=== PATIENT | male | born 1960 | race Caucasian/White ===

== ENCOUNTER 2021-03-05 18:47 | Outpatient (REF) | payer BC, SELFPAY ==
--- NOTE | 2021-03-05 | DI.RAD_ITS ---
Exam(s) XR LUMBAR SPINE COMPLETE EXAM: XR LUMBAR SPINE COMPLETE CLINICAL HISTORY: Low Back Pain. TECHNIQUE: 2D digital imaging was performed. COMPARISON: No exams were available for comparison FINDINGS: BONES: No fracture or destructive lesion. Vertebral bodies are unremarkable. Small endplate osteophyt es. Facet degenerative changes greatest at L4-5 and L5-S1. No spondylolysis. DISKS: Intervertebral disc spaces are maintained. ALIGNMENT: Lumbar spinal alignment is within normal limits. SOFT TISSUE: Normal. IMPRESSION: Degenerative changes greatest of the L4-5 and L5-S1 facet joints. DATA REPOSITORY: RADIATION DOSE DELIVERED:
--- NOTE | 2021-03-05 19:28 | DI.VRAD_ITS ---
PROCEDURE INFORMATION: Exam: XR Lumbosacral Spine Exam date and time: 03/05/2021 6:56 PM Age: 60 years old Clinical indication: Patient HX: Low back pain x6 weeks no recent injury TECHNIQUE: Imaging protocol: XR of the lumbosacral spine. Views: 4 or 5 views. COMPARISON: No relevant prior studies available. FINDINGS: Bones/joints: Five lumbar type vertebral bodies. Pedicles and spinous processes appear intact on the frontal image. Vertebral body heights and disc spaces are maintained. Mild endplate degenerative spurring T11-12, L2-L3, and L3-L4. Oblique views demonstrate intact posterior elements and mild multilevel lower lumbar facet arthropathy. Soft tissues: Unremarkable. Intraperitoneal space: Prior cholecystectomy. IMPRESSION: 1. Mild multilevel lower lumbar facet arthropathy. 2. Minimal multilevel endplate degenerative spurring. 3. No vertebral fracture or significant disc space narrowing. Dictated and Authenticated by: Dago Germain MD. Ordering:JASEN Pandey MD
== END 2021-03-05 18:48 | disposition home or self-care (01) ==
LOC: LBN 18:47
PROVIDERS: PCP Physician Assistant Medical; Visit Provider Physician Assistant Medical
DX: M54.5 Low back pain (principal); M47.817 Spondylosis without myelopathy or radiculopathy, lumbosacral region
CPT/HCPCS: 72110

== ENCOUNTER 2022-07-25 17:40 | Observation (INO) | payer BC, SELFPAY ==
[2022-07-25] VITALS (28 sets, daily range): BP systolic 110–133; BP diastolic 67–84; PULSE 67–105; RESP 12–23; TEMP 36.7–37.2; O2SAT 88–98
--- OUTSIDE RECORDS SUMMARY | 2022-07-25 17:55 | XMS_ITS | Encounter Summary ---
:1960 Author Organization [facility] Address [address] [place] [id number] Care Team Providers Name Role Phone Unknown, Provider Primary Care Provider Encounter Details Date Type Department Care Team Description 11/16/2019 Lab Requisition [facility] Unknown, Provider, Pathology & Laboratory [facility] [address] [facility] [place], [place] [address] [phone] Social History Tobacco Use Types Packs/Day Years Used Date Smoking Tobacco: Never Assessed Sex Assigned at Date Recorded Not on file documented as of this encounter Plan of Treatment Not on filedocumented as of this encounter Procedures Procedure Name Priority Date/Time Associated Diagnosis Comme nts FECAL BACTERIAL Routine 11/16/2019 11:04 Results for this PATHOGENS BY PCR EST procedure a re in the results section. documented in this encounter Results FECAL BACTERIAL PATHOGENS BY PCR (11/16/2019 11:04 EST) [facility] Method Time Signature Salmonella PCR Negative Negative 11/17/2019 [facility] 10:45 [facility] Shigella/Enteroin Negative Negative 11/17/2019 [facility] vasive E. coli 10:45 [facility] HN LAB Negative Negative 11/17/2019 [facility] CAMPYLOBACTER PCR 10:45 [facility] Shiga Toxin PCR Negative Negative 11/17/2019 [facility] 10:45 [facility] Specimen Anatomical Collection Method Collection Time Receive d Time (Source) Location / / Volume Laterality Feces SPECIMEN FROM 11/16/2019 11:04 11/16/2019 [facility] / Unknown EST 21:38 EST Provider Unknown MICROBIOLOGY - GENERAL ORDER DURAN Performing Organization Address City/State/ZIP Code Phon e Number [facility] [address] [place] [phone] SERVICES documented in this encounter Visit Diagnoses Not on filedocumented in this encounter Care Teams Insurance Premium Auditor Relationship Specialty Start Date End Date Unknown, Provider, PCP - General 08/12/17 documented as of this encounter
--- OUTSIDE RECORDS SUMMARY | 2022-07-25 17:55 | XMS_ITS | Continuity of Care Document ---
:1960 Author Organization [facility] Address [address] [place] [address] Care Team Providers Name Role Phone Juice Jensen Primary Care Physician Encounter NCTY_IN Date(s): 07/25/22 - 07/25/22 [facility] [address] [place] [address] Encounter Diagnosis Nausea, vomiting and diarrhea (Discharge Diagnosis) - 07/25/22 Diarrhea, unspecified (Discharge Diagnosis) - 07/25/22 Discharge Disposition: Home or Self Care Attending Physician: Jaspreet Bass MD Admitting Physician: Jaspreet Bass MD Allergies, Adverse Reactions, Alerts Substance Reaction Severity Status metoprolol1 Unknown Active morphine2 Unknown Active [id number] allergic, has had since with no reaction Assessment and Plan Future Appointments Functional Status 07/25/22 Family Member Travel History No recent travel Recent Travel History No recent travel Other exposure to Infectious Disease None Immunizations Given and Recorded Vaccine Date Status Refusal Reason influenza virus vaccine, live 07/20/21 Recorded influenza virus vaccine, live 06/04/20 Recorded influenza virus vaccine, live 06/12/19 Recorded influenza virus vaccine, live 07/06/18 Recorded SARS-CoV-2 (COVID-19) mRNA-1273 vaccine 07/13/21 Recorded SARS-CoV-2 (COVID-19) mRNA-1273 vaccine 12/01/20 Recorded SARS-CoV-2 (COVID-19) mRNA-1273 vaccine 11/03/20 Recorded zoster vaccine, inactivated 01/20/21 Recorded tetanus/diphth/pertuss (Tdap) adult/adol 01/20/21 Recorde d pneumococcal 13-valent conjugate vaccine 12/8/17 Recorde d influenza virus vaccine, inactivated 08/17/17 Recorded Medications !-Bentyl 20 mg oral tablet 20 mg = 1 tab, Oral, QID, PRN pain, # 15 tab, 0 Refill(s), Pharmacy: [facility] #[id number], 176, cm, 07/25/22 1:55:00 EST, Height/Length Dosing, 92, kg, 07/25/22 1:55:00 EST, Weight Dosing Start Date: 07/25/22 Stop Date: 08/01/22 Status: Ordered!-Zofran ODT 4 mg oral tablet, disintegrating 4 mg = 1 tab, Oral, every 6 hr, PRN as needed for nausea/vomiting, # 8 tab, 0 Refill(s), Pharmacy: [facility] #[id number], 175, cm, 07/24/22 9:28:00 EST, Height/Length Dosing, 85, kg, 07/24/22 9:28:00 EST, Weight Dosing Start Date: 07/24/22 Status: OrderedamLODIPine 5 mg oral tablet 1 tab, Oral, Daily, 0 Refill(s) Start Date: 01/29/22 Status: Orderedaspirin 81 mg oral delayed release tablet 1 tab, Oral, every morning, 0 Refill(s) Start Date: 01/29/22 Status: Orderedatorvastatin 80 mg oral tablet See Instructions, TAKE 1 TABLET DAILY, # 90 tab, 3 Refill(s), Pharmacy: [facility] Start Date: 02/03/22 Status: Orderedbenztropine 1 mg oral tablet 1 tab, Oral, every night at bedtime, 0 Refill(s) Start Date: 01/29/22 Status: Orderedbisacodyl 5 mg oral delayed release tablet 1 tab, Oral, Daily, PRN other (see comment), Take as needed, 0 Refill(s) Start Date: 01/29/22 Status: OrderedClaritin 10 mg oral tablet 1 tab, Oral, Daily, PRN other (see comment), Take as needed, 0 Refill(s) Start Date: 01/29/22 Status: Ordereddicyclomine 20 mg oral tablet 20 mg = 1 tab, Oral, QID, # 20 tab, 0 Refill(s), Pharmacy: [facility] #[id number], 175, cm, 04/26/22 20:47:00 EDT, Height/Length Dosing, 104.33, kg, 04/26/22 20:47:00 EDT, Weight Dosing Start Date: 04/26/22 Stop Date: 05/01/22 Status: Ordereddonepezil 10 mg oral tablet 1 tab, Oral, every night at bedtime, Take for 90 days, 0 Refill(s) Start Date: 01/29/22 Status: Orderedfurosemide 20 mg oral tablet 1 tab, Oral, Daily, PRN other (see comment), Take as needed, 0 Refill(s) Start Date: 01/29/22 Status: Orderedgabapentin 300 mg oral capsule 600 mg = 2 cap, Oral, TID, # 180 cap, 1 Refill(s), Pharmacy: [facility] Start Date: 01/29/22 Status: Orderedisosorbide mononitrate 60 mg oral tablet, extended release 60 mg = 1 tab, Oral, Daily, # 90 tab, 3 Refill(s), Pharmacy: [facility], 175, cm, 04/26/22 20:47:00 EDT, Height/Length Dosing, 104.33, kg, 04/26/22 20:47:00 EDT, Weight Dosing Start Date: 05/20/22 Status: Orderedloperamide 2 mg oral capsule 2 mg = 1 cap, Oral, every 4 hr, PRN as needed for loose stool, # 10 cap, 0 Refill(s), Pharmacy: [facility] #[id number], 175, cm, 07/24/22 9:28:00 EST, Height/Length Dosing, 85, kg, 07/24/22 9:28:00 EST, Weight Dosing Start Date: 07/24/22 Status: Orderedlosartan 50 mg oral tablet 50 mg = 1 tab, Oral, Daily, # 90 tab, 0 Refill(s), Pharmacy: [facility] Start Date: 01/29/22 Status: OrderedMisc Prescription 2 tab, Oral, Daily, PRN other (see comment), Magnesium 250 mg tablet; Take as needed, 0 Refill(s) Start Date: 01/29/22 Status: Orderedmultivitamin adult, oral tablet 1 tab, Oral, Daily, Multivitamin 50 Plus Tablet, 0 Refill(s) Start Date: 01/29/22 Status: Orderednitroglycerin 0.4 mg sublingual tablet 1 tab, Oral, As Directed, PRN other (see comment), Take sublingually as needed for 8 days, 0 Refill(s) Start Date: 01/29/22 Status: OrderedOLANZapine 2.5 mg oral tablet 1 tab, Oral, Daily, 0 Refill(s) Start Date: 01/29/22 Status: Orderedpantoprazole 40 mg oral delayed release tablet 1 tab, Oral, Daily, 0 Refill(s) Start Date: 01/29/22 Status: Orderedsertraline 50 mg oral tablet 1 tab, Oral, every morning, 0 Refill(s) Start Date: 01/29/22 Status: Orderedtamsulosin 0.4 mg oral capsule 1 cap, Oral, Daily, # 90 cap, 3 Refill(s), Pharmacy: [facility] Start Date: 03/31/22 Status: Ordered Problem List Condition Confirmation Course Effective Dates Status Health I nformant Status Atherosclerosis of Confirmed Active coronary artery without angina pectoris Chronic kidney Confirmed Active disease stage 3 Depressive disorder Confirmed Active Dyspnea Confirmed Active History of myocardial Confirmed Active infarction History of psychotic Confirmed Active disorder Hypertensive disorder Confirmed Active Insomnia Confirmed Active Procedures Procedure Date Related Diagnosis Body Site Status Colonoscopy1 02/09/21 Completed Cataract surgery2 08/11/20 Completed Egd / Endoscopy3 11/14/19 Completed EEG Awake and Drowsy 10/02/17 Complet ed Spectrophotometry 09/20/17 Completed History of hernia repair 09/11/99 Com pleted Repair of left tendon 09/11/97 Comple clive Procedure on shoulder4 09/11/94 Compl eted Cholecystectomy 09/11/82 Completed 1sm polyps x5, moderate diverticulosis.2Pt reported [id number] rotator cuff Results Laboratory List Name Date Urinalysis Microscopic 07/25/22 Urinalysis with Microscopic 07/25/22 SARS-CoV-2 (COVID-19)/Flu/RSV ([facility]) (COVID-19/Fl u/RSV ([facility])) 07/25/22 CBC w/ Diff 07/25/22 Comprehensive Metabolic Panel (CMP) 07/25/22 Lactic Acid 07/25/22 Procalcitonin 07/25/22 .Manual Differential (NCTY) 07/25/22 Most recent to oldest [Reference Range]: 1 WBC [5.0-10.0 x10^3/mcL] 12.6 x10^3/mcL *HI* (07/25/22 2:17 AM) RBC [4.6-6.0 x10^6/mcL] 5.3 x10^6/mcL (07/25/22 2:17 AM) Segs Man [40-75 %] 78 % *HI* (07/25/22:17 AM) Lymph Man [20-50 %] 15 % *LOW* (07/25/22 2:17 AM) Keith Man 5 % *NA* (07/25/22:17 AM) Eos Man 0 % *NA* (07/25/22: AM) BUN [7-18 mg/dL] 18 mg/dL (07/25/22 2:17 AM) UA Color Yellow (07/25/22 5:39 AM) UA WBC [0-3] 0-3 (07/25/22 5:39 AM) Glucose Level [74-106 mg/dL] 185 mg/dL *HI* (07/25/22:17 AM) Lymph, Atyp Man 1 % *NA* (07/25/22: AM) Potassium Level [3.5-5.1 mmol/L] 3.8 mmol/L (07/25/22:17 AM) MCV [80.0-96.0] 97.3 *HI* (07/25/22 2:17 AM) UA Urobilinogen Normal (07/25/22 5:39 AM) RBC Morph Normal (07/25/22:17 AM) UA Hyal Cast Rare /HPF (07/25/22 5:39 AM) UA Bili [Negative] Negative (07/25/22 5:39 AM) UA Ketones Negative (07/25/22 5:39 AM) AST [15-37 unit/L] 18 unit/L (07/25/22 2:17 AM) ALT [16-63 unit/L] 36 unit/L (07/25/22 2:17 AM) MCHC [31.0-35.0 g/dL] 35.0 g/dL (07/25/22 2:17 AM) Sodium Level [136-145 mmol/L] 138 mmol/L (07/25/22:17 AM) UA RBC [0-2] 0-2 (07/25/22 5:39 AM) UA Leuk Est Negative (07/25/22:39 AM) UA Nitrite Negative (07/25/22:39 AM) UA Glucose [Negative] Negative (07/25/22:39 AM) Hct [41.0-51.0 %] 51.2 % *HI* (07/25/22 AM) UA Bacteria None Seen /HPF (07/25/22:39 AM) Calcium Level [8.5-10.1 mg/dL] 8.7 mg/dL (07/25/22: AM) Albumin Level [3.4-5.0 g/dL] 4.3 g/dL (07/25/22: AM) Protein Total [6.4-8.2 g/dL] 6.9 g/dL (07/25/22: AM) UA Protein Negative (07/25/22:39 AM) MCH [26.0-32.0 pg] 34.0 pg *HI* (07/25/22: AM) Bilirubin Total [0.2-1.0 mg/dL] 0.8 mg/dL (07/25/22 AM) Hgb [14.0-18.0 g/dL] 17.9 g/dL (07/25/22: AM) Alk Phos [46-146 unit/L] 90 unit/L (07/25/22: AM) UA Blood Negative (07/25/22:39 AM) UA Mucous Few /HPF *ABN* (07/25/22:39 AM) Band Man [0-5 %] 1 % (07/25/22: AM) UA Spec Grav >=1.030 *NA* (07/25/22:39 AM) Platelets [130-450 x10^3/mcL] 250 x10^3/mcL (07/25/22:17 AM) CO2 [21-32 mmol/L] 26 mmol/L (07/25/22: AM) Lactic Acid Lvl [0.7-2.1 mmol/L] 1.8 mmol/L (07/25/22 2:17 AM) UA Squam Epithelial [None Seen] Rare (07/25/22 5:39 AM) UA pH 5.5 *NA* (07/25/22 5:39 AM) eGFR Non-AA [>=60] 48 *LOW* (07/25/22 2:17 AM) eGFR AA [>=60] 48 *LOW* (07/25/22 2:17 AM) UA Appear Clear (07/25/22 5:39 AM) Chloride Level [98-107 mmol/L] 103 mmol/L (07/25/22 2:17 AM) Procalcitonin [0.00-0.50 ng/mL] <0.15 ng/mL (07/25/22 2:17 AM) RDW-CV [11.5-17.0 %] 12.3 % (07/25/22 2:17 AM) UA Culture Ind?. Not Applicable (07/25/22 5:39 AM) Abs Neut Man 10.0 x10^3/mcL *NA* (07/25/22 2:17 AM) Creatinine Level [0.70-1.30 mg/dL] 1.59 mg/dL *HI* (07/25/22 2:17 AM) Employed in healthcare? No *NA* (07/25/22 2:22 AM) Symptomatic as defined by CDC? No *NA* (07/25/22 2:22 AM) Hospitalized due to COVID-19? No *NA* (07/25/22 2:22 AM) In ICU? No *NA* (07/25/22 2:22 AM) Group care resident? No *NA* (07/25/22 2:22 AM) status? Not *NA* (07/25/22 2:22 AM) SARS-CoV-2(Covid19)PCR([facility] COVFLURSV) [Negative] Ne gative (07/25/22 2:22 AM) Flu A ([facility] COVFLURSV) [Negative] Negative (07/25/22 2:22 AM) RSV ([facility] COVFLURSV) [Negative] Negative (07/25/22 2:22 AM) Flu B ([facility] COVFLURSV) [Negative] Negative (07/25/22 2:22 AM) Baso Man [0-1 %] 0 % (07/25/22 2:17 AM) Vital Signs Most recent to oldest 1 2 3 [Reference Range]: Temperature Temporal Artery 36.1 Deg C [36-38 Deg C] (07/25/22 1:44 AM) Peripheral Pulse Rate 98 bpm 89 bpm 87 bpm [60-100 bpm] (07/25/22 6:45 AM) (07/25/22 4:41 AM) (07/25/22 1:44 AM) Respiratory Rate [12-24 18 br/min 18 br/min 20 br/mi n br/min] (07/25/22 6:45 AM) (07/25/22 4:41 AM) (07/25/22 1:44 AM) Blood Pressure [90-140/60-90 132/92 mmHg 130/84 mmHg 124 /77 mmHg mmHg] (07/25/22 6:45 AM) (07/25/22 4:41 AM) (07/25/22 1:44 AM) Weight 92.00 kg (07/25/22 1:44 AM) Weight Dosing 92.00 kg (07/25/22 1:55 AM) Height 176.000 cm (07/25/22 1:44 AM) Height/Length Dosing 176.000 cm (07/25/22 1:55 AM) Body Mass Index 30.000 kg/m2 (07/25/22 1:44 AM) Social History Social History Type Response Tobacco chews Tobacco Use:.1 Sex Male 1pt chews Physician Emergency department Note Jaspreet Bass MD: PERFORM Event Display: ED Note Physician Authored Date: [id number] ADAM PALACIOS JR :1960 Age:62 years Sex:Male Visit Date:07/25/2022 Primary Care Physician: Juice Jensen DO Basic Information Time Seen: Jaspreet Bass MD / 07/25/2022 01:58 Chief Complaint Patient states seen here yesterday for N/V/D and abdominal pain. ??States he feels even worse now. ??Continues to have v/d with severe diffuse abdominal pain. History Of Present Illness: HPI 62-year-old male with history of CKD 3, depressive disorder, NM, psychotic disorder, HTN, and insomnia presents for repeat evaluation of nausea, vomiting, and diarrhea now of approximately 36 hours duration, patient is concerned that his symptoms have not resolved (was seen in the ED yesterday and prescribed Zofran and loperamide).?? * Character: non-bloody, no mucus, no pus. * Frequency: emesis??4x??today, stooling 8x??today. * Duration: 36 hours * Denies: recent antibiotics, fresh or salt water exposure, recent hospitalization, travel, drinking untreated water, history of c. difficile. * Fever/chills/rigors: denies. * HIV or immunocompromise: denies. * Cough: denies. ?? M/S/F/SocHx notable for: cholecystectomy; remainder reviewed with patient and in chart.? ROS: Negative constitutional, eye, cardiovascular, pulmonary, GI, , MSK, skin, neurologic, psychiatric, endocrine unless noted in the HPI. ?? Exam HR 87, BP 124/77, RR 20, T 36.1?C, SaO2??94% on room air. Gen:??Pleasant, non-toxic appearing, resting comfortably. HEENT: NC, AT, PEERL, EOMI, neck supple with full range of movement. Resp: Clear to auscultation bilaterally, normal work of breathing, no accessory muscle usage. Card: Regular rate and rhythm with no murmurs, rubs, or gallops, extremities warm and well perfused.?? GI: Non-tender to palpation throughout all quadrants, non-distended, no rebound or guarding. : No suprapubic tenderness to palpation.?? MSK: No visible deformities, strength and tone without visually appreciable deficit. Skin: Normal color with no visible lesions. Neuro: alert and oriented?3, no facial asymmetry, vision and hearing WNL. Psych: Mood and affect appropriate. ?? Labs WBC 12.6, Hb 5.3, sodium one 38, potassium 3.8, glucose 185, creatinine??1.59, AST 18, ALT 36, ALP 90, total bilirubin 0.8, lactic acid 1.8, Procalcitonin <0.15. Negative influenza A, influenza B, RSV, COVID-19. UA - negative nitrate, negative leukocyte esterase, 0-3 WBCs, no bacteria. ?? Imaging CT Abd/Pelvis: 1. No findings for acute appendicitis.?? 2. Perinephric stranding of fat which could have several possible?? etiologies including scarring, third spacing of fluid, inflammatory?? process or infection.?? 3. Small pericardial effusion.?? 4. Fatty infiltration of the pancreas.?? 5. Hiatal hernia. ?? MDM Previous chart, nursing note, and vitals reviewed.?? A:??62-year-old male with history of CKD 3, depressive disorder, NM, psychotic disorder, HTN, and insomnia presents for repeat evaluation of nausea, vomiting, and diarrhea now of approximately 36 hours duration, patient is concerned that his symptoms have not resolved (was seen in the ED yesterday and prescribed Zofran and loperamide). ?? DDx: viral (enteritis, gastroenteritis 2/2 norovirus, influenza, COVID-19, NOS), bacterial gastroenteritis, food poisoning, C. Difficile, dehydration, electrolyte abnormalities, septicemia/bacteremia,DKA, acute appendicitis, inflammatory (Crohn???s vs ulcerative colitis). ?? Evaluation:??given the overall appearance, suspect a viral gastroenteritis. Mild leukocytosis noted, normal lactic acid, normal procalcitonin, and mild elevation the patient???s creatinine consistent with mild dehydration. Patient given Zofran and one liter NS, continue to endorse abdominal discomfort and was unwilling to meaningfully attempt PO intake. 12.5 mg diphenhydramine, 2 mg haloperidol, [id number] ML NS ordered, patient had significant improvement symptoms and was able to take PO. As the patient is on his 2nd??presentation further care and was unable to take PO after the initial interventions, imaging was obtained, this was notable for features consistent with perinephric inflammation, however the patient???s urinalysis is without any features of infection. Doubt developing lobar nephroniaas the patient has no known recent urinary tract infections or other predisposing factors. Patient appears to be physiologically tolerating his symptoms well. Patient prescribed Bentyl and instructed to stay well hydrated. Patient to continue his current Zofran and loperamide. Influenza, RSV, COVID-19swab negative. No features suggestive of sepsis on today???s evaluation. Above evaluation without evidence over the remainder of the differential. ?? Impression: nausea, vomiting, diarrhea. Physical Exam Vitals & Measurements T:??36.1?C ??(Temporal Artery)?? HR:??89??(Peripheral)?? RR:??18?? BP:??130/84?? SpO2:??96%?? HT:??176.000??cm?? WT:??92.00??kg?? BMI:??30.000?? Pain Score:??10?? O2 Therapy:??Room air?? Procedure No Qualifying Data Assessment/Plan Ordered: Communication Order, 07/25/22 2:16:00 EST, Pls po challenge after IV fluids. Thanks! Medication Reconciliation Unchanged amLODIPine (amLODIPine 5 mg oral tablet)1 tab Oral (given by mouth) every day. ?? aspirin (aspirin 81 mg oral delayed release tablet)1 tab Oral (given by mouth) every morning. ?? atorvastatin (atorvastatin 80 mg oral tablet)TAKE 1 TABLET DAILY. Refills: 3. ?? benztropine (benztropine 1 mg oral tablet)1 tab Oral (given by mouth) every night at bedtime. ?? bisacodyl (bisacodyl 5 mg oral delayed release tablet)1 tab Oral (given by mouth) every day as needed other (see comment). Take as needed. ?? dicyclomine (dicyclomine 20 mg oral tablet)1 tab Oral (given by mouth) 4 times a day for 5 Days. Refills: 0. ?? donepezil (donepezil 10 mg oral tablet)1 tab Oral (given by mouth) every night at bedtime. Take for 90 days. ?? furosemide (furosemide 20 mg oral tablet)1 tab Oral (given by mouth) every day as needed other (see comment). Take as needed. ?? gabapentin (gabapentin 300 mg oral capsule)2 Capsules Oral (given by mouth) 3 times a day. Refills: 1. ?? isosorbide mononitrate (isosorbide mononitrate 60 mg oral tablet, extended release)1 tab Oral (givenby mouth) every day. Refills: 3. ?? loperamide (loperamide 2 mg oral capsule)1 Capsules Oral (given by mouth) every 4 hours as needed asneeded for loose stool. Refills: 0. ?? loratadine (Claritin 10 mg oral tablet)1 tab Oral (given by mouth) every day as needed other (see comment). Take as needed. ?? losartan (losartan 50 mg oral tablet)1 tab Oral (given by mouth) every day. Refills: 0. ?? multivitamin (multivitamin adult, oral tablet)1 tab Oral (given by mouth) every day. Multivitamin 50Plus Tablet. ?? nitroglycerin (nitroglycerin 0.4 mg sublingual tablet)1 tab Oral (given by mouth) As Directed as needed other (see comment). Take sublingually as needed for 8 days. ?? OLANZapine (OLANZapine 2.5 mg oral tablet)1 tab Oral (given by mouth) every day. ?? ondansetron (!-Zofran ODT 4 mg oral tablet, disintegrating)1 tab Oral (given by mouth) every 6 hoursas needed as needed for nausea/vomiting. Refills: 0. ?? Other [place] [place]2 tab Oral (given by mouth) every day as needed other (see comment). Magnesium 250 mg tablet; Take as needed. ?? pantoprazole (pantoprazole 40 mg oral delayed release tablet)1 tab Oral (given by mouth) every day. ?? sertraline (sertraline 50 mg oral tablet)1 tab Oral (given by mouth) every morning. ?? tamsulosin (tamsulosin 0.4 mg oral capsule)1 Capsules Oral (given by mouth) every day. Refills: 3. Problem List/Past Medical History Ongoing Atherosclerosis of coronary artery without angina pectoris Chronic kidney disease stage 3 Depressive disorder Dyspnea History of myocardial infarction History of psychotic disorder Hypertensive disorder Insomnia Historical Constipation Musculoskeletal symptom Pain of left hip joint Procedure/Surgical History ???Colonoscopy (02/10/2021)???Cataract surgery (08/12/2020)???Egd / Endoscopy (11/15/2019)???EEG Awake and Drowsy (10/03/2017)???Spectrophotometry (09/21/2017)???History of hernia repair (09/12/1999)???Repair of left tendon (09/12/1997)???Procedure on shoulder (09/12/1994)???Cholecystectomy (09/12/1982) Medication Administration Given !-Haldol, 2 mg, Slow IV Push diphenhydrAMINE, 12.5 mg, IV Push NS bolus, 1000 mL, IV Piggyback NS bolus, 500 mL, IV Piggyback Zofran, 4 mg, IV Push Allergies metoprolol morphine Social History Electronic Cigarette/Vaping Electronic Cigarette Use: Never. Tobacco chews Tobacco Use:.- Comments: pt chews Family History Chronic obstructive lung disease: Mother. Emphysema: Mother. Hypertensive disorder: Mother. Prostate cancer: Father. Lab Results CBC and Differential?? LATEST RESULTS?? HISTORICAL RESULTS?? WBC?? 07/25/22 02:17?? 12.6 ??High?? 07/24/22?? 10.2 ??High?? RBC?? 07/25/22 02:17?? 5.3?? 07/24/22?? 5.2?? Hgb?? 07/25/22 02:17?? 17.9?? 07/24/22?? 17.7?? Hct?? 07/25/22 02:17?? 51.2 ??High?? 07/24/22?? 49.7?? MCV?? 07/25/22 02:17?? 97.3 ??High?? 07/24/22?? 95.2?? MCH?? 07/25/22 02:17?? 34.0 ??High?? 07/24/22?? 33.9 ??High?? MCHC?? 07/25/22 02:17?? 35.0?? 07/24/22?? 35.6 ??High?? RDW-CV?? 07/25/22 02:17?? 12.3?? 07/24/22?? 12.1?? Platelets?? 07/25/22 02:17?? 250?? 07/24/22?? 254?? Segs Man?? 07/25/22 02:17?? 78 ??High?? 07/24/22?? 81 ??High?? Lymph Man?? 07/25/22 02:17?? 15 ??Low?? 07/24/22?? 14 ??Low?? Keith Man?? 07/25/22 02:17?? 5?? 07/24/22?? 3?? Eos Man?? 07/25/22 02:17?? 0?? 07/24/22?? 2?? Baso Man?? 07/25/22 02:17?? 0?? 07/24/22?? 0?? Band Man?? 07/25/22 02:17?? 1?? 07/24/22?? 0?? Lymph, Atyp Man?? 07/25/22 02:17?? 1? Abs Neut Man?? 07/25/22 02:17?? 10.0?? 04/26/22?? 12.6?? RBC Morph?? 07/25/22 02:17?? Normal?? 07/24/22?? Normal? Routine Chemistry?? LATEST RESULTS?? HISTORICAL RESULTS?? Sodium Level?? 07/25/22 02:17?? 138?? 07/24/22?? 141?? Potassium Level?? 07/25/22 02:17?? 3.8?? 07/24/22?? 3.4 ??Low?? Chloride Level?? 07/25/22 02:17?? 103?? 07/24/22?? 103?? CO2?? 07/25/22 02:17?? 26?? 07/24/22?? 29?? Alk Phos?? 07/25/22 02:17?? 90?? 07/24/22?? 94?? AST?? 07/25/22 02:17?? 18?? 07/24/22?? 17?? ALT?? 07/25/22 02:17?? 36?? 07/24/22?? 41?? BUN?? 07/25/22 02:17?? 18?? 07/24/22?? 15?? Glucose Level?? 07/25/22 02:17?? 185 ??High?? 07/24/22?? 111 ??High?? Creatinine Level?? 07/25/22 02:17?? 1.59 ??High?? 07/24/22?? 1.36 ??High?? eGFR AA?? 07/25/22 02:17?? 48 ??Low?? 07/24/22?? 58 ??Low?? eGFR Non-AA?? 07/25/22 02:17?? 48 ??Low?? 07/24/22?? 58 ??Low?? Calcium Level?? 07/25/22 02:17?? 8.7?? 07/24/22?? 9.2?? Protein Total?? 07/25/22 02:17?? 6.9?? 07/24/22?? 7.9?? Albumin Level?? 07/25/22 02:17?? 4.3?? 07/24/22?? 4.6?? Bilirubin Total?? 07/25/22 02:17?? 0.8?? 07/24/22?? 0.7?? Lactic Acid Lvl?? 07/25/22 02:17?? 1.8?? 07/24/22?? 1.6? Endocrinology?? LATEST RESULTS?? Procalcitonin?? 07/25/22 02:17?? <0.15? UA Macroscopic?? LATEST RESULTS?? HISTORICAL RESULTS?? UA Color?? 07/25/22 05:39?? Yellow?? 04/26/22?? Yellow?? UA Appear?? 07/25/22 05:39?? Clear?? 04/26/22?? Clear?? UA Glucose?? 07/25/22 05:39?? Negative?? 04/26/22?? Negative?? UA Bili?? 07/25/22 05:39?? Negative?? 04/26/22?? Negative?? UA Ketones?? 07/25/22 05:39?? Negative?? 04/26/22?? Negative?? UA Spec Grav?? 07/25/22 05:39?? >=1.030?? 04/26/22?? 1.015?? UA Blood?? 07/25/22 05:39?? Negative?? 04/26/22?? Negative?? UA pH?? 07/25/22 05:39?? 5.5?? 04/26/22?? 5.5?? UA Protein?? 07/25/22 05:39?? Negative?? 04/26/22?? Negative?? UA Urobilinogen?? 07/25/22 05:39?? Normal?? 04/26/22?? Normal?? UA Nitrite?? 07/25/22 05:39?? Negative?? 04/26/22?? Negative?? UA Leuk Est?? 07/25/22 05:39?? Negative?? 04/26/22?? Negative?? UA Culture Ind?.?? 07/25/22 05:39?? Not Applicable? UA Microscopic?? LATEST RESULTS?? UA WBC?? 07/25/22 05:39?? 0-3?? UA RBC?? 07/25/22 05:39?? 0-2?? UA Squam Epithelial?? 07/25/22 05:39?? Rare?? UA Mucous?? 07/25/22 05:39?? Few Abnormal?? UA Bacteria?? 07/25/22 05:39?? None Seen?? UA Hyal Cast?? 07/25/22 05:39?? Rare? Infectious Disease?? LATEST RESULTS?? Employed in healthcare??? 07/25/22 02:22?? No?? Symptomatic as defined by CDC??? 07/25/22 02:22?? No?? Hospitalized due to COVID-19??? 07/25/22 02:22?? No?? In ICU??? 07/25/22 02:22?? No?? Group care resident??? 07/25/22 02:22?? No?? status??? 07/25/22 02:22?? Not ?? SARS-CoV-2(Covid19)PCR([facility] COVFLURSV)?? 07/25/22 02:22?? Negative?? Flu A ([facility] COVFLURSV)?? 07/25/22 02:22?? Negative?? Flu B ([facility] COVFLURSV)?? 07/25/22 02:22?? Negative?? RSV ([facility] COVFLURSV)?? 07/25/22 02:22?? Negative? Electronically Signed on 07/25/22 06:21 AM Jaspreet Bass MD Emergency department Discharge instructions Jaspreet Bass MD: PERFORM Event Display: ED Discharge Information Authored Date: [id number] ADAM PALACIOS JR :1960 Age:62 years Sex:Male Visit Date:07/25/2022 Primary Care Physician: Juice Jensen DO Discharge Instructions We would like to thank you for allowing us to assist you with your healthcare needs. The following includes patient education materials and information regarding your injury/illness. ?? [facility] seen at[facility] for evaluation for evaluation of nausea, vomitingand??diarrhea.??Please read and follow all of the instructions below. ?? Please follow up with your primary care physician??as needed. When calling for follow-up care, please make the office aware that this follow-up is from your recent emergency room visit.? Your care today was limited to identifying and treating emergent medical problems only. Many people have subtle differences in their test results that require follow up with their outpatient physician(s) to correctly determine if this represents a normal variation or concerning abnormality with respect to your specific health.??The care given to you today was limited to identifying and treating emergent medical problems - you need to request a copy of all of your medical records from today's visit and follow up with your outpatient physician(s) to review both today's visit and your overall health. If you have any new symptoms or if you are at all concerned about your health please return immediately to the emergency department. ?? Prescriptions: If you are uninsured or have financial difficulties with filling your prescription(s), you may consider using a free pharmacy discount service such as [employer] ([employer]) or [employer] ([employer]). These services allow you to search for a medication on your phone (or computer) and obtain a coupon that usually has a significant discount from the list mcfadden at a pharmacy. Your physician does not have a financial relationship with either of these services. You may also wish to speak with your physician to determine if lower cost prescriptions are possible. ?? Dicyclomine (Brand Name: Bentyl) This medication is used to reduce abdominal cramping due to diarrhea or irritable bowel disease. This medication works by slowing the natural movements of the gut and by relaxing the muscles in the stomach and intestines. Dicyclomine belongs to a class of drugs known as anticholinergics/antispasmodics. This medication must not be used in children younger than 6 months old because of the risk of serious side effects. ?Take 20 mg every 6 hours as needed for treatment of abdominal cramps. ?Dicyclomine treats only the symptoms, not the cause of diarrhea (e.g. infection) or irritable bowel disease. ?Stop taking this medication and seek immediate medical attention if any of these unlikely but serious side effects occur: severe constipation/nausea/vomiting, stomach/abdominal pain, uncomfortable fullness of the stomach/abdomen, bloody diarrhea or if you are otherwise concerned about your health. ?Please read all of the instructions and warnings below as well as on the package insert.? Dicyclomine - How To Use: ?Take this medication by mouth, usually 4 times a day (before meals and at bedtime) or as directed by your doctor. To reduce your risk of side effects, your doctor may direct you to start this medication at a low dose and gradually increase your dose. Follow your doctor's instructions carefully. ?If you are using the liquid form of this medication, carefully measure the dose using a special measuring device/spoon. Do not use a household spoon because you may not get the correct dose. Mix the dose of liquid with an equal amount of water before taking it. ?Antacids lower the absorption of dicyclomine. Do not take this medication at the same time as antacids. If you are taking an antacid, take it after meals and take dicyclomine before meals. ?The dosage is based on your age, medical condition, and response to treatment. ?Do not increase your dose or take this drug more often without your doctor's approval. Your condition will not improve any faster and the risk of serious side effects may increase. ?If this medication has been used regularly for a long time or in high doses, withdrawal symptoms (such as dizziness, sweating, vomiting) may rarely occur if you suddenly stop using this medication. To prevent withdrawal reactions, your doctor may reduce your dose gradually. Consult your doctor or pharmacist for more details, and report any withdrawal reactions right away. ?Along with its benefits, this medication may rarely cause abnormal drug- seeking behavior (addiction). Take this medication exactly as prescribed to lessen the risk of addiction. ?Tell your doctor if your condition persists or worsens. ?? Dicyclomine - Side Effects: ?Dizziness, drowsiness, lightheadedness, weakness, blurred vision, dry eyes, dry mouth, nausea,constipation, and abdominal bloating may occur. If any of these effects persist or worsen, tell yourdoctor or pharmacist promptly. ?To relieve dry mouth, suck (sugarless) hard candy or ice chips, chew (sugarless) gum, drink water, or use a saliva substitute. To relieve dry eyes, consult your pharmacist for artificial tears orother eye lubricants. ?To prevent constipation, eat a diet adequate in fiber, drink plenty of water, and exercise. Consult your pharmacist for help in selecting a laxative (such as a stimulant type with stool softener). ?Remember that your doctor has prescribed this medication because he or she has judged that thebenefit to you is greater than the risk of side effects. Many people using this medication do not have serious side effects. ?Tell your doctor right away if any of these unlikely but serious side effects occur: decreasedsweating, dry/hot/flushed skin, fast/irregular heartbeat, loss of coordination, slurred speech, mental/mood changes (such as confusion, hallucinations, agitation, nervousness, unusual excitement), diffi culty urinating, decreased sexual ability. ?Get medical help right away if you have any very serious side effects, including: eye pain/swelling/redness, vision changes (such as seeing rainbows around lights at night). ?A very serious allergic reaction to this drug is rare. However, seek immediate medical attention if you notice any symptoms of a serious allergic reaction, including: rash, itching/swelling (especially of the face/tongue/throat), severe dizziness, trouble breathing. ?This is not a complete list of possible side effects. If you notice other effects not listed above, contact your doctor or pharmacist. ?? Dicyclomine - Precautions: ?Before taking dicyclomine, tell your doctor or pharmacist if you are allergic to it; or if youhave any other allergies. This product may contain inactive ingredients, which can cause allergic reactions or other problems. Talk to your pharmacist for more details. ?Before using this medication, tell your doctor or pharmacist your medical history, especially of: personal or family history of glaucoma (angle-closure type), enlarged prostate, problems with urination due to a blocked urinary tract, other stomach/intestinal problems (such as slow gut, blockage,ulcerative colitis, infection, little/no stomach acid, ileostomy/colostomy patients with diarrhea), overactive thyroid, heart problems (such as coronary artery disease, angina, congestive heart failure, fast/irregular heartbeat, heart problems due to severe bleeding), high blood pressure, heartburn problems (such as acid reflux, hiatal hernia, esophagus problems), certain nervous system problem (autonomic neuropathy), myasthenia gravis, liver problems, kidney problems. ?This drug may make you dizzy or drowsy or cause blurred vision. Do not drive, use machinery, or do any activity that requires alertness or clear vision until you are sure you can perform such activities safely. Limit alcoholic beverages. ?This medication may make you sweat less, making you more likely to get heat stroke. Avoid doing things that may cause you to overheat, such as hard work or exercise in hot weather, or using hot tubs. When the weather is hot, drink a lot of fluids and dress lightly. If you overheat, quickly look for a place to cool down and rest. Get medical help right away if you have a fever that does not go away, mental/mood changes, headache, or dizziness. ?Older adults may be more sensitive to the side effects of this drug, especially drowsiness, confusion, unusual excitement, constipation, fast heartbeat, and urination problems. Drowsiness and confusion can increase the risk of falling. ?During , this medication should be used only when clearly needed. Discuss the risks and benefits with your doctor. ?This medication passes into breast milk and may have undesirable effects on a nursing . The printed circuit board assembly repairer recommends that you do not breast-feed while using this drug. Consult your doctor for more details. ?? Dicyclomine - Drug Interactions: ?Drug interactions may change how your medications work or increase your risk for serious side effects. This document does not contain all possible drug interactions. Keep a list of all the products you use (including prescription/nonprescription drugs and herbal products) and share it with your d octor and pharmacist. Do not start, stop, or change the dosage of any medicines without your doctor's approval. ?Some products that may interact with this drug include: potassium tablets/capsules, drugs thatare affected by slowed gut movement (such as pramlintide). ?Dicyclomine may affect the absorption of other products such as levodopa, certain azole anti-fungal drugs (ketoconazole, itraconazole), slowly-dissolving forms of digoxin, among others. If you are taking either ketoconazole or itraconazole, take it at least 2 hours before dicyclomine. ?Many other drugs that also cause dry mouth and constipation may interact with anticholinergics/antispasmodics such as dicyclomine. Tell your doctor or pharmacist about all the products you take, including: amantadine, other anticholinergic drugs (such as atropine, glycopyrrolate, scopolamine), other antispasmodic drugs (such as clidinium, propantheline), belladonna alkaloids, certain drugs usedto treat Parkinson's disease (such as benztropine, trihexyphenidyl), certain drugs used to treat irregular heart rhythms (such as disopyramide, quinidine), MAO inhibitors (isocarboxazid, linezolid, methylene blue, moclobemide, phenelzine, procarbazine, rasagiline, selegiline, tranylcypromine), phenothiazines (such as chlorpromazine), tricyclic antidepressants (such as amitriptyline).?Tell your doctor or pharmacist if you are taking other products that cause drowsiness including alcohol, antihistamines (such as cetirizine, diphenhydramine), drugs for sleep or anxiety (such as alprazolam, diazepam, zolpidem), muscle relaxants, and narcotic pain relievers (such as codeine).?Check the labels on all your medicines (such as allergy or [id number] products, diet aids)because they may contain ingredients that cause drowsiness or a fast heartbeat. Ask your pharmacist about using those products safely.?This medication may interfere with certain laboratory tests (including gastric secretion tests), possibly causing false test results. Make sure laboratory personnel and all your doctors know you use this drug. ? Diagnosis from Today's Visit Nausea, vomiting and diarrhea Diarrhea, unspecified Discharge Vitals Temperature??(Temporal Artery) 97.0 ??F (36.1 ??C) Heart Rate??(Peripheral) 89 Respiratory Rate?? 18 Blood Pressure?? 130/84?? Height?? 69.29 in (176.000 cm) Weight?? 202.86 lb (92.00 kg) BMI?? 30.000 Allergies metoprolol morphine What to Do Next Upcoming Scheduled Appointments January. 2022 3:20 PM EDT ?? You were treated today on an emergency basis; it may be mcclain to contact your primary care provider to notify them of your visit today. You may have been referred to your regular doctor or a specialist,please follow up as instructed. If your condition worsens or you can't get in to see the doctor, contact the Emergency Department. Medications What How Much When Why Instructions Next Dose Changed dicyclomine (!-Bentyl 20 mg oral tablet) 1 tab Oral (given by mouth) 4 times a day as needed for pain Nausea, vomiting and diarrhea Duration: 7 Days Pickup at [facility] Changed dicyclomine (dicyclomine 20 mg oral tablet) 1 tab Oral (given by mouth) 4 times a day Abdominal pain Duration: 5 Days Unchanged amLODIPine (amLODIPine 5 mg oral tablet) 1 tab Oral (given by mouth) Every day Unchanged aspirin (aspirin 81 mg oral delayed release tablet) 1 tab Oral (given by mouth) Every morning Unchanged atorvastatin (atorvastatin 80 mg oral tablet) See instructions TAKE 1 TABLET DAILY ?? Unchanged benztropine (benztropine 1 mg oral tablet) 1 tab Oral (given by mouth) Every night at bedtime Unchanged bisacodyl (bisacodyl 5 mg oral delayed release tablet) 1 tab Oral (given by mouth) Every day as needed for other (see comment) Take as needed ?? Unchanged donepezil (donepezil 10 mg oral tablet) 1 tab Oral (given by mouth) Every night at bedtime Take for 90 days ?? Unchanged furosemide (furosemide 20 mg oral tablet) 1 tab Oral (given by mouth) Every day as needed for other (see comment) Take as needed ?? Unchanged gabapentin (gabapentin 300 mg oral capsule) 2 Capsules Oral (given by mouth) 3 times a day Back pain Unchanged isosorbide mononitrate (isosorbide mononitrate 60 mg oral tablet, extended release) 1 tab Oral (given by mouth) Every day Atherosclerosis of coronary artery without angina pectoris Unchanged loperamide (loperamide 2 mg oral capsule) 1 Capsules Oral (given by mouth) Every 4 hours as needed for as needed for loose stool Gastroenteritis Hypokalemia Unchanged loratadine (Claritin 10 mg oral tablet) 1 tab Oral (given by mouth) Every day as needed for other (see comment) Take as needed ?? Unchanged losartan (losartan 50 mg oral tablet) 1 tab Oral (given by mouth) Every day Hypertensive disorder Unchanged multivitamin (multivitamin adult, oral tablet) 1 tab Oral (given by mouth) Every day Multivitamin 50 Plus Tablet ?? Unchanged nitroglycerin (nitroglycerin 0.4 mg sublingual tablet) 1 tab Oral (given by mouth) As Directed as needed for other (see comment) Take sublingually as needed for 8 days ?? Unchanged OLANZapine (OLANZapine 2.5 mg oral tablet) 1 tab Oral (given by mouth) Every day Unchanged ondansetron (!-Zofran ODT 4 mg oral tablet, disintegrating) 1 tab Oral (given by mouth) Every 6 hours as needed for as needed for nausea/vomiting Gastroenteritis Hypokalemia Unchanged Other Prescription (Misc Prescription) 2 tab Oral (given by mouth) Every day as needed for other (see comment) Magnesium 250 mg tablet; Take as needed ?? Unchanged pantoprazole (pantoprazole 40 mg oral delayed release tablet) 1 tab Oral (given by mouth) Every day Unchanged sertraline (sertraline 50 mg oral tablet) 1 tab Oral (given by mouth) Every morning Unchanged tamsulosin (tamsulosin 0.4 mg oral capsule) 1 Capsules Oral (given by mouth) Every day Pharmacy Information [facility]: [address], [place] [id number] [phone] Tests Performed Medications and Immunizations Administered Given !-Haldol, 2 mg, Slow IV Push diphenhydrAMINE, 12.5 mg, IV Push NS bolus, 1000 mL, IV Piggyback NS bolus, 500 mL, IV Piggyback Zofran, 4 mg, IV Push Lab Test Name Test Result Date/Time WBC 12.6 x10^3/mcL 07/25/2022 02:17 EST RBC 5.3 x10^6/mcL 07/25/2022 02:17 EST Hgb 17.9 g/dL 07/25/2022 02:17 EST Hct 51.2 % 07/25/2022 02:17 EST MCV 97.3 07/25/2022 02:17 EST MCH 34.0 pg 07/25/2022 02:17 EST MCHC 35.0 g/dL 07/25/2022 02:17 EST RDW-CV 12.3 % 07/25/2022 02:17 EST Platelets 250 x10^3/mcL 07/25/2022 02:17 EST Segs Man 78 % 07/25/2022 02:17 EST Lymph Man 15 % 07/25/2022 02:17 EST Keith Man 5 % 07/25/2022 02:17 EST Eos Man 0 % 07/25/2022 02:17 EST Baso Man 0 % 07/25/2022 02:17 EST Band Man 1 % 07/25/2022 02:17 EST Lymph, Atyp Man 1 % 07/25/2022 02:17 EST Abs Neut Man 10.0 x10^3/mcL 07/25/2022 02:17 EST RBC Morph Normal 07/25/2022 02:17 EST Sodium Level 138 mmol/L 07/25/2022 02:17 EST Potassium Level 3.8 mmol/L 07/25/2022 02:17 EST Chloride Level 103 mmol/L 07/25/2022 02:17 EST CO2 26 mmol/L 07/25/2022 02:17 EST Alk Phos 90 unit/L 07/25/2022 02:17 EST AST 18 unit/L 07/25/2022 02:17 EST ALT 36 unit/L 07/25/2022 02:17 EST BUN 18 mg/dL 07/25/2022 02:17 EST Glucose Level 185 mg/dL 07/25/2022 02:17 EST Creatinine Level 1.59 mg/dL 07/25/2022 02:17 EST eGFR AA 48 07/25/2022 02:17 EST eGFR Non-AA 48 07/25/2022 02:17 EST Calcium Level 8.7 mg/dL 07/25/2022 02:17 EST Protein Total 6.9 g/dL 07/25/2022 02:17 EST Albumin Level 4.3 g/dL 07/25/2022 02:17 EST Bilirubin Total 0.8 mg/dL 07/25/2022 02:17 EST Lactic Acid Lvl 1.8 mmol/L 07/25/2022 02:17 EST Procalcitonin <0.15 ng/mL 07/25/2022 02:17 EST UA Color YELLOW. 07/25/2022 05:39 EST UA Appear CLEAR. 07/25/2022 05:39 EST UA Glucose NEGATIVE 07/25/2022 05:39 EST UA Bili NEGATIVE 07/25/2022 05:39 EST UA Ketones NEGATIVE 07/25/2022 05:39 EST UA Spec Grav >=1.030 07/25/2022 05:39 EST UA Blood NEGATIVE 07/25/2022 05:39 EST UA pH 5.5 07/25/2022 05:39 EST UA Protein NEGATIVE 07/25/2022 05:39 EST UA Urobilinogen 0.2 Uro 07/25/2022 05:39 EST UA Nitrite NEGATIVE 07/25/2022 05:39 EST UA Leuk Est NEGATIVE 07/25/2022 05:39 EST UA Culture Ind?. Not Applicable 07/25/2022 05:39 EST UA WBC 0-3 07/25/2022 05:39 EST UA RBC 0-2 07/25/2022 05:39 EST UA Squam Epithelial Rare 07/25/2022 05:39 EST UA Mucous Few 07/25/2022 05:39 EST UA Bacteria None Seen 07/25/2022 05:39 EST UA Hyal Cast Rare 07/25/2022 05:39 EST Employed in healthcare? No 07/25/2022 02:22 EST Symptomatic as defined by CDC? No 07/25/2022 02:22 EST Hospitalized due to COVID-19? No 07/25/2022 02:22 EST In ICU? No 07/25/2022 02:22 EST Group care resident? No 07/25/2022 02:22 EST status? Not 07/25/2022 02:22 EST SARS-CoV-2(Covid19)PCR(GXpert COVFLURSV) NEGATIVE 07/25/2022 02:22 EST Flu A (GXpert COVFLURSV) NEGATIVE 07/25/2022 02:22 EST Flu B (GXpert COVFLURSV) Neg-GeneXPert 07/25/2022 02:22 EST RSV (GXpert COVFLURSV) Neg-GeneXPert 07/25/2022 02:22 EST Patient/Wood Machinist Signature Patient Name:ADAM PALACIOS JR I have received this information and my questions have been answered. Patient/Wood Machinist Name: Patient/Wood Machinist Signature: Relationship to Patient: Witness Name/Signature: Date: Electronically Signed on: 07/25/2022 06:22 ESTSigned by:CLIFF Patient Care team information Care Team PersonnelName: Juice Jensen DO Position: Physician Member Role: Primary Care Physician Address: Address: [address] [address]- [place] Name: Jaspreet Bass MD Position: Physician Member Role: Attending Physician Name: Susanna Beauchamp Position: Nurse Member Role: ED Nurse Care Team Related PersonsName: CALLUM PALACIOS Address: Home [address] [place] [id number]
--- OUTSIDE RECORDS SUMMARY | 2022-07-25 17:55 | XMS_ITS | Encounter Summary ---
:1960 Author Organization [facility] Address [address] [place] [address] Care Team Providers Name Role Phone Unknown, Provider Primary Care Provider Reason for Visit Reason Comments Other Encounter Details Date Type Department Care Team Description 12/29/2020 Refill [facility] [place] Menendez MD Other [facility] [address] [facility] [address] [facility] [address] [place] [address] [place] [address] (Wo rk) Social History Tobacco Use Types Packs/Day Years Used Date Smoking Tobacco: Never Assessed Sex Assigned at Date Recorded Not on file documented as of this encounter Ordered Prescriptions Prescription Sig Dispensed Refills Start Date End Date donepeziL (ARICEPT) 10 mg TAKE 1 TABLET AT 90 Tab 1 12/1107/03/2021 tablet BEDTIME documented in this encounter Miscellaneous Notes Telephone Encounter - Kimberly Alexis RN - 12/29/2020 1006 EDT Request: donepezil 10 mg qhs Last OV: 08/13/2021 Next OV: needs scheduling Ref Date: 08/13 same Action: Escript as tabbed Please schedule patient for MOCA f/u when next available. You may need to schedule with Riana. documented in this encounter Plan of Treatment Not on filedocumented as of this encounter Visit Diagnoses Not on filedocumented in this encounter Discontinued Medications Medication Sig Discontinue Reason Start Date End Date donepezil (ARICEPT) 10 TAKE 1 TABLET AT 06/18/2020 0 12/29/2020 mg tablet BEDTIME documented as of this encounter Care Teams Industrial Millwright Relationship Specialty Start Date End Date Unknown, Provider, PCP - General 08/12/17 documented as of this encounter
--- OUTSIDE RECORDS SUMMARY | 2022-07-25 17:55 | XMS_ITS | Encounter Summary ---
:1960 Author Organization [facility] Address [address] [place] [address] Care Team Providers Name Role Phone Unknown, Provider Primary Care Provider Reason for Visit Reason Comments Other Encounter Details Date Type Department Care Team Description 06/18/2020 Refill [facility] France Menendez MD Other [facility] Clinic [address] [facility] [address] [facility] [address] [place] [address] [place] [address] (Wo rk) Social History Tobacco Use Types Packs/Day Years Used Date Smoking Tobacco: Never Assessed Sex Assigned at Date Recorded Not on file documented as of this encounter Ordered Prescriptions Prescription Sig Dispensed Refills Start Date End Date donepezil (ARICEPT) 10 mg TAKE 1 TABLET AT 90 Tab 1 03/202012/29/2020 tablet BEDTIME documented in this encounter Miscellaneous Notes Telephone Encounter - Radha Goodwin - 07/01/2020 0912 EDT lmom for pt to call back to set up apt Telephone Encounter - Kimberly Alexis RN - 06/18/2020 0827 EDT Request: donezepil 10 mg qhs Last OV: 03/06/2020 Next OV: needs scheduling - canceled d/t covid and Dr. Menendez's medical leave Reference Date: 03/25/2020 Action: escript as tabbed Please schedule pt for f/u with Dr. Menendez when next available. documented in this encounter Plan of Treatment Not on filedocumented as of this encounter Visit Diagnoses Not on filedocumented in this encounter Discontinued Medications Medication Sig Discontinue Reason Start Date End Date donepeziL (ARICEPT) 10 mg Take 1 Tab by mouth 03/25/20 20 06/18/2020 tablet at bedtime. documented as of this encounter Historical Medications This list may reflect changes made after this encounter. Medication Sig Dispensed Refills Start Date End Date zaleplon (SONATA) 5 mg 0 06/18/2020 capsule sertraline (ZOLOFT) 50 mg Take 50 mg by mouth 0 0 03/13/2020 tablet daily. OLANZapine (ZYPREXA) 5 mg 1 tab(s) orally once 0 tablet a day at hs OLANZapine (ZYPREXA) 2.5 mg Take 2.5 mg by mouth 0 06/18/2020 tablet at bedtime. Carisoprodol 250 mg tablet 1 tab(s) orally 4 0 times a day pantoprazole (PROTONIX) 40 Take 40 mg by mouth 0 05/26/2020 mg tablet daily before breakfast. loperamide (IMODIUM) 2 mg 1 cap(s) orally 0 capsule every 4 hours,PRN losartan (COZAAR) 100 mg 0 05/05/2020 tablet atorvastatin (LIPITOR) 80 Take 80 mg by mouth 0 0 05/08/2020 mg tablet daily. isosorbide mononitrate Take 60 mg by mouth 0 04/13 (IMDUR) 60 mg CR tablet daily. amLODIPine (NORVASC) 5 mg Take 5 mg by mouth 0 tablet daily. clopidogreL (PLAVIX) 75 mg 1 tab(s) orally once 0 tablet a day benztropine (COGENTIN) 0.5 TAKE 1 TABLET BY 0 10/2019 mg tablet MOUTH EVERY NIGHT benztropine (COGENTIN) 1 mg Take 1 mg by mouth 0 06/18/2020 tablet at bedtime. acetaminophen (TYLENOL) 325 2 tab(s) orally 0 mg tablet every 6 hours,PRN added in this encounter Care Teams Music Therapist Relationship Specialty Start Date End Date Unknown, Provider, PCP - General 08/12/17 documented as of this encounter
--- OUTSIDE RECORDS SUMMARY | 2022-07-25 17:55 | XMS_ITS | Encounter Summary ---
:1960 Author Organization [facility] Address [address] [place] [address] Care Team Providers Name Role Phone Unknown, Provider Primary Care Provider Reason for Visit Reason Onset Date Comments Medications Refill 09/23/2021 Encounter Details Date Type Department Care Team Description 09/23/2021 Refill [facility] [place] Menendez MD Medications Refill [facility] [address] [place] [address] [place] [address] (Wo rk) Social History Tobacco Use Types Packs/Day Years Used Date Smoking Tobacco: Never Assessed Sex Assigned at Date Recorded Not on file documented as of this encounter Ordered Prescriptions Prescription Sig Dispensed Refills Start Date End Date donepezil (ARICEPT) 10 mg Take 1 Tablet by 30 Tablet 3 09/1210/16/2021 tablet mouth daily. documented in this encounter Miscellaneous Notes Addendum Note - Kimberly Skinner RN - 09/29/2021 1130 EST Addended by: KIMBERLY SKINNER on: 09/29/2021 11:30 Modules accepted: Orders Telephone Encounter - Kimberly Skinner RN - 09/29/2021 1122 EST Escript for Arricept 10 mg daily. Left message for them to call and make an appointment for f/u - MOC[facility] [address] Menendez. Telephone Encounter - Kimberly Skinner RN - 09/24/2021 1531 EST Riana referred back to your last televist in 08/2020. Your note references his need to come in in Spring 2020 when the covid was over - this did not happen. Riana was under the impression that at some point you were going to stop the Arricept. They have 14 days left and will need to reorder next week if he is to continue. How would you like to proceed? Telephone Encounter - Kimberly Skinner RN - 09/24/2021 0941 EST Left message for Riana to retrun my call. Telephone Encounter - Jayde Senior MA - 09/23/2021 1441 EST Refill Aricept. Would like to talk with RN before getting a refill [facility] order pharmacy. documented in this encounter Plan of Treatment Not on filedocumented as of this encounter Visit Diagnoses Not on filedocumented in this encounter Discontinued Medications Medication Sig Discontinue Reason Start Date End Date donepezil (ARICEPT) 10 TAKE 1 TABLET AT 07/03/2021 0 09/29/2021 mg tablet BEDTIME donepeziL (ARICEPT) 10 Take 1 Tab by mouth 03/25/2020 04/01/2020 mg tablet daily for 7 days. documented as of this encounter Care Teams Geologist Relationship Specialty Start Date End Date Unknown, Provider, PCP - General 08/12/17 documented as of this encounter
--- OUTSIDE RECORDS SUMMARY | 2022-07-25 17:55 | XMS_ITS | Encounter Summary ---
:1960 Author Organization [facility] Address [address] [place] [address] Care Team Providers Name Role Phone Unknown, Provider Primary Care Provider Reason for Visit Reason Onset Date Comments Medications Refill 10/16/2021 Encounter Details Date Type Department Care Team Description 10/16/2021 Telephone [facility] - Barb Menendez MD Medications Refill [facility] [address] [facility] [address] [facility] [address] [place] [address] [place] [address] (Wo rk) Social History Tobacco Use Types Packs/Day Years Used Date Smoking Tobacco: Never Assessed Sex Assigned at Date Recorded Not on file documented as of this encounter Ordered Prescriptions Prescription Sig Dispensed Refills Start Date End Date donepezil (ARICEPT) 10 mg Take 1 Tablet by 30 Tablet 1 12/202111/09/2021 tablet mouth daily. documented in this encounter Miscellaneous Notes Telephone Encounter - Kimberly Alexis RN - 10/16/2021 1430 EST Riana stated that pharmacy never received the script sent in in September for donepezil. They need themedication right away so they would like a 30 day script sent into their local pharmacy - [facility] in [place]. Escript as tabbed. Telephone Encounter - Angélica Mauricio - 10/16/2021 1400 EST Riana left message that Meliton needs refill. She did not say what kind. documented in this encounter Plan of Treatment Not on filedocumented as of this encounter Visit Diagnoses Not on filedocumented in this encounter Discontinued Medications Medication Sig Discontinue Reason Start Date End Date donepezil (ARICEPT) 10 Take 1 Tablet by 09/29/2021 0 10/16/2021 mg tablet mouth daily. documented as of this encounter Care Teams Customer Support Consultant Relationship Specialty Start Date End Date Unknown, Provider, PCP - General 08/12/17 documented as of this encounter
--- OUTSIDE RECORDS SUMMARY | 2022-07-25 17:55 | XMS_ITS | Encounter Summary ---
:1960 Author Organization [facility] Address [address] [place] [address] Care Team Providers Name Role Phone Unknown, Provider Primary Care Provider Encounter Details Date Type Department Care Team Description 02/10/2021 Lab Requisition [place] Brittney Garcia for other Pathology & MD Lina general examination Laboratory Medicine [address] [place] [address] [address] [place] [address] [place], [place] [id number] Social History Tobacco Use Types Packs/Day Years Used Date Smoking Tobacco: Never Assessed Sex Assigned at Date Recorded Not on file documented as of this encounter Plan of Treatment Not on filedocumented as of this encounter Procedures Procedure Name Priority Date/Time Associated Diagnosis Comme nts SURGICAL PATHOLOGY Today 02/10/2021 11:15 Resul ts for this EDT procedure are i n the results section. documented in this encounter Results SURGICAL PATHOLOGY (02/10/2021 11:15 EDT) Component Value Ref Test Analysis Performed At [facility] Range Method Time Signature Final A. COLON, TRANSVERSE, POLYP, BIOPSY: 12/2020 [facility] MED[facility] Diagnosis - Fragments of tubular adenoma(s). 12:14 EDT CENTER LABORATORY B. COLON, SIGMOID, POLYP, BIOPSY: SERVICES - Tubular adenoma. Attestation By the signature 02/13/2021 [facility] MEDICA L Electronically below, the 12:14 EDT CENTER signed by attending LABORATORY Araceli Fernández physician APURVA Crawford MD on certifies that 021 at 1214 they have 1) personally conducted a gross and/or microscopic examination of the described specimen(s), and/or personally interpreted the results of laboratory testing of the described specimen(s), and 2) personally rendered or confirmed the above diagnosis. Clinical Screening; colon 02/13/2021 [facility] MEDICAL History polyps, 12:14 EDT CENTER diverticulosis LABORATORY SERVICES Gross A. 02/13/2021 [facility] MEDICAL Description Received in formalin lino d with proper patient identification (initials B, R) and transverse colon polyp are seven pale-lanier focally brown speckled tissues (0.7 x 0.3 x 0.2 cm to 0.3 x 0.2 x 0.1 cm). Entirely submitted in A1-A2. 12:14 T CENTER LABORATORY B. SERVICES Received in formalin lino d with proper patient identification (initials B, R) and sigmoid colon polyp are two pale lanier focally brown speckled tissues (0.3 x 0.3 x 0.2 cm and 0.2 x 0.2 x 0.1 cm). Entirely submitted in B1. Vinicius Meier 02/11/2021 8:41 Performing Lab [facility] 02/13/2021 [facility] MEDIC AL LAB 12:14 T CENTER LABORATORY SERVICES Scanned Images 02/13/2021 [facility] MEDICAL 12:14 [facility] LABORATORY SERVICES Specimen Anatomical Collection Method Collection Time Receive d Time (Source) Location / / Volume Laterality Tissue (Colon, 02/10/2021 11:15 1 8:14 Polyp) EDT EDT Tissue specimen 02/10/2021 11:15 02/12/20 21 8:14 (specimen) EDT EDT (Colon, Polyp) Brittney Garcia MD PATHOLOGY ORDERABLES Performing Organization Address City/State/ZIP Code Phon e Number [facility] [address] [place] [address] SERVICES documented in this encounter Visit Diagnoses Diagnosis Encounter for other general examination documented in this encounter Care Teams Vacuum Technician Relationship Specialty Start Date End Date Unknown, Provider, PCP - General 08/12/17 documented as of this encounter
--- OUTSIDE RECORDS SUMMARY | 2022-07-25 17:55 | XMS_ITS | Continuity of Care Document ---
:1960 Author Organization [facility] Address [address] [place] [address] Care Team Providers Name Role Phone Juice Jensen Primary Care Physician Encounter NCTY_SD Date(s): 07/24/22 - 07/24/22 [facility] [address] [place] [address] Encounter Diagnosis Gastroenteritis (Discharge Diagnosis) - 07/24/22 Hypokalemia (Discharge Diagnosis) - 07/24/22 Discharge Disposition: Home or Self Care Attending Physician: Saba Brian MD Admitting Physician: Saba Brian MD Allergies, Adverse Reactions, Alerts Substance Reaction Severity Status metoprolol1 Unknown Active morphine2 Unknown Active [id number] allergic, has had since with no reaction Assessment and Plan Future Appointments Functional Status 07/24/22 Family Member Travel History No recent travel [...] pain, # 15 tab, 0 Refill(s), Pharmacy: [facility], 176, cm, 07/25/22 1:55:00 EST, Height/Length Dosing, 92, kg, 07/25/22 1:55:00 EST, Weight Dosing Start Date: 07/25/22 Stop Date: 08/01/22 Status: Ordered!-Zofran ODT 4 mg oral tablet, disintegrating 4 mg = 1 tab, Oral, every 6 hr, PRN as needed for nausea/vomiting, # 8 tab, 0 Refill(s), Pharmacy: [facility], 175, cm, 07/24/22 9:28:00 EST, Height/Length [...] DAILY, # 90 tab, 3 Refill(s), Pharmacy: [facility] Start Date: 02/03/22 [...] QID, # 20 tab, 0 Refill(s), Pharmacy: [facility], 175, cm, 04/26/22 20:47:00 EDT, Height/Length [...] TID, # 180 cap, 1 Refill(s), Pharmacy: [facility] Start Date: 01/29/22 Status: Orderedisosorbide mononitrate 60 mg oral tablet, extended release 60 mg = 1 tab, Oral, Daily, # 90 tab, 3 Refill(s), Pharmacy: [facility], 175, cm, 04/26/22 20:47:00 EDT, Height/Length Dosing, 104.33, kg, 04/26/22 20:47:00 EDT, Weight Dosing Start Date: 05/20/22 Status: Orderedloperamide 2 mg oral capsule 2 mg = 1 cap, Oral, every 4 hr, PRN as needed for loose stool, # 10 cap, 0 Refill(s), Pharmacy: [facility], 175, cm, 07/24/22 9:28:00 EST, Height/Length Dosing, 85, kg, 07/24/22 9:28:00 EST, Weight Dosing Start Date: 07/24/22 Status: Orderedlosartan 50 mg oral tablet 50 mg = 1 tab, Oral, Daily, # 90 tab, 0 Refill(s), Pharmacy: [facility] Start Date: 01/29/22 Status: OrderedMisc Prescription [...] Daily, # 90 cap, 3 Refill(s), Pharmacy: [facility] Start Date: 03/31/22 Status: Ordered Problem [...] Completed 1sm polyps x5, moderate diverticulosis.2Pt reported [id number] rotator cuff Results Laboratory List Name Date CBC w/ Diff 07/24/22 Comprehensive Metabolic Panel (CMP) 07/24/22 Lactic Acid 07/24/22 .Manual Differential (NCTY) 07/24/22 Most recent to oldest [Reference Range]: 1 WBC [5.0-10.0 x10^3/mcL] 10.2 x10^3/mcL *HI* (07/24/22 9:38 AM) RBC [4.6-6.0 x10^6/mcL] 5.2 x10^6/mcL (07/24/22 9:38 AM) Segs Man [40-75 %] 81 % *HI* (07/24/22 9:38 AM) Lymph Man [20-50 %] 14 % *LOW* (07/24/22 9:38 AM) [place] Man 3 % *NA* (07/24/22 9:38 AM) Eos Man 2 % *NA* (07/24/22 9:38 AM) BUN [7-18 mg/dL] 15 mg/dL (07/24/22 9:38 AM) Glucose Level [74-106 mg/dL] 111 mg/dL *HI* (07/24/22 9:38 AM) Potassium Level [3.5-5.1 mmol/L] 3.4 mmol/L *LOW* (07/24/22 9:38 AM) MCV [80.0-96.0] 95.2 (07/24/22 9:38 AM) RBC Morph Normal (07/24/22:38 AM) AST [15-37 unit/L] 17 unit/L (07/24/22 9:38 AM) ALT [16-63 unit/L] 41 unit/L (07/24/22 9:38 AM) MCHC [31.0-35.0 g/dL] 35.6 g/dL *HI* (07/24/22 9:38 AM) Sodium Level [136-145 mmol/L] 141 mmol/L (07/24/22 9:38 AM) Hct [41.0-51.0 %] 49.7 % (07/24/22:38 AM) Calcium Level [8.5-10.1 mg/dL] 9.2 mg/dL (07/24/22 9:38 AM) Albumin Level [3.4-5.0 g/dL] 4.6 g/dL (07/24/22 9:38 AM) Protein Total [6.4-8.2 g/dL] 7.9 g/dL (07/24/22 9:38 AM) MCH [26.0-32.0 pg] 33.9 pg *HI* (07/24/22 9:38 AM) Bilirubin Total [0.2-1.0 mg/dL] 0.7 mg/dL (07/24/22 9:38 AM) Hgb [14.0-18.0 g/dL] 17.7 g/dL (07/24/22 9:38 AM) Alk Phos [46-146 unit/L] 94 unit/L (07/24/22 9:38 AM) Band Man [0-5 %] 0 % (07/24/22 9:38 AM) Platelets [130-450 x10^3/mcL] 254 x10^3/mcL (07/24/22 9:38 AM) CO2 [21-32 mmol/L] 29 mmol/L (07/24/22 9:38 AM) Lactic Acid Lvl [0.7-2.1 mmol/L] 1.6 mmol/L (07/24/22 9:38 AM) eGFR Non-AA [>=60] 58 *LOW* (07/24/22 9:38 AM) eGFR AA [>=60] 58 *LOW* (07/24/22:38 AM) Chloride Level [98-107 mmol/L] 103 mmol/L (07/24/22 9:38 AM) RDW-CV [11.5-17.0 %] 12.1 % (07/24/22 9:38 AM) Creatinine Level [0.70-1.30 mg/dL] 1.36 mg/dL *HI* (07/24/22 9:38 AM) Baso Man [0-1 %] 0 % (07/24/22 9:38 AM) Vital Signs Most recent to oldest [Reference Range]: 1 Temperature Temporal Artery [36-38 Deg C] 35.9 Deg C *LOW* (07/24/22 9:15 AM) Peripheral Pulse Rate [60-100 bpm] 70 bpm (07/24/22 9:15 AM) Respiratory Rate [12-24 br/min] 14 br/min (07/24/22 9:15 AM) Blood Pressure [90-140/60-90 mmHg] 141/90 mmHg *HI* (07/24/22 9:15 AM) Weight Dosing 85.00 kg (07/24/22 9:28 AM) Weight Estimated 85.00 kg (07/24/22 9:15 AM) Height/Length Dosing 175.000 cm (07/24/22 9:28 AM) Height/Length Estimated 175.000 cm (07/24/22 9:15 AM) Social History Social History Type Response Tobacco chews Tobacco Use:.1 Sex [facility] Discharge Instructions Patient Habvonila86/12/2022 09:54:08Food PoisoningFood Poisoning Food poisoning is an illness that is caused by eating or drinking contaminated foods or drinks. In most cases, food poisoning is mild and lasts 1???2 days. However, some cases can be serious, especially for people who have weak body defense systems (immune systems), older people, children and infants,and women. What are the causes? This condition is caused by contaminated food. Foods can become contaminated with viruses, bacteria,parasites, or mold due to: ??? Poor personal hygiene, such as poor hand-washing practices. ??? Storing food improperly, such as not refrigerating raw meat. ??? Using unclean surfaces for preparing, serving, and storing food. ??? Cooking or eating with unclean utensils. If contaminated food is eaten, viruses, bacteria, or parasites can harm the intestine. This often causes severe diarrhea. The most common causes of food poisoning include: ??? Viruses, such as: ??? Norovirus. ??? Rotavirus. ??? Bacteria, such as: ??? Salmonella. ??? Listeria. ??? E. coli (Escherichia coli). ??? Parasites, such as: ??? Giardia. ??? Toxoplasma gondii. What are the signs or symptoms? Symptoms may take several hours to appear after you consume contaminated food or drink. Symptoms include: ??? Nausea. ??? Vomiting. ??? Cramping. ??? Diarrhea. ??? Fever and chills. ??? Muscle aches. ??? Dehydration. Dehydration can cause you to be tired and thirsty, have a dry mouth, and urinate less frequently. How is this diagnosed? Your health care provider can diagnose food poisoning with your medical history and a physical exam.This will include asking you what you have recently eaten. You may also have tests, including: ??? Blood tests. ??? Stool tests. How is this treated? Treatment focuses on relieving your symptoms and making sure that you are hydrated. You may also be given medicines. In severe cases, hospitalization may be required and you may need to receive fluids through an IV. Follow these instructions at home: Eating and drinking ??? Drink enough fluids to keep your urine pale yellow. You may need to drink small amounts of clearliquids frequently. ??? Avoid milk, caffeine, and alcohol. ??? Ask your health care provider for specific rehydration instructions. ??? Eat small, frequent meals rather than large meals. Medicines ??? Take ykmz-nzr-xsjeapk and prescription medicines only as told by your health care provider. Ask your health care provider if you should continue to take any of your regular prescribed and rnjh-fgy-cqliyes medicines. ??? If you were prescribed an antibiotic medicine, take it as told by your health care provider. Do not stop taking the antibiotic even if you start to feel better. General instructions ??? Wash your hands thoroughly before you prepare food and after you go to the bathroom (use the toilet). Make sure that the people who live with you also wash their hands often. ??? Rest at home until you feel better. ??? Clean surfaces that you touch with a product that contains chlorine bleach. ??? Keep all follow-up visits as told by your health care provider. This is important. How is this prevented? Wash your hands, food preparation surfaces, and utensils thoroughly before and after you handle raw foods. ??? Use separate food preparation surfaces and storage spaces for raw meat and for fruits and vegetables. ??? Keep refrigerated foods colder than 40??F (5??C). ??? Serve hot foods immediately or keep them heated above 140??F (60??C). ??? Store dry foods in cool, dry spaces away from excess heat or moisture. Throw out any foods that do not smell right or are in cans that are bulging. ??? Follow approved praveen procedures. ??? Heat canned foods thoroughly before you taste them. ??? Drink bottled or sterile water when you travel. Get help right away if: ??? You have difficulty breathing, swallowing, talking, or moving. ??? You develop blurred vision. ??? You cannot eat or drink without vomiting. ??? You faint. ??? Your eyes turn yellow. ??? Your vomiting or diarrhea is persistent. ??? Abdominal pain develops, increases, or localizes in one small area. ??? You have a fever. ??? You have blood or mucus in your stools, or your stools look dark black and tarry. ??? You have signs of dehydration, such as: ??? Dark urine, very little urine, or no urine. ??? Cracked lips. ??? Not making tears while crying. ??? Dry mouth. ??? Sunken eyes. ??? Sleepiness. ??? Weakness. ??? Dizziness. These symptoms may represent a serious problem that is an emergency. Do not wait to see if the symptoms will go away. Get medical help right away. Call your local emergency services (911 in the [place] Do not drive yourself to the hospital. Summary ??? Food poisoning is an illness that is caused by eating or drinking contaminated foods or drinks. ??? Symptoms may include nausea, vomiting, diarrhea, muscle aches, cramping, fever, chills, and dehydration. ??? In most cases, food poisoning is mild and lasts 1???2 days. ??? In severe cases, hospitalization may be required. This information is not intended to replace advice given to you by your health care provider. Make sure you discuss any questions you have with your health care provider. Document Revised: 06/13/2019 Document Reviewed: 06/13/2019 [employer] Patient Education ?? 2021 [employer]. Follow Up Care07/24/2022 09:15:23With:Follow up with primary care provider Address: [facility] Saba Brian MD: PERFORM Event Display: ED Note Physician Authored Date: [id number] ADAM PALACIOS JR :1960 Age:62 years Sex:Male Visit Date:07/24/2022 Primary Care Physician: Juice Jensen DO Basic Information Time Seen: Saba Brian MD / 07/24/2022 09:22 Chief Complaint vomiting and diarrhea since 3 yesterday, I think I have food poisoning History Of Present Illness: 62-year-old male??with history of CKD stage III, depression,??CAD,??history of UT, history of psychotic disorder, hypertension, insomnia, who presents to the emergency department complaining of??nausea, vomiting??and diarrhea??which started around 4 PM yesterday after eating at [employer].?? The patient reports about 6 episodes of vomiting and 12 episodes of watery diarrhea, nonbloody. ??No fevers or chills. ??Associated with lower abdominal cramping.?? The patient's is accompanying him and also had some milder symptoms??after eating??in the restaurant.?? No recent antibiotics, no recent travel. Review of Systems: In addition to the ROS embedded in the HPI, the patient has no Const: fever, chills,?? CV: chest pain or palpitations Pulm: shortness of breath GI: As above Physical Exam Vitals & Measurements T:??35.9?C ??(Temporal Artery)?? HR:??70??(Peripheral)?? RR:??14?? BP:??141/90?? SpO2:??96%?? HT:??175.000??cm?? WT:??85.00??kg??(Estimated)?? Pain Score:??10?? General: A&Ox3, Calm, no apparent distress, well developed, pleasant and cooperative ?? HEENT: Head ATNC. Eyes: TOVA. Extraocular Mobility: intact and symmetrical. Conjunctiva: non-injected, anicteric, no discharge. Oral Cavity: moist. Neck: no masses, no crepitus. Lymph Nodes: no cervical lymphadenopathy? Respiratory: resp effort - no dyspnea, speaking in full sentences. CTA bilaterally, no wheezing, caroline/crackles? CV: RRR, normal S1, normal S2, no murmurs, rubs or gallops ?? Abdomen : soft, non-tender, non-distended, no rebound or guarding, no hepatosplenomegaly ?? Extremities: no le swelling, warm and well-perfused, no cyanosis, capillary refill <2 seconds? Skin: no rash, no lesions, no bruising? Neuro: normal tone, normal strength in all 4 extremities, sensation intact?? Medical Decision Makin-year-old male??with history of CKD stage III, depression,??CAD,??history of UT, history of psychotic disorder, hypertension, insomnia, who presents to the emergency department complaining of??nausea, vomiting??and diarrhea??which started around 4 PM yesterday after eating at [employer].?? The patient is well nontoxic-appearing with reassuring vital signs. ??His abdominal exam is benign.?Concern for food poisoning.?? The patient does not appear to be overtly dehydrated at this time. Plan to check labs and treat symptomatically. Procedure No Qualifying Data Assessment/Plan 1.??Gastroenteritis??K52.9 Labs reassuring except for hypoK, which was repleted po once pt demonstrated tolerating po. Pt d/cedhome with Zofran ODT and Loperamide po.?? Discharge instructions and return precautions discussed, all questions answered. Ordered: loperamide 2 mg oral capsule, 2 mg = 1 cap, Oral, every 4 hr, PRN as needed for loose stool, # 10 cap, 0 Refill(s), Pharmacy: [facility], 175, cm, 07/24/22 9:28:00 EST, Height/Length Dosing,85, kg, 07/24/22 9:28:00 EST, Weight Dosing !-Zofran ODT 4 mg oral tablet, disintegrating, 4 mg = 1 tab, Oral, every 6 hr, PRN as needed for nausea/vomiting, # 8 tab, 0 Refill(s), Pharmacy: [facility], 175, cm, 07/24/22 9:28:00 EST, Height/Length Dosing, 85, kg, 07/24/22 9:28:00 EST, Weight Dosing Discharge Patient, 07/24/22 11:48:00 EST, Constant Indicator ?? 2.??Hypokalemia??E87.6 repleated po Ordered: loperamide 2 mg oral capsule, 2 mg = 1 cap, Oral, every 4 hr, PRN as needed for loose stool, # 10 cap, 0 Refill(s), Pharmacy: [facility], 175, cm, 07/24/22 9:28:00 EST, Height/Length Dosing,85, kg, 07/24/22 9:28:00 EST, Weight Dosing !-Zofran ODT 4 mg oral tablet, disintegrating, 4 mg = 1 tab, Oral, every 6 hr, PRN as needed for nausea/vomiting, # 8 tab, 0 Refill(s), Pharmacy: [facility], 175, cm, 07/24/22 9:28:00 EST, Height/Length Dosing, 85, kg, 07/24/22 9:28:00 EST, Weight Dosing Discharge Patient, 07/24/22 11:48:00 EST, Constant Indicator ?? Orders: Zofran, 4 mg = 2 mL, IV Push, Soln, every 6 hr, PRN nausea/vomiting, First Dose: 07/24/22 9:36:00 EST, STAT Patient Education Food Poisoning Follow Up With When Contact Information Follow up with primary care provider Within 2 to 4 days Additional Instructions: Medication Reconciliation New Prescription loperamide (loperamide 2 mg oral capsule)1 Capsules Oral (given by mouth) every 4 hours as needed as needed for loose stool. Refills: 0. ?? ondansetron (!-Zofran ODT 4 mg oral tablet, disintegrating)1 tab Oral (given by mouth) every 6 hoursas needed as needed for nausea/vomiting. Refills: 0. ?? Unchanged amLODIPine (amLODIPine 5 mg oral tablet)1 [...] (givenby mouth) every day. Refills: 3. ?? loratadine (Claritin 10 mg oral tablet)1 [...] Oral (given by mouth) every day. ?? Other Prescription ([facility] Prescription)2 tab Oral (given by mouth) every [...] on shoulder (09/12/1994)???Cholecystectomy (09/12/1982) Medication Administration Given 0.9% NaCl bolus, 500 mL, IV Bolus loperamide, 4 mg, Oral. For: Gastroenteritis,??Hypokalemia potassium chloride, 40 mEq, Oral. For: Gastroenteritis,??Hypokalemia Zofran, 4 mg, IV Push Allergies metoprolol morphine Social History Electronic Cigarette/Vaping Electronic Cigarette Use: Never. Tobacco chews Tobacco Use:.- Comments: pt chews Family History Chronic obstructive lung disease: Mother. Emphysema: Mother. Hypertensive disorder: Mother. Prostate cancer: Father. Lab Results CBC and Differential?? LATEST RESULTS?? HISTORICAL RESULTS?? WBC?? 07/24/22 09:38?? 10.2 ??High?? 04/30/22?? 8.2?? RBC?? 07/24/22 09:38?? 5.2?? 04/30/22?? 4.7?? Hgb?? 07/24/22 09:38?? 17.7?? 04/30/22?? 15.8?? Hct?? 07/24/22 09:38?? 49.7?? 04/30/22?? 43.7?? MCV?? 07/24/22 09:38?? 95.2?? 04/30/22?? 93.8?? MCH?? 07/24/22 09:38?? 33.9 ??High?? 04/30/22?? 33.9 ??High?? MCHC?? 07/24/22 09:38?? 35.6 ??High?? 04/30/22?? 36.2 ??High?? RDW-CV?? 07/24/22 09:38?? 12.1?? 04/30/22?? 12.2?? Platelets?? 07/24/22 09:38?? 254?? 04/30/22?? 279?? Segs Man?? 07/24/22 09:38?? 81 ??High?? 04/26/22?? 79 ??High?? Lymph Man?? 07/24/22 09:38?? 14 ??Low?? 04/26/22?? 17 ??Low?? [place] Man?? 07/24/22 09:38?? 3?? 04/26/22?? 4?? Eos Man?? 07/24/22 09:38?? 2?? 04/26/22?? 0?? Baso Man?? 07/24/22 09:38?? 0?? 04/26/22?? 0?? Band Man?? 07/24/22 09:38?? 0?? 04/26/22?? 0?? RBC Morph?? 07/24/22 09:38?? Normal?? 04/26/22?? Normal? Routine Chemistry?? LATEST RESULTS?? HISTORICAL RESULTS?? Sodium Level?? 07/24/22 09:38?? 141?? 04/26/22?? 137?? Potassium Level?? 07/24/22 09:38?? 3.4 ??Low?? 04/26/22?? 3.7?? Chloride Level?? 07/24/22 09:38?? 103?? 04/26/22?? 101?? CO2?? 07/24/22 09:38?? 29?? 04/26/22?? 26?? Alk Phos?? 07/24/22 09:38?? 94?? 04/26/22?? 96?? AST?? 07/24/22 09:38?? 17?? 04/26/22?? 32?? ALT?? 07/24/22 09:38?? 41?? 04/26/22?? 61 ??High?? BUN?? 07/24/22 09:38?? 15?? 04/26/22?? 14?? Glucose Level?? 07/24/22 09:38?? 111 ??High?? 04/26/22?? 141 ??High?? Creatinine Level?? 07/24/22 09:38?? 1.36 ??High?? 04/26/22?? 1.66 ??High?? eGFR AA?? 07/24/22 09:38?? 58 ??Low?? 04/26/22?? 46 ??Low?? eGFR Non-AA?? 07/24/22 09:38?? 58 ??Low?? 04/26/22?? 46 ??Low?? Calcium Level?? 07/24/22 09:38?? 9.2?? 04/26/22?? 8.9?? Protein Total?? 07/24/22 09:38?? 7.9?? 04/26/22?? 7.1?? Albumin Level?? 07/24/22 09:38?? 4.6?? 04/26/22?? 4.3?? Bilirubin Total?? 07/24/22 09:38?? 0.7?? 04/26/22?? 0.6?? Lactic Acid Lvl?? 07/24/22 09:38?? 1.6? Electronically Signed on 07/24/22 12:25 PM Saba Brian MD Emergency department Discharge instructions Saba Brian MD: PERFORM Event Display: ED Discharge Information Authored Date: [id number] ADAM PALACIOS JR :1960 Age:62 years Sex:Male Visit Date:07/24/2022 Primary Care Physician: Juice Jensen DO Discharge Instructions We would like to thank you for allowing us to assist you with your healthcare needs. The following includes patient education materials and information regarding your injury/illness. Diagnosis from Today's Visit Gastroenteritis Hypokalemia Discharge Vitals Temperature??(Temporal Artery) 96.6 ??F (35.9 ??C) Heart Rate??(Peripheral) 70 Respiratory Rate?? 14 Blood Pressure?? 141/90?? Height?? 68.90 in (175.000 cm) Weight??(Estimated) 187.42 lb (85.00 kg) Allergies metoprolol morphine What to Do Next Instructions from Your Care Team Please continue loperamide??for loose stools every 4 hours as needed. ??Also take Zofran disintegrating tablets for??nausea or vomiting every 4-6 hours.?? Eat and drink small amounts of food and fluids every 2-3 hours. ??Prefer??bland foods such as??crackers, rice,??toast with jelly.?? Follow-up withyour primary care provider for reevaluation in a few days if symptoms do not improve. ??Return to the emergency department if you develop worsening symptoms, inability to eat or drink, blood in her stools or for any other concern. You Need to Schedule the Following Appointments Follow Up with??Follow up with primary care provider When:??Within 2 to 4 days Upcoming Scheduled Appointments January. 2022 3:20 PM [...] How Much When Why Instructions Next Dose New loperamide (loperamide 2 mg oral capsule) 1 Capsules Oral (given by mouth) Every 4 hours as needed for as needed for loose stool Gastroenteritis Hypokalemia Pickup at [facility] New ondansetron (!-Zofran ODT 4 mg oral tablet, disintegrating) 1 tab Oral (given by mouth) Every 6 hours as needed for as needed for nausea/vomiting Gastroenteritis Hypokalemia Pickup at [facility] Unchanged amLODIPine (amLODIPine 5 mg oral tablet) [...] (see comment) Take as needed ?? Unchanged dicyclomine (dicyclomine 20 mg oral tablet) 1 tab Oral (given by mouth) 4 times a day Abdominal pain Duration: 5 Days Unchanged donepezil (donepezil 10 mg oral tablet) [...] of coronary artery without angina pectoris Unchanged loratadine (Claritin 10 mg oral tablet) [...] Oral (given by mouth) Every day Unchanged Other Prescription ([facility] Prescription) 2 tab Oral (given by mouth) [...] (given by mouth) Every day Pharmacy Information [facility]: [address], [place] [id number] [phone] Education Materials Food Poisoning Food poisoning is an illness that is caused by eating or drinking contaminated foods or drinks. In most cases, food poisoning is mild and lasts 1???2 days. However, some cases can be serious, especially for people who have weak body defense systems (immune systems), older people, children and infants, and women. What are the causes? This condition is caused by contaminated food. Foods can become contaminated with viruses, bacteria, parasites, or mold due to: ? Poor personal hygiene, such as poor hand-washing practices. ? Storing food improperly, such as not refrigerating raw meat. ? Using unclean surfaces for preparing, serving, and storing food. ? Cooking or eating with unclean utensils. If contaminated food is eaten, viruses, bacteria, or parasites can harm the intestine. This often causes severe diarrhea. The most common causes of food poisoning include: ? Viruses, such as: ? Norovirus. ? Rotavirus. ? Bacteria, such as: ? Salmonella. ? Listeria. ? E. coli (Escherichia coli). ? Parasites, such as: ? Giardia. ? Toxoplasma gondii. What are the signs or symptoms? Symptoms may take several hours to appear after you consume contaminated food or drink. Symptoms include: ? Nausea. ? Vomiting. ? Cramping. ? Diarrhea. ? Fever and chills. ? Muscle aches. ? Dehydration. Dehydration can cause you to be tired and thirsty, have a dry mouth, and urinate less frequently. How is this diagnosed? Your health care provider can diagnose food poisoning with your medical history and a physical exam. This will include asking you what you have recently eaten. You may also have tests, including: ? Blood tests. ? Stool tests. How is this treated? Treatment focuses on relieving your symptoms and making sure that you are hydrated. You may also begiven medicines. In severe cases, hospitalization may be required and you may need to receive fluidsthrough an IV. Follow these instructions at home: Eating and drinking ? Drink enough fluids to keep your urine pale yellow. You may need to drink small amounts of clear liquids frequently. ? Avoid milk, caffeine, and alcohol. ? Ask your health care provider for specific rehydration instructions. ? Eat small, frequent meals rather than large meals. Medicines ? Take szyq-igj-xnvrjqm and prescription medicines only as told by your health care provider. Ask yourhealth care provider if you should continue to take any of your regular prescribed and cqbx-ipv-slxjoos medicines. ? If you were prescribed an antibiotic medicine, take it as told by your health care provider. Do not stop taking the antibiotic even if you start to feel better. General instructions ? Wash your hands thoroughly before you prepare food and after you go to the bathroom (use the toilet). Make sure that the people who live with you also wash their hands often. ? Rest at home until you feel better. ? Clean surfaces that you touch with a product that contains chlorine bleach. ? Keep all follow-up visits as told by your health care provider. This is important. How is this prevented? Wash your hands, food preparation surfaces, and utensils thoroughly before and after you handle raw foods. ? Use separate food preparation surfaces and storage spaces for raw meat and for fruits and vegetables. ? Keep refrigerated foods colder than 40??F (5??C). ? Serve hot foods immediately or keep them heated above 140??F (60??C). ? Store dry foods in cool, dry spaces away from excess heat or moisture. Throw out any foods that do not smell right or are in cans that are bulging. ? Follow approved praveen procedures. ? Heat canned foods thoroughly before you taste them. ? Drink bottled or sterile water when you travel. Get help right away if: ? You have difficulty breathing, swallowing, talking, or moving. ? You develop blurred vision. ? You cannot eat or drink without vomiting. ? You faint. ? Your eyes turn yellow. ? Your vomiting or diarrhea is persistent. ? Abdominal pain develops, increases, or localizes in one small area. ? You have a fever. ? You have blood or mucus in your stools, or your stools look dark black and tarry. ? You have signs of dehydration, such as: ? Dark urine, very little urine, or no urine. ? Cracked lips. ? Not making tears while crying. ? Dry mouth. ? Sunken eyes. ? Sleepiness. ? Weakness. ? Dizziness. These symptoms may represent a serious problem that is an emergency. Do not wait to see if the symptoms will go away. Get medical help right away. Call your local emergency services (911 in the [place]Do not drive yourself to the hospital. Summary ? Food poisoning is an illness that is caused by eating or drinking contaminated foods or drinks. ? Symptoms may include nausea, vomiting, diarrhea, muscle aches, cramping, fever, chills, and dehydration. ? In most cases, food poisoning is mild and lasts 1???2 days. ? In severe cases, hospitalization may be required. This information is not intended to replace advice given to you by your health care provider. Make sure you discuss any questions you have with your health care provider. Document Revised: 06/13/2019 Document Reviewed: 06/13/2019 [employer] Patient Education ?? 2021 [employer] Tests Performed Medications and Immunizations Administered Given 0.9% NaCl bolus, 500 mL, IV Bolus Zofran, 4 mg, IV Push Lab Test Name Test Result Date/Time WBC 10.2 x10^3/mcL 07/24/2022 09:38 EST RBC 5.2 x10^6/mcL 07/24/2022 09:38 EST Hgb 17.7 g/dL 07/24/2022 09:38 EST Hct 49.7 % 07/24/2022 09:38 EST MCV 95.2 07/24/2022 09:38 EST MCH 33.9 pg 07/24/2022 09:38 EST MCHC 35.6 g/dL 07/24/2022 09:38 EST RDW-CV 12.1 % 07/24/2022 09:38 EST Platelets 254 x10^3/mcL 07/24/2022 09:38 EST Segs Man 81 % 07/24/2022 09:38 EST Lymph Man 14 % 07/24/2022 09:38 EST [place] Man 3 % 07/24/2022 09:38 EST Eos Man 2 % 07/24/2022 09:38 EST Baso Man 0 % 07/24/2022 09:38 EST Band Man 0 % 07/24/2022 09:38 EST RBC Morph Normal 07/24/2022 09:38 EST Sodium Level 141 mmol/L 07/24/2022 09:38 EST Potassium Level 3.4 mmol/L 07/24/2022 09:38 EST Chloride Level 103 mmol/L 07/24/2022 09:38 EST CO2 29 mmol/L 07/24/2022 09:38 EST Alk Phos 94 unit/L 07/24/2022 09:38 EST AST 17 unit/L 07/24/2022 09:38 EST ALT 41 unit/L 07/24/2022 09:38 EST BUN 15 mg/dL 07/24/2022 09:38 EST Glucose Level 111 mg/dL 07/24/2022 09:38 EST Creatinine Level 1.36 mg/dL 07/24/2022 09:38 EST eGFR AA 58 07/24/2022 09:38 EST eGFR Non-AA 58 07/24/2022 09:38 EST Calcium Level 9.2 mg/dL 07/24/2022 09:38 EST Protein Total 7.9 g/dL 07/24/2022 09:38 EST Albumin Level 4.6 g/dL 07/24/2022 09:38 EST Bilirubin Total 0.7 mg/dL 07/24/2022 09:38 EST Lactic Acid Lvl 1.6 mmol/L 07/24/2022 09:38 EST Patient/Recruiter Specialist Signature Patient Name:ADAM PALACIOS JR I have received this information and my questions have been answered. Patient/Recruiter Specialist Name: Patient/Recruiter Specialist Signature: Relationship to Patient: Witness Name/Signature: Date: Electronically Signed on: 07/24/2022 11:47 ESTSigned by:DALI Patient Care team information Care Team PersonnelName: Juice Jensen DO Position: Physician Member Role: Primary Care Physician Address: Address: [facility] [address] Name: Saba Brian MD Position: Physician Member Role: ED Physician Address: Address: [address] Name: Tia Busch Position: Nurse Member Role: ED Nurse Care Team Related PersonsName: CALLUM PALACIOS Address: Home [address] [place] [address] [place]
--- OUTSIDE RECORDS SUMMARY | 2022-07-25 17:55 | XMS_ITS | Encounter Summary ---
:1960 Author Organization [facility] Address [address] [place] [address] Care Team Providers Name Role Phone Unknown, Provider Primary Care Provider Encounter Details Date Type Department Care Team Description 03/03/[address] [facility] - [place] Menendez, Only [facility] [address] [place] [address] [address] [place] [address] Social History Tobacco Use Types Packs/Day Years Used Date Smoking Tobacco: Never Assessed Sex Assigned at Date Recorded Not on file documented as of this encounter Plan of Treatment Not on filedocumented as of this encounter Procedures Procedure Name Priority Date/Time Associated Diagnosis Comme nts MR HEAD W WO 03/03/2018 12:04 Results for this CONTRAST EDT procedure are i n the results section. documented in this encounter Results MR HEAD W WO CONTRAST (03/03/2018 12:04 EDT) Anatomical Region Laterality Modality Head Magnetic Resonance Specimen (Source) Anatomical Collection Method Collection Time Re ceived Time Location / / Volume Laterality 03/03/2018 12:04 EDT Narrative 03/03/2018 12:04 EDT ? EXAM: MAGNETIC RESONANCE IMAGING/BRAIN W/ EX. D/ (1319) ? CLINICAL INFORMATION: ? R90.89 ABNORMAL BRAIN MRI ? SUBTLE LEFT MESIAL TEMPORAL T2 AB NORMALITY ON ? 2017 MRI ? INDICATION: R90.89 ABNORMAL BRAIN MRI, SUBTLE LEFT MESIAL TEMPORAL T2 ? ABNORMALITY ON, 2017 MRI. ? COMPARISON: MRI BRAIN - 8. ? TECHNIQUE: Multiplanar, multisequ ence MRI scan of the brain was ? performed. Precontrast and postco ntrast enhanced scans were obtained. ? FINDINGS: ? Diffusion-weighted imaging: Unrem arkable. No acute stroke. ? Gradient echo imaging: Unremarkab le. No intracranial hemorrhage. ? Sulci and basilar cisterns: Unrem arkable sulci. Patent basilar ? cisterns. Mild/moderate global br ain atrophy is present. ? Ventricles: Normal. No ventriculo megaly. ? Cerebral hemispheres: The numerou s subcortical and periventricular ? focal T2 FLAIR signal hyperintens ities are unchanged. These findings ? are nonspecific but typically see n with small vessel disease/chronic ? white matter ischemic changes of aging. The faint increased T2 FLAIR ? signal changes within the left me sial temporal lobe are unchanged and ? appear symmetric to the right. Th e size and configuration of both ? temporal lobes is unchanged. No a bnormal enhancement of either mesial ? temporal lobe is identified. No a bnormal enhancement is identified ? elsewhere within the cerebral hem ispheres. ? Cerebellum: Unremarkable. No mass or signal abnormality. No abnormal ? enhancement. ? Brainstem: Normal. No mass or sig nal abnormality. No abnormal ? enhancement. ? Optic chiasm, pituitary fossa and craniocervical junction: ? Unremarkable. ? Vessels: Normal signal flow voids within the internal carotid and ? basilar arteries. ? Orbits and retro-orbital fat: Unr emarkable. ? Paranasal sinuses and mastoids: M ild mucosal thickening of the ? frontal, maxillary and ethmoid si nuses. Bilateral mastoid effusions, ? right greater than left. ? IMPRESSION: ? 1. No acute intracranial abnormal ity. ? PAGE 1 ? Leah d Report ? (CONTINUED) ? 2. Mild/moderate global cerebral atrophy, unchanged. ? 3. Numerous nonspecific focal T2 FLAIR signal hyperintensities within ? the white matter tracts of both c erebral hemispheres. These findings ? are nonspecific but typically see n with small vessel disease/chronic ? white matter ischemic changes of aging. ? 4. Unchanged subtle increased T2 FLAIR signal within both mesial ? temporal lobes. This signal is si milar to that of the signal within ? the remainder of the cerebral cor kenji and is likely normal and of no ? clinical significance. Consider a dditional follow-up MRI in 6-12 ? months as clinically indicated. ? REPORT SIGNED IN OTHER VENDOR SYSTEM 03/03/2018 ?Reported B y: Juice Novak MD ? CC: ? Transcribed Date/Time: 03/03/2018 (1204) ? Economic Adviser: ? Printed Date/Time: 03/02/2019 (13 38) ? PAGE 2 ? Leah d Report ? Procedure Note Juice Novak MD - 10/08/2019Format ting of this note might be different from the original. EXAM: MAGNETIC RESONANCE IMAGING/BRAIN W/ EX. D/ (1319) CLINICAL INFORMATION: R90.89 ABNORMAL BRAIN MRI SUBTLE LEFT MESIAL TEMPORAL T2 ABNORMAL ITY ON 2017 MRI INDICATION: R90.89 ABNORMAL BRAIN MRI, SUBTLE LEFT MESIAL TEMPORAL T2 ABNORMALITY ON, 2017 MRI. COMPARISON: MRI BRAIN - 10/07/2017. TECHNIQUE: Multiplanar, multisequence M RI scan of the brain was performed. Precontrast and postcontrast enhanced scans were obtained. FINDINGS: Diffusion-weighted imaging: Unremarkabl e. No acute stroke. Gradient echo imaging: Unremarkable. No intracranial hemorrhage. Sulci and basilar cisterns: Unremarkabl e sulci. Patent basilar cisterns. Mild/moderate global brain at rophy is present. Ventricles: Normal. No ventriculomegaly . Cerebral hemispheres: The numerous subc ortical and periventricular focal T2 FLAIR signal hyperintensities are unchanged. These findings are nonspecific but typically seen with small vessel disease/chronic white matter ischemic changes of aging. The faint increased T2 FLAIR signal changes within the left mesial t emporal lobe are unchanged and appear symmetric to the right. The size and configuration of both temporal lobes is unchanged. No abnorma l enhancement of either mesial temporal lobe is identified. No abnorma l enhancement is identified elsewhere within the cerebral hemispher es. Cerebellum: Unremarkable. No mass or si gnal abnormality. No abnormal enhancement. Brainstem: Normal. No mass or signal ab normality. No abnormal enhancement. Optic chiasm, pituitary fossa and crani ocervical junction: Unremarkable. Vessels: Normal signal flow voids withi n the internal carotid and basilar arteries. Orbits and retro-orbital fat: Unremarka ble. Paranasal sinuses and mastoids: Mild mu cosal thickening of the frontal, maxillary and ethmoid sinuses. Bilateral mastoid effusions, right greater than left. IMPRESSION: 1. No acute intracranial abnormality. PAGE 1 Signed Report (CONTINUED) 2. Mild/moderate global cerebral atroph y, unchanged. 3. Numerous nonspecific focal T2 FLAIR signal hyperintensities within the white matter tracts of both cerebra l hemispheres. These findings are nonspecific but typically seen with small vessel disease/chronic white matter ischemic changes of aging. 4. Unchanged subtle increased T2 FLAIR signal within both mesial temporal lobes. This signal is similar to that of the signal within the remainder of the cerebral cortex an d is likely normal and of no clinical significance. Consider additio nal follow-up MRI in 6-12 months as clinically indicated. REPORT SIGNED IN OTHER VENDOR SYSTEM 03/03/2018 Reported By: Juice Novak MD CC: Transcribed Date/Time: 03/03/2018 (5025 ) Economic Adviser: Printed Date/Time: 03/02/2019 (2457) PAGE 2 Signed Report France Menendez MD IMG MRI ORDERABLES documented in this encounter Visit Diagnoses Not on filedocumented in this encounter Care Teams [place] Relationship Specialty Start Date End Date Unknown, Provider, PCP - General 08/12/17 documented as of this encounter
--- OUTSIDE RECORDS SUMMARY | 2022-07-25 17:55 | XMS_ITS | Clinical Summary ---
:1960 Author Organization [facility] Address [address] [place] [address] Care Team Providers Name Role Phone Unknown, Provider Primary Care Provider Allergies Active Allergy Reactions Severity Noted Date Comments Lisinopril 03/21/2018 cough Metoprolol 12/02/2021 Medications Medication Sig Dispensed Refills Start Date End Date Status acetaminophen 2 tab(s) orally 0 Active (TYLENOL) 325 mg every 6 hours,PRN tablet benztropine (COGENTIN) Take 1 mg by mouth 0 06/18/20 20 Active 1 mg tablet at bedtime. benztropine (COGENTIN) TAKE 1 TABLET BY 0 03/13/2020 Active 0.5 mg tablet MOUTH EVERY NIGHT clopidogreL (PLAVIX) 1 tab(s) orally 0 Active 75 mg tablet once a day amLODIPine (NORVASC) 5 Take 5 mg by mouth 0 05/02/20 20 Active mg tablet daily. isosorbide mononitrate Take 60 mg by 0 05/08/2020 Active (IMDUR) 60 mg CR mouth daily. tablet atorvastatin (LIPITOR) Take 80 mg by 0 05/08/2020 Active 80 mg tablet mouth daily. losartan (COZAAR) 100 0 05/05/2020 Active mg tablet loperamide (IMODIUM) 2 1 cap(s) orally 0 Active mg capsule every 4 hours,PRN pantoprazole Take 40 mg by 0 05/26/2020 Ac tive (PROTONIX) 40 mg mouth daily before tablet breakfast. Carisoprodol 250 mg 1 tab(s) orally 4 0 Active tablet times a day OLANZapine (ZYPREXA) Take 2.5 mg by 0 06/18/2020 Active 2.5 mg tablet mouth at bedtime. OLANZapine (ZYPREXA) 5 1 tab(s) orally 0 Active mg tablet once a day at hs sertraline (ZOLOFT) 50 Take 50 mg by 0 03/13/2020 Active mg tablet mouth daily. zaleplon (SONATA) 5 mg 0 06/18/2020 Active capsule prednisoLONE (PRED INSTILL 1 DROP IN 0 08/01/2020 Active FORTE) 1 % ophthalmic THE OPERATIVE EYE suspension 4 TIMES A DAY START AFTER SURGERY ketOROLAC (ACULAR) 0.5 INSTILL ONE DROP 0 08/01/2020 Active % ophthalmic solution INTO THE OPERATIVE EYE 4 TIMES A DAY (START ONE DAY BEFORE SURGERY) gabapentin (NEURONTIN) Take 300 mg by 0 06/18/2020 Active 300 mg capsule mouth. 1 tab in AM, 2 tabs in PM gatifloxacin (ZYMAXID) INSTILL ONE DROP 0 08/01/2020 Active 0.5 % ophthalmic INTO THE OPERATIVE solution EYE 4 TIMES A DAY (START ONE DAY PRIOR TO SURGERY) donepezil (ARICEPT) 10 Take 1 Tablet by 30 Tablet 0 11/13/2021 Active mg tablet mouth at bedtime for 30 days. ketoconazole (NIZORAL) APPLY TO BOTH FEET 0 10/20/19 22 Active 2 % cream EVERY DAY FOR 4 WEEKS, THEN EVERY OTHER DAY TAMSulosin (FLOMAX) Take 0.4 mg by 0 Active 0.4 mg capsule mouth daily. aspirin 81 mg capsule Take 81 mg by 0 Active mouth daily. Multivitamins with Take 1 Tablet by 0 Active Minerals tablet tablet mouth daily. donepezil (ARICEPT) 10 Take 1 Tablet by 90 Tablet 3 12/02/2021 Active mg tablet mouth daily. Social History Tobacco Use Types Packs/Day Years Used Date Smoking Tobacco: Never Smokeless Tobacco: Current Chew Comments: Using chew since about 1999 Sex Assigned at Date Recorded Not on file Obstetrics History Last Filed Vital Signs Vital Sign Reading Time Taken Comments Blood Pressure 110/80 12/02/2021 0807 EDT Pulse 76 12/02/2021 0807 EDT Temperature - - Respiratory Rate - - Oxygen Saturation - - Inhaled Oxygen Concentration - - Weight - - Height - - Body Mass Index - - Plan of Treatment Health Maintenance Due Date Last Done Comments COVID-19 Vaccine (#1) 1960 Hepatitis C Screen Completed 01/21/2021, 08/19/2017 Insurance Payer Benefit Plan / Subscriber ID Effective Dates Phone Addre ss Type Group EMPIRE EMPIRE [employer]BS [id number] 2021-Present [address] [place] [address] [address] [place] [address] Deondre Raymond Personal/Family Self 1960 [address] [place] [address] Deondre Raymond Personal/Family Self 1960 [address] [place] [address] Deondre Raymond Personal/Family Self 1960 [address] [place] [address] Deondre Raymond Personal/Family Self 1960 [address]) [place] [address] Deondre Raymond Personal/Family Self 1960 [address]) [place] [address] Deondre Raymond Personal/Family Self 1960 [address] [place] [address] Deondre Raymond Personal/Family Self 1960 [address]) [place] [address] Care Teams Utility Worker [place] Relationship Specialty Start Date End Date Unknown, Provider, PCP - General 08/12/17
--- OUTSIDE RECORDS SUMMARY | 2022-07-25 17:55 | XMS_ITS | Encounter Summary ---
:1960 Author Organization [facility] Address [address] [place] [address] Care Team Providers Name Role Phone Unknown, Provider Primary Care Provider Reason for Visit Reason Onset Date Comments Medications Refill 12/02/2021 Encounter Details Date Type Department Care Team Description 12/02/2021 Telephone [facility] [place]ly Alexis RN Medications Refill [facility] [address] [place], [place] [address] Social History Tobacco Use Types Packs/Day Years Used Date Smoking Tobacco: Never Smokeless Tobacco: Current Chew Comments: Using chew since about 1999 Sex Assigned at Date Recorded Not on file documented as of this encounter Functional Status Functional Status Response Date of Assessment Because of a physical, mental, or emotional condition, No 12/02/2021 does this person have difficulty doing errands alone such as visiting a doctor's office or shopping? Cognitive Status Response Date of Assessment Because of a physical, mental, or emotional condition, No 12/02/2021 does this person have serious difficulty concentrating, remembering, or making decisions? documented as of this encounter Ordered Prescriptions Prescription Sig Dispensed Refills Start Date End Date donepezil (ARICEPT) 10 mg Take 1 Tablet by 90 Tablet 3 11/11 tablet mouth daily. documented in this encounter Miscellaneous Notes Telephone Encounter - Kimberly Alexis RN - 12/02/[address] out of appointment, asked for donepezil be sane to [facility] for a refill. I had mistakenly sent it to the local pharmacy again. Script to local canceled and new script sent to [facility]. documented in this encounter Plan of Treatment Not on filedocumented as of this encounter Visit Diagnoses Not on filedocumented in this encounter Discontinued Medications Medication Sig Discontinue Reason Start Date End Date donepezil (ARICEPT) 10 Take 1 Tablet by Error 12/14/2021 0 12/02/2021 mg tablet mouth at bedtime. documented as of this encounter Care Teams Business Analytics Intern Relationship Specialty Start Date End Date Unknown, Provider, PCP - General 08/12/17 documented as of this encounter
--- OUTSIDE RECORDS SUMMARY | 2022-07-25 17:55 | XMS_ITS | Encounter Summary ---
:1960 Author Organization [facility] Address [address] [place] [address] Care Team Providers Name Role Phone Unknown, Provider Primary Care Provider Reason for Visit Reason Comments Follow-up Encounter Details Date Type Department Care Team Description 12/02/2021 Office Visit [facility] - [place] Menendez Hi story of psychosis (Primary Dx); [facility] Neurology Clini c MCI (mild cognitive impairment) [address] [place] [address] [facility] [address] [place] [address] Social History Tobacco Use Types Packs/Day Years Used Date Smoking Tobacco: Never Smokeless Tobacco: Current Chew Comments: Using chew since about 1999 Sex Assigned at Date Recorded Not on file documented as of this encounter Last Filed Vital Signs Vital Sign Reading Time Taken Comments Blood Pressure 110/80 12/02/2021 0807 EDT Pulse 76 12/02/2021 0807 EDT Temperature - - Respiratory Rate - - Oxygen Saturation - - Inhaled Oxygen Concentration - - Weight - - Height - - Body Mass Index - - documented in this encounter Functional Status Functional Status Response [...] making decisions? 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 and (September 2017) ?? (January 2018) ?? (December 2018) Recent history: Meliton remains on low-dose olanzapine (2.5 mg hs) followed by Ms. Olivia Wise, psychiatric N.P. He has no further delusions, auditory or visual hallucinations but he has elected to remain on low-dose olanzapine. Both Meliton and Riana say that is memory is fine, although he did become confused and unsteady when his losartan dose was too high and BP too low. He manages his own medications, drives, shares cooking and shopping with Riana, takes care of the cat, mows the lawn. His general health has been good with the exception of some flank pain. He appears to be exercising minimally. Hehas been vaccinated against Covid and has been infection-free. Present medications include donepezil 10 mg/day; benztropine 1.5 mg hs; Zyprexa 2.5 mg hs; gabapentin 300 mg hs (back pain) Pertinent ROS included in HPI Pertinent labs and neuroimaging: MRI brain with/without contrast February 2018: Mild/moderate global atrophy. Numerous nonspecific focal T2 FLAIR signal hyperintensities within the white matter tracts of both cerebral hemispheres consistent with small vessel disease. Unchanged subtle increased T2 FLAIR signal within both mesial temporallobes. This signal is similar to that of the signal within the remainder of the cerebral cortex and is likely normal and of no clinical significance. Examination: BP 110/80 (BP Cuff Sizes: Adult, large) Pulse 76 Pleasant; obese. Mild psychomotor slowing which seems to be at baseline. Poor historian HEENT: no carotid bruits Brief neurological exam: Normal facial expression and speech. No pronator drift. Subtle LUE posturaland action tremor. No rest tremor. Normal finger tapping bilaterally. Tone normal all limbs. Normal gait Assessment and Plan: Encounter Diagnoses Name Primary? History of psychosis Yes ??? MCI (mild cognitive impairment) Comment: S/P de roddy psychosis in 2018. It remains unclear whether the mild cognitive changes, whichhave been repeatedly documented on prior MoCA texting. Are related to the psychiatric condition or whether the psychosis and cognitive changes are part of a dementing process. For technical reasons (computer failure) I was unable to repeat office MoCA today. We will follow-upin 1 year for MoCA. He will continue on donepezil 10 mg/day. Cc: Ms. Olivia Wise NP I spent a total of 30 minutes on the date of this encounter meeting with the patient and reviewing documentation/coordinating care as described in the above note. No procedures were performed at the time of the visit. documented in this encounter Plan of Treatment Not on filedocumented as of this encounter Visit Diagnoses Diagnosis History of psychosis - Primary Personal history of other mental disorde r MCI (mild cognitive impairment) Mild cognitive impairment, so stated documented in this encounter Historical Medications This list may reflect changes made after this encounter. Medication Sig Dispensed Refills Start Date End Date Multivitamins with Minerals Take 1 Tablet by 0 tablet tablet mouth daily. aspirin 81 mg capsule Take 81 mg by mouth 0 daily. TAMSulosin (FLOMAX) 0.4 mg Take 0.4 mg by mouth 0 capsule daily. ketoconazole (NIZORAL) 2 % APPLY TO BOTH FEET 0 0 10/20/2021 cream EVERY DAY FOR 4 WEEKS, THEN EVERY OTHER DAY added in this encounter Care Teams Middle School Coach Relationship Specialty Start Date End Date Unknown, Provider, PCP - General 08/12/17 documented as of this encounter
--- OUTSIDE RECORDS SUMMARY | 2022-07-25 17:55 | XMS_ITS | Encounter Summary ---
:1960 Author Organization [facility] Address [address] [place] [address] Care Team Providers Name Role Phone Unknown, Provider Primary Care Provider Encounter Details Date Type Department Care Team Description 11/15/2019 Lab Requisition [facility] Brittney Garcia for other Pathology & MD Lina general examination Laboratory Medicine [address] [place] [address] [address] [place] [address] [place], [place] [id number] Social History Tobacco Use Types Packs/Day Years Used Date Smoking Tobacco: Never Assessed Sex Assigned at Date Recorded Not on file documented as of this encounter Plan of Treatment Not on filedocumented as of this encounter Procedures Procedure Name Priority Date/Time Associated Diagnosis Comme nts SURGICAL PATHOLOGY Today 11/15/2019 14:22 Resul ts for this EST procedure are i n the results section. documented in this encounter Results SURGICAL PATHOLOGY (11/15/2019 14:22 EST) Component Value Ref Test Analysis Performed At [facility] Range Method Time Signature Final A. STOMACH, BIOPSY: 11/19/2019 [facility] MEDIC AL Electronically Diagnosis - Gastric fundic mucosa with no significant diagnostic abnormality. 11:29 EDT CENTER signed by [place] - Negative for Helicobacter pylori microorganisms on H&E s tained sections. LABORATORY Christie Gamboa MD SERVICES on 0 at 1129 Clinical Preoperative DX: Upper GI bleed 11/19/19 20 [facility] MEDICAL History Postoperative DX: Gastritis 11:29 EDT CE NTER LABORATORY SERVICES Attestation By the signature 11/19/2019 [facility] MEDICA L Electronically below, the 11:29 EDT CENTER signed by Abu attending LABORATORY Iliana Gamboa MD physician SERVICES on 0 at certifies that 1129 they have 1) personally conducted a gross and/or microscopic examination of the described specimen(s), and/or personally interpreted the results of laboratory testing of the described specimen(s), and 2) personally rendered or confirmed the above diagnosis. Gross A. Received in formalin labe lled with proper patient identification (initials B, R) and gastric mucosal biopsies are 3 lanier-brown tissues (0.2 x 0.2 x 0.1 cm to 0.3 x 0.2 x 0.1 cm). Submitted in toto in A1. 11/19/2019 [facility] MEDICAL Description 11:29 [facility] Kaci Denchel 11/16/2019 7:40 LABORATORY SERVICES Scanned Images 11/19/2019 [facility] MEDICAL 11:29 [facility] LABORATORY SERVICES Specimen Anatomical Collection Method Collection Time Receive d Time (Source) Location / / Volume Laterality Tissue ENTIRE STOMACH / 11/15/2019 14:22 020 Unknown EST 23:03 EST Brittney Garcia MD PATHOLOGY ORDERABLES Performing Organization Address City/State/ZIP Code Phon e Number [facility]ORY [address] [place] [address] SERVICES documented in this encounter Visit Diagnoses Diagnosis Encounter for other general examination documented in this encounter Care Teams Pillowcase Cutter Relationship Specialty Start Date End Date Unknown, Provider, PCP - General 08/12/17 documented as of this encounter
--- OUTSIDE RECORDS SUMMARY | 2022-07-25 17:55 | XMS_ITS | Encounter Summary ---
:1960 Author Organization [facility] Address [address] [place] [address] Care Team Providers Name Role Phone Unknown, Provider Primary Care Provider Reason for Visit Reason Comments Telemedicine Video Visit Encounter Details Date Type Department Care Team Description 08/13/2020 Telemedicine [facility] - France Menendez [facility] I (mild cognitive impairment) (Primary Dx); [facility] History of psychosis [address] [place] [address] [address] [place] [address] Social History Tobacco Use Types Packs/Day Years Used Date Smoking Tobacco: Never Assessed Sex Assigned at Date Recorded Not on file documented as of this encounter Progress Notes France Menendez MD - 08/13/2020 1430 EST [facility] Televideo visit Platform: Zoom Verbal consent: The concept of ???Telemedicine?? has been described to the patient. Patient has been informed of the anticipated benefits and possible risks. Patient understands the information provided regarding telemedicine, has had the opportunity to ask questions about this information, and all questions have been answered to patient???s satisfaction. Patient consents for the use of telemedicinein his/her medical care and authorizes the transmission of any relevant medical information to providers and their staff involved in patient???s medical or mental health care. 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 Former MoCA scores: ?? and )September 2017) ?? 18/30 (January 2018) ?? (December 2018) Recent history: He continues follow-[facility] with Ms. Olivia Wise NP. He has a simple daily routine; says he is a TV hog. Doing a little exercise. His Riana continues to work at a local shelter. There has been no recurrence of psychosis since 2018, and his site planner hs reduced his Zyprexa (below). He and his share finances, shopping, cooking, and looking after their cat. He drives without incident. Riana has no concerns about his memory. Cataract surgery is planned later this month. Present medications: donepezil 10 mg/day; benztropine 1 mg hs; Zyprexa 2.5 mg hs; gabapentin 300 mg hs (back pain);amlodipine 5 mg; ASA qd; atorvastatin 80 mg/day; isosorbide ER 60 mg; losartan 100 mg;MVI ; Protonix 40 mg/day; Zoloft 50 mg/day; zaleplon 5 mg hs Benztropine was prescribed by Ms. Sabina Wise for oral tardive dyskinesia which has resolved. Pertinent ROS included in HPI Pertinent labs [...] likely normal and of no clinical significance. Data reviewed: Problem list, medications, allergies, family and social history, notes from last encounter, [facility], pertinent labs and neuroimaging Examination: There were no vitals taken for this visit. Pertinent exam findings: He appeared obese. Mild psychomotor slowing which may be cultural. Terse historian. His , also present, did not raise any concerns Encounter Diagnoses Name Primary? MCI (mild cognitive impairment) Yes ??? History of psychosis Comment: S/P de roddy psychosis in 2018 and mild cognitive changes which appear to be stable; atrophyand microvascular disease on MRI Plan: I advised Ray that I would like to see him again to repeat office MoCA. If stable, we will endregularly neurological follow-up. Given [place] [facility] and the Covid pandemic, our next office visit is not likely to take place before spring 2020, which will provide a 2-year interval for comparison with prior MoCA testing in December 2018. Patient initiated phone contact with the office: No. Comment: Scheduled telemed visit Established patient? Y E/M provided within previous 7 days for same medical assessment: N Anticipate E/M service within 24 h or next available urgent appointment: N Time: 14:30 to 14: 50 (20 minutes) Cc: Geovanny Wise NP documented in this encounter Plan of Treatment Not on filedocumented as of this encounter Visit Diagnoses Diagnosis MCI (mild cognitive impairment) - Primar y Mild cognitive impairment, so stated History of psychosis Personal history of other mental disorde r documented in this encounter Historical Medications This list may reflect changes made after this encounter. Medication Sig Dispensed Refills Start Date End Date gatifloxacin (ZYMAXID) INSTILL ONE DROP INTO 0 0.5 % ophthalmic solution [facility] 4 TIMES A DAY (START ONE DAY PRIOR TO SURGERY) gabapentin (NEURONTIN) Take 300 mg by mouth. 0 300 mg capsule 1 tab in AM, 2 tabs in PM ketOROLAC (ACULAR) 0.5 % INSTILL ONE DROP INTO 0 08/01/2020 ophthalmic solution [facility] 4 TIMES A DAY (START ONE DAY BEFORE SURGERY) prednisoLONE (PRED FORTE) INSTILL 1 DROP IN THE 0 08/01/2020 1 % ophthalmic suspension [facility] 4 TIMES A DAY START AFTER SURGERY added in this encounter Care Teams Vessel Ordinary Seaman Relationship Specialty Start Date End Date Unknown, Provider, PCP - General 08/12/17 documented as of this encounter
--- OUTSIDE RECORDS SUMMARY | 2022-07-25 17:55 | XMS_ITS | Encounter Summary ---
:1960 Author Organization [facility] Address [address] [place] [address] Care Team Providers Name Role Phone Unknown, Provider Primary Care Provider Reason for Visit Reason Onset Date Comments Other 03/25/2020 Encounter Details Date Type Department Care Team Description 03/25/2020 Telephone [facility] - [facility] France Menendez MD Other Neurology Clinic [address] [facility] [address] [facility] [address] [place] [address] [place] [address] (Wo rk) Social History Tobacco Use Types Packs/Day Years Used Date Smoking Tobacco: Never Assessed Sex Assigned at Date Recorded Not on file documented as of this encounter Miscellaneous Notes Telephone Encounter - Izabela Turpin - 03/25/2020 1534 EDT PT called said you called, she is returning your call documented in this encounter Plan of Treatment Not on filedocumented as of this encounter Visit Diagnoses Not on filedocumented in this encounter Care Teams Library Clerk Relationship Specialty Start Date End Date Unknown, Provider, PCP - General 08/12/17 documented as of this encounter
--- OUTSIDE RECORDS SUMMARY | 2022-07-25 17:55 | XMS_ITS | Encounter Summary ---
:1960 Author Organization [facility] Address [address] [place] [address] Care Team Providers Name Role Phone Unknown, Provider Primary Care Provider Reason for Visit Reason Comments Other Encounter Details Date Type Department Care Team Description 07/03/2021 Refill [facility] [place] Menendez MD Other Neurology Clinic [address] [facility] 130 [facility] [address] [place] [address] [place] [address] (Wo rk) Social History Tobacco Use Types Packs/Day Years Used Date Smoking Tobacco: Never Assessed Sex Assigned at Date Recorded Not on file documented as of this encounter Ordered Prescriptions Prescription Sig Dispensed Refills Start Date End Date donepezil (ARICEPT) 10 mg TAKE 1 TABLET AT 90 Tablet 0 06/1309/29/2021 tablet BEDTIME documented in this encounter Miscellaneous Notes Telephone Encounter - Kimberly Alexis RN - 07/03/2021 1414 EDT Request: donepezil 10 mg qhs Last OV: 08/13/2020 Next OV: 08/2021 Ref Date: 08/13/2020 same Action: Escript as tabbed Please schedule patient for MOCA f/u in 08/2021 (60 min). You may need to schedule with Riana. documented in this encounter Plan of Treatment Not on filedocumented as of this encounter Visit Diagnoses Not on filedocumented in this encounter Discontinued Medications Medication Sig Discontinue Reason Start Date End Date donepeziL (ARICEPT) 10 TAKE 1 TABLET AT 12/29/2020 1 mg tablet BEDTIME documented as of this encounter Care Teams Photographer Motion Picture Relationship Specialty Start Date End Date Unknown, Provider, PCP - General 08/12/17 documented as of this encounter
--- OUTSIDE RECORDS SUMMARY | 2022-07-25 17:55 | XMS_ITS | Encounter Summary ---
:1960 Author Organization [facility] Address [address] [place] [address] Care Team Providers Name Role Phone Unknown, Provider Primary Care Provider Reason for Visit Reason Onset Date Comments Follow-up 08/08/2020 Encounter Details Date Type Department Care Team Description 08/08/2020 Telephone [facility] - [facility] France Menendez MD Follow-up Neurology Clinic 130 [facility] 130 [facility] [address] [place] [address] [place] [phone] (Wo rk) Social History Tobacco Use Types Packs/Day Years Used Date Smoking Tobacco: Never Assessed Sex Assigned at Date Recorded Not on file documented as of this encounter Miscellaneous Notes Telephone Encounter - Do Villafana - 08/08/2020 1506 EST Opened in error documented in this encounter Plan of Treatment Not on filedocumented as of this encounter Visit Diagnoses Not on filedocumented in this encounter Care Teams Metaphysicist Relationship Specialty Start Date End Date Unknown, Provider, PCP - General 08/12/17 documented as of this encounter
--- OUTSIDE RECORDS SUMMARY | 2022-07-25 17:55 | XMS_ITS | Encounter Summary ---
:1960 Author Organization [facility] Address [address] [place] [address] Care Team Providers Name Role Phone Unknown, Provider Primary Care Provider Reason for Visit Reason Onset Date Comments Other Medications Refill 03/25/2020 Encounter Details Date Type Department Care Team Description 03/25/2020 Telephone [facility] - France Menendez, Ot her; Medications [facility] Refill [address] [place] [address] [address] [place] [address] (Wo rk) Social History Tobacco Use Types Packs/Day Years Used Date Smoking Tobacco: Never Assessed Sex Assigned at Date Recorded Not on file documented as of this encounter Ordered Prescriptions Prescription Sig Dispensed Refills Start Date End Date donepeziL (ARICEPT) 10 mg Take 1 Tab by mouth 7 Tab 0 0 03/25/2020 04/01/2020 tablet daily for 7 days. donepeziL (ARICEPT) 10 mg Take 1 Tab by mouth 90 Tab 0 0 03/25/2020 06/18/2020 tablet at bedtime. donepeziL (ARICEPT) 10 mg TAKE 1 TABLET AT 90 Tab 0 03/1203/25/2020 tablet BEDTIME documented in this encounter Miscellaneous Notes Addendum Note - Kimberly Skinner RN - 03/25/2020 1113 EDT Addended by: KIMBERLY SKINNER on: 03/25/2020 11:13 Modules accepted: Orders Telephone Encounter - Kimberly Skinner RN - 03/25/2020 1106 EDT Sending script for 7 pills to [facility] in [place] to get patient through the weekend. Telephone Encounter - Izabela Turpin - 03/25/2020 1030 EDT Pt will be out needs small amount sent to pharmacy [facility] in [place] Telephone Encounter - Izabela Turpin - 03/25/2020 0937 EDT Unable to reach patient letter mailed Telephone Encounter - Kimberly Skinner RN - 03/25/2020 0857 EDT Request: donepezil 10 mg qhs Last OV: 03/06/2019 Next OV: cx covid Reference: 03/06/2019 same Action: Escript as tabbed Please schedule patient for f/u with Dr. Meenndez, dementia, in the near future. documented in this encounter Plan of Treatment Not on filedocumented as of this encounter Visit Diagnoses Not on filedocumented in this encounter Discontinued Medications Medication Sig Discontinue Reason Start Date End Date donepeziL (ARICEPT) 10 TAKE 1 TABLET AT Reorder 03/25/2020 0 03/25/2020 mg tablet BEDTIME documented as of this encounter Care Teams Tea Plantation Worker Relationship Specialty Start Date End Date Unknown, Provider, PCP - General 08/12/17 documented as of this encounter
--- OUTSIDE RECORDS SUMMARY | 2022-07-25 17:55 | XMS_ITS | Encounter Summary ---
:1960 Author Organization [facility] Address [address] [place] [address] Care Team Providers Name Role Phone Unknown, Provider Primary Care Provider Reason for Visit Reason Onset Date Comments Medications Refill 11/13/2021 Encounter Details Date Type Department Care Team Description 11/13/2021 Telephone [facility] - Barb Menendez MD Medications Refill [facility] [address] [place] [address] [place] [phone] (Wo rk) Social History Tobacco Use Types Packs/Day Years Used Date Smoking Tobacco: Never Assessed Sex Assigned at Date Recorded Not on file documented as of this encounter Ordered Prescriptions Prescription Sig Dispensed Refills Start Date End Date donepezil (ARICEPT) 10 mg Take 1 Tablet by 30 Tablet 0 /0 12/2021 tablet mouth at bedtime for 30 days. donepezil (ARICEPT) 10 mg Take 1 Tablet by 30 Tablet 5 /0 12/202112/02/2021 tablet mouth at bedtime. documented in this encounter Miscellaneous Notes Telephone Encounter - Kimberly Alexis RN - 11/13/2021 2843 EST [employer] Fill [phone](member services) Spoke with Riana. This is their new mail order company. I mistakenly sent the script to what was in their profile, [facility]. Sending 30 day script to local pharmacy and will send refill to new mail order for continuing refills. Telephone Encounter - Angélica Mauricio - 11/13/2021 1344 EST Riana craig said they never received refill from [facility]. [facility] is out of meds. [facility] documented in this encounter Plan of Treatment Not on filedocumented as of this encounter Visit Diagnoses Not on filedocumented in this encounter Discontinued Medications Medication Sig Discontinue Reason Start Date End Date donepezil (ARICEPT) 10 Take 1 Tablet by Error 11/09/2021 0 11/13/2021 mg tablet mouth daily. documented as of this encounter Care Teams Poultry Breeder Relationship Specialty Start Date End Date Unknown, Provider, PCP - General 08/12/17 documented as of this encounter
--- OUTSIDE RECORDS SUMMARY | 2022-07-25 17:56 | XMS_ITS | Encounter Summary ---
:1960 Author Organization [facility] Address [address] [place] [address] Care Team Providers Name Role Phone Unknown, Provider Primary Care Provider Encounter Details Date Type Department Care Team Description 08/19/[address] [facility] - Ken Randolph MD Only [facility] Lab - [place] [address] [place] [address] [phone] Social History Tobacco Use Types Packs/Day Years Used Date Smoking Tobacco: Never Assessed Sex Assigned at Date Recorded Not on file documented as of this encounter Plan of Treatment Not on filedocumented as of this encounter Procedures Procedure Name Priority Date/Time Associated Diagnosis Comme nts VIT D, 25-HYDROXY - Routine 08/19/2017 16:45 Resu lts for this [facility] EST procedure are i n the results section. HIV 1/2 AB, P24 AG Routine 08/19/2017 16:45 Resul ts for this - [facility] EST procedure are i n the results section. RAPID PLASMA REAGIN Routine 08/19/2017 16:45 Resu lts for this (RPR) WITH REFLEX, EST procedure are in S the results section. HEPATITIS C AB W Routine 08/19/2017 16:45 Results for this REFLEX TO HCV RNA EST procedure are in BY PCR the results section. HEPATITIS B SURFACE Routine 08/19/2017 16:45 Resu lts for this ANTIBODY EST procedure are i n the results section. FOLATE Routine 08/19/2017 16:45 Results for this EST procedure are i n the results section. VITAMIN B12 Routine 08/19/2017 16:45 Results for this EST procedure are i n the results section. documented in this encounter Results HEPATITIS C AB W REFLEX TO HCV RNA BY PCR (08/19/2017 16:45 EST) athologist Signature HEPATITIS C AB Negative 08/19/2017 [facility] W/REFLEX - 18:53 [facility] Comment: Expected Values: Negative. Specimen Anatomical Collection Method Collection Time Receive d Time (Source) Location / / Volume Laterality 08/19/2017 16:45 08/19/2017 EST 16:55 EST Narrative [facility] - 017 18:53 EST Does PT Have a Latex Allergy? NO Ken Randolph MD CHEMISTRY & BLOOD GAS ORDERA BLES Performing Organization Address City/[facility]/ZIP Code Phon e Number [facility] [address] LAB HEPATITIS B SURFACE ANTIBODY (08/19/2017 16:45 EST) athologist [facility] Hep B Surface 0 08/19/2017 ROE Ab, Qualitative 18:53 [facility] Comment: ?Interpretative G uidelines < 5.00 mIU/mL = ?Negative Clinical Interpretation of Immune Statu s: Patient is considered to be not immune to infectio n with HBV. Specimen Anatomical Collection Method Collection Time Receive d Time (Source) Location / / Volume Laterality 08/19/2017 16:45 08/19/2017 EST 16:55 EST Narrative [facility] - 017 18:53 EST Does PT Have a Latex Allergy? NO Ken Randolph MD CHEMISTRY & BLOOD GAS ORDERA BLES Performing Organization Address City/State/ZIP Code Phon e Number [facility] [address] LAB (ABNORMAL) VIT D, 25-HYDROXY - [facility] (08/19/2017 16:45 EST) athologist [facility] VIT D, 25 23.1 (L) 30 - 100 08/19/2017 ROE HYDROXY - [facility] ng/ml 17:33 [facility] LAB Comment: ? 25-Hydroxy D Total (D2+D3) ?Expected Values Deficient: ?<20 ng/ml Insufficient: ? 20- <30 ng/ ml Sufficient: ? 30-100 ng/ ml Potential intoxication: >100 ng/ml Specimen Anatomical Collection Method Collection Time Receive d Time (Source) Location / / Volume Laterality 08/19/2017 16:45 08/19/2017 EST 17:05 EST Narrative [facility] - 017 21:04 EST AOT: 08/19/17 1705: VITAMIN D LEVEL AOT: 08/22/17 1914: B12/FOL Ken Randolph MD CHEMISTRY & BLOOD GAS ORDERA BLES Performing Organization Address City/[facility]/ZIP Code Phon e Number [facility] [address] [place] [address] LAB FOLATE (08/19/2017 16:45 EST) P athologist Signature FOLIC ACID - 8.15 2.76- 08/22/2017 [facility] CV >20.0 21:04 EST [facility]mL [facility] LAB Specimen Anatomical Collection Method Collection Time Receive d Time (Source) Location / / Volume Laterality 08/19/2017 16:45 08/19/2017 EST 17:05 EST Narrative [facility] - 017 21:04 EST AOT: 08/19/17 1705: VITAMIN D LEVEL AOT: 08/22/17 1914: B12/FOL Ken Randolph MD CHEMISTRY & BLOOD GAS ORDERA BLES Performing Organization Address City/State/ZIP Code Phon e Number [facility] [address] [place] [address] LAB VITAMIN B12 (08/19/2017 16:45 EST) P athologist Signature VITAMIN B12 - 440 239 - 931 08/22/2017 [facility]TRAL CV pg/mL 21:04 [facility] LAB Specimen Anatomical Collection Method Collection Time Receive d Time (Source) Location / / Volume Laterality 08/19/2017 16:45 08/19/2017 EST 17:05 EST Narrative [facility] - 017 21:04 EST AOT: 08/19/17 1705: VITAMIN D LEVEL AOT: 08/22/17 1914: B12/FOL Ken Randolph MD CHEMISTRY & BLOOD GAS ORDERA BLES Performing Organization Address City/[facility]/ZIP Code Phon e Number [facility] [address] LAB HIV 1/2 AB, P24 AG - CV (08/19/2017 16:45 EST) P athologist Signature HIV 1/2 AB, Negative NEGAT 08/20/2017 ROE P24 AG - [facility] 14:36 EST [facility] Comment: ?? Fourth generation assay performed on e [employer]. If acute HIV-1 infection is suspected i n a high risk patient, submit plasma specim en for HIV-1 RNA quantification test. ?? Test Performed by: [facility] [id number] Eyewear Consultant: Ken Patrick MD , Ph D Specimen Anatomical Collection Method Collection Time Receive d Time (Source) Location / / Volume Laterality 08/19/2017 16:45 08/19/2017 EST 16:56 EST Narrative [facility] - 017 14:36 EST Does PT Have a Latex Allergy? NO Ken Randolph MD CHEMISTRY & BLOOD GAS ORDERA BLEMilagros Performing Organization Address City/[facility]/ZIP Code Phon e Number [facility] [address] LAB RAPID PLASMA REAGIN (RPR) WITH REFLEX, S (08/19/2017 16:45 EST) Patholo gist Method Time Signature APID PLASMA Nonreactive NEG 08/25/2017 ROE REAGIN - [facility] 8:59 EST [facility] Specimen Anatomical Collection Method Collection Time Receive d Time (Source) Location / / Volume Laterality 08/19/2017 16:45 08/19/2017 EST 16:54 EST Narrative [facility] - 017 8:59 EST Does PT Have a Latex Allergy? NO Ken Randolph MD IMMUNOLOGY AND SEROLOGY MIKAEL CEE Performing Organization Address City/[facility]/ZIP Code Phon e Number [facility] [address] [facility] [place] [id number] [place] [address] LAB documented in this encounter Visit Diagnoses Not on filedocumented in this encounter Care Teams Mender Hand Relationship Specialty Start Date End Date Unknown, Provider, PCP - General 08/12/17 documented as of this encounter
--- OUTSIDE RECORDS SUMMARY | 2022-07-25 17:56 | XMS_ITS | Encounter Summary ---
:1960 Author Organization [facility] Address [address] [place] [address] Care Team Providers Name Role Phone Unknown, Provider Primary Care Provider Encounter Details Date Type Department Care Team Description 09/20/2017 Historical Results Only [facility] - Irineo Simon, [facility] Lab - Main [facility] MD [address] [place] [address] Street [phone] [place] [phone] Social History Tobacco Use Types Packs/Day Years Used Date Smoking Tobacco: Never Assessed Sex Assigned at Date Recorded Not on file documented as of this encounter Plan of Treatment Not on filedocumented as of this encounter Procedures Procedure Name Priority Date/Time Associated Comments Diagnosis TROPONIN I Routine 09/20/2017 20:45 Results for this EST procedure are i n the results section. TROPONIN I Routine 09/20/2017 16:20 Results for this EST procedure are i n the results section. XR CHEST 2 VIEWS 09/20/2017 14:10 Results for this EST procedure are i n the results section. XR CHEST 2 VIEWS 09/20/2017 13:19 Results for this EST procedure are i n the results section. COMPLETE BLOOD COUNT Routine 09/20/2017 13:00 Res ults for this WITH DIFFERENTIAL EST procedure are in (AUTO) the results section. TROPONIN I Routine 09/20/2017 13:00 Results for this EST procedure are i n the results section. MAGNESIUM Routine 09/20/2017 13:00 Results for this EST procedure are i n the results section. COMPREHENSIVE Routine 09/20/2017 13:00 Results fo r this METABOLIC PANEL (CMP) EST proced ure are in the results section. TEST CANCELLED - [facility] Routine 09/20/2017 12:25 Re sults for this EST procedure are i n the results section. documented in this encounter Results TROPONIN I (09/20/2017 20:45 EST) athologist Signature Troponin I <0.012 0.000 - 09/20/2017 [facility] (ng/mL) 0.034 21:30 EST [facility] ng/mL CENTER LAB Comment: Interpretation comments: ??Cutoff for a positive troponin result is set at the 99th percentile of the upper reference limit. ??Elevated troponin must always be inte rpreted in the context of the clinical presentation. ?Serial troponin testing 3-6 hr from b aseline is favored over relying on a single troponin level. Specimen Anatomical Collection Method Collection Time Receive d Time (Source) Location / / Volume Laterality 09/20/2017 20:45 09/20/2017 EST 21:03 EST Manoj Hope MD CHEMISTRY & BLOOD GAS ORD ERABLES Performing Organization Address City/[facility] Code Phon e Number [facility] [address] [place] [address] LAB TROPONIN I (09/20/2017 16:20 EST) athologist Signature Troponin I <0.012 0.000 - 09/20/2017 [facility] (ng/mL) 0.034 16:55 EST [facility] ng/mL CENTER LAB Comment: Interpretation comments: ??Cutoff for a positive troponin result is set at the 99th percentile of the upper reference limit. ??Elevated troponin must always be inte rpreted in the context of the clinical presentation. ?Serial troponin testing 3-6 hr from b aseline is favored over relying on a single troponin level. Specimen Anatomical Collection Method Collection Time Receive d Time (Source) Location / / Volume Laterality 09/20/2017 16:20 09/20/2017 EST 16:[address] [facility] - 018 16:55 EST Does PT Have a Latex Allergy? NO Time to be drawn: 1615 Yefri Peter MD CHEMISTRY & BLOOD GAS ORDERA BLES Performing Organization Address City/[facility] Phon e Number [facility] [address] LAB XR CHEST 2 VIEWS (09/20/2017 14:10 EST) Anatomical Region Laterality Modality Other Specimen (Source) Anatomical Collection Method Collection Time Re ceived Time Location / / Volume Laterality 09/20/2017 14:10 EST Narrative 09/20/2017 14:13 EST ? EXAM: RADIOLOGY/CHEST (PA ?? LAT) ?EX. D/ (1357) ? CLINICAL INFORMATION: ? CP ? CHEST (PA ?? LAT) ? Signs and Symptoms/Comments: ??Ch est pain ? Comparisons: None ? FINDINGS: ? PA and lateral views of the chest were performed. Multiple leads ? project over the chest. Mild patc hy lingular opacity has a somewhat ? linear morphology, favoring atele ctasis or scarring the lungs are ? otherwise unremarkable. No pneumo thorax or pleural effusion is ? present. The cardiomediastinal si lhouette and pulmonary vascularity ? are normal. Multilevel thoracic d egenerative changes are present. ? IMPRESSION: ? Mild patchy lingular opacity. Mor phology favor scarring or ? atelectasis, although please angel elate for signs of infection. ? REPORT SIGNED IN OTHER VENDOR SYSTEM 09/20/2017 ?Reported B y: Antonio Beck MD ? CC: ? Transcribed Date/Time: 09/20/2017 (1413) ? Single Resource Boss: ? Printed Date/Time: 02/28/2019 (12 48) ? PAGE 1 ? Leah d Report ? Procedure Note Antonio Beck MD - 10/08/2019Format ting of this note might be different from the original. EXAM: RADIOLOGY/CHEST (PA LAT) EX. D/ (5657) CLINICAL INFORMATION: CP CHEST (PA LAT) Signs and Symptoms/Comments: Chest pain Comparisons: None FINDINGS: PA and lateral views of the chest were performed. Multiple leads project over the chest. Mild patchy kemar gular opacity has a somewhat linear morphology, favoring atelectasis or scarring the lungs are otherwise unremarkable. No pneumothorax or pleural effusion is present. The cardiomediastinal silhouet te and pulmonary vascularity are normal. Multilevel thoracic degener ative changes are present. IMPRESSION: Mild patchy lingular opacity. Morpholog y favor scarring or atelectasis, although please correlate for signs of infection. REPORT SIGNED IN OTHER VENDOR SYSTEM 09/20/2017 Reported By: Antonio Beck MD CC: Transcribed Date/Time: 09/20/2017 (1413 ) Single Resource Boss: LAClemencia Printed Date/Time: 02/28/2019 (4626) PAGE 1 Signed Report Tanika Randolph MD IMG DIAGNOSTIC IMAGING ORDER [facility]UR[facility] XR CHEST 2 VIEWS (09/20/2017 13:19 EST) Anatomical Region Laterality Modality Other Specimen (Source) Anatomical Collection Method Collection Time Re ceived Time Location / / Volume Laterality 09/20/2017 13:19 EST Narrative 09/20/2017 14:10 EST ? EXAM: RADIOLOGY/CHEST (PA ?? LAT) ?EX. D/ (7687) ? CLINICAL INFORMATION: ? CP ? CHEST (PA ?? LAT) ? Signs and Symptoms/Comments: ??Ch est pain ? Comparisons: None ? FINDINGS: ? PA and lateral views of the chest were performed. Multiple leads ? project over the chest. Mild patc hy lingular opacity has a somewhat ? linear morphology, favoring atele ctasis or scarring the lungs are ? otherwise unremarkable. No pneumo thorax or pleural effusion is ? present. The cardiomediastinal si lhouette and pulmonary vascularity ? are normal. Multilevel thoracic d egenerative changes are present. ? IMPRESSION: ? Mild patchy lingular opacity. Mor phology favor scarring or ? atelectasis, although please angel elate for signs of infection. ? REPORT SIGNED IN OTHER VENDOR SYSTEM 09/20/2017 ?Reported B y: Antonio Beck MD ? CC: ? Transcribed Date/Time: 09/20/2017 (1413) ? Single Resource Boss: ? Printed Date/Time: 02/28/2019 (12 48) ? PAGE 1 ? Leah d Report ? Procedure Note Antonio Beck MD - 10/08/2019Format ting of this note might be different from the original. EXAM: RADIOLOGY/CHEST (PA LAT) EX. D/ (1357) CLINICAL INFORMATION: CP CHEST (PA LAT) Signs and Symptoms/Comments: Chest pain Comparisons: None FINDINGS: PA and lateral views of the chest were performed. Multiple leads project over the chest. Mild patchy kemar gular opacity has a somewhat linear morphology, favoring atelectasis or scarring the lungs are otherwise unremarkable. No pneumothorax or pleural effusion is present. The cardiomediastinal silhouet te and pulmonary vascularity are normal. Multilevel thoracic degener ative changes are present. IMPRESSION: Mild patchy lingular opacity. Morpholog y favor scarring or atelectasis, although please correlate for signs of infection. REPORT SIGNED IN OTHER VENDOR SYSTEM 09/20/2017 Reported By: Antonio Beck MD CC: Transcribed Date/Time: 09/20/2017 (8921 ) Single Resource Boss: Printed Date/Time: 02/28/2019 (3231) PAGE 1 Signed Report Tanika Randolph MD IMG DIAGNOSTIC IMAGING ORDER [facility] TROPONIN I (09/20/2017 13:00 EST) athologist Signature Troponin I <0.012 0.000 - 09/20/2017 [facility] (ng/mL) 0.034 13:53 EST [facility] ng/mL CENTER LAB Comment: Interpretation comments: ??Cutoff for a positive troponin result is set at the 99th percentile of the upper reference limit. ??Elevated troponin must always be inte rpreted in the context of the clinical presentation. ?Serial troponin testing 3-6 hr from b aseline is favored over relying on a single troponin level. Specimen Anatomical Collection Method Collection Time Receive d Time (Source) Location / / Volume Laterality 09/20/2017 13:00 09/20/2017 EST 13:[address] [facility] - 018 13:53 EST Does PT Have a Latex Allergy? NO Tanika Randolph MD CHEMISTRY & BLOOD GAS ORDERA BLES Performing Organization Address City/[facility]/ZIP Code Phon e Number [facility] [address] LAB MAGNESIUM (09/20/2017 13:00 EST) athologist Signature Magnesium 2.10 1.7 - 2.8 09/20/2017 [facility] mg/dL 13:43 EST [facility] LAB Specimen Anatomical Collection Method Collection Time Receive d Time (Source) Location / / Volume Laterality 09/20/2017 13:00 09/20/2017 EST 13:[address] [facility] - 018 13:43 EST Does PT Have a Latex Allergy? NO Tanika Randolph MD CHEMISTRY & BLOOD GAS ORDERA BLES Performing Organization Address City/State/ZIP Code Phon e Number [facility] [address] [place] [address] [facility] (ABNORMAL) COMPREHENSIVE METABOLIC PANEL (CMP) (09/20/2017 13:00 EST) P athologist Signature Albumin % 4.5 3.4 - 4.9 09/20/2017 [facility] g/dL 13:43 [facility] ALKALINE 68 38 - 126 09/20/2017 [facility] PHOSPHATASE - U/L 13:43 [facility] LAB BILIRUBIN TOTAL 0.3 0.2 - 1.3 09/20/2017 [facility] mg/dL 13:43 [facility] BUN - [facility] 14 10 - 26 09/20/2017 [facility] mg/dL 13:43 [facility] CALCIUM - [facility] 9.8 8.5 - 10.5 09/20/2017 [facility] mg/dL 13:43 [facility] Chloride 102 96 - 110 09/20/2017 [facility] mmol/L 13:43 [facility] CO2 Total 26 21 - 32 09/20/2017 [facility] mEq/L 13:43 [facility] CREATININE 1.14 0.66 - 09/20/2017 [facility] 1.25 mg/dL 13:43 [facility] eGFR >60 09/20/2017 [facility] 13:43 [facility] Comment: Chronic renal impairment is defined as G FR <60 Multiply result by 1.210 for Il[place] r[place] patients. Anion Gap 17 0 - 18 09/20/2017 13:43 [facility] GLUCOSE - [facility] 108 (H) 70 - 100 mg/dL 09/20/2017 13:[address] [facility] Potassium 4.6 3.5 - 5.0 09/20/2017 13:43 [facility] mEq/L [facility] Sodium 145 136 - 145 09/20/2017 13:43 [facility] mEq/L [facility] TOTAL PROTEIN - [facility] 7.1 6.2 - 8.2 09/20/2017 13:43 ES T [facility] gm/dL [facility] SGOT/AST - [facility] 26 17 - 59 U/L 09/20/2017 13:43 EST C [facility] SGPT/ALT - [facility] 58 21 - 72 U/L 09/20/2017 13:43 EST [facility] LAB Specimen Anatomical Collection Method Collection Time Receive d Time (Source) Location / / Volume Laterality 09/20/2017 13:00 09/20/2017 EST 13:[address] [facility] - 018 13:43 EST Does PT Have a Latex Allergy? NO Tanika Randolph MD CHEMISTRY & BLOOD GAS ORDERA BLES Performing Organization Address City/State/ZIP Code Phon e Number [facility] [address] LAB COMPLETE BLOOD COUNT WITH DIFFERENTIAL (AUTO) (09/20/2017 13:00 EST) P athologist Signature ABSOLUTE 5.26 1.7 - 7.0 09/20/2017 [facility] NEUTROPHIL COUN 10e3/ul 13:30 [facility] BASO # - [facility] 0.06 0.0 - 0.3 09/20/2017 [facility] 10e3/uL 13:30 [facility] BASO % - [facility] 1 0 - 2 % 09/20/2017 [facility] 13:30 [facility] EOS # - [facility] 0.30 0.05 - 0.5 09/20/2017 [facility] 10e3/uL 13:30 [facility] EOS % - [facility] 4 0 - 5 % 09/20/2017 [facility] 13:30 [facility] GRAN % - [facility] 63 40 - 80 % 09/20/2017 [facility] 13:30 [facility] HEMATOCRIT - 43.1 36.0 - 09/20/2017 [facility] 52.0 % 13:30 [facility] HEMOGLOBIN - 15.2 13.7 - 09/20/2017 [facility] 17.5 g/dl 13:30 [facility] IG# - [facility] 0.02 0 - 0.07 09/20/2017 [facility] 10e3/uL 13:30 [facility] IG% - [facility] 0.2 0 - 0.9 % 09/20/2017 [facility] 13:30 [facility] LYMPH # - [facility] 2.25 0.9 - 2.9 09/20/2017 [facility] 10e3/uL 13:30 [facility] LYMPH% - [facility] 27 20 - 40 % 09/20/2017 [facility] 13:30 [facility] MEAN CORPUSCULAR 33.8 26 - 34 pg 09/20/2017 [facility] HGB - [facility] 13:30 [facility] MEAN CORPUSCULAR 35.3 31 - 36 09/20/2017 [facility] HGB CONC - [facility] g/dL 13:30 [facility] MEAN CELL VOLUME 95.8 77 - 100 09/20/2017 [facility] - [facility] fl 13:30 [facility] MONO # - [facility] 0.44 0.3 - 0.9 09/20/2017 [facility] 10e3/uL 13:30 [facility] MONO% - [facility] 5 0 - 12 % 09/20/2017 [facility] 13:30 [facility] PLATELET COUNT 248 150 - 400 09/20/2017 [facility] 10e3/ul 13:30 [facility] RED BLOOD COUNT 4.50 4.3 - 5.7 09/20/2017 [facility] - CV 10e6/ul 13:30 [facility] RED CELL DISTRI 12.4 11.8 - 09/20/2017 [facility] WIDTH - [facility] 15.6 % 13:30 [facility] WHITE BLOOD 8.3 3.5 - 10.5 09/20/2017 [facility] COUNT - CV 10e3/ul 13:30 [facility] Specimen Anatomical Collection Method Collection Time Receive d Time (Source) Location / / Volume Laterality 09/20/2017 13:00 09/20/2017 EST 13:[address] [facility] - 018 13:30 EST Does PT Have a Latex Allergy? NO Tanika Randolph MD HEMATOLOGY & PF4 ORDERABLES Performing Organization Address City/State/ZIP Code Phon e Number [facility] 130 [place], [place] [id number] [place] [address] LAB TEST CANCELLED - [facility] (09/20/2017 12:25 EST) P athologist Signature TEST CANCELLED SEE NOTE 09/20/2017 [facility] 13:04 [facility] Comment: The following test(s) have been cancelle d: TEST: ??TROPONIN REASON FOR CANCELLATION: ??SAMPLE VERITO QNS OFFICE/MD NOTIFIED ??TANIKA @ [facility] Specimen Anatomical Collection Method Collection Time Receive d Time (Source) Location / / Volume Laterality 09/20/2017 12:25 09/20/2017 EST 12:59 EST Irineo Simon MD CHEMISTRY & BLOOD GAS ORDERA BLES Performing Organization Address City/State/ZIP Code Phon e Number [facility] [address] [place], [place] [id number] [place] [address] LAB documented in this encounter Visit Diagnoses Not on filedocumented in this encounter Care Teams Java Security Engineer Relationship Specialty Start Date End Date Unknown, Provider, PCP - General 08/12/17 documented as of this encounter
--- OUTSIDE RECORDS SUMMARY | 2022-07-25 17:56 | XMS_ITS | Encounter Summary ---
:[address] [facility] Address [address] [place] [address] Care Team Providers Name Role Phone Unknown, Provider Primary Care Provider Encounter Details Date Type Department Care Team Description 09/21/2017 Historical Results [facility] - Lorene Hope Cas ey Only [facility] Lab - [place] us Mi MD [address] [place] [address] [place], [place] [phone] Social History Tobacco Use Types Packs/Day Years Used Date Smoking Tobacco: Never Assessed Sex Assigned at Date Recorded Not on file documented as of this encounter Plan of Treatment Not on filedocumented as of this encounter Procedures Procedure Name Priority Date/Time Associated Comments Diagnosis NM CARD SPECT NUCLEAR 09/21/2017 10:24 Re sults for this STRESS EST procedure are i n the results section. HISTORICAL STRESS 09/21/2017 10:00 Result s for this TEST EST procedure are i n the results section. COMPLETE BLOOD COUNT Routine 09/21/2017 6:30 Resu lts for this WITH DIFFERENTIAL EST procedure are in (AUTO) the results section. TROPONIN I Routine 09/21/2017 6:30 Results for this EST procedure are i n the results section. MAGNESIUM Routine 09/21/2017 6:30 Results for this EST procedure are i n the results section. LIPID PROFILE Routine 09/21/2017 6:30 Results for this (INCLUDES EST procedure are i n CHOLESTEROL, the results TRIGLYCERIDES, HDL, section. LDL) BASIC METABOLIC PANEL Routine 09/21/2017 6:30 Res ults for this (BMP) EST procedure are i n the results section. NM CARD SPECT NUCLEAR 09/21/2017 Result s for this STRESS procedure are i n the results section. documented in this encounter Results NM CARD SPECT NUCLEAR STRESS (09/21/2017 10:24 EST) Anatomical Region Laterality Modality Chest Nuclear Stress Specimen (Source) Anatomical Collection Method Collection Time Re ceived Time Location / / Volume Laterality 09/21/2017 10:24 EST Narrative 09/23/2017 15:02 EST ? EXAM: NUCLEAR MEDICINE/NUCLEAR STRESS MICHELLE EX. D/ (1024) ? CLINICAL INFORMATION: ? chest pain ? *[facility]* ? *[facility]* ? [address] ? [place] [address] ? Myocardial Perfusion Imaging - SP ECT ? Regadenoson ? Date of study: ??09/21/2017 ? *PATIENT PRESENTATION* ? Height: ? 175.3cm (69in ) ? Blood Pressure: ? Weight: ? 100kg (220lb) ? BSA: ?2.24m S 2 ? Ordering physician: Carroll Jolly ? Impressions: ?? Normal study afte r pharmacologic stress. ? Summary: ? 1. Myocardial perfusion imaging: No myocardial perfusion defects ?noted. ? 2. The calculated left ventricula r ejection fraction after stress: ?62%. LV global systolic func tion is normal. No left ventricular ?regional motion abnormality. ? Indication: ?? CHEST PAIN. ? History: ??ADMITTED TO [address] [place] [address] SUDDEN ONSET OF NONEXERTIONAL LEFT ? SIDED CHEST PAIN THAT RADIATED DO WN HIS LEFT ARM AND UP HIS NECK. SOME ? SOB, DIAPHORESIS, NAUSEA AND LIGH THEADEDNESS WITH CHEST PAIN. SYMPTOMS ? RELIEVED WITH NITRO X 3. TROP'S N EGATIVE X 3, ECG WITH NO ACUTE ? CHANGES. ? PRESENTLY HAS 4/10 CHEST PAIN. ? 06/2017- STEMI- CABG RECOMMENDED, PCI TO LAD DONE. ? Risk factors: Family history of c oronary artery disease. Hypertension. ? Dyslipidemia. ? Cholesterol: 116mg/dl. ? HDL: 25mg/dl. ? LDL: 21mg/dl. ? Triglycerides: 350mg/dl. ? MEDS: ATORVASTATIN 80 MG, PLAVIX 75 MG, LOSARTAN 25 MG, ? METOPROLOL 75 MG, RANITIDINE, SER TRALINE, OLANZAPINE, NITRO. ? Imaging Technique: ? Protocol: ??Regadenoson. ? Acquisition: ?? Gated SPECT; 1 da y - rest/stress. ?The patient was ? PAGE 1 ? Leah d Report ? (CONTINUED) ? imaged in the supine position. At tenuation correction used. ? Isotope administration: ? - Rest. Tc[99m]-sestamibi. Inject ion to stress time: 00:45. ? - Stress. Tc[99m]-sestamibi. 1-2 min before end of exercise ? Baseline ECG: ??NSR- 61 BPM. ? Q'S V1,V2 ? Stress protocol: ? +--------+--+ +-------- + ? !Stage ?? !HR!BP (mmHg) ??!Commen ts ? ! ? +--------+--+ +-------- + ? !Baseline!61!133/77 (96)!-------- ! ? +--------+--+ +-------- + ? !1 min ?? !86! !Inject Regadenoson.! ? +--------+--+ +-------- + ? !2 min ?? !80!128/66 (87)!------- ! ? +--------+--+ +-------- + ? !3 min ?? !81! !------- ! ? +--------+--+ +-------- + ? !4 min ?? !68!128/ (87)!------- ! ? +--------+--+ +-------- + ? !5 min ?? !70! !------- ! ? +--------+--+ +-------- + ? !6 min ?? !78!130/68 (89)!------- ! ? +--------+--+ +-------- + ? !7 min ?? !67! !------- ! ? +--------+--+ +-------- + ? * ? Stress results: ??The rate-pressu re product for the peak heart rate and ? blood pressure was 06533tm Hg/min . ? Stress ECG: ? RESTING LEXISCAN STUDY ? NO ECTOPY ? 4/10 CHEST PAIN PRIOR TO LEXISCAN ? 6/10 CHEST PAIN AFTER LEXISCAN ? NO ISCHEMIC ECG CHANGES. ? Myocardial perfusion: ?? Imaging information: gated. Left ventricular ? size is normal. No myocardial per fusion defects noted. ? Ventricular Function (Wall Motion ): ?? The calculated left ventricular ? ejection fraction after stress: 6 2%. LV global systolic function is ? normal. ?? No left ventricular re gional motion abnormality. ? Study data: ??Remington Arias MD supervised and was readily available ? during the procedure. This study was interpreted by [facility]. ? Study status: ??Routine. ? Consent: ??The risks, benefits, a nd alternatives to ? the procedure were explained to t he patient and informed consent was ? obtained. ??Procedure: ??Initial setup. A baseline ECG was recorded. ? Surface ECG leads and manual cuff blood pressure measurements were ? PAGE 2 ? Leah d Report ? (CONTINUED) ? monitored. Heart sounds: Normal. Lung sounds: Normal. ??Regadenoson ? stress test. Stress testing was p erformed, with regadenoson by ? intravenous bolus, for a total do se of 0.4mgover 10.00sec, followed by ? a 5ml saline flush. The infusion was terminated due to per protocol. ? Study completion: ??All catheters inserted during the procedure were ? removed. The patient tolerated th e procedure well and was discharged ? from the lab. ? Discharge: ??The patient left the laboratory in stable condition. ? Birthdate: ??Patient birthdate: [birth year] . ? Sex: Gender: male. ? Study date: ??Study date: 018. ? Study time: 10:00 AM. ? Signature Documentation: ? - The imaging portion of this jose alfredo dy was interpreted by Nuclear ? Crop And Soil Technician Remington Arias MD. ? - The Stress ECG portion of this study was interpreted by Remington ? MD Hugo. ? Electronically signed by ? Remington Arias ? 09/21/2017 11:47 ?Reported B y: Remington Arias MD ? CC: ? Transcribed Date/Time: 09/23/2017 (1502) ? Banquet Prep Cook: WALLY ? Printed Date/Time: 02/28/2019 (12 48) ? PAGE 3 ? Leah d Report ? Procedure Note Remington Arias MD - 10/08/2019Forma tting of this note might be different from the original. EXAM: NUCLEAR MEDICINE/NUCLEAR STRESS T ES EX. D/ (1024) CLINICAL INFORMATION: chest pain *[facility]* *[facility]* [address] [place] [address] Myocardial Perfusion Imaging - SPECT Regadenoson Date of study: 09/21/2017 *PATIENT PRESENTATION* Height: 175.3cm (69in) Blood Pressure: Weight: 100kg (220lb) BSA: 2.24m S 2 Ordering physician: Manoj Jolly Impressions: Normal study after pharmac ologic stress. Summary: 1. Myocardial perfusion imaging: No sandra cardial perfusion defects noted. 2. The calculated left ventricular ejec tion fraction after stress: 62%. LV global systolic function is nor mal. No left ventricular regional motion abnormality. Indication: CHEST PAIN. History: ADMITTED TO [address] [place] [address] WITH SUDDE N ONSET OF NONEXERTIONAL LEFT SIDED CHEST PAIN THAT RADIATED DOWN HIS LEFT ARM AND UP HIS NECK. SOME SOB, DIAPHORESIS, NAUSEA AND LIGHTHEADE DNESS WITH CHEST PAIN. SYMPTOMS RELIEVED WITH NITRO X 3. TROP'S NEGATIV E X 3, ECG WITH NO ACUTE CHANGES. PRESENTLY HAS 4/10 CHEST PAIN. 06/2017- STEMI- CABG RECOMMENDED, PCI T O LAD DONE. Risk factors: Family history of coronar y artery disease. Hypertension. Dyslipidemia. Cholesterol: 116mg/dl. HDL: 25mg/dl. LDL: 21mg/dl. Triglycerides: 350mg/dl. MEDS: ATORVASTATIN 80 MG, PLAVIX 75 MG, LOSARTAN 25 MG, METOPROLOL 75 MG, RANITIDINE, SERTRALIN E, OLANZAPINE, NITRO. Imaging Technique: Protocol: Regadenoson. Acquisition: Gated SPECT; 1 day - rest/ stress. The patient was PAGE 1 Signed Report (CONTINUED) imaged in the supine position. Attenuat ion correction used. Isotope administration: - Rest. Tc[99m]-sestamibi. Injection to stress time: 00:45. - Stress. Tc[99m]-sestamibi. 1-2 min be fore end of exercise Baseline ECG: NSR- 61 BPM. Q'S V1,V2 Stress protocol: +--------+--+ + -----+ !Stage !HR!BP (mmHg) !Comments ! +--------+--+ + -----+ !Baseline!61!133/77 (96)! -----! +--------+--+ + -----+ !1 min !86! !Inject Regadenos on.! +--------+--+ + -----+ !2 min !80!128/66 (87)! ---! +--------+--+ + -----+ !3 min !81! ! ---! +--------+--+ + -----+ !4 min !68!128/67 (87)! ---! +--------+--+ + -----+ !5 min !70! ! ---! +--------+--+ + -----+ !6 min !78!130/68 (89)! ---! +--------+--+ + -----+ !7 min !67! ! ---! +--------+--+ + -----+ * Stress results: The rate-pressure produ ct for the peak heart rate and blood pressure was 12696js Hg/min. Stress ECG: RESTING LEXISCAN STUDY NO ECTOPY 4/10 CHEST PAIN PRIOR TO LEXISCAN 6/10 CHEST PAIN AFTER LEXISCAN NO ISCHEMIC ECG CHANGES. Myocardial perfusion: Imaging informati on: gated. Left ventricular size is normal. No myocardial perfusion defects noted. Ventricular Function (Wall Motion): The calculated left ventricular ejection fraction after stress: 62%. LV global systolic function is normal. No left ventricular regional mo tion abnormality. Study data: Remington Arias MD supervi sed and was readily available during the procedure. This study was in terpreted by The [facility]. Study status: Routine. Consent: The risks, benefits, and alter natives to the procedure were explained to the pat ient and informed consent was obtained. Procedure: Initial setup. A b aseline ECG was recorded. Surface ECG leads and manual cuff blood pressure measurements were PAGE 2 Signed Report (CONTINUED) monitored. Heart sounds: Normal. Lung s ounds: Normal. Regadenoson stress test. Stress testing was perform ed, with regadenoson by intravenous bolus, for a total dose of 0.4mgover 10.00sec, followed by a 5ml saline flush. The infusion was te rminated due to per protocol. Study completion: All catheters inserte d during the procedure were removed. The patient tolerated the proc edure well and was discharged from the lab. Discharge: The patient left the laborat ory in stable condition. Birthdate: Patient birthdate: [birth year]. Sex: Gender: male. Study date: Study date: 09/21/2017. Study time: 10:00 AM. Signature Documentation: - The imaging portion of this study was interpreted by Nuclear Crop And Soil Technician Remington Airas MD. - The Stress ECG portion of this study was interpreted by Remington Arias MD. Electronically signed by Remington Arias 09/21/2017 11:47 Reported By: Remington Arias MD CC: Transcribed Date/Time: 09/23/2017 (1507 ) Banquet Prep Cook: WALLY Printed Date/Time: 02/28/2019 (4862) PAGE 3 Signed Report Manoj Hope MD CARDIAC NM ORDERABLES HISTORICAL STRESS TEST (09/21/2017 10:00 EST) Anatomical Region Laterality Modality Nuclear Stress Specimen (Source) Anatomical Collection Method Collection Time Re ceived Time Location / / Volume Laterality 09/21/2017 10:00 EST Narrative 09/21/2017 10:00 EST ? [facility] ?[facility] ?[address] [address] ? [id number] ?C A R D I A C ?S T R E S S ?T E S T ?R E P O R T NAME: DEONDRE PALACIOS ? : 56 TELEPHONE: [phone] ? MR#: [id number] ? *[facility]* *[facility]* [address] [place] [address] Myocardial Perfusion Imaging - SPECT [facility] Date of study: ??09/21/2017 *PATIENT PRESENTATION* Height: ? 175.3cm (69in) Blood Pressure: Weight: ? 100kg (220lb) BSA: ?2.24m S 2 Ordering physician: Manoj Jolly Impressions: ?? Normal study after pharm acologic stress. Summary: 1. Myocardial perfusion imaging: No myoc ardial perfusion defects noted. 2. The calculated left ventricular eject ion fraction after stress: 62%. ?? LV global systolic function is laura l. No left ventricular regional ?? motion abnormality. Indication: ?? CHEST PAIN. History: ??ADMITTED TO [address] [place] [address] WITH SUDD EN ONSET OF NONEXERTIONAL LEFT SIDED CHEST PAIN THAT RADIATED DOWN HIS LEFT ARM AND UP HIS NECK. SOME SOB, DIAPHORESIS, NAUSEA AND LIGHTHEADED NESS WITH CHEST PAIN. SYMPTOMS RELIEVED WITH NITRO X 3. TROP'S NEGATIVE X 3, ECG WITH NO ACUTE CHANGES. PRESENTLY HAS 4/10 CHEST PAIN. 06/2017- STEMI- CABG RECOMMENDED, PCI TO LAD DONE. ??Risk factors: Family history of coronary artery diseas e. Hypertension. Dyslipidemia. Cholesterol: 116mg/dl. HDL: 25mg/dl. LDL : 21mg/dl. Triglycerides: 350mg/dl. MEDS: ATORVASTATIN 80 MG, PLAV IX 75 MG, LOSARTAN 25 MG, METOPROLOL 75 MG, RANITIDINE, SERTRALINE , OLANZAPINE, NITRO. Imaging Technique: Protocol: ??Regadenoson. Acquisition: ?? Gated SPECT; 1 day - res t/stress. ?The patient was imaged in the supine position. Attenuati on correction used. Isotope administration: ? [facility] ?[facility] ?[facility] [address] [place], [place] [address] ? [id number] ?C A R D I A C ?S T R E S S ?T E S T ?R E P O R T NAME: DEONDRE PALACIOS ? : 56 TELEPHONE: [phone] ? MR#: [id number] ? - Rest. Tc[99m]-sestamibi. Injection to stress time: 00:45. - Stress. Tc[99m]-sestamibi. 1-2 min bef ore end of exercise Baseline ECG: ??NSR- 61 BPM. Q'S V1,V2 Stress protocol: +--------+--+ + ----+ !Stage ?? !HR!BP (mmHg) ??!Comments ? ! +--------+--+ + ----+ !Baseline!61!133/77 (96)! ----! +--------+--+ + ----+ !1 min ?? !86! !Inject Regaden oson.! +--------+--+ + ----+ !2 min ?? !80!128/66 (87)! -----! +--------+--+ + ----+ !3 min ?? !81! ! -----! +--------+--+ + ----+ !4 min ?? !68!128/67 (87)! -----! +--------+--+ + ----+ !5 min ?? !70! ! -----! +--------+--+ + ----+ !6 min ?? !78!130/68 (89)! -----! +--------+--+ + ----+ !7 min ?? !67! ! -----! +--------+--+ + ----+ * Stress results: ??The rate-pressure prod uct for the peak heart rate and blood pressure was 59903sd Hg/min. Stress ECG: RESTING LEXISCAN STUDY NO ECTOPY 4/10 CHEST PAIN PRIOR TO LEXISCAN 6/10 CHEST PAIN AFTER LEXISCAN NO ISCHEMIC ECG CHANGES. Myocardial perfusion: ?? Imaging informa tion: gated. Left ventricular size is normal. No myocardial perfusion defects noted. Ventricular Function (Wall Motion): ?? T he calculated left ventricular ejection fraction after stress: 62%. LV global systolic function is normal. ?? No left ventricular regional motion abnormality. Study data: ??Remington Arias MD superv ised and was readily available during the procedure. This study was int erpreted by [facility] [place] [facility]. ??Study status: ??Routine. ??Consent: ??The risk s, benefits, and alternatives to the procedure were explained to the michael ent and informed consent was obtained. ??Procedure: ??Initial setup. A baseline ECG was recorded. ? [facility] ?[facility] ?[address] [place], [place] [address] ? [id number] ?C A R D I A C ?S T R E S S ?T E S T ?R E P O R T NAME: DEONDRE PALACIOS ? : 56 TELEPHONE: [phone] ? MR#: [id number] ? Surface ECG leads and manual cuff blood pressure measurements were monitored. Heart sounds: Normal. Lung so unds: Normal. ??Regadenoson stress test. Stress testing was performe d, with regadenoson by intravenous bolus, for a total dose of 0 .4mgover 10.00sec, followed by a 5ml saline flush. The infusion was termi nated due to per protocol. Study completion: ??All catheters insert ed during the procedure were removed. The patient tolerated the proce dure well and was discharged from the lab. ??Discharge: ??The patient left the laboratory in stable condition. ? Birthdate: ??Patient bi rthdate: 1960. ??Sex: ??Gender: male. ??Study date: ??Study date: 2017. Study time: 10:00 AM. Signature Documentation: - The imaging portion of this study was interpreted by Nuclear ??Crop And Soil Technician Remington Arias MD. - The Stress ECG portion of this study w as interpreted by Remington ??MD Hugo. Electronically signed by Remington Arias 09/21/2017 11:47 Procedure Note Remington Arias MD - 11/13/2019Forma tting of this note might be different from the original. [facility] [address], [place] [address] [id number] C A R D I A C S T R E S S T E S T R E P O R T NAME: DEONDRE PALACIOS : 56 TELEPHONE: [phone] MR#: [id number] [facility]#: [id number] *[facility]* *[facility]* [address] [place] [address] Myocardial Perfusion Imaging - SPECT Regadenoson Date of study: 09/21/2017 *PATIENT PRESENTATION* Height: 175.3cm (69in) Blood Pressure: Weight: 100kg (220lb) BSA: 2.24m S 2 Ordering physician: Manoj Jolly Impressions: Normal study after pharmaco logic stress. Summary: 1. Myocardial perfusion imaging: No myoc ardial perfusion defects noted. 2. The calculated left ventricular eject ion fraction after stress: 62%. LV global systolic function is normal. No left ventricular regional motion abnormality. Indication: CHEST PAIN. History: ADMITTED TO [address] [place] [address] WITH SUDDEN ONSET OF NONEXERTIONAL LEFT SIDED CHEST PAIN THAT RADIATED DOWN HIS LEFT ARM AND UP HIS NECK. SOME SOB, DIAPHORESIS, NAUSEA AND LIGHTHEADED NESS WITH CHEST PAIN. SYMPTOMS RELIEVED WITH NITRO X 3. TROP'S NEGATIVE X 3, ECG WITH NO ACUTE CHANGES. PRESENTLY HAS 4/10 CHEST PAIN. 06/2017- STEMI- CABG RECOMMENDED, PCI TO LAD DONE. Risk factors: Family history of coronary artery diseas e. Hypertension. Dyslipidemia. Cholesterol: 116mg/dl. HDL: 25mg/dl. LDL : 21mg/dl. Triglycerides: 350mg/dl. MEDS: ATORVASTATIN 80 MG, PLAV IX 75 MG, LOSARTAN 25 MG, METOPROLOL 75 MG, RANITIDINE, SERTRALINE , OLANZAPINE, NITRO. Imaging Technique: Protocol: Regadenoson. Acquisition: Gated SPECT; 1 day - rest/s tress. The patient was imaged in the supine position. Attenuati on correction used. Isotope administration: [facility] [address] [place] [id number] C A R D I A C S T R E S S T E S T R E P O R T NAME: DEONDRE PALACIOS : 56 TELEPHONE: [phone] MR#: [id number] [facility] T#: [id number] - Rest. Tc[99m]-sestamibi. Injection to stress time: 00:45. - Stress. Tc[99m]-sestamibi. 1-2 min bef ore end of exercise Baseline ECG: NSR- 61 BPM. Q'S V1,V2 Stress protocol: +--------+--+ + ----+ !Stage !HR!BP (mmHg) !Comments ! +--------+--+ + ----+ !Baseline!61!133/77 (96)! ----! +--------+--+ + ----+ !1 min !86! !Inject Lesli rivas! +--------+--+ + ----+ !2 min !80!128/66 (87)! --! +--------+--+ + ----+ !3 min !81! ! --! +--------+--+ + ----+ !4 min !68!128/67 (87)! --! +--------+--+ + ----+ !5 min !70! ! --! +--------+--+ + ----+ !6 min !78!130/68 (89)! --! +--------+--+ + ----+ !7 min !67! ! --! +--------+--+ + ----+ * Stress results: The rate-pressure produc t for the peak heart rate and blood pressure was 53398bh Hg/min. Stress ECG: RESTING LEXISCAN STUDY NO ECTOPY 4/10 CHEST PAIN PRIOR TO LEXISCAN 6/10 CHEST PAIN AFTER LEXISCAN NO ISCHEMIC ECG CHANGES. Myocardial perfusion: Imaging informatio n: gated. Left ventricular size is normal. No myocardial perfusion defects noted. Ventricular Function (Wall Motion): The calculated left ventricular ejection fraction after stress: 62%. LV global systolic function is normal. No left ventricular regional mot ion abnormality. Study data: Remington Arias MD supervis ed and was readily available during the procedure. This study was int erpreted by [facility] [place] [facility]. Study status: Routine. Consent: The risks, shelley efits, and alternatives to the procedure were explained to the michael ent and informed consent was obtained. Procedure: Initial setup. A ba heatherine ECG was recorded. [facility] [address] [place], [place] [address] [id number] C A R D I A C S T R E S S T E S T R E P O R T NAME: DEONDRE PALACIOS : 56 TELEPHONE: [phone] MR#: [id number] [facility] T#: [id number] Surface ECG leads and manual cuff blood pressure measurements were monitored. Heart sounds: Normal. Lung so unds: Normal. Regadenoson stress test. Stress testing was performe d, with regadenoson by intravenous bolus, for a total dose of 0 .4mgover 10.00sec, followed by a 5ml saline flush. The infusion was termi nated due to per protocol. Study completion: All catheters inserted during the procedure were removed. The patient tolerated the proce dure well and was discharged from the lab. Discharge: The patient lef t the laboratory in stable condition. Birthdate: Patient birthdate: 1960. Sex: Gender: male. Study date: Study date: 09/21/2017 . Study time: 10:00 AM. Signature Documentation: - The imaging portion of this study was interpreted by Nuclear Crop And Soil Technician Remington Arias MD. - The Stress ECG portion of this study w as interpreted by Remington Arias MD. Electronically signed by Remington Arias 09/21/2017 11:47 Provider Unknown CARDIAC NM ORDERABLES MAGNESIUM (09/21/2017 6:30 EST) athologist Signature Magnesium 1.90 1.7 - 2.8 09/21/2017 [facility] mg/dL 7:25 [facility] Specimen Anatomical Collection Method Collection Time Receive d Time (Source) Location / / Volume Laterality 09/21/2017 6:30 09/21/2017 6 :53 EST EST Manoj Hope MD CHEMISTRY & BLOOD GAS ORD ERABLES Performing Organization Address City/State/ZIP Code Phon e Number [facility] [address] LAB (ABNORMAL) LIPID PROFILE (INCLUDES CHOLESTEROL, TRIGLYCERIDES, HDL, LDL) (09/21/2017 6:30 EST) athologist Signature Triglyceride 350 <150 mg/dL 09/21/2017 [place] 7:25 [facility] Comment: Adult: Normal: ?<150 mg/dl ? Borderline High: 150-199 mg/dl ? High: ?200-499 mg/dl ? Very High: >wv=195 Cholesterol 116 <200 mg/dL 09/21/2017 7:25 [facility] Comment: Acceptable: ??<200 Borderline: ??200-239 High: ?> or = 240 Chol/HDL Ratio 4.6 0 - 5.0 09/21/2017 7:25 EST [facility] Comment: DESIRABLE RATIO IS LESS THAN 4.1 PATIENTS ARE CONSIDERED AT RISK: WOMEN RATIO >5 MEN RATIO >6 FASTING? - [facility] Unknown 09/21/2017 7:55 EST [facility] HDL 25 (L) 40 - 60 mg/dL 09/21/2017 7:25 EST [facility] Comment: ?? Reference Range Low: ? < 40 ??mg/dL Normal: ??40-60 mg/dL High: ?>= 60 mg/dL LDL CHOLESTEROL - [facility] 21 (L) 60 - 100 mg/dL 8 7:25 [facility] Non HDL Cholesterol 91 mg/dl 09/21/2017 7:25 EST [facility] Comment: Desirable: ?Less than 130 Borderline High: ??130-159 High: ? 160-189 Very High: ?Greater than or eq ual to 190 Specimen Anatomical Collection Method Collection Time Receive d Time (Source) Location / / Volume Laterality 09/21/2017 6:30 09/21/2017 6 :53 EST EST Manoj Hope MD CHEMISTRY & BLOOD GAS ORD ERABLES Performing Organization Address City/State/ZIP Code Phon e Number [facility] [address] LAB (ABNORMAL) BASIC METABOLIC PANEL (BMP) (09/21/2017 6:30 EST) P athologist Signature BUN - [facility] 16 10 - 26 09/21/2017 [facility] mg/dL 7:25 [facility] CALCIUM - [facility] 9.0 8.5 - 10.5 09/21/2017 [facility] mg/dL 7:25 [facility] Chloride 103 96 - 110 09/21/2017 [facility] mmol/L 7:25 [facility] CO2 Total 25 21 - 32 09/21/2017 [facility] mEq/L 7:25 [facility] CREATININE 1.12 0.66 - 09/21/2017 [facility] 1.25 mg/dL 7:25 [facility] eGFR >60 09/21/2017 [facility] 7:25 [facility] Comment: Chronic renal impairment is defined as G FR <60 Multiply result by 1.210 for [place] r[place] patients. Anion Gap 16 0 - 18 09/21/2017 7:[address] [facility] GLUCOSE - [facility] 103 (H) 70 - 100 mg/dL 09/21/2017 7:25 [facility] Potassium 4.2 3.5 - 5.0 mEq/L 09/21/2017 7:25 EST [facility] Sodium 144 136 - 145 mEq/L 09/21/2017 7:25 EST [facility] Specimen Anatomical Collection Method Collection Time Receive d Time (Source) Location / / Volume Laterality 09/21/2017 6:30 09/21/2017 6 :53 EST EST Manoj Hope MD CHEMISTRY & BLOOD GAS ORD ERABLES Performing Organization Address City/State/ZIP Code Phon e Number [facility] [address] LAB TROPONIN I (09/21/2017 6:30 EST) P athologist Signature Troponin I <0.012 0.000 - 09/21/2017 ANTELOPE (ng/mL) 0.034 7:56 [facility] ng/mL CENTER LAB Comment: Interpretation comments: ??Cutoff [...] Time (Source) Location / / Volume Laterality 09/21/2017 6:30 09/21/2017 6 :53 EST EST Adolfo Dunn MD CHEMISTRY & BLOOD GAS ORDER DURAN Performing Organization Address City/[facility]/ZIP Code Phon e Number [facility] [address] LAB (ABNORMAL) COMPLETE BLOOD COUNT WITH DIFFERENTIAL (AUTO) (09/21/2017 6:30 EST) Patholo gist Method Time Signature ABSOLUTE 5.59 1.7 - 7.0 09/21/2017 [facility] NEUTROPHIL COUN 10e3/ul 7:10 [facility] LAB BASO # - [facility] 0.03 0.0 - 0.3 09/21/2017 [facility] 10e3/uL 7:10 [facility] BASO % - [facility] 0 0 - 2 % 09/21/2017 [facility] 7:10 [facility] EOS # - [facility] 0.29 0.05 - 0.5 09/21/2017 [facility] 10e3/uL 7:10 [facility] EOS % - [facility] 4 0 - 5 % 09/21/2017 [facility] 7:10 [facility] GRAN % - [facility] 68 40 - 80 % 09/21/2017 [facility] 7:10 [facility] HEMATOCRIT - 39.8 36.0 - 09/21/2017 [facility] 52.0 % 7:10 [facility] HEMOGLOBIN - 13.5 (L) 13.7 - 09/21/2017 [facility] 17.5 g/dl 7:10 [facility] IG# - [facility] 0.02 0 - 0.07 09/21/2017 [facility] 10e3/uL 7:10 [facility] IG% - [facility] 0.2 0 - 0.9 % 09/21/2017 [facility] 7:10 [facility] LYMPH # - [facility] 1.72 0.9 - 2.9 09/21/2017 [facility] 10e3/uL 7:10 [facility] LYMPH% - [facility] 21 20 - 40 % 09/21/2017 [facility] 7:10 [facility] MEAN CORPUSCULAR 32.6 26 - 34 pg 09/21/2017 [facility] HGB - [facility] 7:10 [facility] MEAN CORPUSCULAR 33.9 31 - 36 09/21/2017 [facility] HGB CONC - [facility] g/dL 7:10 [facility] MEAN CELL VOLUME 96.1 77 - 100 09/21/2017 [facility] - [facility] fl 7:10 [facility] MONO # - [facility] 0.61 0.3 - 0.9 09/21/2017 [facility] 10e3/uL 7:10 [facility] MONO% - [facility] 7 0 - 12 % 09/21/2017 [facility] 7:10 [facility] PLATELET COUNT 197 150 - 400 09/21/2017 [facility] 10e3/ul 7:10 [facility] RED BLOOD COUNT 4.14 (L) 4.3 - 5.7 09/21/2017 [facility] - [facility] 10e6/ul 7:10 [facility] RED CELL DISTRI 12.4 11.8 - 09/21/2017 [facility] WIDTH - [facility] 15.6 % 7:10 [facility] WHITE BLOOD 8.3 3.5 - 10.5 09/21/2017 [facility] COUNT - [facility] 10e3/ul 7:10 [facility] Specimen Anatomical Collection Method Collection Time Receive d Time (Source) Location / / Volume Laterality 09/21/2017 6:30 09/21/2017 6 :53 EST EST Manoj Hope MD HEMATOLOGY & PF4 ORDERABL ES Performing Organization Address City/State/ZIP Code Phon e Number [facility] [address] [place], [place] [id number] [place] [address] LAB NM CARD SPECT NUCLEAR STRESS (09/21/2017) Anatomical Region Laterality Modality Chest Nuclear Stress Specimen (Source) Anatomical Location Collection Method / Collectio n Time Received Time / Laterality Volume 09/21/2017 Narrative 09/21/2017 10:24 EST ? EXAM: NUCLEAR MEDICINE/NUCLEAR STRESS MICHELLE EX. D/ (1024) ? CLINICAL INFORMATION: ? chest pain ? *[facility]* ? *[facility]* ? [address] ? [place] [address] ? Myocardial Perfusion Imaging - SP ECT ? Regadenoson ? Date of study: ??09/21/2017 ? *PATIENT PRESENTATION* ? Height: ? 175.3cm (69in ) ? Blood Pressure: ? Weight: ? 100kg (220lb) ? BSA: ?2.24m S 2 ? Ordering physician: Carroll Jolly ? Impressions: ?? Normal study afte r pharmacologic stress. ? Summary: ? 1. Myocardial perfusion imaging: No myocardial perfusion defects ?noted. ? 2. The calculated left ventricula r ejection fraction after stress: ?62%. LV global systolic func tion is normal. No left ventricular ?regional motion abnormality. ? Indication: ?? CHEST PAIN. ? History: ??ADMITTED TO [address] [place] [address] SUDDEN ONSET OF NONEXERTIONAL LEFT ? SIDED CHEST PAIN THAT RADIATED DO WN HIS LEFT ARM AND UP HIS NECK. SOME ? SOB, DIAPHORESIS, NAUSEA AND LIGH THEADEDNESS WITH CHEST PAIN. SYMPTOMS ? RELIEVED WITH NITRO X 3. TROP'S N EGATIVE X 3, ECG WITH NO ACUTE ? CHANGES. ? PRESENTLY HAS 4/10 CHEST PAIN. ? 06/2017- STEMI- CABG RECOMMENDED, PCI TO LAD DONE. ? Risk factors: Family history of c oronary artery disease. Hypertension. ? Dyslipidemia. ? Cholesterol: 116mg/dl. ? HDL: 25mg/dl. ? LDL: 21mg/dl. ? Triglycerides: 350mg/dl. ? MEDS: ATORVASTATIN 80 MG, PLAVIX 75 MG, LOSARTAN 25 MG, ? METOPROLOL 75 MG, RANITIDINE, SER TRALINE, OLANZAPINE, NITRO. ? Imaging Technique: ? Protocol: ??Regadenoson. ? Acquisition: ?? Gated SPECT; 1 da y - rest/stress. ?The patient was ? PAGE 1 ? Leah d Report ? (CONTINUED) ? imaged in the supine position. At tenuation correction used. ? Isotope administration: ? - Rest. Tc[99m]-sestamibi. Inject ion to stress time: 00:45. ? - Stress. Tc[99m]-sestamibi. 1-2 min before end of exercise ? Baseline ECG: ??NSR- 61 BPM. ? Q'S V1,V2 ? Stress protocol: ? +--------+--+ +-------- + ? !Stage ?? !HR!BP (mmHg) ??!Commen ts ? ! ? +--------+--+ +-------- + ? !Baseline!61!133/77 (96)!-------- ! ? +--------+--+ +-------- + ? !1 min ?? !86! !Inject Regadenoson.! ? +--------+--+ +-------- + ? !2 min ?? !80!128/ ()!------- ! ? +--------+--+ +-------- + ? !3 min ?? !81! !------- ! ? +--------+--+ +-------- + ? !4 min ?? !68!128/ ()!------- ! ? +--------+--+ +-------- + ? !5 min ?? !70! !------- ! ? +--------+--+ +-------- + ? !6 min ?? !78!130/68 (89)!------- ! ? +--------+--+ +-------- + ? !7 min ?? !67! !------- ! ? +--------+--+ +-------- + ? * ? Stress results: ??The rate-pressu re product for the peak heart rate and ? blood pressure was 70399uc Hg/min . ? Stress ECG: ? RESTING LEXISCAN STUDY ? NO ECTOPY ? 4/10 CHEST PAIN PRIOR TO LEXISCAN ? 6/10 CHEST PAIN AFTER LEXISCAN ? NO ISCHEMIC ECG CHANGES. ? Myocardial perfusion: ?? Imaging information: gated. Left ventricular ? size is normal. No myocardial per fusion defects noted. ? Ventricular Function (Wall Motion ): ?? The calculated left ventricular ? ejection fraction after stress: 6 2%. LV global systolic function is ? normal. ?? No left ventricular re gional motion abnormality. ? Study data: ??Remington Arias MD supervised and was readily available ? during the procedure. This study was interpreted by [facility]. ? Study status: ??Routine. ? Consent: ??The risks, benefits, a nd alternatives to ? the procedure were explained to chris green patient and informed consent was ? obtained. ??Procedure: ??Initial setup. A baseline ECG was recorded. ? Surface ECG leads and manual cuff blood pressure measurements were ? PAGE 2 ? Leah d Report ? (CONTINUED) ? monitored. Heart sounds: Normal. Lung sounds: Normal. ??Regadenoson ? stress test. Stress testing was p erformed, with regadenoson by ? intravenous bolus, for a total do se of 0.4mgover 10.00sec, followed by ? a 5ml saline flush. The infusion was terminated due to per protocol. ? Study completion: ??All catheters inserted during the procedure were ? removed. The patient tolerated th e procedure well and was discharged ? from the lab. ? Discharge: ??The patient left the laboratory in stable condition. ? Birthdate: ??Patient birthdate: [birth year] . ? Sex: Gender: male. ? Study date: ??Study date: 018. ? Study time: 10:00 AM. ? Signature Documentation: ? - The imaging portion of this jose alfredo dy was interpreted by Nuclear ? Crop And Soil Technician Remington Arias MD. ? - The Stress ECG portion of this study was interpreted by Remington ? MD Hugo. ? Electronically signed by ? Remington Arias ? 09/21/2017 11:47 ?Reported B y: Remington Arias MD ? CC: ? Transcribed Date/Time: 09/23/2017 (1502) ? Banquet Prep Cook: WALLY ? Printed Date/Time: 02/28/2019 (12 48) ? PAGE 3 ? Leah d Report ? Procedure Note Remington Arias MD - 10/08/2019Forma tting of this note might be different from the original. EXAM: NUCLEAR MEDICINE/NUCLEAR STRESS T ES EX. D/ (1024) CLINICAL INFORMATION: chest pain *[facility]* *[facility]* [address] [place] [address] Myocardial Perfusion Imaging - SPECT Regadenoson Date of study: 09/21/2017 *PATIENT PRESENTATION* Height: 175.3cm (69in) Blood Pressure: Weight: 100kg (220lb) BSA: 2.24m S 2 Ordering physician: Manoj Jolly Impressions: Normal study after pharmac ologic stress. Summary: 1. Myocardial perfusion imaging: No sandra cardial perfusion defects noted. 2. The calculated left ventricular ejec tion fraction after stress: 62%. LV global systolic function is nor mal. No left ventricular regional motion abnormality. Indication: CHEST PAIN. History: ADMITTED TO [address] [place] [address] WITH SUDDE N ONSET OF NONEXERTIONAL LEFT SIDED CHEST PAIN THAT RADIATED DOWN HIS LEFT ARM AND UP HIS NECK. SOME SOB, DIAPHORESIS, NAUSEA AND LIGHTHEADE DNESS WITH CHEST PAIN. SYMPTOMS RELIEVED WITH NITRO X 3. TROP'S NEGATIV E X 3, ECG WITH NO ACUTE CHANGES. PRESENTLY HAS 4/10 CHEST PAIN. 06/2017- STEMI- CABG RECOMMENDED, PCI T O LAD DONE. Risk factors: Family history of coronar y artery disease. Hypertension. Dyslipidemia. Cholesterol: 116mg/dl. HDL: 25mg/dl. LDL: 21mg/dl. Triglycerides: 350mg/dl. MEDS: ATORVASTATIN 80 MG, PLAVIX 75 MG, LOSARTAN 25 MG, METOPROLOL 75 MG, RANITIDINE, SERTRALIN E, OLANZAPINE, NITRO. Imaging Technique: Protocol: Regadenoson. Acquisition: Gated SPECT; 1 day - rest/ stress. The patient was PAGE 1 Signed Report (CONTINUED) imaged in the supine position. Attenuat ion correction used. Isotope administration: - Rest. Tc[99m]-sestamibi. Injection to stress time: 00:45. - Stress. Tc[99m]-sestamibi. 1-2 min be fore end of exercise Baseline ECG: NSR- 61 BPM. Q'S V1,V2 Stress protocol: +--------+--+ + -----+ !Stage !HR!BP (mmHg) !Comments ! +--------+--+ + -----+ !Baseline!61!133/77 (96)! -----! +--------+--+ + -----+ !1 min !86! !Inject Regadenos on.! +--------+--+ + -----+ !2 min !80!128/66 (87)! ---! +--------+--+ + -----+ !3 min !81! ! ---! +--------+--+ + -----+ !4 min !68!128/67 (87)! ---! +--------+--+ + -----+ !5 min !70! ! ---! +--------+--+ + -----+ !6 min !78!130/68 (89)! ---! +--------+--+ + -----+ !7 min !67! ! ---! +--------+--+ + -----+ * Stress results: The rate-pressure produ ct for the peak heart rate and blood pressure was 57913gv Hg/min. Stress ECG: RESTING LEXISCAN STUDY NO ECTOPY 4/10 CHEST PAIN PRIOR TO LEXISCAN 6/10 CHEST PAIN AFTER LEXISCAN NO ISCHEMIC ECG CHANGES. Myocardial perfusion: Imaging informati on: gated. Left ventricular size is normal. No myocardial perfusion defects noted. Ventricular Function (Wall Motion): The calculated left ventricular ejection fraction after stress: 62%. LV global systolic function is normal. No left ventricular regional mo tion abnormality. Study data: Remington Arias MD supervi sed and was readily available during the procedure. This study was in terpreted by [facility]. Study status: Routine. Consent: The risks, benefits, and alter natives to the procedure were explained to the pat ient and informed consent was obtained. Procedure: Initial setup. A b aseline ECG was recorded. Surface ECG leads and manual cuff blood pressure measurements were PAGE 2 Signed Report (CONTINUED) monitored. Heart sounds: Normal. Lung s ounds: Normal. Regadenoson stress test. Stress testing was perform ed, with regadenoson by intravenous bolus, for a total dose of 0.4mgover 10.00sec, followed by a 5ml saline flush. The infusion was te rminated due to per protocol. Study completion: All catheters inserte d during the procedure were removed. The patient tolerated the proc edure well and was discharged from the lab. Discharge: The patient left the laborat ory in stable condition. Birthdate: Patient birthdate: [birth year]. Sex: Gender: male. Study date: Study date: 09/21/2017. Study time: 10:00 AM. Signature Documentation: - The imaging portion of this study was interpreted by Nuclear Crop And Soil Technician Remington Arias MD. - The Stress ECG portion of this study was interpreted by Remington Arias MD. Electronically signed by Remington Arias 09/21/2017 11:47 Reported By: Remington Arias MD CC: Transcribed Date/Time: 09/23/2017 (1504 ) Banquet Prep Cook: WALLY Printed Date/Time: 02/28/2019 (4883) PAGE 3 Signed Report Manoj Hope MD CARDIAC NM ORDERABLES documented in this encounter Visit Diagnoses Not on filedocumented in this encounter Care Teams Dielectric Testing Machine Operator Relationship Specialty Start Date End Date Unknown, Provider, PCP - General 08/12/17 documented as of this encounter
--- OUTSIDE RECORDS SUMMARY | 2022-07-25 17:56 | XMS_ITS | Encounter Summary ---
:1960 Author Organization [facility] Address [address] [place] [address] Care Team Providers Name Role Phone Unknown, Provider Primary Care Provider Reason for Visit Reason Onset Date Comments Other 10/10/2017 Encounter Details Date Type Department Care Team Description 10/10/2017 Telephone [facility] Neurology - S Nani Menendez MD Other [address] [phone] Social History Tobacco Use Types Packs/Day Years Used Date Smoking Tobacco: Never Assessed Sex Assigned at Date Recorded Not on file documented as of this encounter Miscellaneous Notes Telephone Encounter - France Menendez MD - 10/11/2017 0906 [address] conversation with Dr. Guero Rosales in [facility] eCW Tel.Notes Telephone Encounter - Kermit Palomo - 10/10/[address] Rosales from [facility] called to discuss this patient with Dr. Menendez. Caller did not elaborate. documented in this encounter Plan of Treatment Not on filedocumented as of this encounter Visit Diagnoses Not on filedocumented in this encounter Care Teams Cassandra Architect Relationship Specialty Start Date End Date Unknown, Provider, PCP - General 08/12/17 documented as of this encounter
--- OUTSIDE RECORDS SUMMARY | 2022-07-25 17:56 | XMS_ITS | Encounter Summary ---
:1960 Author Organization [facility] Address [address] [place] [address] Care Team Providers Name Role Phone Unknown, Provider Primary Care Provider Encounter Details Date Type Department Care Team Description 09/20/[address] [facility] - Unknown, Latonya vargas [facility] [phone] [place] [address] (Work) [place] [address] Social History Tobacco Use Types Packs/Day Years Used Date Smoking Tobacco: Never Assessed Sex Assigned at Date Recorded Not on file documented as of this encounter Discharge Disposition Disposition Code Departure Means Destination Home or Self Shelter documented in this encounter Plan of Treatment Not on filedocumented as of this encounter Visit Diagnoses Not on filedocumented in this encounter Care Teams Hod Carrier Relationship Specialty Start Date End Date Unknown, Provider, PCP - General 08/12/17 documented as of this encounter
--- OUTSIDE RECORDS SUMMARY | 2022-07-25 17:56 | XMS_ITS | Encounter Summary ---
:1960 Author Organization [facility] Address [address] [place] [address] Care Team Providers Name Role Phone Unknown, Provider Primary Care Provider Encounter Details Date Type Department Care Team Description 08/26/2017 Historical Results Only [facility] - Irineo Simon, [facility] - [facility] [address] [place] [address] [address] [phone] [place] [address] Social History Tobacco Use Types Packs/Day Years Used Date Smoking Tobacco: Never Assessed Sex Assigned at Date Recorded Not on file documented as of this encounter Plan of Treatment Not on filedocumented as of this encounter Procedures Procedure Name Priority Date/Time Associated Diagnosis Comme nts HEPATITIS B CORE Routine 08/26/2017 11:07 Results for this ANTIBODY (TOTAL) EST procedure a re in the results section. HEPATITIS B SURFACE Routine 08/26/2017 11:07 Resu lts for this ANTIGEN EST procedure are i n the results section. documented in this encounter Results HEPATITIS B SURFACE ANTIGEN (08/26/2017 11:07 EST) athologist Signature Hep B Surface Negative 08/26/2017 [facility] Ag 17:44 EST [facility] Comment: Expected Values: Negative. Specimen Anatomical Collection Method Collection Time Receive d Time (Source) Location / / Volume Laterality 08/26/2017 11:07 08/26/2017 EST 15:47 EST Irineo Siomn MD CHEMISTRY & BLOOD GAS ORDERA BLES Performing Organization Address City/State/ZIP Code Phon e Number [facility] [address] LAB HEPATITIS B CORE ANTIBODY (TOTAL) (08/26/2017 11:07 EST) P athologist Signature Hepatitis B Negative NEGAT 08/29/2017 [facility] Core Ab, Total 22:22 EST [facility] Comment: Test Performed by: THE [address] [address] Hook Puller: Ken Patrick MD , Ph D Specimen Anatomical Collection Method Collection Time Receive d Time (Source) Location / / Volume Laterality 08/26/2017 11:07 08/26/2017 EST 15:47 EST Irineo Simon MD CHEMISTRY & BLOOD GAS ORDERA BLES Performing Organization Address City/State/ZIP Code Phon e Number [facility] [address] [place] [address] [facility] documented in this encounter Visit Diagnoses Not on filedocumented in this encounter Care Teams Manufacturing Clerk Relationship Specialty Start Date End Date Unknown, Provider, PCP - General 08/12/17 documented as of this encounter
--- OUTSIDE RECORDS SUMMARY | 2022-07-25 17:56 | XMS_ITS | Encounter Summary ---
:[address] [facility] Address [address] [place] [address] Care Team Providers Name Role Phone Unknown, Provider Primary Care Provider Encounter Details Date Type Department Care Team Description 10/07/2017 Historical Results [facility] - Guero Rosales, Only [facility] Radiology Resul ts [id number] [place] [id number] [phone] Social History Tobacco Use Types Packs/Day Years Used Date Smoking Tobacco: Never Assessed Sex Assigned at Date Recorded Not on file documented as of this encounter Plan of Treatment Not on filedocumented as of this encounter Procedures Procedure Name Priority Date/Time Associated Diagnosis Comme nts MR HEAD W WO 10/07/2017 13:41 Results for this CONTRAST EST procedure are i n the results section. MR HEAD W WO 10/07/2017 11:54 Results for this CONTRAST EST procedure are i n the results section. documented in this encounter Results MR HEAD W WO CONTRAST (10/07/2017 13:41 EST) Anatomical Region Laterality Modality Head Magnetic Resonance Specimen (Source) Anatomical Collection Method Collection Time Re ceived Time Location / / Volume Laterality 10/07/2017 13:41 EST Narrative 10/07/2017 13:45 EST ? AN ADDENDUM IS INCLUDED ON THIS REPORT ? ADDENDUM ? Addendum: ? Case further reviewed at the requ est of Dr. Guero Rosales who provides ? additional history of clinical co ncern for changes in the left mesial ? temporal lobe. ? On further review, subtle T2 prol ongation is suspected in the left ? mesial temporal lobe (axial T2 fl air image 11). No associated ? enhancement or definite mass effe ct is identified. ? This finding is nonspecific, with the differential including ? inflammatory processes, infection (including HSV), metabolic ? abnormalities, or prior ischemia. Although a low-grade glial neoplasm ? cannot be entirely excluded, no a ssociated enhancement or definite ? mass effect is visible. ? Follow-up contrast-enhanced MR br ain recommended in 3 months to ? assess for interval change, as we ll as neurology consultation. ? Dr. Antonio Beck discussed thes e findings with Dr. Guero Rosales on ? 10/10/2017 10:10 AM. ? ADDEND UM SIGNED IN OTHER VENDOR SYSTEM 10/10/2017 ?Reported B y: Antonio Beck MD ?Transcribe d: 10/10/2017 (1015) HIS.POWSCR ?REPORT ? EXAM: MAGNETIC RESONANCE IMAGING/ BRAIN W/ EX. D/ (1312) ? CLINICAL INFORMATION: ? 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 BRAIN W/WITHOUT CONTRAST ? Signs and Symptoms/Comments: ??F0 3.91 DEMENTIA WITH BEHAVIORAL ? DISTURBANCE ? Comparisons: MR brain on 7. CT head on 08/12/2017. ? Technique: Contrast-enhanced MR b rain was performed with the ? following sequences: Sagittal T1, axial T2, axial T2 FLAIR, axial T1, ? axial gradient, axial DWI, gee l 3-D gradient, and post gadolinium ? axial and coronal T1 fat-sat. 20 cc Magnevist intravenous contrast ? was administered. ? FINDINGS: ? No intra- or extra-axial mass, fl uid collection, or abnormal ? enhancement is present. There is no mass effect or midline shift. The ? basal cisterns are patent. Mild g lobal parenchymal atrophy is ? present, perhaps slightly more ad vanced in the frontal lobes. Tiny ? CSF signal foci in the basal gang johanna and subinsular white matter are ? PAGE 1 ? Leah d Report ? (CONTINUED) ? AN ADDENDUM IS INC LUDED ON THIS REPORT ? stable, likely reflecting promine nt perivascular spaces, although old ? lacunar infarcts may have a simil ar appearance. Multiple foci of T2 ? prolongation scattered throughout the subcortical and periventricular ? white matter are entirely nonspec ific, but unusually numerous for ? age. No significant progression i s visible compared to August 2017. ? No restricted diffusion is identi fied to suggest acute ischemia. The ? major flow voids are preserved. N o abnormal susceptibility is present ? to suggest hemorrhage. ? The globes and orbits are normal. Scattered paranasal sinus mucosal ? thickening is present. Scattered bilateral mastoid air cell ? opacification is present. No defi nite middle ear effusion is visible. ? The osseous structures are unrema rkable. The extracranial soft ? tissues are unremarkable. ? IMPRESSION: ? 1. ??Multiple foci of T2 prolonga tion in the white matter, entirely ? nonspecific but unusually numerou s for age. Differential includes ? sequela of chronic microvascular ischemic disease, demyelinating ? disease (multiple sclerosis, ADEM , Lyme), vasculitis, diabetes, ? hypertension, or smoking related changes. ? 2. ??Mild global parenchymal atro phy, perhaps slightly more advanced ? in the frontal lobes. ? 3. ??Prominent perivascular space s versus tiny old lacunar infarcts. ? No MR evidence of acute ischemia. ? 4. ??No intracranial mass or abno rmal enhancement identified. ? 5. ??Scattered paranasal and mast oid air cell opacification. ? Nonspecific, however please corre late for sinusitis/mastoiditis. ? REPORT SIGNED IN OTHER VENDOR SYSTEM 10/07/2017 ?Reported B y: Antonio Beck MD ? CC: ? Transcribed Date/Time: 10/07/2017 (4031) ? Clinical Appeals Reviewer: HIS.POWSCR ? Printed Date/Time: 02/28/2019 (12 48) ? PAGE 2 ? Leah d Report ? Procedure Note Antonio Beck MD - 10/08/2019Format ting of this note might be different from the original. AN ADDENDUM IS INCLUDED ON THIS REPO RT ADDENDUM Addendum: Case further reviewed at the request of Dr. Guero Rosales who provides additional history of clinical concern for changes in the left mesial temporal lobe. On further review, subtle T2 prolongati on is suspected in the left mesial temporal lobe (axial T2 flair im age 9). No associated enhancement or definite mass effect is identified. This finding is nonspecific, with the d ifferential including inflammatory processes, infection (incl uding HSV), metabolic abnormalities, or prior ischemia. Altho ugh a low-grade glial neoplasm cannot be entirely excluded, no associa clive enhancement or definite mass effect is visible. Follow-up contrast-enhanced MR brain re commended in 3 months to assess for interval change, as well as neurology consultation. Dr. Antonio Beck discussed these find ings with Dr. Guero Rosales on 10/10/2017 10:10 AM. ADDENDUM SIGNED IN OTHER VENDOR SYS TEM 10/10/2017 Reported By: Antonio Beck MD Transcribed: 10/10/2017 (1015) CR REPORT EXAM: MAGNETIC RESONANCE IMAGING/BRAIN W/ EX. D/ (1312) CLINICAL INFORMATION: F03.91 DENENTIA WITH BEHAVIORAL DISTURB ANCE BRAIN W/WITHOUT CONTRAST Signs and Symptoms/Comments: F03.91 DEM ENTIA WITH BEHAVIORAL DISTURBANCE Comparisons: MR brain on 08/17/2017. CT head on 08/12/2017. Technique: Contrast-enhanced MR brain w as performed with the following sequences: Sagittal T1, axial T2, axial T2 FLAIR, axial T1, axial gradient, axial DWI, coronal 3-D gradient, and post gadolinium axial and coronal T1 fat-sat. 20 cc Mag nevist intravenous contrast was administered. FINDINGS: No intra- or extra-axial mass, fluid co llection, or abnormal enhancement is present. There is no mas s effect or midline shift. The basal cisterns are patent. Mild global parenchymal atrophy is present, perhaps slightly more advanced in the frontal lobes. Tiny CSF signal foci in the basal ganglia an d subinsular white matter are PAGE 1 Signed Report (CONTINUED) AN ADDENDUM IS INCLUDED ON THIS REPO RT stable, likely reflecting prominent per ivascular spaces, although old lacunar infarcts may have a similar jeanine earance. Multiple foci of T2 prolongation scattered throughout the s ubcortical and periventricular white matter are entirely nonspecific, but unusually numerous for age. No significant progression is visi ble compared to August 2017. No restricted diffusion is identified t o suggest acute ischemia. The major flow voids are preserved. No abno rmal susceptibility is present to suggest hemorrhage. The globes and orbits are normal. Scatt ered paranasal sinus mucosal thickening is present. Scattered bilate ral mastoid air cell opacification is present. No definite m iddle ear effusion is visible. The osseous structures are unremarkable . The extracranial soft tissues are unremarkable. IMPRESSION: 1. Multiple foci of T2 prolongation in the white matter, entirely nonspecific but unusually numerous for age. Differential includes sequela of chronic microvascular ischem ic disease, demyelinating disease (multiple sclerosis, ADEM, Lyme ), vasculitis, diabetes, hypertension, or smoking related change s. 2. Mild global parenchymal atrophy, per haps slightly more advanced in the frontal lobes. 3. Prominent perivascular spaces versus tiny old lacunar infarcts. No MR evidence of acute ischemia. 4. No intracranial mass or abnormal enh ancement identified. 5. Scattered paranasal and mastoid air cell opacification. Nonspecific, however please correlate f or sinusitis/mastoiditis. REPORT SIGNED IN OTHER VENDOR SYSTEM 10/07/2017 Reported By: Antonio Beck MD CC: Transcribed Date/Time: 10/07/2017 (8113 ) Clinical Appeals Reviewer: Printed Date/Time: 02/28/2019 (2307) PAGE 2 Signed Report Guero Rosales MD IMG MRI ORDERABLES MR HEAD W WO CONTRAST (10/07/2017 11:54 EST) Anatomical Region Laterality Modality Head Magnetic Resonance Specimen (Source) Anatomical Collection Method Collection Time Re ceived Time Location / / Volume Laterality 10/07/2017 11:54 EST Narrative 10/07/2017 13:41 EST ? AN ADDENDUM IS INCLUDED ON THIS REPORT ? ADDENDUM ? Addendum: ? Case further reviewed at the requ est of Dr. Guero Rosales who provides ? additional history of clinical co ncern for changes in the left mesial ? temporal lobe. ? On further review, subtle T2 prol ongation is suspected in the left ? mesial temporal lobe (axial T2 fl air image 11). No associated ? enhancement or definite mass effe ct is identified. ? This finding is nonspecific, with the differential including ? inflammatory processes, infection (including HSV), metabolic ? abnormalities, or prior ischemia. Although a low-grade glial neoplasm ? cannot be entirely excluded, no a ssociated enhancement or definite ? mass effect is visible. ? Follow-up contrast-enhanced MR br ain recommended in 3 months to ? assess for interval change, as we ll as neurology consultation. ? Dr. Antonio Beck discussed thes e findings with Dr. Guero Rosales on ? 10/10/2017 10:10 AM. ? ADDEND UM SIGNED IN OTHER VENDOR SYSTEM 10/10/2017 ?Reported B y: Antonio Beck MD ?Transcribe d: 10/10/2017 (1015) HIS.POWSCR ?REPORT ? EXAM: MAGNETIC RESONANCE IMAGING/ BRAIN W/ EX. D/ (1312) ? CLINICAL INFORMATION: ? 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 BRAIN W/WITHOUT CONTRAST ? Signs and Symptoms/Comments: ??F0 3.91 DEMENTIA WITH BEHAVIORAL ? DISTURBANCE ? Comparisons: MR brain on 7. CT head on 08/12/2017. ? Technique: Contrast-enhanced MR b rain was performed with the ? following sequences: Sagittal T1, axial T2, axial T2 FLAIR, axial T1, ? axial gradient, axial DWI, gee l 3-D gradient, and post gadolinium ? axial and coronal T1 fat-sat. 20 cc Magnevist intravenous contrast ? was administered. ? FINDINGS: ? No intra- or extra-axial mass, fl uid collection, or abnormal ? enhancement is present. There is no mass effect or midline shift. The ? basal cisterns are patent. Mild g lobal parenchymal atrophy is ? present, perhaps slightly more ad vanced in the frontal lobes. Tiny ? CSF signal foci in the basal gang johanna and subinsular white matter are ? PAGE 1 ? Leah d Report ? (CONTINUED) ? AN ADDENDUM IS INC LUDED ON THIS REPORT ? stable, likely reflecting promine nt perivascular spaces, although old ? lacunar infarcts may have a simil ar appearance. Multiple foci of T2 ? prolongation scattered throughout the subcortical and periventricular ? white matter are entirely nonspec ific, but unusually numerous for ? age. No significant progression i s visible compared to August 2017. ? No restricted diffusion is identi fied to suggest acute ischemia. The ? major flow voids are preserved. N o abnormal susceptibility is present ? to suggest hemorrhage. ? The globes and orbits are normal. Scattered paranasal sinus mucosal ? thickening is present. Scattered bilateral mastoid air cell ? opacification is present. No defi nite middle ear effusion is visible. ? The osseous structures are unrema rkable. The extracranial soft ? tissues are unremarkable. ? IMPRESSION: ? 1. ??Multiple foci of T2 prolonga tion in the white matter, entirely ? nonspecific but unusually numerou s for age. Differential includes ? sequela of chronic microvascular ischemic disease, demyelinating ? disease (multiple sclerosis, ADEM , Lyme), vasculitis, diabetes, ? hypertension, or smoking related changes. ? 2. ??Mild global parenchymal atro phy, perhaps slightly more advanced ? in the frontal lobes. ? 3. ??Prominent perivascular space s versus tiny old lacunar infarcts. ? No MR evidence of acute ischemia. ? 4. ??No intracranial mass or abno rmal enhancement identified. ? 5. ??Scattered paranasal and mast oid air cell opacification. ? Nonspecific, however please corre late for sinusitis/mastoiditis. ? REPORT SIGNED IN OTHER VENDOR SYSTEM 10/07/2017 ?Reported B y: Antonio Beck MD ? CC: ? Transcribed Date/Time: 10/07/2017 (6455) ? Clinical Appeals Reviewer: ? Printed Date/Time: 02/28/2019 (12 48) ? PAGE 2 ? Leah d Report ? Procedure Note Antonio Beck MD - 10/08/2019Format ting of this note might be different from the original. AN ADDENDUM IS INCLUDED ON THIS REPO RT ADDENDUM Addendum: Case further reviewed at the request of Dr. Guero Rosales who provides additional history of clinical concern for changes in the left mesial temporal lobe. On further review, subtle T2 prolongati on is suspected in the left mesial temporal lobe (axial T2 flair im age 9). No associated enhancement or definite mass effect is identified. This finding is nonspecific, with the d ifferential including inflammatory processes, infection (incl uding HSV), metabolic abnormalities, or prior ischemia. Altho ugh a low-grade glial neoplasm cannot be entirely excluded, no associa clive enhancement or definite mass effect is visible. Follow-up contrast-enhanced MR brain re commended in 3 months to assess for interval change, as well as neurology consultation. Dr. Antonio Beck discussed these find ings with Dr. Guero Rosales on 10/10/2017 10:10 AM. ADDENDUM SIGNED IN OTHER VENDOR SYS TEM 10/10/2017 Reported By: Antonio Beck MD Transcribed: 10/10/2017 (1015) HIS.POWS CARRASQUILLO REPORT EXAM: MAGNETIC RESONANCE IMAGING/BRAIN W/ EX. D/ (1312) CLINICAL INFORMATION: F03.91 DENENTIA WITH BEHAVIORAL DISTURB ANCE BRAIN W/WITHOUT CONTRAST Signs and Symptoms/Comments: F03.91 DEM ENTIA WITH BEHAVIORAL DISTURBANCE Comparisons: MR brain on 08/17/2017. CT head on 08/12/2017. Technique: Contrast-enhanced MR brain w as performed with the following sequences: Sagittal T1, axial T2, axial T2 FLAIR, axial T1, axial gradient, axial DWI, coronal 3-D gradient, and post gadolinium axial and coronal T1 fat-sat. 20 cc Mag nevist intravenous contrast was administered. FINDINGS: No intra- or extra-axial mass, fluid co llection, or abnormal enhancement is present. There is no mas s effect or midline shift. The basal cisterns are patent. Mild global parenchymal atrophy is present, perhaps slightly more advanced in the frontal lobes. Tiny CSF signal foci in the basal ganglia an d subinsular white matter are PAGE 1 Signed Report (CONTINUED) AN ADDENDUM IS INCLUDED ON THIS REPO RT stable, likely reflecting prominent per ivascular spaces, although old lacunar infarcts may have a similar jeanine earance. Multiple foci of T2 prolongation scattered throughout the s ubcortical and periventricular white matter are entirely nonspecific, but unusually numerous for age. No significant progression is visi ble compared to August 2017. No restricted diffusion is identified t o suggest acute ischemia. The major flow voids are preserved. No abno rmal susceptibility is present to suggest hemorrhage. The globes and orbits are normal. Scatt ered paranasal sinus mucosal thickening is present. Scattered bilate ral mastoid air cell opacification is present. No definite m iddle ear effusion is visible. The osseous structures are unremarkable . The extracranial soft tissues are unremarkable. IMPRESSION: 1. Multiple foci of T2 prolongation in the white matter, entirely nonspecific but unusually numerous for age. Differential includes sequela of chronic microvascular ischem ic disease, demyelinating disease (multiple sclerosis, ADEM, Lyme ), vasculitis, diabetes, hypertension, or smoking related change s. 2. Mild global parenchymal atrophy, per haps slightly more advanced in the frontal lobes. 3. Prominent perivascular spaces versus tiny old lacunar infarcts. No MR evidence of acute ischemia. 4. No intracranial mass or abnormal enh ancement identified. 5. Scattered paranasal and mastoid air cell opacification. Nonspecific, however please correlate f or sinusitis/mastoiditis. REPORT SIGNED IN OTHER VENDOR SYSTEM 10/07/2017 Reported By: Antonio Beck MD CC: Transcribed Date/Time: 10/07/2017 (3813 ) Clinical Appeals Reviewer: Printed Date/Time: 02/28/2019 (1736) PAGE 2 Signed Report Guero Rosales MD IMG MRI ORDERABLES documented in this encounter Visit Diagnoses Not on filedocumented in this encounter Care Teams Senior Payroll Administrator Relationship Specialty Start Date End Date Unknown, Provider, PCP - General 08/12/17 documented as of this encounter
--- OUTSIDE RECORDS SUMMARY | 2022-07-25 17:56 | XMS_ITS | Encounter Summary ---
:1960 [place] [address] Care Team Providers Name Role Phone None Primary Care Provider Unavailable Reason for Referral Consultation (Routine) - Closed Specialty Diagnoses / Procedures Referred By Contact Refer red To Contact Cardiac Rehabilitation Diagnoses ST elevation (STEMI) myocardial infarction involving left anterior descending coronary artery Maxx Lange, Cardiac Rehab, [facility] [address] [place] [address] [place] [address] Referral ID Status Reason Start Date Expiration Date Visits V isits Requested Authorized [id number] Closed Consult, 06/23/2016 12/20/2016 36 36 Test & Treat Reason for Visit Auth/Cert Specialty Diagnoses / Procedures Referred By Contact Refer red To Contact Diagnoses STEMI (ST elevation myocardial infarction) STEMI STEMI Procedures PRO LEVEL 1 EMERGENCY ROOM VISIT CARDIAC CATHETERIZATION Referral ID Status Reason Start Date Expiration Date Visits Requ ested Visits Authorized [id number] 1 1 Encounter Details Date Type Department Care Team Description 06/21/2016 - Hospital Encounter Cardiac Special ST Anisa gaurav vation (STEMI) myocardial infarction involving left anterior descending coronary artery; 06/23/2016 Care Unit Ciara Crawford MD Status post coronary artery stent [facility] [place] [id number] [phone] Social History Tobacco Use Types Packs/Day Years Used Date Smoking Tobacco: Never Assessed Sex Assigned at Date Recorded Not on file documented as of this encounter Last Filed Vital Signs Vital Sign Reading Time Taken Comments Blood Pressure 125/68 06/23/2016 11:47 AM EDT Pulse 80 06/23/2016 8:25 AM EDT Temperature 36.9 ??C (98.4 ??F) 06/23/2016 8:25 AM EDT Respiratory Rate 17 06/23/2016 8:25 AM EDT Oxygen Saturation 95% 06/23/2016 8:25 AM EDT Inhaled Oxygen Concentration - - Weight 93.4 kg (205 lb 14.6 oz) 06/23/2016 6:45 AM EDT Height 175.3 cm (5' 9) 06/21/2016 1:45 PM EDT Body Mass Index 30.41 06/21/2016 1:45 PM EDT documented in this encounter Discharge Summaries HansIrineo - 06/22/2016 4:48 PM EDT Discharge Summary Patient Name: Meliton Raymond Patient Age: 56 y.o. Language: Bangladeshi Race: White Ethnicity: Not nor Admit date: 06/21/2016 Discharge date and time: 06/23/2016 Attending Physician: Maxx Lange MD Discharge Physician: Maxx Lange MD Follow-up Recommendations for Providers: Mr. Raymond was admitted from 06/21 to 06/23 for NSTEMI, found to have 3 vessel disease, s/p NICKI to LADand LCX after discussing both PCI and CABG options. He strongly preferred less invasive procedure and shorter recovery time. Benefits and risks of each option were fully explained. He understood and decided to proceed with PCI. After PCI, his symptoms resolved. For PCP: - Please obtain sleep study as outpatient - he was noted to have SaO2 in 80s while sleeping - He will be continued on aspirin for lifetime, plavix for at least a year - Please ensure medication compliance. May titrate metoprolol and lisinopril as necessary. Inpatient Provider Contact Information: For questions regarding this document or issues relating to this hospitalization on the Medical Service, please contact your inpatient physician through the [facility] [employer] . Issues after hours and on weekends will be handled by the Hospitalist staff on-call. Discharge Diagnoses (Hospital Problems) and Secondary Diagnoses (Chronic Problems): Active Hospital Problems Diagnosis ??? Dyslipidemia ??? Acute systolic heart failure ??? Subsequent non-ST elevation (NSTEMI) myocardial infarction Resolved Hospital Problems Diagnosis Date Resolved No resolved problems to display. There are no active non-hospital problems to display for this patient. Operations/Major Procedures: Operations: Procedure(s): CARDIAC CATHETERIZATION 06/21/2016 Procedure(s): CARDIAC CATHETERIZATION 06/22/2016 Dominance: Right ? Left Main The left main was normal. ? Left Anterior Descending There was a 90% single discrete stenosis of the mid segment of the left anterior descending artery (LAD). The LAD was moderate in size. The distal segment of the LAD had moderate diffuse disease. The distal vessel was moderate in size. ? There was mild diffuse disease of the entire vessel segment of the second diagonal branch (Diagonal 2) of the LAD. The Diagonal 2 was small. ? D1 is small without disease. ? Left Circumflex There was a 30% single discrete stenosis of the proximal segment of the left circumflex artery (LCX). The LCX was large. The distal segment of the LCX had a multiple discrete 20% stenoses. ? There was mild diffuse disease of the entire vessel segment of the first obtuse marginal branch (OM1) of the LCX. The OM1 was small. ? There was an 80% single discrete stenosis of the proximal segment of the second obtuse marginal branch (OM2) of the LCX. The OM2 was large. ? There was a 30% single discrete stenosis of the proximal segment of the first left posterolateral branch (LPL1) of the LCX. The LPL1 was moderate in size. ? Right Coronary Artery There was a single discrete total occlusion of the proximal segment of the right coronary artery (RCA). The RCA was large. Distal flow was decreased and was via collaterals from the LAD and collaterals from the LCX. The distal vessel was poorly visualized. ? Vascular Access: Vascular Access Management: Mechanical Compression of the right radial artery access site was performed. ? Conclusions: * Three vessel coronary artery disease (LAD, LCX and RCA) ? Complications/Events: The patient had no complications during these procedures. ? Recommendations: Based upon the results of this procedure, it was recommended that repeat catheterization, coronary artery bypass surgery and stent insertion be considered. The patient's medical regimen was changed as follows: Admit to medical unit for ongoing heparin infusion, nitroglycerin infusion for symptom management as necessary, 81 mg aspirin daily, and TTE for complete cardiac assessment, including echo contrast to assess for LV apical thrombus. History of Presentation (per HPI on admission): Mr. Raymond is a 56 year old man with HTN and recent NSTEMI at [facility] 2 weeks ago who is transferred from [facility] with STEMI. He presented to the OSH this morning after having constant substernal chest pain at rest. He says he has been having chest pain off and on for the past 2-3 years. His previous pain was non-exertional and resolved spontaneously. Around 3:30am today, he felt dizzy whilepainting his house on a step stool. He fell off the step stool but did not injure himself or hit hishead. Soon after, he started having chest pain radiating up to his neck and jaw, while sitting in a chair. He also had shortness of breath with this pain. The pain persisted and it was more severe thanhis usual pain so he went to the ED after taking 4 baby aspirin tablets at home. Per , his BP was noted to be 200/100s at home. Two weeks ago, he was seen at [facility] for NSTEMI. His troponin at that time (06/08/16) was 0.21, but he left AMA because the pain went away while he was in the ED. ?? He arrived at the OSH this monring with BP 175/116, HR105, SaO2 96% on RA. His EKG had NADER 1-1.5mm in anterior-septal leads with reciprocal changes. He was loaded with ASA 325mg, plavix 600mg, heparin 4000mg and sent to [facility] on heparin gtt and nitro gtt. He left the OSH ED with 5/10 pain but he was pain free when he arrived to [facility]. His vitals when leaving the OSH were BP 128/83, HR96 93% on 2L NC. ?? He was taken to the microbiology lab manager emergently upon arrival at [facility]. He was found to have three vessel disease 90% mid-LAD, ostial-OM1 and total occlusion in RCA with collateral circulation from the left. He was hemodynamically stable in the microbiology lab manager and chest pain free. He did not have any intervention donetoday as he may be a CABG candidate. CT surgery has been contacted for evaluation. His LVEDP was in upper 20s during catheterization. ? Currently, he is resting in bed comfortably. He denies any chest pain or shortness of breath. He wants to know what his options are and says he prefers the least invasive measure. His was at the bedside. Hospital Course: Mr. Raymond discussed PCI vs CABG, benefits and risks of each procedure with the primary cardiology team, interventional cardiology and cardiothoracic team. He understood that his disease involved all three vessels and that there may be higher need for repeat revascularization with PCI. He also understood that the RCA total occlusion would not be addressed. He was continued on heparin gtt, nitroglycerin gtt and plavix until he went back to cardiac cath. On06/22, he had two NICKI in LAD and LCX. The RCA was not intervened upon. He did not have any post-cathcomplications. After the procedure, his symptoms including chest pain and shortness of breath were re solved and he was able to ambulate without issues. He met with our cardiac rehabilitation team. Medications were explained and he was reassured to follow up with his PCP and establish care with Dr. Horne. Vital Signs at Discharge: BP: 125/68, Heart Rate: 80, Temp: 36.9 ??C (98.4 ??F), Resp: 17, BMI (Calculated): 31 Height: 175.3 cm (5' 9) (06/21/16 1345) Weight - Scale: 93.4 kg (205 lb 14.6 oz) (06/23/16 0645) Functional and Cognitive Status: Good, able to ambulate and do ADLs independently Important Studies and Lab Data: Labs: Last 3 wbc, hgb, hct plt Recent Labs 06/23/16 0402 06/22/16 0145 06/21/16 1250 WBC 8.5 9.4 9.0 HGB 14.4 13.8 13.6* HCT 41.9 39.7* 39.4* PLATELET 284 231 286 Last 3 Lytes Recent Labs 06/23/16 0402 06/22/16 0908 06/22/16 0145 06/21/16 1250 NA 139 -- 135 139 K 4.2 4.2 Not Perf 4.4 CL 101 -- 98 103 CO2 25 -- 23 21* BUN 11 -- 12 13 CREATININE 1.29 -- 1.39 1.31 Last 3 LFTs Recent Labs 06/21/16 1250 AST 30 ALT 25 ALKPHOS 66 BILITOT 0.3 BILIDIR 0.1 Last Ca, Mg, Phos Recent Labs 06/23/16 0402 CALCIUM 8.7 Last 3 Coags Recent Labs 06/22/16 0908 06/22/16 0145 06/21/16 1735 06/21/16 1250 PT -- -- -- 14.5 INR -- -- -- 1.1 PTT 95* 59* 43* >160.0* Last 3 ProBNP, Trop, CK Recent Labs 06/23/16 1105 06/22/16 1508 06/22/16 0908 06/21/16 1250 CK 208* 253* 225* < > 211* TROPONINT 1.77* 2.44* 1.28* < > 0.61* PROBNP -- -- -- -- 1479* < > = values in this interval not displayed. Last 3 Lipids Recent Labs 06/22/16 0145 CHLPL 152 HDL 18* LDLCHOL 56 TRIG 392* Last 3 HgbA1C Recent Labs 06/22/16 0145 HA1C 5.2 Studies: Echocardiogram 06/21 ?? SUMMARY: ?? 1. The left ventricular chamber size is normal. The visually estimated left ventricular ejection fraction is 45-50% with akinesis of the distal segments and apex with no mural thrombus. 2. Right ventricular chamber size, wall thickness, and systolic function are within normal limits. The estimated pulmonary artery systolic pressure is 48 mmHg. 3. There is mild to moderate (1-2+/4+) mitral regurgitation present. 4. The pericardium appears normal and there is no evidence of a pericardial effusion. ? Findings : ?? Left Ventricle: The left ventricular chamber size is normal. Left ventricular wall thickness is normal. Global left ventricular systolic function is mildly reduced. The visually estimated left ventricular ejection fraction is 45-50%. ? There are left ventricular segmental wall motion abnormalities present, as shown in the diagram below. Left ventricular diastolic function is abnormal. The mid anteroseptal, and mid inferoseptal wall segments are hypokinetic (score 2). The apical septal, apical anterior, apical lateral, and apical inferior wall segments are akinetic (score 3). Overall wallmotion score index is 1.63 ?? Left Atrium: The left atrium is normal in size. ?? Right Ventricle: Right ventricular chamber size, wall thickness, and systolic function are within normal limits. The estimated pulmonary artery systolic pressure is 48 mmHg. The estimated right atrial pressure is 3 mmHg. ?? Right Atrium: The right atrium is normal in size. ?? Aortic Valve: The aortic valve is tricuspid. The aortic valve leaflets are mildly thickened. Systolic excursion of the aortic valve is normal. There is no evidence of aortic valve stenosis. There is no evidence of aortic regurgitation. ?? Mitral Valve: The mitral valve leaflets appear normal. There is mild to moderate (1-2+/4+) mitral regurgitation present. ?? Tricuspid Valve: The tricuspid valve leaflets are morphologically normal. There is trace tricuspid regurgitation present. ?? Pulmonic Valve: The pulmonic valve appears normal in structure and function. ?? Pericardium: The pericardium appears normal and there is no evidence of a pericardial effusion. ?? Aorta: The aortic root is normal in size. The ascending aorta is normal in size. ?? Pulmonary Artery: The main pulmonary artery appears normal. ?? Venous: The inferior vena cava appears normal in size. There is a greater than 50% respiratory change in the inferior vena cava dimension. Discharge Conditions/Prognosis: good General - No acute distress. ?? ENT - Mouth moist without lesions. ?? Eyes - EOMI. Not jaundiced. Noninjected Neck - No lymphadenopathy. No thyromegaly, no JVD Lungs - Clear to auscultation. Heart - RRR, S1,S2, no audible murmur, gallop or rubs. ?? Abdomen/GI - Soft, nontender, normal active bowel sounds Extremities - No clubbing, cyanosis or edema. Pulses intact. Cath access site dry and clean. No hematoma Neuro - AAOx3 Discharge to: home Updated Allergies/ADRs: No Known Allergies Immunizations Given this Hospitalization: There is no immunization history on file for this patient. Discharge Medications: Your Medications New Medications Dose Details aspirin 81 mg Chew Take 81 mg by mouth daily. 81 mg Quantity: 30 tablet Refills: 3 atorvastatin 80 mg Tab Commonly known as: LIPITOR Take 1 tablet by mouth every evening. 80 mg Quantity: 30 tablet Refills: 3 clopidogrel 75 mg Tab Commonly known as: PLAVIX Take 1 tablet by mouth daily. 75 mg Quantity: 30 tablet Refills: 3 lisinopril 5 mg Tab Commonly known as: PRINIVIL;ZESTRIL Take 1 tablet by mouth daily. 5 mg Quantity: 30 tablet Refills: 3 meTOPROLOL succinate 100 mg Tablet sr Commonly known as: TOPROL-XL Take 1 tablet by mouth daily. 100 mg Quantity: 30 tablet Refills: 12 nitroGLYcerin 0.4 mg Subl Commonly known as: NITROSTAT Place 1 tablet under the tongue every 5 minutes as needed for Chest pain. 0.4 mg Quantity: 30 tablet Refills: 3 Smoking Status at Discharge: History Smoking Status ??? Not on file Smokeless Tobacco ??? Not on file Instructions Given to Patient at Discharge: Patient Instructions Patient Instructions on Discharge to Home Why you were hospitalized: You had a heart attack, which was caused by blockage in three of three heart arteries. This was fixed with stents that were placed during a cardiac catheretization. Because you had this procedure, you shouldn't lift anything greater than 10 lbs for the next week and nothing greater than 20 lbs for 2 we eks. After that time you may go back to regular activity and work. Call your doctor if your right wrist pain gets worse, or you develop swelling or redness in that area. Also, call your doctor if you develop sudden chest pain or shortness of breath, especially chest pain that does not go away with nitroglycerin. It is important that you take your aspirin 81mg daily forever and clopidogrel 75mg daily for at least 1 year. Do not miss any doses of these medications! New Medications: Aspirin: this is a platelet inhibitor that will help prevent clot build up in your arteries, as wellas in the stent that was placed. Continue taking 81mg daily indefinitely. Clopidogrel (plavix): this is a second platelet inhibitor that will help prevent clot build up in the stent that was placed. It is very important that you take this medication every day at least for one year to help keep your stent open. Follow up with your doctor before stopping this medication. Atorvastatin (lipitor): this is a cholesterol-lowering medication that helps prevent build up of plaque in your arteries. Take this every evening. Metoprolol (toprol): this is a beta cristi, that helps protect your heart. Take this every day. Lisinopril: this is an SHELTON inhibitor that also helps protect your heart, as well as help control your blood pressure. Take this every day. Nitroglycerin: this is a medication that can be placed under your tongue as needed for chest pain. If you experience chest pain, especially that similar to what you had before you were admitted to the hospital, sit down and place one tab under your tongue (it may make you dizzy, so sitting down beforetaking this is safest). If your chest pain does not improve, call your doctor. When to call your doctor: - Chest pain, worsening shortness of breath, fatigue with usual exertion, or new rest/night time symptoms. - Weigh yourself daily and record; if you note an increase of more than 2-3 pounds in 2 days, or 5 pounds over a week, contact your health care provider. - If you become short of breath, cannot lie down to sleep, or have swelling in your legs/ankles or abdomen, contact your health care provider. - Call if you have reduced urination during the day or increased urination at night. - Call for signs of increased wound drainage, redness, swelling, or increased pain at the site of your cardiac cath. - Call if you develop a temp >100.5 If you have non-emergent questions between now and the time of your follow up appointments: During 8am-5pm Tuesday through Tuesday call [phone] to speak with a nurse in the cardiology clinic All other times call [phone] and ask to speak to the machine filler edge bonder. Activity level: - No heavy lifting (more than five pounds) for 48 hours; no more than 10 pounds for one week. - You may return to work in 1 week. Use common sense. Don't exhaust yourself. - No hunting, skiing, jogging, snow shoveling, snowmobiling, lawn mowing, swimming, golf or tennis until after your return appointment with your family doctor. - Do not ride motorcycles, tractors or horses until cleared by your doctor. Diet: - Heart healthy: low salt, low fat, low concentrated sweets. Remember to avoid added salt, canned foods, processed foods (ie hot dogs, sausage, cold meats), and foods naturally high in salt, such as potato chips or pizza. Driving: - Per your routine after [address] if you feel dizzy, light headed, or are taking narcotic medications (ie/ Oxycodone, Morphine, Dilaudid, etc). Shower/Bath: - You may shower 24 hours after cardiac catheterization. - You may not sit in water for 5 days (tub bath, hot tub or pool). Wound Care: - Cath site dressing may be removed in 24 hours. Site may be washed with soap/water. A dressing doesnot need to be reapplied unless irritation occurs with underclothes. If irritation occurs, apply clean band-aid daily. Exercise: - Exercise 5-7 days per week as tolerated with gradual increase to 30 minutes per day. Smoking cessation: - If you are currently a smoker, you are strongly urged to stop smoking! Smoking increases the severity and incidence of heart disease, and is a risk factor for cancer and emphysema. Your health care provider can provide specific measures to assist you, including nicotine supplements, anti-anxiety meds, and support groups in your community. Follow up Appointments: Lockstitch Lining Maker: Dr. Horne: July 16, 9:30AM - [address], [place] PCP: Dr. Jensen DO in [place], [place] in 2 weeks which you arranged. Please be sure to attend this appointment Your Inpatient Doctor(s) at [facility]: Maxx Lange MD - Attending physician Irineo Maxwell - Resident physician Candice Reese - Tapper Operator physician Your Primary Care Provider: Dr. Jensen in [facility] For questions regarding issues relating to your hospitalization on the Hospital Medicine Service, please contact your inpatient physician through the [facility] [employer] [phone]. Issues after hours and on weekends will be handled by the Hospitalist staff on-call. General Instructions None Future Appointments and Orders Future Orders Complete By Expires Referral to Cardiac Rehab [[id number] Custom] As directed Process Instructions: If no progress note charted, please enter Clinical details in comments. Scheduling Instructions: Questions: My question or request is: s/p STEMI, PCI. Cardiac rehab at [facility] Discharge References/Attachments None documented in this encounter Discharge Instructions Patient InstructionsGorge Reese MD - 06/23/2016 10:53 AM EDT Patient Instructions on Discharge to Home Why you were hospitalized: You had a heart attack, which was caused by blockage in three of three heart arteries. This was fixed with stents that were placed during a cardiac catheretization. Because you had this procedure, you shouldn't lift anything greater than 10 lbs for the next week and nothing greater than 20 lbs for 2 we eks. After that time you may go back to regular activity and work. Call your doctor if your right wrist pain gets worse, or you develop swelling or redness in that area. Also, call your doctor if you develop sudden chest pain or shortness of breath, especially chest pain that does not go away with nitroglycerin. It is important that you take your aspirin 81mg daily forever and clopidogrel 75mg daily for at least 1 year. Do not miss any doses of these medications! New Medications: Aspirin: this is a platelet inhibitor that will help prevent clot build up in your arteries, as wellas in the stent that was placed. Continue taking 81mg daily indefinitely. Clopidogrel (plavix): this is a second platelet inhibitor that will help prevent clot build up in the stent that was placed. It is very important that you take this medication every day at least for one year to help keep your stent open. Follow up with your doctor before stopping this medication. Atorvastatin (lipitor): this is a cholesterol-lowering medication that helps prevent build up of plaque in your arteries. Take this every evening. Metoprolol (toprol): this is a beta cristi, that helps protect your heart. Take this every day. Lisinopril: this is an SHELTON inhibitor that also helps protect your heart, as well as help control your blood pressure. Take this every day. Nitroglycerin: this is a medication that can be placed under your tongue as needed for chest pain. If you experience chest pain, especially that similar to what you had before you were admitted to the hospital, sit down and place one tab under your tongue (it may make you dizzy, so sitting down beforetaking this is safest). If your chest pain does not improve, call your doctor. When to call your doctor: - Chest pain, worsening shortness of breath, fatigue with usual exertion, or new rest/night time symptoms. - Weigh yourself daily and record; if you note an increase of more than 2-3 pounds in 2 days, or 5 pounds over a week, contact your health care provider. - If you become short of breath, cannot lie down to sleep, or have swelling in your legs/ankles or abdomen, contact your health care provider. - Call if you have reduced urination during the day or increased urination at night. - Call for signs of increased wound drainage, redness, swelling, or increased pain at the site of your cardiac cath. - Call if you develop a temp >100.5 If you have non-emergent questions between now and the time of your follow up appointments: During 8am-5pm Tuesday through Tuesday call [phone] to speak with a nurse in the cardiology clinic All other times call [phone] and ask to speak to the machine filler edge bonder. Activity level: - No heavy lifting (more than five pounds) for 48 hours; no more than 10 pounds for one week. - You may return to work in 1 week. Use common sense. Don't exhaust yourself. - No hunting, skiing, jogging, snow shoveling, snowmobiling, lawn mowing, swimming, golf or tennis until after your return appointment with your family doctor. - Do not ride motorcycles, tractors or horses until cleared by your doctor. Diet: - Heart healthy: low salt, low fat, low concentrated sweets. Remember to avoid added salt, canned foods, processed foods (ie hot dogs, sausage, cold meats), and foods naturally high in salt, such as potato chips or pizza. Driving: - Per your routine after [address] if you feel dizzy, light headed, or are taking narcotic medications (ie/ Oxycodone, Morphine, Dilaudid, etc). Shower/Bath: - You may shower 24 hours after cardiac catheterization. - You may not sit in water for 5 days (tub bath, hot tub or pool). Wound Care: - Cath site dressing may be removed in 24 hours. Site may be washed with soap/water. A dressing doesnot need to be reapplied unless irritation occurs with underclothes. If irritation occurs, apply clean band-aid daily. Exercise: - Exercise 5-7 days per week as tolerated with gradual increase to 30 minutes per day. Smoking cessation: - If you are currently a smoker, you are strongly urged to stop smoking! Smoking increases the severity and incidence of heart disease, and is a risk factor for cancer and emphysema. Your health care provider can provide specific measures to assist you, including nicotine supplements, anti-anxiety meds, and support groups in your community. Follow up Appointments: Lockstitch Lining Maker: Dr. Horne: July 16, 9:30AM - [address] [place], [place] PCP: Dr. Jensen DO in [place], [place] in 2 weeks which you arranged. Please be sure to attend this appointment Your Inpatient Doctor(s) at [facility]: Maxx Lange MD - Attending physician Irineo Maxwell - Resident physician Candice Reese - Tapper Operator physician Your Primary Care Provider: Dr. Jensen in [facility] For questions regarding issues relating to your hospitalization on the Hospital Medicine Service, please contact your inpatient physician through the [facility] [employer] [phone]. Issues after hours and on weekends will be handled by the Hospitalist staff on-call. AttachmentsThe following attachments cannot be sent through Care Everywhere.PCI (PERCUTANEOUS CORONARY INTERVENTION): POST-OP (SRI LANKAN)ASPIRIN: HEART ATTACK AND STROKE PREVENTION (SRI LANKAN)LOW SODIUM DIET (SRI LANKAN)documented in this encounter Medications at Time of Discharge Medication Sig Dispensed Refills Start Date End Date aspirin 81 mg Tablet, Take 81 mg by mouth 30 tablet 3 06/23 Chewable daily. atorvastatin (LIPITOR) 80 Take 1 tablet by 30 tablet 3 06/12 mg Tablet mouth every evening. clopidogrel (PLAVIX) 75 mg Take 1 tablet by 30 tablet 3 08/2016 Tablet mouth daily. meTOPROLOL succinate Take 1 tablet by 30 tablet 12 6 03/21/2018 (TOPROL-XL) 100 mg Tablet mouth daily. Sustained Release 24 hr documented as of this encounter Progress Notes Anya Purdy RN - 06/23/2016 12:36 PM EDT Office of Care Management Discharge Note Patient Destination: home Transportation: with Time of Discharge: 1400 Level of Care: home no services Patient Aware: yes and agreeable Family Notified: at bedside Md to call report to: n/a RN to call report to: n/a Anya Purdy Office of Care Management Lita Cochran MD - 06/23/2016 10:45 AM EDT Interventional cardiology post PCI/cardiac catheterization note Meliton Raymond is s/p cardiac catheterization with findings of PCI to LAD and OM2 Via R radial artery vascular access. Hemostasis was successfully achieved with application of TR band. He denies chest pain, SOB. He doesreports mild access site pain, with palpitation or flexion. RRA access site is c/d/i. There is mild area of ecchymosis overlying the access site, with tenderness on palpitation. There is no evidence of swelling or hematoma. RDP pulse 2+R radial reverse Deep's test favorable. A/P No vascular access complications. Continue DAPT: ASA 81 mg lifelong, clopidogrel for at least 1 month post PCI. Gorge Reese MD - 06/23/2016 6:25 AM EDT CARDIOLOGY PROGRESS NOTE Patient info: Name: Meliton Raymond : 1960 Date of Admission: 06/21/2016 ( Hospital Day 2 days ) Responsible Attending:Maxx Lange MD ID: 56 y.o. 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 docusate sodium 100 mg Oral BID ??? clopidogrel 75 mg Oral Daily ??? sodium chloride 0.9 % 5 mL Intravenous BID ??? famotidine 20 mg Oral BID ??? atorvastatin 80 mg Oral QPM ??? aspirin 81 mg Oral Daily ??? meTOPROLOL 12.5 mg Oral Q6H TADEO Continuous Infusions: ??? nitroGLYcerin 70 mcg/min (06/22/16 1847) ??? heparin 1,800 Units/hr (06/22/16 6277) PRN Meds: polyethylene glycol (MIRALAX)oral powder, magnesium hydroxide, bisacodyl, ondansetron, sodium chloride 0.9 %, lidocaine, nitroGLYcerin, heparin (porcine), morphine, traMADol Vitals: Last value Range last 24 hrs Temperature Temp: 36.7 ??C (98.1 ??F) Temp: [36.7 ??C (98.1 ??F)-38.2 ??C (100.8 ??F)] Heart Rate Heart Rate: 85 Heart Rate: [78-110] Blood Pressure BP: 132/75 BP: (93-134)/(66-91) Respiratory Rate Resp: 17 Resp: [9-28] SpO2 SpO2: 94 % SpO2: [91 %-96 %] Ins/Outs: Intake/Output Summary (Last 24 hours) at 06/23/1683 Last data filed at 06/23/16 0610 Gross per 24 hour Intake 1564 ml Output 1400 ml Net 164 ml Physical Exam: General - No acute distress. ENT - Mouth moist without lesions. Eyes - EOMI. Not jaundiced. Noninjected Neck - No lymphadenopathy. No thyromegaly, no JVD Lungs - Clear to auscultation. Heart - RRR, S1,S2, no audible murmur, gallop or rubs. Abdomen/GI - Soft, nontender, normal active bowel sounds Extremities - No clubbing, cyanosis or edema. Pulses intact. Neuro - AAOx3 Labs: CBC: Recent Labs 06/23/16 0402 06/22/16 0145 06/21/16 1250 WBC 8.5 9.4 9.0 HGB 14.4 13.8 13.6* PLATELET 284 231 286 Chemistry: Recent Labs 06/23/16 0402 06/22/16 0908 06/22/16 0145 06/21/16 1250 NA 139 -- 135 139 K 4.2 4.2 Not Perf 4.4 CL 101 -- 98 103 CO2 25 -- 23 21* BUN 11 -- 12 13 CREATININE 1.29 -- 1.39 1.31 GLUCOSE -- -- -- 120 Recent Labs 06/23/16 0402 06/22/16 0145 06/21/16 1250 CALCIUM 8.7 8.7 8.3* MAGNESIUM 0.84 0.82 0.87 LFT's: Recent Labs 06/21/16 1250 BILITOT 0.3 BILIDIR 0.1 ALBUMIN 3.6 ALKPHOS 66 ALT 25 AST 30 Coags: Recent Labs 06/22/16 0908 06/22/16 0145 06/21/16 1735 06/21/16 1250 PT -- -- -- 14.5 INR -- -- -- 1.1 PTT 95* 59* 43* >160.0* Cardiac enzymes: Recent Labs 06/22/16 1508 06/22/16 0908 06/22/16 014 TROPONINT 2.44* 1.28* Not Perf CK 253* 225* 357* Endocrine: Recent Labs 06/21/16 1250 TSH 0.02* Heme: No results for input(s): LDH, HAPTOGLOBIN, URICACID in the last 168 hours. Pertinent radiology/diagnostic studies: Cardiac catheterization 06/21 Dominance: Right ? Left Main The left main was normal. ? Left Anterior Descending There was a 90% single discrete stenosis of the mid segment of the left anterior descending artery (LAD). The LAD was moderate in size. The distal segment of the LAD had moderate diffuse disease. The distal vessel was moderate in size. ? There was mild diffuse disease of the entire vessel segment of the second diagonal branch (Diagonal 2) of the LAD. The Diagonal 2 was small. ? D1 is small without disease. ? Left Circumflex There was a 30% single discrete stenosis of the proximal segment of the left circumflex artery (LCX). The LCX was large. The distal segment of the LCX had a multiple discrete 20% stenoses. ? There was mild diffuse disease of the entire vessel segment of the first obtuse marginal branch (OM1) of the LCX. The OM1 was small. ? There was an 80% single discrete stenosis of the proximal segment of the second obtuse marginal branch (OM2) of the LCX. The OM2 was large. ? There was a 30% single discrete stenosis of the proximal segment of the first left posterolateral branch (LPL1) of the LCX. The LPL1 was moderate in size. ? Right Coronary Artery There was a single discrete total occlusion of the proximal segment of the right coronary artery (RCA). The RCA was large. Distal flow was decreased and was via collaterals from the LAD and collaterals from the LCX. The distal vessel was poorly visualized. Echocardiogram 06/21 1. The left ventricular chamber size is normal. The visually estimated left ventricular ejection fraction is 45-50% with akinesis of the distal segments and apex with no mural thrombus. 2. Right ventricular chamber size, wall thickness, and systolic function are within normal limits. The estimated pulmonary artery systolic pressure is 48 mmHg. 3. There is mild to moderate (1-2+/4+) mitral regurgitation present. 4. The pericardium appears normal and there is no evidence of a pericardial effusion. Assessment: Mr. Raymond is a 56 year old man with hx of untreated HTN and recent NSTEMI presenting with STEMI s/p coronary angiography showing three vessel disease. We discussed both PCI and CABG in detail and patient strongly preferred to proceed with less invasive intervention. He is now s/p PCI in LAD and LCX. Asymptomatic and stable to be discharged to home with PCP and cardiology follow up in [place], [place] Plan: # NSTEMI # CAD - Continue ASA 81mg daily - Continue plavix 75mg daily - Continue atorvastatin 80mg daily - Increase metoprolol succinate 100mg daily - Start lisinopril 5mg daily ?? # Others DVT- heparin gtt GI- famotidine Activity- as tolerated Nutrition- cardiac diet Lines- PIV PT/OT- consult Dispo- Home today ?? CODE STATUS: Full Code ?? Contact info: Kiah Raymond [phone] ?? Gorge Reese MD Internal Medicine, PGY1 Irineo Maxwell - 06/22/2016 4:13 PM EDT Post-Catheterization Progress Note Subjective: Patient denies chest pain, palpitations, dyspnea, light-headedness, wrist pain, back pain. Objective: Vitals: Last value Range last 8 hrs Temperature Temp: 37 ??C (98.6 ??F) Temp: [37 ??C (98.6 ??F)] Heart Rate Heart Rate: 83 Heart Rate: [78-86] Blood Pressure BP: 112/76 BP: (93-112)/(66-77) Respiratory Rate Resp: 12 Resp: [9-21] SpO2 SpO2: 96 % SpO2: [93 %-96 %] Gen: NAD, resting comfortably Wrist: R radial access site without hematoma or ecchymosis. No active bleeding. Dressing c/d/i. No tenderness to palpation. Ext: UE warm with 2+ pulses. Hand with intact sensation. Palpable radial and ulnar pulses. Normal reverse deep test (both by waveform and palmar blush on release of radial pressure). Back: No flank or back tenderness. A/P: S/p cardiac catheterization with benign appearing right radial access site Mateusz Maxwell S1 Pager [phone] Ely Peralta MD - 06/22/2016 9:39 AM EDT Interventional cardiology consult note ADDENDUM: Successful LAD and LCx PCI with BMS (chosen given large size of vessel and short duration of stent) via a 7 Fr RRA procedure. No complications. Patient had chest and arm pain with balloon inflation in LCx. Radial recommendations at end of this note. I met at length with the patient and his at the request of Dr Lange. The patient expressed strong preferences to avoid a long recovery period, in part due to concern about needed time off work for both he and his . He has an understanding of the higher need for repeat procedures with CABG over PCI- detailed discussion with Dr Ramos and Anisa before I consulted. He is understandably nervous (notably leaving AMA during his initial heart attack 2 weeks ago). In brief, this is a 56 y.o. year old male referred by Dr Lange for consideration of PCI in the context of 3 vessel disease and diminished LV function; I was asked to meet with the patient and familyto discuss risks and benefits of PCI to assist in decision making regarding revascularization (I made a recommendation for CABG yesterday after diagnostic cath). Impression: 1. 3 vessel CAD 2. EF 45% with apical AK without LV thrombus due to [place] 2 weeks ago 3. No elevated BP during procedure 4. Dyslipidemia with low HDL (low LDL as well) 5. Obesity 6. NSTEMI this admission 7. Strong patient preferences for PCI over CABG given short term benefit of quick recovery; full discussion regarding risks/benefits 8. Low TSH with normal free T4 9. Acute systolic heart failure with elevated LVEDP and receipt of IV lasix for mild pulm edema seenon CXR Plan: 1. PCI of LAD and LCx via right radial approach 2. ASA, Plavix prior to procedure 3. Follow up recommendations and care with Dr Lange; I greatly appreciate his shared decision making conversations with the patient and his referral (recommend ASA lifelong, Plavix for one year, BB,SHELTON inh, dyslipidemia therapy) Brief summary, differential diagnosis and plan are listed above. Below are further details of today's visit. This patient is an 56 y.o. year old male with a history of NSTEMI 2 weeks ago, left AMA, who presented to the hospital with CP at rest and elevated troponin; ECG NSTEMI with anterior q waves. This patient reports no symptoms of TIA/stroke (weakness, speech difficulty, visual loss), no syncope, no recent weight loss/weight gain, no chest pain, no history gi bleeding or black stools. All other systems are reviewed and are negative. Patient Active Problem List Diagnosis ??? Dyslipidemia Low HDL ??? Acute systolic heart failure ??? Subsequent non-ST elevation (NSTEMI) myocardial infarction Denies new medications, recent illness or recent hospitalization. PAST MEDICAL HISTORY: Anxiety, reported hypertension untreated in past history. PAST SURGICAL HISTORY: No relevant surgery SOCIAL HISTORY: Reviewed and updated as appropriate in the medical record. shares patient has been taking large amounts of benadryl for anxiety and insomnia. FAMILY HISTORY: Patient reports siblings and other relatives with history PCI and CABG. MEDICATIONS: Current Facility-Administered Medications Medication Dose Route Frequency Provider Last Rate Last Dose ??? [NOV Hold] docusate sodium (COLACE) capsule 100 mg 100 mg Oral BID Himanshu Singleton MD 100 mg at 06/22/16 0845 ??? [NOV Hold] polyethylene glycol (MIRALAX) packet 17 g 17 g Oral Daily PRN Himanshu Singleton MD17 g at 06/22/16 0846 ??? [NOV Hold] clopidogrel (PLAVIX) tablet 75 mg 75 mg Oral Daily Irineo Maxwell MD 75 mg at 06/22/16 0940 ??? sodium chloride 0.9 % flush 5 mL 5 mL Intravenous Q12H Elvis Bosch MD ??? sodium chloride 0.9 % flush 5-20 mL 5-20 mL Intravenous Q1 Min PRN Elvis Bosch MD ??? sodium chloride 0.9% infusion 200 mL/hr Intravenous Continuous Elvis Bosch MD 250 mL at 06/22/16 1130 ??? midazolam (PF) (VERSED) 1 mg/mL multi-dose injection Once PRN Ely Peralta MD 1 mg at 06/22/16 1015 ??? fentaNYL 50 mcg/mL multi-dose injection Once PRN Ely Peralta MD 25 mcg at 06/22/16 1156 ??? verapamil (ISOPTIN) injection Once PRN Ely Peralta MD 2.5 mg at 06/22/16 1018 ??? heparin (porcine) injection Once PRN Ely Peralta MD 2,000 Units at 06/22/16 1141 ??? nitroGLYcerin 100 mcg/mL intracoronary dilution Once PRN Ely Peralta MD 200 mcg at 06/22/16 1156 ??? iohexol (OMNIPAQUE) 350 mg/mL solution Once PRN Ely Peralta MD 230 mL at 06/22/16 1201 ??? [MAR Hold] sodium chloride 0.9 % flush 5 mL 5 mL Intravenous BID Irineo Maxwell MD 5 mL at1 0846 ??? [MAR Hold] sodium chloride 0.9 % flush 5-20 mL 5-20 mL Intravenous Q1 Min PRN Irineo Maxwell MD ??? [MAR Hold] lidocaine (XYLOCAINE) 10 mg/mL (1 %) injection 3 mg 0.3 mL Subcutaneous Once PRN Irineo Maxwell MD ??? [MAR Hold] nitroGLYcerin (NITROSTAT) SL tablet 0.4 mg 0.4 mg Sublingual Q5 Min PRN Irineo Maxwell MD ??? [MAR Hold] famotidine (PEPCID) tablet 20 mg 20 mg Oral BID Irineo Maxwell MD 20 mg at 06/22/16 0845 ??? [MAR Hold] nitroGLYcerin 50 mg in dextrose 5% 250 mL infusion 0-200 mcg/min Intravenous Continuous Irineo Maxwell MD 21 mL/hr at 06/22/16 0439 70 mcg/min at 06/22/16 0439 ??? [NOV Hold] atorvastatin (LIPITOR) tablet 80 mg 80 mg Oral QPM Irineo Maxwell MD 80 mg at 06/21/16 1711 ??? [MAR Hold] aspirin chewable tablet 81 mg 81 mg Oral Daily Irineo Maxwell MD 81 mg at 06/22/16 0845 ??? [MAR Hold] heparin (porcine) injection 2,000-4,000 Units 2,000-4,000 Units Intravenous BOLUS HEPARIN PP Gorge Reese MD 4,000 Units at 06/21/16 1914 ??? [NOV Hold] heparin 25,000 units in dextrose 5% 500 mL infusion 350-7,000 Units/hr Intravenous Continuous Gorge Reese MD 36 mL/hr at 06/22/16 0357 1,800 Units/hr at 06/22/16 0357 ??? [MAR Hold] meTOPROLOL (LOPRESSOR) tablet 12.5 mg 12.5 mg Oral Q6H [facility] Gorge Reese MD 12.5 mg at 06/22/16 0602 ??? [NOV Hold] morphine 2 mg/mL carpuject 2 mg 2 mg Intravenous Q4H PRN Himanshu Singleton MD 2 mgat 06/22/16 0451 ??? [MAR Hold] acetaminophen (TYLENOL) tablet 650 mg 650 mg Oral Q4H PRN Himanshu Singleton MD 650mg at 06/21/16 1909 ??? [NOV Hold] traMADol (ULTRAM) tablet 50 mg 50 mg Oral Q4H PRN Himanshu Singleton MD 50 mg at 06/22/16 0355 ALLERGIES: Reviewed and updated as appropriate in the medical record: Review of patient's allergies indicates no known allergies. Review of systems: Please see the HPI for pertinent positives and negatives. The remainder of the ROS was reviewed and is negative. PHYSICAL EXAMINATION: Vitals: Wt Readings from Last 3 Encounters: 06/21/16 94.9 kg (209 lb 3.5 oz) Temp Readings from Last 3 Encounters: 06/22/16 38.2 ??C (100.8 ??F) (Oral) BP Readings from Last 3 Encounters: 06/22/16 107/81 Pulse Readings from Last 3 Encounters: 06/22/16 79 Comprehensive cardiovascular exam Constitutional: The patient is bright, cheerful and without complaints. Psych: They are able to relay the details of their medical course and future planning yet with minimal understanding of the medical or procedural issues after multiple conversations given limited priorexposure to the medical system; and are oriented. There is not a suggestion of cognitive decline or memory issues or abnormal mood. He does not appear overly anxious this morning. Eyes: no xanthelasma ENMT: Poor entition, oropharynx clear with moist mucus membranes and no mucosal ulcerations Radial: 2+ pulse without hematoma from procedure Neuro: there are no gross neurologic deficits- the patient can move all 4 limbs and has normal speech. There is no facial droop. Participation of family/friend: TESTING: I have reviewed the pertinent outside records, laboratory data, and imaging studies. I personally reviewed the images and developed my own interpretation of the echocardiogram, CT scan if available, chest xray, and ECG. Pertinent results for this evaluation include: Labs (including hgb, plt, INR, Cr, lipids if available): Lab Results Component Value Date WBC 9.4 06/22/2016 HGB 13.8 06/22/2016 HCT 39.7 (L) 06/22/2016 PLATELET 231 06/22/2016 CHLPL 152 06/22/2016 TRIG 392 (H) 06/22/2016 HDL 18 (L) 06/22/2016 LDLCHOL 56 06/22/2016 ALT 25 06/21/2016 AST 30 06/21/2016 NA 135 06/22/2016 K 4.2 06/22/2016 CL 98 06/22/2016 CREATININE 1.39 06/22/2016 BUN 12 06/22/2016 CO2 23 06/22/2016 TSH 0.02 (L) 06/21/2016 INR 1.1 06/21/2016 GLUCFASTING 133 (H) 06/22/2016 HA1C 5.2 06/22/2016 ECG: I personally reviewed and interpret it to show NSR with anterior q waves and ST abnormality consistent with prior apical infarct Plan: as described above. Without this evaluation, this patient at risk of acute systolic congestive heart failure. I spoke with multiple other health care providers about the recommended plan. Note that this visit was 80 minutes, with 30 minutes spent with patient and family discussing options, 20 minutes discussing care coordination with multiple clinicians, 20 minutes in review of the medical record and 10 minutes in documentation. For referring providers: Thank you for requesting this consultation. For questions, please feel freeto contact me: [phone] (board of education secretary Ros Gretta, and she will have me paged) or [email or web address]. Meliton Raymond 06/22/2016 Referring Providers: None Stevie Yang MD EMERGENCY DEPT [address] [place] [address] ELY PERALTA MD 06/22/2016 TESTING: Recent Results (from the past 72 hour(s)) Basic Metabolic Panel (non-fasting) Result Value Ref Range Glucose Lvl 120 65 - 199 mg/dL BUN 13 10 - 20 mg/dL Creatinine 1.31 0.80 - 1.50 mg/dL Sodium 139 135 - 145 mmol/L Potassium 4.4 3.5 - 5.0 mmol/L Chloride 103 98 - 107 mmol/L CO2 21 (L) 22 - 31 mmol/L Anion Gap 15 5 - 15 mmol/L Calcium 8.3 (L) 8.5 - 10.5 mg/dL Estimated GFR 56 (L) >=60 Magnesium Result Value Ref Range Magnesium 0.87 0.69 - 1.07 mmol/L TSH Result Value Ref Range TSH 0.02 (L) 0.27 - 4.20 mcIU/mL pro-Brain Natriuretic Peptide Result Value Ref Range ProBNP 1479 (H) <=125 pg/mL Hepatic Function Panel Result Value Ref Range Total Protein 5.9 (L) 6.1 - 8.0 gm/dL Albumin 3.6 3.2 - 5.2 gm/dL AST 30 0 - 39 unit/L ALT 25 0 - 55 unit/L Alk Phos 66 40 - 120 unit/L Total Bilirubin 0.3 0.2 - 1.3 mg/dL Bili, Direct 0.1 0.0 - 0.3 mg/dL Prothrombin Time Result Value Ref Range PT 14.5 12.0 - 15.0 sec INR 1.1 0.9 - 1.1 Cardiac Enzymes Result Value Ref Range Troponin-T 0.61 (H) <=0.03 ng/mL CK, Total 211 (H) 0 - 200 unit/L Hemogram Result Value Ref Range WBC 9.0 4.0 - 9.5 x10(3)/mcL RBC 4.17 (L) 4.58 - 5.54 x10(6)/mcL Hemoglobin 13.6 (L) 13.7 - 16.5 gm/dL Hematocrit 39.4 (L) 40.5 - 48.5 % MCV 94.5 (H) 82.9 - 93.1 fL MCH 32.6 (H) 27.5 - 32.1 pg MCHC 34.5 32.0 - 35.7 gm/dL Platelets 286 145 - 357 x10(3)/mcL RDWSD 42.3 36.0 - 45.0 fL RDWCV 12.3 11.4 - 13.8 % MPV 9.6 7.6 - 12.9 fL nRBC % Auto 0.0 % nRBC Abs Auto 0.000 0.000 - 0.000 x10(3)/mcL Differential, Automated Result Value Ref Range Neutrophils % 60.8 % Neutr Abs (ANC) 5.47 1.70 - 6.10 x10(3)/mcL Lymphocytes % 29.5 % Lymphocytes Abs 2.7 0.9 - 3.2 x10(3)/mcL Monocytes % 6.5 % Monocyte Abs 0.6 0.3 - 0.9 x10(3)/mcL Eosinophils % 2.1 % Eosinophils Abs 0.2 0.0 - 0.4 x10(3)/mcL Basophils % 0.9 % Basophils Abs 0.1 0.0 - 0.1 x10(3)/mcL Immature Gran % 0.20 % Amada Gran Abs 0.02 0.00 - 0.04 x10(3)/mcL T3, free Result Value Ref Range T3, Free 4.4 2.0 - 4.4 pg/mL T4, free Result Value Ref Range Free T4 1.70 0.93 - 1.70 ng/dL APTT Result Value Ref Range PTT >160.0 (CRIT) 25 - 35 EKG 12 Lead Result Value Ref Range Ventricular rate 79 BPM Atrial Rate 79 BPM P-R Interval 168 ms QRS Duration 106 ms Q-T Interval 422 ms QTC Calculated (Bezet) 483 ms Calculated P Huntington 31 degrees Calculated R Huntington -43 degrees Calculated T Huntington 98 degrees INTERPRETATION Normal sinus rhythm Left axis deviation Minimal voltage criteria for LVH, may be normal variant Anteroseptal infarct , age undetermined Abnormal ECG No previous ECGs available Confirmed by MD Cesario, Jasmine ([id number]) on 06/22/2016 6:02:14 AM Echocardiogram Transthoracic(Leb) Result Value Ref Range EF 45 APTT Result Value Ref Range PTT 43 (H) 25 - 35 sec Cardiac Enzymes Result Value Ref Range Troponin-T 1.03 (H) <=0.03 ng/mL CK, Total 391 (H) 0 - 200 unit/L Lipid panel (fasting) Result Value Ref Range Chol, Total 152 <=199 mg/dL Triglycerides 392 (H) <=149 mg/dL HDL 18 (L) >=40 mg/dL LDL Cholesterol 56 <=99 mg/dL Chol/HDL Ratio 8.4 ratio Hemoglobin A1c Result Value Ref Range Hemoglobin A1C 5.2 4.3 - 5.6 % Est Avg Gluc 103 mg/dL BMP w/fasting Glucose Result Value Ref Range Glucose Fasting 133 (H) 65 - 99 mg/dL BUN 12 10 - 20 mg/dL Creatinine 1.39 0.80 - 1.50 mg/dL Sodium 135 135 - 145 mmol/L Potassium Not Perf 3.5 - 5.0 mmol/L Chloride 98 98 - 107 mmol/L CO2 23 22 - 31 mmol/L Anion Gap 14 5 - 15 mmol/L Calcium 8.7 8.5 - 10.5 mg/dL Estimated GFR 52 (L) >=60 Hemogram Result Value Ref Range WBC 9.4 4.0 - 9.5 x10(3)/mcL RBC 4.18 (L) 4.58 - 5.54 x10(6)/mcL Hemoglobin 13.8 13.7 - 16.5 gm/dL Hematocrit 39.7 (L) 40.5 - 48.5 % MCV 95.0 (H) 82.9 - 93.1 fL MCH 33.0 (H) 27.5 - 32.1 pg MCHC 34.8 32.0 - 35.7 gm/dL Platelets 231 145 - 357 x10(3)/mcL RDWSD 43.2 36.0 - 45.0 fL RDWCV 12.6 11.4 - 13.8 % MPV 9.5 7.6 - 12.9 fL nRBC % Auto 0.0 % nRBC Abs Auto 0.000 0.000 - 0.000 x10(3)/mcL Differential, Automated Result Value Ref Range Neutrophils % 70.8 % Neutr Abs (ANC) 6.64 (H) 1.70 - 6.10 x10(3)/mcL Lymphocytes % 19.0 % Lymphocytes Abs 1.8 0.9 - 3.2 x10(3)/mcL Monocytes % 7.1 % Monocyte Abs 0.7 0.3 - 0.9 x10(3)/mcL Eosinophils % 2.4 % Eosinophils Abs 0.2 0.0 - 0.4 x10(3)/mcL Basophils % 0.5 % Basophils Abs 0.0 0.0 - 0.1 x10(3)/mcL Immature Gran % 0.20 % Amada Gran Abs 0.02 0.00 - 0.04 x10(3)/mcL APTT Result Value Ref Range PTT 59 (H) 25 - 35 sec Cardiac Enzymes Result Value Ref Range Troponin-T Not Perf <=0.03 ng/mL CK, Total 357 (H) 0 - 200 unit/L Magnesium Result Value Ref Range Magnesium 0.82 0.69 - 1.07 mmol/L Potassium Result Value Ref Range Potassium 4.2 3.5 - 5.0 mmol/L Cardiac Enzymes Result Value Ref Range Troponin-T 1.28 (H) <=0.03 ng/mL CK, Total 225 (H) 0 - 200 unit/L APTT Result Value Ref Range PTT 95 (H) 25 - 35 sec CC: None Radial recommendations: DO NOT start heparin subq for routine DVT prophylaxis until 6 hours after hemostasis. Encourage reassessment of need for any bridging heparin for atrial fibrillation in context of access site. 1. Patent hemostasis: ensure there is a waveform on oximetry on right hand when band is on. 2. Band on for 1 hour following PCI. Then, begin removing air. Remove 2 cc every 10 minutes. If there is bleeding, reinsert the same amount of air you just removed. 3. When all air out of band, leave on for 10 minutes. Remove band. 4. Housestaff exam: please document radial pulse. Document reverse Deep's test (hold occlusive pressure on both radial and ulnar arteries until no waveform on pulse oximetry. Then, allow flow through radial, but not ulnar. Document 'normal reverse Deep's' if there is a waveform within 2 minutes. If there is no waveform after 2 minutes, contact the interventional cardiology team edge bonder. In the case of early evidence of radial artery thrombosis (abnormal reverse Deep's), apply the TR band with the pressure portion over the ulnar artery until there is a lack of pulsatile waveform on pulse oximetry. Leave on for 1 hour, with monitoring of patient's hand symptoms every 15 minutes. If coolness, pain, or numbness, release band for several minutes and then start again. If this fails in the first hour, continue for a total of 3 hours. An additional therapy that is helpful is restarting IVheparin for a total length of time of up to 24 hours. SIT Gorge Reese MD - 06/22/2016 6:09 AM EDT CARDIOLOGY PROGRESS NOTE Patient info: Name: Meliton Raymond : 1960 Date of Admission: 06/21/2016 ( Hospital Day 1 day ) Responsible Attending:Maxx Lange MD ID: 56 y.o. male with a hx of untreated HTN who presented with NSTEIM, was found to have triple vessel disease during angiography Hospital Problem List: NSTEMI 24 Hour Events/Subjective: - Had chest pain overnight, increased nitro gtt from 50 to 70 with good effect - This morning, still wants to proceed with PCI, understands the benefits and risks - Given 75mg plavix this morning and scheduled for PCI Inpatient Medications: Scheduled Meds: ??? [NOV Hold] docusate sodium 100 mg Oral BID ??? [NOV Hold] clopidogrel 75 mg Oral Daily ??? sodium chloride 0.9 % 5 mL Intravenous Q12H ??? [MAR Hold] sodium chloride 0.9 % 5 mL Intravenous BID ??? [NOV Hold] famotidine 20 mg Oral BID ??? [MAR Hold] atorvastatin 80 mg Oral QPM ??? [MAR Hold] aspirin 81 mg Oral Daily ??? [NOV Hold] meTOPROLOL 12.5 mg Oral Q6H TADEO Continuous Infusions: ??? sodium chloride 0.9% 100 mL/hr (06/22/16 1245) ??? [NOV Hold] nitroGLYcerin 70 mcg/min (06/22/16 3728) ??? [NOV Hold] heparin 1,800 Units/hr (06/22/16 8519) PRN Meds: [MAR Hold] polyethylene glycol (MIRALAX)oral powder, sodium chloride 0.9 %, atropine, acetaminophen,[MAR Hold] sodium chloride 0.9 %, [MAR Hold] lidocaine, [MAR Hold] nitroGLYcerin, [MAR Hold] heparin(porcine), [MAR Hold] morphine, [MAR Hold] traMADol Vitals: Last value Range last 24 hrs Temperature Temp: 38.2 ??C (100.8 ??F) Temp: [36.8 ??C (98.2 ??F)-38.2 ??C (100.8 ??F)] Heart Rate Heart Rate: 83 Heart Rate: [77-91] Blood Pressure BP: 107/73 BP: (93-137)/(51-96) Respiratory Rate Resp: 12 Resp: [9-21] SpO2 SpO2: 96 % SpO2: [93 %-96 %] Ins/Outs: Intake/Output Summary (Last 24 hours) at 06/22/16 1417 Last data filed at 06/22/16 0710 Gross per 24 hour Intake 1594.21 ml Output 2700 ml Net -1105.79 ml Physical Exam: General - No acute distress. ENT - Mouth moist without lesions. Eyes - EOMI. Not jaundiced. Noninjected Neck - No lymphadenopathy. No thyromegaly Lungs - Clear to auscultation. Heart - RRR, S1,S2, no audible murmur, gallop or rubs. Abdomen/GI - Soft, nontender, normal active bowel sounds, neg hsm or masses. Extremities - No clubbing, cyanosis or edema. Pulses intact. Neuro - AAOx3 Labs: CBC: Recent Labs 06/22/1614406/21/16 1250 WBC 9.4 9.0 HGB 13.8 13.6* PLATELET 231 286 Chemistry: Recent Labs 06/22/16 0908 06/22/1614406/21/16 1250 NA -- 135 139 K 4.2 Not Perf 4.4 CL -- 98 103 CO2 -- 23 21* BUN -- 12 13 CREATININE -- 1.39 1.31 GLUCOSE -- -- 120 Recent Labs 06/22/16 01406/21/16 1250 CALCIUM 8.7 8.3* MAGNESIUM 0.82 0.87 LFT's: Recent Labs 06/21/16 1250 BILITOT 0.3 BILIDIR 0.1 ALBUMIN 3.6 ALKPHOS 66 ALT 25 AST 30 Coags: Recent Labs 06/22/16 0908 06/22/165 06/21/16 1735 06/21/16 1250 PT -- -- -- 14.5 INR -- -- -- 1.1 PTT 95* 59* 43* >160.0* Cardiac enzymes: Recent Labs 06/22/16 0908 06/22/165 06/21/16 1745 TROPONINT 1.28* Not Perf 1.03* CK 225* 357* 391* Endocrine: Recent Labs 06/21/16 1250 TSH 0.02* Heme: No results for input(s): LDH, HAPTOGLOBIN, URICACID in the last 168 hours. Pertinent radiology/diagnostic studies: Cardiac catheterization 06/21 Dominance: Right ? Left Main The left main was normal. ? Left Anterior Descending There was a 90% single discrete stenosis of the mid segment of the left anterior descending artery (LAD). The LAD was moderate in size. The distal segment of the LAD had moderate diffuse disease. The distal vessel was moderate in size. ? There was mild diffuse disease of the entire vessel segment of the second diagonal branch (Diagonal 2) of the LAD. The Diagonal 2 was small. ? D1 is small without disease. ? Left Circumflex There was a 30% single discrete stenosis of the proximal segment of the left circumflex artery (LCX). The LCX was large. The distal segment of the LCX had a multiple discrete 20% stenoses. ? There was mild diffuse disease of the entire vessel segment of the first obtuse marginal branch (OM1) of the LCX. The OM1 was small. ? There was an 80% single discrete stenosis of the proximal segment of the second obtuse marginal branch (OM2) of the LCX. The OM2 was large. ? There was a 30% single discrete stenosis of the proximal segment of the first left posterolateral branch (LPL1) of the LCX. The LPL1 was moderate in size. ? Right Coronary Artery There was a single discrete total occlusion of the proximal segment of the right coronary artery (RCA). The RCA was large. Distal flow was decreased and was via collaterals from the LAD and collaterals from the LCX. The distal vessel was poorly visualized. Echocardiogram 06/21 1. The left ventricular chamber size is normal. The visually estimated left ventricular ejection fraction is 45-50% with akinesis of the distal segments and apex with no mural thrombus. 2. Right ventricular chamber size, wall thickness, and systolic function are within normal limits. The estimated pulmonary artery systolic pressure is 48 mmHg. 3. There is mild to moderate (1-2+/4+) mitral regurgitation present. 4. The pericardium appears normal and there is no evidence of a pericardial effusion. Assessment: Mr. Raymond is a 56 year old man with hx of untreated HTN and recent NSTEMI presenting with STEMI s/p coronary angiography showing three vessel disease. We discussed both PCI and CABG in detail and patient strongly preferred to proceed with less invasive intervention. He was continued on ASA, plavix and heparin gtt. Scheduled for cath today. Plan: # STEMI # CAD - CT surgery consult - Continue heparin gtt - Continue nitro gtt for pain control ?? - Continue ASA 81mg daily - Give plavix this morning as he will have cardiac cath today - Continue atorvastatin 80mg daily - Start metoprolol 12.5mg Q6H - Hold SHELTON-i for now ?? # Others DVT- heparin gtt GI- famotidine Activity- as tolerated Nutrition- cardiac diet Lines- PIV PT/OT- consult Dispo- CSCU ?? CODE STATUS: Full Code ?? Contact info: Riana Raymond [phone] ?? Gorge Reese MD Internal Medicine, PGY1 Associated attestation - Maxx Lange MD - 06/22/2016 5:14 PM EDT Cardiology Attending Note I interviewed and examined the patient during comprehensive bedside rounds. I concur with the summary of interval events, active hospital-focused problem list and plan of care. I personally reviewed the medications, laboratory results, treatment decisions and updated the patient. Mr. Raymond is a 56-year-old gentleman with a history of hypertension admitted with an NSTEMI found to have three-vessel disease on coronary angiography. He refused bypass surgery and is now doing well after 2 vessel PCI (LAD, OM2) earlier this morning. He will remain on aspirin indefinitely and Plavix for at least 1 year. He is otherwise on a good medical regimen for coronary disease. If he remains clinically stable tonight, I anticipate discharge early tomorrow morning. Maxx Lange MD Cardiovascular Medicine Pager: [phone] This patient meets or has met medical criteria to require an inpatient level of care, i.e. a minimumof two midnights in the hospital with multiple complex problems. Gorge Reese MD - 06/21/2016 4:23 PM EDT Post-catheterization check Subjective Feeling OK, no chest pain or shortness of breath. Wants to proceed with less invasive intervention Objective HR 83 BP 125/96 SaO2 95% RA CV: RRR, S1, S2, no murmurs appreciated Lungs: clear to auscultation R wrist: no ecchymosis, hematoma, pulses 2+ Assessment & Plan No post-cath complications. See the progress note for detailed plan. Gorge Reese MD documented in this encounter H&P Notes Gorge Reese MD - 06/21/2016 11:23 AM EDT Cardiology Admission History and Physical Patient Name: Meliton Raymond Service: Cardiology S1 Team Responsible Attending: Maxx Lange MD PCP: PROVIDER MD ISAIAH (Inactive) PCP phone #: None ID/Chief Complaint: Mr. Raymond is a 56 year old man with a hx of untreated HTN and NSTEMI (2 weeks ago, left AMA) presenting with STEMI History of Present Illness: Mr. Raymond is a 56 year old man with HTN and recent NSTEMI at [facility] 2 weeks ago who is transferred from [facility] with STEMI. He presented to the OSH this morning after having constant substernal chest pain at rest. He says he has been having chest pain off and on for the past 2-3 years. His previous pain was non-exertional and resolved spontaneously. Around 3:30am today, he felt dizzy whilepainting his house on a step stool. He fell off the step stool but did not injure himself or hit hishead. Soon after, he started having chest pain radiating up to his neck and jaw, while sitting in a chair. He also had shortness of breath with this pain. The pain persisted and it was more severe thanhis usual pain so he went to the ED after taking 4 baby aspirin tablets at home. Per , his BP was noted to be 200/100s at home. Two weeks ago, he was seen at [facility] for NSTEMI. His troponin at that time (06/08/16) was 0.21, but he left AMA because the pain went away while he was in the ED. He arrived at the OSH this monring with BP 175/116, HR105, SaO2 96% on RA. His EKG had NADER 1-1.5mm in anterior-septal leads with reciprocal changes. He was loaded with ASA 325mg, plavix 600mg, heparin 4000mg and sent to [facility] on heparin gtt and nitro gtt. He left the OSH ED with 5/10 pain but he was pain free when he arrived to [facility]. His vitals when leaving the OSH were BP 128/83, HR96 93% on 2L NC. He was taken to the microbiology lab manager emergently upon arrival at [facility]. He was found to have three vessel disease 90% mid-LAD, ostial-OM1 and total occlusion in RCA with collateral circulation from the left. He was hemodynamically stable in the microbiology lab manager and chest pain free. He did not have any intervention donetoday as he may be a CABG candidate. CT surgery has been contacted for evaluation. His LVEDP was in upper 20s during catheterization. Currently, he is resting in bed comfortably. He denies any chest pain or shortness of breath. He wants to know what his options are and says he prefers the least invasive measure. His was at the bedside. OSH labs prior to transfer: CBC: WBC 9.6 Hgb 16.4 Plt 301 CMP: Na 142 K 4.3 Cl 102 CO2 24 BUN 14 Cr 1.4 Cardiac enzymes: Tn- 1.37 Other labs: INR 1 Review of Systems: GENERAL HEENT CV PULM x All negative x All negative All negative All negative Weight loss Headache + Chest Pain - Non-productive cough Weight gain Vision change - Palpitations - Productive cough Fevers Sinus congestion - Orthopnea - Wheezing Chills Hoarseness - LE edema Hemoptysis Night sweats Epistaxis - PND - Pleuritic pain Fatigue - Syncope + SOB Claudication - BIRD MSK RENAL ENDO GI x All negative x All negative All negative All negative Arthralgias Frequency Heat intolerance - Blood in stool Myalgias Urgency Cold intolerance Dysphagia Weakness Hematuria Polydipsia Odynophagia Stiffness Flank pain Polyphagia - Abdominal discomfort Dysuria Cushingoid + Reflux sxs Foamy urine - Diarrhea Discharge - Nausea/Vomiting LYMPH SKIN NEURO PSYCH All negative All negative All negative All negative Swollen nodes Rash Seizures Depressed affect Tender nodes Ulcers Tremors Occupational stress Diffuse nodes Bruising Spasticity Anxiety Local nodes Tanned skin Focal weakness Insomnia Night sweats Telangiectasias Diplopia Paresthesias Dizziness Problem List/Past Medical History Untreated HTN - used to take Lopressor 25mg BID until 5 years ago, stopped on his own Hyperlipidemia - never treated Bleeding ulcer - 20-30 years ago, seen on EGD, no bleeding since then Past Surgical History L shoulder repair, cholecystectomy Meds: Benadyl for anxiety Allergies: Allergies not on file Family History: Not obtained Social History: Tobacco: chews tobacco, never smoked EtOH: none used, quit 30 years ago Illicits: denies Living Situation: lives with his in [place], [place] Vitals: Last value Range last 24 hrs Temperature Temp: 37.1 ??C (98.8 ??F) Temp: [37.1 ??C (98.8 ??F)] Heart Rate Heart Rate: 84 Heart Rate: [80-87] Blood Pressure BP: 118/75 BP: (114-132)/(64-75) Respiratory Rate Resp: 14 Resp: [11-17] SpO2 SpO2: 94 % SpO2: [94 %-98 %] Examination: General - No acute distress. ENT - Mouth moist without lesions. Eyes - EOMI. Not jaundiced. Noninjected Neck - No lymphadenopathy. No thyromegaly, no JVD Lungs - Clear to auscultation anteriorly Heart - RRR, S1,S2, no audible murmur, gallop or rubs. Abdomen/GI - Soft, nontender, normal active bowel sounds, neg hsm or masses. Extremities - No clubbing, cyanosis or edema. Pulses intact. Neuro - AAOx3 Lines: PIV Laboratory: CBC: Recent Labs 06/21/16 1250 WBC 9.0 HGB 13.6* PLATELET 286 Chemistry: Recent Labs 06/21/16 1250 NA 139 K 4.4 CL 103 CO2 21* BUN 13 CREATININE 1.31 GLUCOSE 120 Recent Labs 06/21/16 1250 CALCIUM 8.3* MAGNESIUM 0.87 LFT's: Recent Labs 06/21/16 1250 BILITOT 0.3 BILIDIR 0.1 ALBUMIN 3.6 ALKPHOS 66 ALT 25 AST 30 Coags: Recent Labs 06/21/16 1250 PT 14.5 INR 1.1 Cardiac enzymes: Recent Labs 06/21/16 1250 TROPONINT 0.61* CK 211* Endocrine: Recent Labs 06/21/16 1250 TSH 0.02* Heme: No results for input(s): LDH, HAPTOGLOBIN, URICACID in the last 168 hours. Microbiology: None Diagnostic Studies: EKG- pending CXR- pending, OSH CXR with cephalization ASSESSMENT: Mr. Raymond is a 56 year old man with hx of untreated HTN and recent NSTEMI presenting with STEMI s/p coronary angiography showing three vessel disease which may be more chronic (Q waves in anterior leads). He will be admitted to Cardiology for CABG evaluation vs PCI PLAN: Admit to Cardiology, S1 Team Pager # [phone] # STEMI # CAD - CT surgery consult - BMP, CBC, pro-BNP, A1C and lipid panel - Echocardiogram - CXR, EKG - Cycle cardiac enzymes - Continue heparin gtt - Continue nitro gtt for pain control - Continue ASA 81mg daily - No more plavix - Start atorvastatin 80mg daily - Furosemide 20mg IV x1 for elevated LVEDP - Hold BB/SHELTON-i for now # Others DVT- heparin gtt GI- famotidine Activity- as tolerated Nutrition- cardiac diet Lines- PIV PT/OT- consult Dispo- admit to CSCU CODE STATUS: Full Code Contact info: Riana Raymond [phone] Gorge Reese MD Internal Medicine, PGY1 Associated attestation - Maxx Lange MD - 06/21/2016 8:55 PM EDT Cardiology Attending Note I interviewed and examined the patient during comprehensive bedside rounds. I concur with the summary of interval events, active hospital-focused problem list and plan of care. I personally reviewed the medications, laboratory results, treatment decisions and updated the patient. Comment 56 yo M with HTN who does not see physicians regularly is admitted in the context of chest pain due to an NSTEMI and is found to have 3VD on cath this afternoon. I met him and his this evening anddiscussed his cath results and his options for revascularization. He strongly prefers to avoid surgery, if possible, even though this approach has a higher rate of repeat revascularization and will notallow us to revascularize his RCA, which is chronically occluded. He understood that PCI is not the optimal approach in this situation, but he is very clear about his wishes. He states, and his con jeniffers, that he will be compliant with DAPT. In terms of his sxs, he has been pain free. We will continue DAPT and the heparin infusion tonight, and I will discuss his case with the Interventional team tomorrow morning. Maxx Lange MD Cardiovascular Medicine Pager: [phone] This patient meets or has met medical criteria to require an inpatient level of care, i.e. a minimumof two midnights in the hospital with multiple complex problems. documented in this encounter Miscellaneous Notes Plan of Care - Kinga Ugarte RN - 06/23/2016 1:25 PM EDT Problem: General Plan of Care Goal: Plan of Care Review Outcome: Outcome (s) achieved Date Met: 06/23/16 06/23/16 0170 Coping/Psychosocial Response Interventions Plan of Care Reviewed with patient;spouse;children Plan of Care Review Plan of Care Outcome Status ongoing (interventions implemented as appropriate) Progress improving OUTCOME EVALUATION NOTE: OUTCOME SUMMARY: Pt. Was discharged @ 1315. Peripheral IV's removed. Pressure applied to sites, no excessive bleeding. Patient provided discharge information to pt. And . Pt and signifies understanding. Patient is asymptomatic. No compliants of pain, no SOB. PLAN MOVING FORWARD: Discharged today. INDIVIDUALIZED FALL PREVENTION INTERVENTIONS: Patient-specific fall risk factors per assessment: [current deficits]: Pt. Independent in room and halls Assistance [level of assistance required for transfers and ambulation]: Independent Supervision [direct monitoring required during toileting and ADLs]: Independent, with SBA while ambulating Surveillance [continuous indirect monitoring]: Conitinuous telemetry, call boyce in reach, family at bedside Patient-specific fall prevention interventions for sensory deficits provided, if applicable: [X] Yes CPG GOAL OUTCOME EVALUATION: Goal: Fall Prevention-Safe Patient Handling Outcome: Outcome (s) achieved Date Met: 06/23/16 06/23/1644906/23/16829 Safety Interventions Safety Precautions/Fall Reduction -- nonskid shoes/slippers when out of bed;low bed;lighting adjusted for task/safety;family at bedside;fall reduction program maintained;environmental modification Activity and Safety Assistive Device None -- Childers Fall Risk History of Falling -- 0 Secondary Diagnosis -- 0 Ambulatory Aids -- 0 Intravenous Therapy/Heparin/Saline Lock -- 20 Gait/Transferring -- 0 Mental Status -- 0 Score -- 20 OTHER Childers Fall Risk -- Low Musculoskeletal Interventions Activity/Level of Assistance -- up in room;ambulated;independently Positioning HOB up 30 degrees;independent -- Self-Care Promotion independence encouraged while providing assistance -- Goal: Infection Control Outcome: Outcome (s) achieved Date Met: 06/23/16 06/23/1644906/23/16829 Safety Interventions Isolation Precautions -- standard precautions maintained Infection Prevention -- blood glucose management;bronchial hygiene promoted;environmental surveillance;hydration promoted;nutrition promoted;promote handwashing;rest/sleep promoted Coping/Psychosocial Response Interventions Counseling goal setting facilitated;personal strengths integrated;verbalization of feelings encouraged;understanding of situation facilitated -- Initial Assessments - Anya Purdy RN - 06/23/2016 12:20 PM EDT Office of Care Management Initial Assessment Anya Purdy, RN reviewed record and discussed patient with Care Team. Source of Information: patient and Introduced self/reviewed role; services accepted. Reason for Hospitalization: NSTEMI No past medical history on file. Hospitalizations Within the Past 30 Days: pt went to ER in [place] but left AMA, then came to [facility] for the same problem Anticipated Length Of Stay (If known): 2 days Current Decision-Making Capacity: full Advance Care Planning: blank copies provided and explained how to complete. Pt states understanding and planning to complete prior to d/c. Current Coping/Education/Information Needs: coping well. Questions related to cost of medical care; advised family to contact [facility] for specific coverage information. Also explained INPT status to patient (versus observation) because asked if each service (radiology, microbiology lab manager, consults, etc) wouldall be billed separately. Family states understanding and says they do have contact info for [facility]. Current Functional Ability: OOB indep Functional Status Prior to Admission: indep in ADL/IADL, drives Home Environment: private home with , 13 stairs to Upstairs bedroom. Social & Family Supports/Community Resources: no services in the home and states they really have no community support here. Recently came to [place] from [facility] History: denies Substance Use/Abuse: denies Other Pertinent/Service Specific Information: none Health/Prescription Coverage: Primary Insurance: [facility] Secondary Insurance: none Prescription Coverage: [facility] Preferred Pharmacy: [facility] [place] Other: n/a Primary Care Provider: None None PCP UPDATE: PCP now listed as Dr Jensen of [place] and pt has scheduled appt. Patient/Caregiver Goals of Treatment: to go home Potential Needs for Transition of Care: Rehab/SNF: n/a Home Health: n/a DME: n/a Dialysis: n/a Community Resources: n/a Transportation: with family Other: n/a Anticipated Barriers to Discharge/Special Considerations: [facility] and [facility] cannot quote out of pocket expenses until they have his coverage info. Pt aware. 1med is OTC ASA, 5 additional meds all generic. Plan: home with no services; follow up with cardiology and PCP, cardiac rehab. Pt aware and agreeable to all follow up care. Reports no difficulty with transportation, finances, or self-care. A member of the Care Management team will continue to monitor progress, follow for continuity of care and assist with transition of care planning. Anya Purdy RN Pager: [phone] Consult Note - Gene, Neema J, RN - 06/23/2016 9:48 AM EDT Meliton Raymond was seen today by Cardiac Rehabilitation for: (no ) An activity evaluation - Patient has been walking independently on the unit most of the night (yes ) Educational packet regarding CAD, cardiac risk factors, and managing angina given to patient. Heart diagram reviewed. Reviewed managing angina /use of sl nitroglycerin. Mediterranean diet guidelines briefly reviewed. Given parameters for home exercise. (yes ) [facility] [facility] was discussed. Patient agrees to a referral to this program. The referral will be sent at discharge and the patient should be contacted by the Program within 1- 2 weeks from discharge. Plan of Care - Mele Hammond RN - 06/23/2016 5:10 AM EDT Problem: General Plan of Care Goal: Plan of Care Review 06/23/160 Coping/Psychosocial Response Interventions Plan of Care Reviewed with patient;spouse;children Plan of Care Review Plan of Care Outcome Status ongoing (interventions implemented as appropriate) Progress improving VSS. NS rhythm high 80s to 90s at rest, low 100s with ambulation. Ambulated enthusiastically twice around unit: 320 ft and 640 feet with no complaint of chest pain or SOB. Started on 2L nasal canula appx 0200 to facilitate sleep. Reported pain in left hip 5/10 at appx 0200. Given 50mg tramadol, pain resolved to 0/10. Son and daughter arrived appx 0230, present since start of shift. Pt and familyawake all night in good spirits. All are enthusiastic about the prospect of pt going home today. Goal: Fall Prevention-Safe Patient Handling 06/22/16 1579 06/23/16 0029 Safety Interventions Safety Precautions/Fall Reduction -- nonskid shoes/slippers when out of bed;low bed;family at bedside;environmental modification;commode/urinal/bedpan at bedside;lighting adjusted for task/safety Activity and Safety Assistive Device -- None Childers Fall Risk History of Falling -- 0 Secondary Diagnosis -- 0 Ambulatory Aids -- 0 Intravenous Therapy/Heparin/Saline Lock -- 0 Gait/Transferring -- 0 Mental Status -- 0 Score -- 0 OTHER Childers Fall Risk -- Low Musculoskeletal Interventions Activity/Level of Assistance ambulated -- Positioning -- HOB up 30 degrees;independent Self-Care Promotion -- independence encouraged while providing assistance Goal: Infection Control 06/23/16 045 Safety Interventions Isolation Precautions standard precautions maintained Infection Prevention rest/sleep promoted;promote handwashing;nutrition promoted;hydration promoted;environmental surveillance Coping/Psychosocial Response Interventions Counseling goal setting facilitated;personal strengths integrated;verbalization of feelings encouraged;understanding of situation facilitated Goal: Discharge Needs Assessment 06/23/16449 Discharge Needs Assessment Concerns to be Addressed no discharge needs identified Readmission Within the Last 30 Days no previous admission in last 30 days Current Health Anticipated Changes Related to Illness none Self-Care Equipment Currently Used at Home none Living Environment Transportation Available car;family or friend will provide Plan of Care - Martina Holder RN - 06/22/2016 5:11 PM EDT Problem: General Plan of Care Goal: Plan of Care Review Outcome: Ongoing (Interventions Implemented as Appropriate) 06/22/167 06/22/1675506/22/16 1624 Coping/Psychosocial Response Interventions Plan of Care Reviewed with -- patient -- Plan of Care Review Plan of Care Outcome Status ongoing (interventions implemented as appropriate) -- -- Progress -- -- progress towards functional goals is fair Right radial cath done this AM. Complains of nausea and pain at site post procedure, relieved by cold pack and PRN zofran. NSR. VSS. O2 Sat fluctuating high 80's while patient is sleeping. Placed on 2Lwhile sleeping. Sat at 94%. Heparin and Nitro drips discontinued post cath, no chest pain noted post procedure. Goal: Fall Prevention-Safe Patient Handling Outcome: Ongoing (Interventions Implemented as Appropriate) 06/22/16 0756 06/22/16 1350 06/22/16 1621 Safety Interventions Safety Precautions/Fall Reduction -- -- environmental modification;lighting adjusted for task/safety;low bed;nonskid shoes/slippers when out of bed;room near unit station Activity and Safety Assistive Device None -- -- Childers Fall Risk History of Falling 0 -- -- Secondary Diagnosis 15 -- -- Ambulatory Aids 0 -- -- Intravenous Therapy/Heparin/Saline Lock 20 -- -- Gait/Transferring 0 -- -- Mental Status 0 -- -- Score 35 -- -- OTHER Childers Fall Risk Med -- -- Musculoskeletal Interventions Activity/Level of Assistance -- with stand by assist -- Positioning independent -- -- Goal: Infection Control Outcome: Ongoing (Interventions Implemented as Appropriate) 06/22/1644606/22/16 0756 06/22/16 1621 Safety Interventions Isolation Precautions -- -- standard precautions maintained Infection Prevention -- rest/sleep promoted;promote handwashing;nutrition promoted;hydration promoted;environmental surveillance -- Coping/Psychosocial Response Interventions Counseling emotional support provided;calming techniques promoted;verbalization of feelings encouraged -- -- Goal: Discharge Needs Assessment Outcome: Ongoing (Interventions Implemented as Appropriate) 06/22/16446 Discharge Needs Assessment Concerns to be Addressed no discharge needs identified Readmission Within the Last 30 Days no previous admission in last 30 days Equipment Needed After Discharge none Current Health Anticipated Changes Related to Illness none Self-Care Equipment Currently Used at Home none Living Environment Transportation Available family or friend will provide Problem: Skin Integrity Impairment, Risk/Actual (Adult, Obstetrics) Goal: Skin Integrity/Wound Healing Patient will demonstrate the desired outcomes. Outcome: Ongoing (Interventions Implemented as Appropriate) 06/22/164 Skin Integrity Impairment, Risk/Actual (Adult, Obstetrics) Skin Integrity/Wound Healing making progress toward outcome Plan of Care - Mele Hammond RN - 06/22/2016 5:28 AM EDT Pt admitted to CSCU at approximately 2200. VS stable throughout the night with NS rhythm, HR mid 70sto mid 80s, sats in low to mid 90s on RA, sys BP low 100s. Running heparin and nitro. Pt anxious andunable to sleep regarding anticipated microbiology lab manager procedure. Report of chest pressure around 0400. Nitro increased from 50 to 70 with resolution of symptoms. Also given morphine in response to pain and anxiety. Earlier admin morphine may have contributed to patient report of difficulty voiding at time of admission. Will continue to monitor. Plan of Care - Mele Hammond RN - 06/22/2016 4:49 AM EDT Problem: General Plan of Care Goal: Plan of Care Review 06/22/16446 Coping/Psychosocial Response Interventions Plan of Care Reviewed with patient;spouse Plan of Care Review Plan of Care Outcome Status ongoing (interventions implemented as appropriate) Progress no change Goal: Fall Prevention-Safe Patient Handling 06/22/16446 Safety Interventions Safety Precautions/Fall Reduction commode/urinal/bedpan at bedside;family at bedside;low bed;nonskidshoes/slippers when out of bed;room near unit station Activity and Safety Assistive Device None Childers Fall Risk History of Falling 0 Secondary Diagnosis 0 Ambulatory Aids 0 Intravenous Therapy/Heparin/Saline Lock 20 Gait/Transferring 0 Mental Status 0 Score 20 OTHER Childers Fall Risk Low Goal: Infection Control 06/22/16446 Safety Interventions Isolation Precautions standard precautions maintained Infection Prevention rest/sleep promoted Coping/Psychosocial Response Interventions Counseling emotional support provided;calming techniques promoted;verbalization of feelings encouraged Goal: Discharge Needs Assessment 06/22/16446 Discharge Needs Assessment Concerns to be Addressed no discharge needs identified Readmission Within the Last 30 Days no previous admission in last 30 days Equipment Needed After Discharge none Current Health Anticipated Changes Related to Illness none Self-Care Equipment Currently Used at Home none Living Environment Transportation Available family or friend will provide Consult Note - Chi Ramos MD - 06/21/2016 5:16 PM EDT CARDIAC SURGERY ATTENDING ADDENDUM Patient seen and examined. History and physical as per Zi Ku PA-C Briefly, 56 year-old man with recent NSTEMI now admitted with STEMI and cardiac cath demonstrating multi-vessel disease. Risks and benefits of CABG versus PCI discussed with patient who has a strong preference for least invasive option, and has already decided on PCI. 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 He expressed an understanding and all questions were answered. Management as per primary team Re-consult prn CHI IRIBARNE, MD Cardiac Surgery Consultation Note Meliton Raymond is seen at the request of Dr. Shelby for the evaluation of CAD. HPI: He is a 56 y.o. year old with PMhx HTN (not on meds) and a NSTEMI 2 weeks ago, managed at [facility] where he left AMA after the chest pain subsided. He returned to [facility] again on 06/21/16 for at chest pains, SOB, neck and shoulder pain after falling off a stool while painting his house at 0330 today. No LOC. EKG at [facility] showing ST elevation in the anterior septal leads (given ASA 325mg, plavix 600mg, heparin 4000mg) for which he was transferred to and taken emergently to the Fabric Inspector. Currently chest painfree. No plavix since. On a heparin gtt currently. Cardiac Cath here shows: 90% mid-LAD, ostial-OM1 disease and total occlusion in RCA with collateral circulation from the left. ECHO here shows ejection fraction is 45-50% with akinesis of the distal segments and apex with no mural thrombus and mild to moderate (1-2+/4+) mitral regurgitation. No other abnormalities. Not a diabetic, no cancer history. Does not smoke but chews tobacco. EF 45%. Cr. 1.31. Review of Symptoms: Constitutional - No weakness, fatigue, fevers, weight change. HEENT - No visual changes; no hearing changes; no recent URI symptoms. Neck - No new pain, limitation of motion. Cardiovascular -As per HPI. Pulmonary - No dyspnea, cough, bronchitis, pneumonias. GI - No difficulty swallowing, abdominal pain, constipation, diarrhea, melena, or BRBPR. - No frequency, nocturia, dysuria. Musculoskeletal - No muscle pain, No new limitation of motion. Extremities - No edema, no varicosities, . Neuro - No confusion, syncope, paresthesias. Hematologic - No bruising, excessive bleeding, previous bleeding issues. Problem List: Patient Active Problem List Diagnosis ??? STEMI (ST elevation myocardial infarction) Past Medical History: No past medical history on file. Denies: CVA, TIA, thyroid disease, asthma, emphysema, diabetes, cancer Past Surgical History: No past surgical history on file. Denies previous chest surgery, vein, or or other vascular surgery Social History: Social History Substance Use Topics ??? Smoking status: Not on file ??? Smokeless tobacco: Not on file ??? Alcohol use Not on file Social History Social History Narrative Family- No Smoking- chews tobacco ETOH- No Illicit drug use- No Taoism- No Family History: No family history on file. Meds Prior to Admission: No prescriptions prior to admission. Current Meds: Scheduled Meds: ??? sodium chloride 0.9 % 5 mL Intravenous BID ??? famotidine 20 mg Oral BID ??? atorvastatin 80 mg Oral QPM ??? [START ON 06/22/2016] aspirin 81 mg Oral Daily Continuous Infusions: ??? nitroGLYcerin Stopped (06/21/16 1300) ??? heparin 1,000 Units/hr (06/21/16 1600) PRN Meds:.sodium chloride 0.9 %, lidocaine, nitroGLYcerin, heparin (porcine) Allergies: Not on File Physical Exam: BP 134/77 (BP Location (NBP): Left arm) Pulse 91 Temp 37.1 ??C (98.8 ??F) (Oral) Resp 13 Ht 175.3 cm(5' 9) Wt 94.9 kg (209 lb 3.5 oz) SpO2 93% BMI 30.9 kg/m2 General: Well appearing in no acute distress. Neuro: Conversant. Alert and oriented x 3. Grossly intact with grossly normal strength. Skin: Warm, dry, and well perfused. Scars consistent with history. Neck: Trachea ML. No JVD. No carotid bruits. Heart: RR, S1/S2. NSR on tele. Lungs: LS present bilaterally. No W/R/C. Abdomen: Soft, NT/ND. BS present. No masses noted. Extremities: Full range of motion; no clubbing, cyanosis, or edema. No significant varicosities. Diagnostics: Lab Results Component Value Date WBC 9.0 06/21/2016 RBC 4.17 (L) 06/21/2016 HGB 13.6 (L) 06/21/2016 HCT 39.4 (L) 06/21/2016 PLATELET 286 06/21/2016 Recent Labs 06/21/16 1250 INR 1.1 Lab Results Component Value Date NA 139 06/21/2016 K 4.4 06/21/2016 CL 103 06/21/2016 CO2 21 (L) 06/21/2016 BUN 13 06/21/2016 CREATININE 1.31 06/21/2016 CXR: Lungs well inflated. No pleural effusion. Cardiac silhouette normal. CATH: Final result pending ECHO: SUMMARY: ?? 1. The left ventricular chamber size is normal. The visually estimated left ventricular ejection fraction is 45-50% with akinesis of the distal segments and apex with no mural thrombus. 2. Right ventricular chamber size, wall thickness, and systolic function are within normal limits. The estimated pulmonary artery systolic pressure is 48 mmHg. 3. There is mild to moderate (1-2+/4+) mitral regurgitation present. 4. The pericardium appears normal and there is no evidence of a pericardial effusion. Assessment and Plan: 56 y.o. year old with PMhx HTN (not on meds) and a NSTEMI 2 weeks ago, managed at [facility] where he left AMA after the chest pain subsided. Found to have 3VCAD 90% mid-LAD, ostial-OM1 disease and total occlusion in RCA with collateral circulation from the left. Not a diabetic, no cancer history. Does not smoke but chews tobacco. EF 45%. Cr. 1.31. Given ASA 325mg, plavix 600mg, heparin 4000mg on 06/20. No plavix since. On a heparin gtt currently. -No further Plavix or Prasugrel. -Continue with medical management/optimization. -NPO past midnight day of surgery if proceeding forth with surgery. -Surgical candidacy, timing, and/or further recommendations will be determined by the Attending Surgeon. Thank you very much for the opportunity to be involved in the care of Meliton Raymond. Signed: LUIZ SR MS, PAGerardoC [facility] Section of Cardiac Surgery Date: 06/21/2016 documented in this encounter Plan of Treatment Scheduled Referrals Name Type Priority Associated Diagnoses Order S chedule Referral to Outpatient Referral Routine ST elevation (STEMI) Ordered: Cardiac Rehab myocardial 06/23/2016 infarction involving left anterior descending coronary artery documented as of this encounter Procedures Procedure Name Priority Date/Time Associated Comments Diagnosis IMPLANTABLE DEVICES SCAN 06/24/2016 12:00 AM EDT ENGINEER SERGEANT SCAN 06/24/2016 12:00 AM EDT CARDIAC ENZYMES Routine 06/23/2016 11:05 Results for this ([facility]) AM EDT procedure are i n the results section. BMP W/FASTING GLUCOSE Routine 06/23/2016 4:02 Res ults for this AM EDT procedure are i n the results section. HEMOGRAM Routine 06/23/2016 4:02 Results for this AM EDT procedure are i n the results section. DIFFERENTIAL, AUTOMATED Routine 06/23/2016 4:02 R esults for this AM EDT procedure are i n the results section. CBC (WITH DIFF) Routine 06/23/2016 4:02 AM EDT MAGNESIUM Routine 06/23/2016 4:02 Results for this AM EDT procedure are i n the results section. CARDIAC ENZYMES STAT 06/22/2016 3:08 Results f or this ([facility] [place] [facility]) PM EDT procedure are i n the results section. POCT GLUCOSE Routine 06/22/2016 12:39 Results for this PM EDT procedure are i n the results section. EKG 12-LEAD Routine 06/22/2016 12:27 Status post Results for this PM EDT coronary artery procedure ar e in stent placement the results section. CARDIAC CATHETERIZATION Routine 06/22/2016 12:04 Results for this PM EDT procedure are i n the results section. CARDIAC ENZYMES Routine 06/22/2016 9:08 Results f or this ([facility]) AM EDT procedure are i n the results section. APTT STAT 06/22/2016 9:08 Results for this AM EDT procedure are i n the results section. POTASSIUM Routine 06/22/2016 9:08 Results for this AM EDT procedure are i n the results section. CARDIAC CATHETERIZATION Routine 06/22/2016 8:53 R esults for this AM EDT procedure are i n the results section. BMP W/FASTING GLUCOSE Routine 06/22/2016 1:45 Res ults for this AM EDT procedure are i n the results section. HEMOGRAM Routine 06/22/2016 1:45 Results for this AM EDT procedure are i n the results section. DIFFERENTIAL, AUTOMATED Routine 06/22/2016 1:45 R esults for this AM EDT procedure are i n the results section. CARDIAC ENZYMES Routine 06/22/2016 1:45 Results f or this ([facility]) AM EDT procedure are i n the results section. APTT STAT 06/22/2016 1:45 Results for this AM EDT procedure are i n the results section. CBC (WITH DIFF) Routine 06/22/2016 1:45 AM EDT MAGNESIUM Routine 06/22/2016 1:45 Results for this AM EDT procedure are i n the results section. HEMOGLOBIN A1C Routine 06/22/2016 1:45 Results fo r this AM EDT procedure are i n the results section. LIPID PANEL (REFLEX Routine 06/22/2016 1:45 Resul ts for this DIRECT LDL) AM EDT procedure are i n the results section. CARDIAC ENZYMES Routine 06/21/2016 5:45 Results f or this ([facility]) PM EDT procedure are i n the results section. APTT STAT 06/21/2016 5:35 Results for this PM EDT procedure are i n the results section. XR CHEST ONE VIEW STAT 06/21/2016 4:53 Results for this PM EDT procedure are i n the results section. ECHOCARDIOGRAM COMPLETE Routine 06/21/2016 3:05 ST elevation R esults for this W CONTRAST PM EDT (STEMI) myocardial procedure are in infarction the results involving left section. anterior descending coronary artery EKG 12-LEAD STAT 06/21/2016 12:56 ST elevation Results for this PM EDT (STEMI) myocardial procedure are in infarction the results involving left section. anterior descending coronary artery HEMOGRAM Routine 06/21/2016 12:50 Results for this PM EDT procedure are i n the results section. DIFFERENTIAL, AUTOMATED Routine 06/21/2016 12:50 Results for this PM EDT procedure are i n the results section. CARDIAC ENZYMES Routine 06/21/2016 12:50 Results for this ([facility]) PM EDT procedure are i n the results section. APTT Routine 06/21/2016 12:50 Results for this PM EDT procedure are i n the results section. PROTHROMBIN TIME Routine 06/21/2016 12:50 Results for this PM EDT procedure are i n the results section. CBC (WITH DIFF) Routine 06/21/2016 12:50 PM EDT T3, FREE Routine 06/21/2016 12:50 Results for this PM EDT procedure are i n the results section. TSH Routine 06/21/2016 12:50 Results for this PM EDT procedure are i n the results section. T4, FREE Routine 06/21/2016 12:50 Results for this PM EDT procedure are i n the results section. PRO-BRAIN NATRIURETIC Routine 06/21/2016 12:50 Re sults for this PEPTIDE PM EDT procedure are i n the results section. MAGNESIUM Routine 06/21/2016 12:50 Results for this PM EDT procedure are i n the results section. HEPATIC FUNCTION PANEL Routine 06/21/2016 12:50 R esults for this PM EDT procedure are i n the results section. BASIC METABOLIC PANEL Routine 06/21/2016 12:50 Re sults for this (NON-FASTING) PM EDT procedure are in the results section. documented in this encounter Results SCAN DOC: IMPLANTABLE DEVICES (06/24/2016 12:00 AM EDT) Narrative This result has an attachment that is no t available. Scanning Provider MEDIA MGR SCAN EXT ORDR/RSLT SCAN DOC: ENGINEER SERGEANT (06/24/2016 12:00 AM EDT) Anatomical Region Laterality Modality Other Narrative This result has an attachment that is no t available. Scanning Provider MEDIA MGR SCAN EXT ORDR/RSLT (ABNORMAL) Cardiac Enzymes (06/23/2016 11:05 AM EDT) P athologist Signature Troponin-T 1.77 (H) <=0.03 [facility] ng/mL [facility] Comment: 0.03 ng/mL: Represents the 99th percenti le upper reference limit for normals. >0.03 ng/mL: Elevated cardiac troponin T level indicative of myocardial damage. Diagnosis of acute, evolving or recent M I requires a typical rise and gradual fall of cTnT with at least ONE of the fo llowing: a) Ischemic symptoms b) Development of pathologic Q waves on the ECG c) ECG changes indicative of eschemia (S -T segment elevation/depression) d) Coronary artery intervention Serial bloods should be obtained for hoa ting on admission, at 6 to 9 hrs and again at 12 to 24 hrs if earlier samples are negative and the clinical index of suspicion is high. Reference: [Myocardial infarction redefined? a consensus document of the Joint Society of Cardiology/[place] College o f Cardiology Committee for the redefinition of myocardial infarction. ? ?Journal of the [place] College of Cardiology 2000; 36: 959-969] CK, Total 208 (H) 0 - 200 unit/L [facility] Specimen Anatomical Collection Method Collection Time Receive d Time (Source) Location / / Volume Laterality Blood specimen 06/23/2016 11:05 6 (specimen) AM EDT 11:19 AM EDT Resulting Agency Comment Spec In Lab Maxx Lange MD CHEMISTRY ORDERABLES Performing Organization Address City/State/[place] [id number] Differential, Automated (06/23/2016 4:02 AM EDT) athologist Signature Neutrophils % 65.7 % [facility] Neutr Abs (ANC) 5.58 1.70 - [facility] 6.10 [facility] x10(3)/[facility] LABORATORY Lymphocytes % 21.0 % [facility] Lymphocytes Abs 1.8 0.9 - 3.2 [facility] x10(3)/[facility] LABORATORY Monocytes % 9.8 % [facility] Monocyte Abs 0.8 0.3 - 0.9 [facility] x10(3)/[facility] LABORATORY Eosinophils % 2.4 % [facility] Eosinophils Abs 0.2 0.0 - 0.4 [facility] x10(3)/[facility] LABORATORY Basophils % 0.7 % [facility] Basophils Abs 0.1 0.0 - 0.1 [facility] x10(3)/[facility] LABORATORY Immature Gran % 0.40 % [facility] Comment: Immature granulocytes(IG's)percentage an d absolute count will include metamyelocytes, myelocytes, and promyelo cytes. Blood smears from CBCs yielding IG's will be scanned manually for concor dance. If this scan disagrees with the automated IG or if promyelocytes are not ed, a manual differential will be performed. [place] Gran Abs 0.03 0.00 - 0.04 x10(3)/[facility] Specimen Anatomical Collection Method Collection Time Receive d Time (Source) Location / / Volume Laterality Blood specimen 06/23/2016 4:02 AM 016 4:16 (specimen) EDT AM EDT Resulting Agency Comment Spec In Lab Maxx Lange MD HEMATOLOGY ORDERABLES Performing Organization Address City/State/[place] [id number] (ABNORMAL) Hemogram (06/23/2016 4:02 AM EDT) Analysis Performed At Patho logist Time Signature WBC 8.5 4.0 - 9.5 [facility] x[facility] RBC 4.32 (L) 4.58 - [facility] 5.54 [facility] x10(6)/[facility] LABORATORY Hemoglobin 14.4 13.7 - [facility] 16.[facility] gm/dL [facility] Hematocrit 41.9 40.5 - [facility] 48.5 % [facility] MCV 97.0 (H) 82.9 - [facility] 93.[address] [facility] LABORATORY MCH 33.3 (H) 27.5 - [facility] 32.1 pg [facility] MCHC 34.4 32.0 - [facility] 35.7 gm/dL [facility] Platelets 284 145 - 357 [facility] x10(3)/[facility] LABORATORY RDWSD 44.1 36.0 - [facility] 45.[address] [facility] LABORATORY RDWCV 12.4 11.4 - [facility] 13.8 % [facility] MPV 9.7 7.6 - 12.9 [facility] [place] [facility] nRBC % Auto 0.0 % [facility] nRBC Abs Auto 0.000 0.000 - [facility] 0.000 [facility] x10(3)/[facility] LABORATORY Specimen Anatomical Collection Method Collection Time Receive d Time (Source) Location / / Volume Laterality Blood specimen 06/23/2016 4:02 AM 016 4:16 (specimen) EDT AM EDT Resulting Agency Comment Spec In Lab Maxx Lange MD HEMATOLOGY ORDERABLES Performing Organization Address City/State/ZIP Code Phon e Number [address] Magnesium (06/23/2016 4:02 AM EDT) athologist Signature Magnesium 0.84 0.69 - 1.07 [facility] mmol/L [facility] Specimen Anatomical Collection Method Collection Time Receive d Time (Source) Location / / Volume Laterality Blood specimen 06/23/2016 4:02 AM 016 4:16 (specimen) EDT AM EDT Resulting Agency Comment Spec In Lab Maxx Lange MD CHEMISTRY ORDERABLES Performing Organization Address City/State/ZIP Code Phon e Number [address] (ABNORMAL) BMP w/fasting Glucose (06/23/2016 4:02 AM EDT) athologist Signature Glucose 118 (H) 65 - 99 [facility] Fasting mg/dL [facility] Comment: ?Fasting* Glucose Interpretive C riteria Normal ?65-99 mg/dL Impaired Fasting glucose ?100-125 mg/dL Consistent with Diabetes Mellitus ? >or= 126 mg/dL *Fasting is defined as no caloric intake for at least 8 hours In the absence of unequivocal hypergly cemia a plasma glucose value of >or= 126 mg/dL should be repeated on a subseq u day. Diagnosis and Classification of Diabetes Mellitus, Position Statement from the [place] [employer]. ??Diabete s Care, Volume 33, Supplement 1, Sep 2009 BUN 11 10 - 20 mg/dL [facility] Creatinine 1.29 0.80 - 1.50 mg/dL [facility] Comment: Please note that the pediatric reference intervals supplied above were not validated at [facility]. Results from pediatri c patients should be interpreted in conjunction to the patient's age, height and muscle mass. Sodium 139 135 - 145 mmol/L [facility] Potassium 4.2 3.5 - 5.0 mmol/L [facility] Comment: Please note: ??Patients with WBC >100,00 0 may have falsely elevated Potassium levels. ??For accurate Potassium quantif ication in these patients send serum separator tube (gold top) for subsequent determinations. ??Contact the Clinical Chemistry Laboratory if there are any qu estions. Chloride 101 98 - 107 mmol/L [facility] CO2 25 22 - 31 mmol/L [facility] Anion Gap 13 5 - 15 mmol/L [facility] Calcium 8.7 8.5 - 10.5 mg/dL [facility] Estimated GFR 57 (L) >=60 [facility] Comment: This estimated GFR (eGFR) value was calc ulated using the MDRD equation which has been validated on patients between t he ages of 18 and 70. The MDRD should not be used to assess kidney function in patients < 18 years of age or in patients with extremes of body mass, or in patients with acute kidney failure. This value should be multiplied by 1.2 f or patients. For further information please copy and past e the following links into your internet browser. [email or web address] Specimen Anatomical Collection Method Collection Time Receive d Time (Source) Location / / Volume Laterality Blood specimen 06/23/2016 4:02 AM 016 4:16 (specimen) EDT AM EDT Resulting Agency Comment Spec In Lab Maxx Lange MD CHEMISTRY ORDERABLES Performing Organization Address City/State/[place] [address] (ABNORMAL) Cardiac Enzymes (06/22/2016 3:08 PM EDT) P athologist Signature Troponin-T 2.44 (H) <=0.03 [facility] ng/mL [facility] Comment: result rechecked-mkm 0.03 ng/mL: Represents the 99th percenti le upper reference limit for normals. >0.03 ng/mL: Elevated cardiac troponin T level indicative of myocardial damage. Diagnosis of acute, evolving or recent M I requires a typical rise and gradual fall of cTnT with at least ONE of the fo llowing: a) Ischemic symptoms b) Development of pathologic Q waves on the ECG c) ECG changes indicative of eschemia (S -T segment elevation/depression) d) Coronary artery intervention Serial bloods should be obtained for hoa ting on admission, at 6 to 9 hrs and again at 12 to 24 hrs if earlier samples are negative and the clinical index of suspicion is high. Reference: [Myocardial infarction redefined? a consensus document of the Joint Society of Cardiology/[place] College o f Cardiology Committee for the redefinition of myocardial infarction. ? ?Journal of the [place] College of Cardiology 2000; 36: 959-969] CK, Total 253 (H) 0 - 200 unit/L [facility] Specimen Anatomical Collection Method Collection Time Receive d Time (Source) Location / / Volume Laterality Blood specimen 06/22/2016 3:08 PM 016 3:39 (specimen) EDT PM EDT Resulting Agency Comment Spec In Lab Maxx Lange MD CHEMISTRY ORDERABLES Performing Organization Address City/State/ZIP Code Phon e Number [address] POCT Glucose (06/22/2016 12:39 PM EDT) P athologist Signature POC Glucose 119 65 - 199 [facility] mg/dL [facility] Comment: Supplemental ranges: <140 mg/dL before meals <180 mg/dL all other times of the day Specimen Anatomical Collection Method Collection Time Receive d Time (Source) Location / / Volume Laterality Blood specimen 06/22/2016 12:39 6 (specimen) PM EDT 12:39 PM EDT Maxx Lange MD POINT OF CARE TEST ORDERABLE S Performing Organization Address City/[facility] [address]/ZIP Code [place] [address] EKG 12 Lead (06/22/2016 12:27 PM EDT) Component Value Ref Range Test Analysis Performed Pathologis t Method Time At Signature Ventricular rate 82 BPM MUSE SYSTEM Atrial Rate 82 BPM MUSE SYSTEM P-R Interval 172 ms MUSE SYSTEM QRS Duration 114 ms MUSE SYSTEM Q-T Interval 382 ms MUSE SYSTEM QTC Calculated 446 ms MUSE SYSTEM (Bezet) Calculated P [place] 32 degrees MUSE SYSTEM Calculated R [place] -37 degrees MUSE SYSTEM Calculated T [place] 94 degrees MUSE SYSTEM INTERPRETATION Normal sinus rhythm MUSE SYSTEM Left axis deviation Anteroseptal infarct (cited on or before 21-JUN-2016) Abnormal ECG When compared with ECG of 21-JUN-2016 12:56, No significant change was found Confirmed by MD Vidal, Nemesio ([id number]) on 06/22/2016 4:02:5 5 PM Specimen Anatomical Collection Method Collection Time Receive d Time (Source) Location / / Volume Laterality 06/22/2016 12:27 06/22/2016 4:02 PM EDT PM EDT Maxx Lange MD ECG ORDERABLES Performing Organization Address City/State/ZIP Code Phon e Number MUSE SYSTEM CARDIAC CATHETERIZATION (06/22/2016 12:04 PM EDT) Anatomical Region Laterality Modality Other Specimen (Source) Anatomical Location Collection Method / Collectio n Time Received Time / Laterality Volume Narrative 06/24/2016 9:03 AM EDT ?[facility] ? Cardiac Cathete rization/Intervention Report ? Patient Name: Meliton Raymond ? Procedure Date: 06/22/2016 ? A #: [id number] ? Primary Physician: Kathryn, Ely J ? Case #: [id number] ? File Name: [id number] ? Catheterization Order Number: [id number] ? [facility] ? Final Report [place], [place] ? Patient Name: ? Ray [place] ? ID#: ?[id number] ? : ?1960 ? Procedure Date: ? October 11, 201 6 ? Case #: ? [id number] ? Room: ? 1 ? Case Physician: ? Ely leonard M.D. ?Start: ?10:04 ?Fellow: ? Lita kwan M.D. ? Admission: ??06/21/2016 ? Referring Physician: ??Stevie Schwarz i, M.D. ? Procedures: ?* Coronary Angiography ?* Coronary Ultrasound ?* Coronary Stent Insertion ? History ?Meliton Raymond is a 56 year old man. He has a history of smoking (20 pack ?years). The patient has unstabl e angina, positive troponin and a history ?of chest pain. He is status pos t an acute non-ST elevation myocardial ?infarction as well as a remote myocardial infarction. The patient has a ?history of dyspnea with NYHA fu nctional class II. He has a history of an ?abnormal EKG and an abnormal ec hocardiogram. The patient also has a ?history of renal insufficiency. Prior to the initiation of this ?procedure, the patient was daksha gnated as ASA Class IV. ? Patient Status at Catheterization: ?The patient presented with: non -STEMI (w/i 7 days). [place] ?Cardiovascular Society angina c lass was IV. This patient was on beta ?blockers prior to the procedure . No stress or imaging studies were ?performed prior to this procedu re ? Technique: ?A 7Fr sheath was inserted in th e right radial artery utilizing the ?Seldinger technique. Coronary s tent insertion was performed and the ?equipment utilized will be desc ribed in the intervention summary section. ?10,000 units of heparin were ad ministered. A total of 300cc of Omnipaque ?were opened, 230cc of Omnipaque were administered and 70cc of Omnipaque ?were wasted. Radiation: Fluoro time was 25.0 minutes, dose area product ?was 195,194 mGYcm2 and air kerm a was 3,424 mGY. ?The patient received the follow ing medications prior to and during the ?procedure: Aspirin (any), Clopi dogrel and Unfractionated Heparin (any). ? Hemodynamics: ?Left Heart Pressures ? Resting: ? Syst D iast ? EDP ?a ?v ? m ?Ao 90 ?62 ?75 ? Coronary Angiography: ?Dominance: Right ?Left Main ? The left main was normal . ?Left Anterior Descending ? There was mild diffuse d isease of the entire vessel segment of the ? left anterior descending artery (LAD). ??The mid segment of the LAD ? had a single discrete 90 % stenosis. ?Left Circumflex ? There was a 30% stenosis of the proximal segment of the left ? circumflex artery (LCX). ??The LCX was large. ? There was mild diffuse d isease of the entire vessel segment of the ? first obtuse marginal br anch (OM1) of the LCX. ? There was an 80% single discrete stenosis of the proximal segment of ? the second obtuse margin al branch (OM2) of the LCX. ??The OM2 was ? moderate in size. ? There was a 30% diffuse stenosis of the proximal segment of the ? first left posterolatera l branch (LPL1) of the LCX. ?Right Coronary Artery ? This vessel was not inje cted. ? Intravascular Imaging/Physiology: ?Intravascular Ultrasound was pe rformed in the mid LAD using a 7 Fr XB 3.5 ?guiding catheter and a 3.5 Fr [facility] [place] [facility] ??20 Mhz using Manual ?pullback. ??Imaging was success ful. ??Image quality was good. ??The mid LAD ?showed severe diffuse atheroscl erotic plaque. ?Post Intervention: The stent wa s well expanded and apposed. ?Additional Findings: Reference diameter 4.0. Imaging performed following ?POBA. ?Intravascular Ultrasound was pe rformed in the proximal OM2 using a 7 Fr ?XB 3.5 guiding catheter and a 3 .5 Fr [place] [address] ??20 Mhz using ?Manual pullback. ??Imaging was successful. ??Image quality was good. ??The ?proximal OM2 showed moderate di ffuse atherosclerotic plaque. ?Post Intervention: The stent wa s well expanded and apposed. ?Additional Findings: Imaging pe rformed following POBA, and after stent ?implantation. Following stent i mplantation, placement seen to be at ?ostium of OM2 without extension into LCx. ? Indication for Intervention: ?Coronary intervention was indic ated for treatment of a critical lesion ?post a myocardial infarction. L eft ventricular Ejection Fraction was ?estimated at 45 percent. The pr iority for the procedure was Urgent. The ?NCDR indication for the procedu re was PCI for high risk Non-STEMI or ?unstable angina. ? Intervention Summary: ?Left Anterior Descending Artery ? Mid 90% ? Stent insertion was performed on the 90% stenosis in the mid ? segment of the LAD. This was a de roddy lesion. According to ? the ACC/AHA cla ssification system, this lesion was a type B2 ? high risk lesio n. Primary prevention of restenosis was the ? indication for stent insertion. Vessel flow pre intervention ? was THOR 2. ? Stent insertion was accomplished through a 7 Fr. XB 3.5 guide. ?The lesion wa s predilated with a 3.00mm EUPHORA 12 MM balloon ? with a maximum inflation pressure of 12 atmospheres. ??A ? premounted 4.00 x 15 mm Integrity (BMS) was deployed. ? Following stent deployment, the lesion was dilated using a ? 4.00mm NC EUPHO RA 08 MM balloon with a maximum inflation ? pressure of 14 atmospheres. ? The final outco me was defined as successful. There was no ? residual stenos is following this intervention. The final THOR ? flow was 3. ? Post dilation g uided by IVUS. ?Second Obtuse Marginal Branch o f the LCX ? Proximal 80% ? Stent insertion was performed on the 80% stenosis in the ? proximal segmen t of the OM2. This was a de roddy lesion. This ? lesion was daksha gnated a type B2 high risk lesion based on ? ACC/AHA classif ication system. Primary prevention of ? restenosis was the indication for stent insertion. This was ? the culprit les ion. Vessel flow pre intervention was THOR 3. ? Stent insertion was accomplished through a 7 Fr. XB 3.5 guide. ?The lesion wa s predilated with a 3.00mm APEX 12 MM balloon ? with a maximum inflation pressure of 12 atmospheres. ??A ? premounted 3.50 x 15 mm Integrity (BMS) was deployed with a ? maximum inflati on pressure of 10 atmospheres. ??Following stent ? deployment, the lesion was dilated using a 3.50mm NC EUPHORA ? 12 MM balloon w ith a maximum inflation pressure of 14 ? atmospheres. ? The final outco me was defined as successful. There was no ? residual stenos is following this intervention. The final THOR ? flow was 3. ? Stent selection guided by IVUS. ? Vascular Access: ?Vascular Access Management: ? Mechanical Compression o f the right radial artery access site was ? performed. ? Conclusions: ?* Obstructive disease of the LA D and LCX ?* Successful stent insertion of the mid LAD lesion ?* Successful stent insertion of the proximal OM2 lesion ? Complications/Events: ?The patient had no complication s during these procedures. ? Recommendations: ?The patient's medical regimen w as changed as follows: Bare metal stent(s) ?implanted in treatment of acute coronary syndrome (ACS). Clopidogrel ?loaded prior to the microbiology lab manager. R ecommend continued dual antiplatelet ?therapy (DAPT) with low dose as pirin (81 mg daily) and clopidogrel 75 mg ?daily for a minimum 12 months. If overt bleeding or high bleeding risk, ?it may be reasonable to stop cl opidogrel earlier. ??Low dose aspirin to be ?continued indefinitely unless c ontraindicated. ? Comments: ?Discussed results with patient and his , as well as referring ?provider. ?Radial provided excellent suppo rt for procedure. No complications or ?spasm. ?BMS selected given large size o f vessels and short segment. ?The attending physician was presen t for the entire procedure. ?Dr. Ely Peralta M.D. perf ormed the coronary angiography, stent ?insertion-coronary and IVUS # sara nary. ? Ely J Coylewright, ? M.D. ? Electronically Signed by: Ely J Coylew right, M.D. ? Report Finalized: 06/24/2016 ??08:53 ? Report Last Ammended: 07/27/2016 ??17:05 ? Procedure Note Ely Peralta MD - 07/27/2016For matting of this note might be different from the original. [facility] Cardiac Catheterization/Intervention Re port Patient Name: Meliton Raymond Procedure Date: 06/22/2016 A #: [id number] Primary Physician: Ely Peralta Case #: [id number] File Name: [id number] Catheterization Order Number: [id number] [facility] Final Report [place], [place] Patient Name: Meliton Raymond ID#: [id number] : 1960 Procedure Date: June 22, 2016 Case #: [id number] Room: 1 Case Physician: Keira Isaac Start: 10:04 Fellow: Lita Cochran M.D. Admiss ion: 06/21/2016 Referring Physician: Stevie Yang M.D. Procedures: * Coronary Angiography * Coronary Ultrasound * Coronary Stent Insertion History Meliton Raymond is a 56 year old man. He has a history of smoking (20 pack years). The patient has unstable angina , positive troponin and a history of chest pain. He is status post an acu te non-ST elevation myocardial infarction as well as a remote myocardi al infarction. The patient has a history of dyspnea with NYHA functional class II. He has a history of an abnormal EKG and an abnormal echocardio gram. The patient also has a history of renal insufficiency. Prior t o the initiation of this procedure, the patient was designated a s ASA Class IV. Patient Status at Catheterization: The patient presented with: non-STEMI ( w/i 7 days). [place] [employer] Society angina class was IV. This patient was on beta blockers prior to the procedure. No str ess or imaging studies were performed prior to this procedure Technique: A 7Fr sheath was inserted in the right radial artery utilizing the Seldinger technique. Coronary stent ins ertion was performed and the equipment utilized will be described in the intervention summary section. 10,000 units of heparin were administer ed. A total of 300cc of Omnipaque were opened, 230cc of Omnipaque were ad ministered and 70cc of Omnipaque were wasted. Radiation: Fluoro time was 25.0 minutes, dose area product was 195,194 mGYcm2 and air kerma was 3, 424 mGY. The patient received the following medi cations prior to and during the procedure: Aspirin (any), Clopidogrel a nd Unfractionated Heparin (any). Hemodynamics: Left Heart Pressures Resting: Syst Diast EDP a v m Ao 90 62 75 Coronary Angiography: Dominance: Right Left Main The left main was normal. Left Anterior Descending There was mild diffuse disease of the e ntire vessel segment of the left anterior descending artery (LAD). The mid segment of the LAD had a single discrete 90% stenosis. Left Circumflex There was a 30% stenosis of the proxima l segment of the left circumflex artery (LCX). The LCX was la rge. There was mild diffuse disease of the e ntire vessel segment of the first obtuse marginal branch (OM1) of t he LCX. There was an 80% single discrete stenos is of the proximal segment of the second obtuse marginal branch (OM2) of the LCX. The OM2 was moderate in size. There was a 30% diffuse stenosis of the proximal segment of the first left posterolateral branch (LPL1) of the LCX. Right Coronary Artery This vessel was not injected. Intravascular Imaging/Physiology: Intravascular Ultrasound was performed in the mid LAD using a 7 Fr XB 3.5 guiding catheter and a 3.[address] [place] [address] 20 Mhz using Manual pullback. Imaging was successful. Image quality was good. The mid LAD showed severe diffuse atherosclerotic p laque. Post Intervention: The stent was well e xpanded and apposed. Additional Findings: Reference diameter 4.0. Imaging performed following POBA. Intravascular Ultrasound was performed in the proximal OM2 using a 7 Fr XB 3.5 guiding catheter and a 3.[address] [place] [address] 20 Mhz using Manual pullback. Imaging was successful . Image quality was good. The proximal OM2 showed moderate diffuse at herosclerotic plaque. Post Intervention: The stent was well e xpanded and apposed. Additional Findings: Imaging performed following POBA, and after stent implantation. Following stent implantat ion, placement seen to be at ostium of OM2 without extension into LC x. Indication for Intervention: Coronary intervention was indicated for treatment of a critical lesion post a myocardial infarction. Left vent ricular Ejection Fraction was estimated at 45 percent. The priority f or the procedure was Urgent. The NCDR indication for the procedure was P CI for high risk Non-STEMI or unstable angina. Intervention Summary: Left Anterior Descending Artery Mid 90% Stent insertion was performed on the 90 % stenosis in the mid segment of the LAD. This was a de roddy lesion. According to the ACC/AHA classification system, this lesion was a type B2 high risk lesion. Primary prevention of restenosis was the indication for stent insertion. Vessel flow pre intervention was THOR 2. Stent insertion was accomplished throug h a 7 Fr. XB 3.5 guide. The lesion was predilated with a 3.00mm EUPHORA 12 MM balloon with a maximum inflation pressure of 12 atmospheres. A premounted 4.00 x 15 mm Integrity (BMS) was deployed. Following stent deployment, the lesion was dilated using a 4.00mm NC EUPHORA 08 MM balloon with a maximum inflation pressure of 14 atmospheres. The final outcome was defined as succes sful. There was no residual stenosis following this interv ention. The final THOR flow was 3. Post dilation guided by IVUS. Second Obtuse Marginal Branch of the LC X Proximal 80% Stent insertion was performed on the 80 % stenosis in the proximal segment of the OM2. This was a de roddy lesion. This lesion was designated a type B2 high ri sk lesion based on ACC/AHA classification system. Primary prevention of restenosis was the indication for stent insertion. This was the culprit lesion. Vessel flow pre int ervention was THOR 3. Stent insertion was accomplished throug h a 7 Fr. XB 3.5 guide. The lesion was predilated with a 3.00mm APEX 12 MM balloon with a maximum inflation pressure of 12 atmospheres. A premounted 3.50 x 15 mm Integrity (BMS) was deployed with a maximum inflation pressure of 10 atmosp heres. Following stent deployment, the lesion was dilated usin g a 3.50mm NC EUPHORA 12 MM balloon with a maximum inflation pressure of 14 atmospheres. The final outcome was defined as succes sful. There was no residual stenosis following this interv ention. The final THOR flow was 3. Stent selection guided by IVUS. Vascular Access: Vascular Access Management: Mechanical Compression of the right rad ial artery access site was performed. Conclusions: * Obstructive disease of the LAD and LC X * Successful stent insertion of the mid LAD lesion * Successful stent insertion of the pro ximal OM2 lesion Complications/Events: The patient had no complications during these procedures. Recommendations: The patient's medical regimen was friedman ed as follows: Bare metal stent(s) implanted in treatment of acute coronar y syndrome (ACS). Clopidogrel loaded prior to the microbiology lab manager. Recommend continued dual antiplatelet therapy (DAPT) with low dose aspirin (8 1 mg daily) and clopidogrel 75 mg daily for a minimum 12 months. If overt bleeding or high bleeding risk, it may be reasonable to stop clopidogre l earlier. Low dose aspirin to be continued indefinitely unless contraind icated. Comments: Discussed results with patient and his , as well as referring provider. Radial provided excellent support for p roceddaphnie. No complications or spasm. BMS selected given large size of vessel s and short segment. The attending physician was present for the entire procedure. Dr. Ely Peralta M.D. performed the coronary angiography, stent insertion-coronary and IVUS # coronary. Ely Peralta M.D. Electronically Signed by: Ely phillip M.D. Report Finalized: 06/24/2016 08:53 Report Last Ammended: 07/27/2016 17:05 Ely Peralta MD CARDIAC CATH ORDERABLES (ABNORMAL) APTT (06/22/2016 9:08 AM EDT) athologist Signature PTT 95 (H) 25 - 35 sec [facility] Comment: The recommended therapeutic range for fu ll dose, unfractionated heparin at [facility] is 80 ? 114 seconds. The use of the anti-Xa (heparin) level rather than the PTT is recommended for monitoring anticoagul ation intensity in critically ill patients receiving unfractionated hepari n by continuous IV infusion. Specimen Anatomical Collection Method Collection Time Receive d Time (Source) Location / / Volume Laterality Blood specimen 06/22/2016 9:08 AM 016 9:24 (specimen) EDT AM EDT Resulting Agency Comment Spec In Lab Maxx Lange MD HEMATOLOGY ORDERABLES Performing Organization Address City/State/ZIP [place] [address] (ABNORMAL) Cardiac Enzymes (06/22/2016 9:08 AM EDT) athologist Signature Troponin-T 1.28 (H) <=0.03 [facility] ng/mL [facility] Comment: 0.03 ng/mL: Represents the 99th percenti le upper reference limit for normals. >0.03 ng/mL: Elevated cardiac troponin T level indicative of myocardial damage. Diagnosis of acute, evolving or recent M I requires a typical rise and gradual fall of cTnT with at least ONE of the fo llowing: a) Ischemic symptoms b) Development of pathologic Q waves on the ECG c) ECG changes indicative of eschemia (S -T segment elevation/depression) d) Coronary artery intervention Serial bloods should be obtained for hoa ting on admission, at 6 to 9 hrs and again at 12 to 24 hrs if earlier samples are negative and the clinical index of suspicion is high. Reference: [Myocardial infarction redefined? a consensus document of the Joint Society of Cardiology/[place] College o f Cardiology Committee for the redefinition of myocardial infarction. ? ?Journal of the [place] College of Cardiology 2000; 36: 959-969] CK, Total 225 (H) 0 - 200 unit/L [facility] Specimen Anatomical Collection Method Collection Time Receive d Time (Source) Location / / Volume Laterality Blood specimen 06/22/2016 9:08 AM 016 9:24 (specimen) EDT AM EDT Resulting Agency Comment Spec In Lab Maxx Lange MD CHEMISTRY ORDERABLES Performing Organization Address City/[facility] [address]/ZIP Code Phon e Number [address] Potassium (06/22/2016 9:08 AM EDT) athologist Signature Potassium 4.2 3.5 - 5.0 [facility] mmol/L [facility] Comment: Please note: ??Patients with WBC >100,00 0 may have falsely elevated Potassium levels. ??For accurate Potassium quantif ication in these patients send serum separator tube (gold top) for subsequent determinations. ??Contact the Clinical Chemistry Laboratory if there are any qu estions. Specimen Anatomical Collection Method Collection Time Receive d Time (Source) Location / / Volume Laterality Blood specimen 06/22/2016 9:08 AM 016 9:24 (specimen) EDT AM EDT Resulting Agency Comment Spec In Lab Maxx Lange MD CHEMISTRY ORDERABLES Performing Organization Address City/[facility] [address]/ZIP Code [place] [address] CARDIAC CATHETERIZATION (06/22/2016 8:53 AM EDT) Anatomical Region Laterality Modality Other Specimen (Source) Anatomical Location Collection Method / Collectio n Time Received Time / Laterality Volume Narrative 06/22/2016 8:53 AM EDT ?[facility] ? Cardiac Cathete rization/Intervention Report ? Patient Name: [place], Ray ? Procedure Date: 06/21/2016 ? A #: [id number] ? Primary Physician: Kathryn, Ely J ? Case #: [id number] ? File Name: [id number] ? Catheterization Order Number: [id number] ? [facility] ? Final Report [place], [place] ? Patient Name: ? Ray Suzanne ? ID#: ?[id number] ? : ?1960 ? Procedure Date: ? October 10, 201 6 ? Case #: ? [id number] ? Room: ? 2 ? Case Physician: ? Ely joshit, M.D. ?Start: ?11:41 ?Fellow: ? Bibhu Zoran arias, M.D. ?Admission: ??06/21/2016 ? Referring Physician: ??Stevie Schwarz i, M.D. ? Procedures: ?* Coronary Angiography ?* Transthoracic Echo During Cat h ? History ?Meliton Raymond is a 56 year old man. He has a history of smoking (20 pack ?years). The patient has unstabl e angina, positive troponin and a history ?of chest pain. He is status pos t an acute non-ST elevation myocardial ?infarction as well as a remote myocardial infarction. The patient has a ?history of dyspnea with NYHA fu nctional class II. He has a history of an ?abnormal EKG. The patient also has a history of renal insufficiency. ?Prior to the initiation of this procedure, the patient was designated as ?ASA Class II. ? Patient Status at Catheterization: ?The patient presented with: non -STEMI (w/i 7 days). [place] ?Cardiovascular Society angina c lass was IV. No stress or imaging studies ?were performed prior to this pr ocedure ? Technique: ?A 6 SLFr sheath was inserted in the right radial artery utilizing the ?Seldinger technique. The left c oronary artery was injected utilizing a ?5Fr TIG 4.0 catheter. A 5Fr TIG 4.0 catheter was used to inject the right ?coronary artery. 5,000 units of heparin were administered. A total of ?100cc of Omnipaque were opened, 50cc of Omnipaque were administered and ?50cc of Omnipaque were wasted. Radiation: Fluoro time was 3.5 minutes, ?dose area product was 43,315 mG Ycm2 and air kerma was 747 mGY. ?The patient received the follow ing medications prior to and during the ?procedure: Aspirin (any), Clopi dogrel and Unfractionated Heparin (any). ? Hemodynamics: ?Left Heart Pressures ? Resting: ? Syst D iast ? EDP ?a ?v ? m ?Ao 94 ?68 ?80 ? Coronary Angiography: ?Dominance: Right ?Left Main ? The left main was normal . ?Left Anterior Descending ? There was a 90% single d iscrete stenosis of the mid segment of the ? left anterior descending artery (LAD). ??The LAD was moderate in ? size. ??The distal segme nt of the LAD had moderate diffuse disease. ? The distal vessel was mo derate in size. ? There was mild diffuse d isease of the entire vessel segment of the ? second diagonal branch ( Diagonal 2) of the LAD. ??The Diagonal 2 was ? small. ? D1 is small without dise ase. ?Left Circumflex ? There was a 30% single d iscrete stenosis of the proximal segment of ? the left circumflex marah ry (LCX). ??The LCX was large. ??The distal ? segment of the LCX had a multiple discrete 20% stenoses. ? There was mild diffuse d isease of the entire vessel segment of the ? first obtuse marginal br anch (OM1) of the LCX. ??The OM1 was small. ? There was an 80% single discrete stenosis of the proximal segment of ? the second obtuse margin al branch (OM2) of the LCX. ??The OM2 was ? large. ? There was a 30% single d iscrete stenosis of the proximal segment of ? the first left posterola teral branch (LPL1) of the LCX. ??The LPL1 ? was moderate in size. ?Right Coronary Artery ? There was a single discr ete total occlusion of the proximal segment ? of the right coronary ar iman (RCA). ??The RCA was large. ??Distal flow ? was decreased and was vi a collaterals from the LAD and collaterals ? from the LCX. ??The dist al vessel was poorly visualized. ? Vascular Access: ?Vascular Access Management: ? Mechanical Compression o f the right radial artery access site was ? performed. ? Conclusions: ?* Three vessel coronary artery disease (LAD, LCX and RCA) ? Complications/Events: ?The patient had no complication s during these procedures. ? Recommendations: ?Based upon the results of this procedure, it was recommended that repeat ?catheterization, coronary arter y bypass surgery and stent insertion be ?considered. The patient's medic al regimen was changed as follows: Admit ?to medical unit for ongoing hep leonardo infusion, nitroglycerin infusion for ?symptom management as necessary , 81 mg aspirin daily, and TTE for ?complete cardiac assessment, in cluding echo contrast to assess for LV ?apical thrombus. ? Comments: ?I discussed results with angela perez, his , and referring provider. 3 ?vessel coronary disease in the setting of delayed presentation (2 weeks) ?NSTEMI with evolving EKG change s, with loss of anterior R waves, and ?recurrent chest pain. ?Patient is being admitted to e cardiology inpatient service and ?decision making will involve [facility] heart team, including cardiac surgery ?and interventional cardiology, as well as the patient. ?TTE demonstrated apical regiona l wall motion abnormalities with ?preservation of the base- EF 40 %, question apical thrombus- not clear ?from this imaging. ?The attending physician was naina t for the entire procedure. ?Dr. Ely Peralta M.D. perf ormed the coronary angiography and ?transthoracic echo . ? Ely J Coylewright, ? M.D. ? Electronically Signed by: Ely J Coylew right, M.D. ? Report Finalized: 06/22/2016 ??08:48 ? Procedure Note Ely Peralta MD - 06/22/2016For matting of this note might be different from the original. [facility] Cardiac Catheterization/Intervention Re port Patient Name: Meliton Raymond Procedure Date: 06/21/2016 A #: [id number] Primary Physician: Ely Peralta Case #: [id number] File Name: [id number] Catheterization Order Number: [id number] [facility] Final Report [place], [place] Patient Name: Meliton Raymond ID#: [id number] : 1960 Procedure Date: June 21, 2016 Case #: [id number] Room: 2 Case Physician: Keira Isaac Start: 11:41 Fellow: Marin Rosales M.D. Admission: 06/21/2016 Referring Physician: Stevie Yang M.D. Procedures: * Coronary Angiography * Transthoracic Echo During Cath History Meliton Raymond is a 56 year old man. He has a history of smoking (20 pack years). The patient has unstable angina , positive troponin and a history of chest pain. He is status post an acu te non-ST elevation myocardial infarction as well as a remote myocardi al infarction. The patient has a history of dyspnea with NYHA functional class II. He has a history of an abnormal EKG. The patient also has a hi story of renal insufficiency. Prior to the initiation of this procedu re, the patient was designated as ASA Class II. Patient Status at Catheterization: The patient presented with: non-STEMI ( w/i 7 days). [place] Cardiovascular Society angina class was IV. No stress or imaging studies were performed prior to this procedure Technique: A 6 SLFr sheath was inserted in the rig ht radial artery utilizing the Seldinger technique. The left coronary artery was injected utilizing a 5Fr TIG 4.0 catheter. A 5Fr TIG 4.0 cat heter was used to inject the right coronary artery. 5,000 units of heparin were administered. A total of 100cc of Omnipaque were opened, 50cc of Omnipaque were administered and 50cc of Omnipaque were wasted. Radiatio n: Fluoro time was 3.5 minutes, dose area product was 43,315 mGYcm2 and air kerma was 747 mGY. The patient received the following medi cations prior to and during the procedure: Aspirin (any), Clopidogrel a nd Unfractionated Heparin (any). Hemodynamics: Left Heart Pressures Resting: Syst Diast EDP a v m Ao 94 68 80 Coronary Angiography: Dominance: Right Left Main The left main was normal. Left Anterior Descending There was a 90% single discrete stenosi s of the mid segment of the left anterior descending artery (LAD). The LAD was moderate in size. The distal segment of the LAD had moderate diffuse disease. The distal vessel was moderate in size. There was mild diffuse disease of the e ntire vessel segment of the second diagonal branch (Diagonal 2) of the LAD. The Diagonal 2 was small. D1 is small without disease. Left Circumflex There was a 30% single discrete stenosi s of the proximal segment of the left circumflex artery (LCX). The L CX was large. The distal segment of the LCX had a multiple discr ete 20% stenoses. There was mild diffuse disease of the e ntire vessel segment of the first obtuse marginal branch (OM1) of t he LCX. The OM1 was small. There was an 80% single discrete stenos is of the proximal segment of the second obtuse marginal branch (OM2) of the LCX. The OM2 was large. There was a 30% single discrete stenosi s of the proximal segment of the first left posterolateral branch (L PL1) of the LCX. The LPL1 was moderate in size. Right Coronary Artery There was a single discrete total occlu orin of the proximal segment of the right coronary artery (RCA). The RCA was large. Distal flow was decreased and was via collaterals f rom the LAD and collaterals from the LCX. The distal vessel was poo rly visualized. Vascular Access: Vascular Access Management: Mechanical Compression of the right rad ial artery access site was performed. Conclusions: * Three vessel coronary artery disease (LAD, LCX and RCA) Complications/Events: The patient had no complications during these procedures. Recommendations: Based upon the results of this procedur e, it was recommended that repeat catheterization, coronary artery bypass surgery and stent insertion be considered. The patient's medical regim en was changed as follows: Admit to medical unit for ongoing heparin inf usion, nitroglycerin infusion for symptom management as necessary, 81 mg aspirin daily, and TTE for complete cardiac assessment, including echo contrast to assess for LV apical thrombus. Comments: I discussed results with patient, his w german, and referring provider. 3 vessel coronary disease in the setting of delayed presentation (2 weeks) NSTEMI with evolving EKG changes, with loss of anterior R waves, and recurrent chest pain. Patient is being admitted to the cardio logy inpatient service and decision making will involve the heart team, including cardiac surgery and interventional cardiology, as well as the patient. TTE demonstrated apical regional wall m otion abnormalities with preservation of the base- EF 40%, quest ion apical thrombus- not clear from this imaging. The attending physician was present for the entire procedure. Dr. Ely Peralta M.D. performed the coronary angiography and transthoracic echo . Ely Peralta M.D. Electronically Signed by: Ely phillip M.D. Report Finalized: 06/22/2016 08:48 Maxx Lange MD CARDIAC CATH ORDERABLES Magnesium (06/22/2016 1:45 AM EDT) P athologist Signature Magnesium 0.82 0.69 - 1.07 [facility] mmol/L [facility] Specimen Anatomical Collection Method Collection Time Receive d Time (Source) Location / / Volume Laterality Blood specimen Venous Draw / 06/22/2016 1:45 AM 2015 1:53 (specimen) Unknown EDT AM EDT Resulting Agency Comment Spec In Lab Maxx Lange MD CHEMISTRY ORDERABLES Performing Organization Address City/State/ZIP [place] [address] (ABNORMAL) Cardiac Enzymes (06/22/2016 1:45 AM EDT) athologist Signature Troponin-T Not Perf <=0.03 [facility] ng/mL [facility] Comment: Unable to quantitate due to sample hemol ysis. ??Sample redraw suggested. Notified Shannan George 06/22/16 02:27/ llu 0.03 ng/mL: Represents the 99th percenti le upper reference limit for normals. >0.03 ng/mL: Elevated cardiac troponin T level indicative of myocardial damage. Diagnosis of acute, evolving or recent M I requires a typical rise and gradual fall of cTnT with at least ONE of the fo llowing: a) Ischemic symptoms b) Development of pathologic Q waves on the ECG c) ECG changes indicative of eschemia (S -T segment elevation/depression) d) Coronary artery intervention Serial bloods should be obtained for hoa ting on admission, at 6 to 9 hrs and again at 12 to 24 hrs if earlier samples are negative and the clinical index of suspicion is high. Reference: [Myocardial infarction redefined? a consensus document of the Joint Society of Cardiology/[place] College o f Cardiology Committee for the redefinition of myocardial infarction. ? ?Journal of the [place] College of Cardiology 2000; 36: 959-969] CK, Total 357 (H) 0 - 200 unit/L [facility] Specimen Anatomical Collection Method Collection Time Receive d Time (Source) Location / / Volume Laterality Blood specimen Venous Draw / 06/22/2016 1:45 AM 2015 1:51 (specimen) Unknown EDT AM EDT Resulting Agency Comment Spec In Lab Maxx Lange MD CHEMISTRY ORDERABLES Performing Organization Address City/[facility] [address]/ZIP Code Phon e Number [address] (ABNORMAL) APTT (06/22/2016 1:45 AM EDT) P athologist Signature PTT 59 (H) 25 - 35 sec [facility] Comment: The recommended therapeutic range for fu ll dose, unfractionated heparin at [facility] is 80 ? 114 seconds. The use of the anti-Xa (heparin) level rather than the PTT is recommended for monitoring anticoagul ation intensity in critically ill patients receiving unfractionated hepari n by continuous IV infusion. Specimen Anatomical Collection Method Collection Time Receive d Time (Source) Location / / Volume Laterality Blood specimen 06/22/2016 1:45 AM 016 1:51 (specimen) EDT AM EDT Resulting Agency Comment Spec In Lab Maxx Lange MD HEMATOLOGY ORDERABLES Performing Organization Address City/State/ZIP Code Phon e Number [address] (ABNORMAL) Differential, Automated (06/22/2016 1:45 AM EDT) Patholo gist Method Time Signature Neutrophils % 70.8 % [facility] Neutr Abs (ANC) 6.64 (H) 1.70 - [facility] 6.10 [facility] x10(3)/[facility] LABORATORY Lymphocytes % 19.0 % [facility] Lymphocytes Abs 1.8 0.9 - 3.2 [facility] x10(3)/[facility] LABORATORY Monocytes % 7.1 % [facility] Monocyte Abs 0.7 0.3 - 0.9 [facility] x10(3)/[facility] LABORATORY Eosinophils % 2.4 % [facility] Eosinophils Abs 0.2 0.0 - 0.4 [facility] x10(3)/[facility] LABORATORY Basophils % 0.5 % [facility] Basophils Abs 0.0 0.0 - 0.1 [facility] x10(3)/[facility] LABORATORY Immature Gran % 0.20 % [facility] Comment: Immature granulocytes(IG's)percentage an d absolute count will include metamyelocytes, myelocytes, and promyelo cytes. Blood smears from CBCs yielding IG's will be scanned manually for concor dance. If this scan disagrees with the automated IG or if promyelocytes are not ed, a manual differential will be performed. Amada Gran Abs 0.02 0.00 - 0.04 x10(3)/[facility]ORY Specimen Anatomical Collection Method Collection Time Receive d Time (Source) Location / / Volume Laterality Blood specimen 06/22/2016 1:45 AM 016 1:51 (specimen) EDT AM EDT Resulting Agency Comment Spec In Lab Maxx Lange MD HEMATOLOGY ORDERABLES Performing Organization Address City/State/[place] [address] (ABNORMAL) Hemogram (06/22/2016 1:45 AM EDT) Analysis Performed At Patho logist Time Signature WBC 9.4 4.0 - 9.5 [facility] x10(3)/[facility] LABORATORY RBC 4.18 (L) 4.58 - [facility] 5.54 [facility] x10(6)/[facility] LABORATORY Hemoglobin 13.8 13.7 - [facility] 16.5 gm/dL [facility] Hematocrit 39.7 (L) 40.5 - [facility] 48.5 % [facility] MCV 95.0 (H) 82.9 - [facility] 93.[address] [facility] LABORATORY MCH 33.0 (H) 27.5 - [facility] 32.1 pg [facility] MCHC 34.8 32.0 - [facility] 35.7 gm/dL [facility] Platelets 231 145 - 357 [facility] x10(3)/[facility] LABORATORY RDWSD 43.2 36.0 - [facility] 45.[address] [facility] LABORATORY RDWCV 12.6 11.4 - [facility] 13.8 % [facility] MPV 9.5 7.6 - 12.9 [facility] LABORATORY nRBC % Auto 0.0 % [facility] nRBC Abs Auto 0.000 0.000 - [facility] 0.000 [facility] x10(3)/[facility] LABORATORY Specimen Anatomical Collection Method Collection Time Receive d Time (Source) Location / / Volume Laterality Blood specimen 06/22/2016 1:45 AM 016 1:51 (specimen) EDT AM EDT Resulting Agency Comment Spec In Lab Maxx Lange MD HEMATOLOGY ORDERABLES Performing Organization Address City/State/[place] [address] (ABNORMAL) BMP w/fasting Glucose (06/22/2016 1:45 AM EDT) athologist Signature Glucose 133 (H) 65 - 99 [facility] Fasting mg/dL [facility] Comment: ?Fasting* Glucose Interpretive C riteria Normal ?65-99 mg/dL Impaired Fasting glucose ?100-125 mg/dL Consistent with Diabetes Mellitus ? >or= 126 mg/dL *Fasting is defined as no caloric intake for at least 8 hours In the absence of unequivocal hypergly cemia a plasma glucose value of >or= 126 mg/dL should be repeated on a subseq uent day. Diagnosis and Classification of Diabetes Mellitus, Position Statement from the [place] Diabetes Association. ??Diabete s Care, Volume 33, Supplement 1, Sep 2009 BUN 12 10 - 20 mg/dL [facility] Creatinine 1.39 0.80 - 1.50 mg/dL [facility] Comment: Please note that the pediatric reference intervals supplied above were not validated at [facility]. Results from pediatri c patients should be interpreted in conjunction to the patient's age, height and muscle mass. Sodium 135 135 - 145 mmol/L [facility] Potassium Not Perf 3.5 - 5.0 mmol/L [facility] Comment: Unable to quantitate due to sample hemol ysis. ??Sample redraw suggested. Notified Shannan Vazquez 10/11/16 02:27/ llu Please note: ??Patients with WBC >100,00 0 may have falsely elevated Potassium levels. ??For accurate Potassium quantif ication in these patients send serum separator tube (gold top) for subsequent determinations. ??Contact the Clinical Chemistry Laboratory if there are any qu estions. Chloride 98 98 - 107 mmol/L [facility] CO2 23 22 - 31 mmol/L [facility] Anion Gap 14 5 - 15 mmol/L [facility] Calcium 8.7 8.5 - 10.5 mg/dL [facility] Estimated GFR 52 (L) >=60 [facility] Comment: This estimated GFR (eGFR) value was calc ulated using the MDRD equation which has been validated on patients between t he ages of 18 and 70. The MDRD should not be used to assess kidney function in patients < 18 years of age or in patients with extremes of body mass, or in patients with acute kidney failure. This value should be multiplied by 1.2 f or patients. For further information please copy and past e the following links into your internet browser. [email or web address] Specimen Anatomical Collection Method Collection Time Receive d Time (Source) Location / / Volume Laterality Blood specimen 06/22/2016 1:45 AM 016 1:51 (specimen) EDT AM EDT Resulting Agency Comment Spec In Lab Maxx Lange MD CHEMISTRY ORDERABLES Performing Organization Address City/State/[place] [address] Hemoglobin A1c (06/22/2016 1:45 AM EDT) athologist Signature Hemoglobin A1C 5.2 4.3 - 5.6 [facility] Comment: Reference Range: 4.3 - 5.6% 5.7 - 6.4% - Increased Risk of Developin g Diabetes Mellitus >= 6.5% - Consistent with diagnosis of D iabetes Mellitus In the absence of hyperglycemia (i.e. pl asma glucose > 200 mg/dL) or classic symptoms of hyperglycemia a repeat measu rement of HbA1c should be performed on a separate sample to confirm the diagnos is. Diagnosis and Classification of Diabetes Mellitus, Diabetes Care 2013; 36: Suppl. 1, S67-20 Est Avg Gluc 103 mg/dL [facility] Comment: eAG equivalents for HbA1c percentages: HbA1c(%) ?eAG(mg/dL) 6.0 ?126 6.5 ?140 7.0 ?154 7.5 ?169 8.0 ?183 8.5 ?197 9.0 ?212 9.5 ?226 10.0 ? 240 Limitations: The eAG calculation has not been validated on women, individuals below 18 years old and above 70 years old, and individuals with hemoglobinopathies. Additional resources are available on ADA website: [email or web address] COSTA, Padilla J, Carlos R, et al. ??Tr anslating the A1C assay into estimated average glucose values. ??Diabetes Care 2008:31(8):4471-1356. Specimen Anatomical Collection Method Collection Time Receive d Time (Source) Location / / Volume Laterality Blood specimen 06/22/2016 1:45 AM 016 1:51 (specimen) EDT AM EDT Resulting Agency Comment Spec In Lab Maxx Lange MD CHEMISTRY ORDERABLES Performing Organization Address City/State/[place] [address] (ABNORMAL) Lipid panel (fasting) (06/22/2016 1:45 AM EDT) athologist Signature Chol, Total 152 <=199 mg/dL [facility] Comment: Recommendations of the NCEP Adult Treatm ent Panel for the following risk cutoff thresholds for the [place] populatio n: Desirable: <200 mg/dL Borderline High: 200-239 mg/dL High: > or = 240 mg/dL Triglycerides 392 (H) <=149 mg/dL [facility] Comment: Reference Range: Normal triglycerides: ??<150 mg/dL Borderline high: ??150-199 mg/dL High: ??200-499 mg/dL Very high: ??>eh=454 mg/dL ELÍAS 2001; 285(19):2118-2387 HDL 18 (L) >=40 mg/dL [facility] Comment: Reference range: ??Low HDL: ?? < 40 mg/dL ??Normal: ?40-60 mg/dL ??Desirable: > 60 mg/dL ELÍAS 2001; 285(19):9413-3401 LDL Cholesterol 56 <=99 mg/dL [facility] Comment: Reference range: ?? Optimal: ?<100 mg/dL ?? Near Optimal/Above Optimal: ?? 100-1 29 mg/dL ?? Borderline high: ?130-159 mg/dL ?? High: ? 160-189 mg/dL ?? Very high: ?>bb=223 mg/dL ELÍAS 2001: 285(19):0085-3535 Chol/HDL Ratio 8.4 ratio [facility] Comment: A Cholesterol to HDL ratio below 4:1 is desirable. ??Studies suggest that increased CAD risk occurs at ratios abov e 5 for females and above 6 for men. ? [place] [employer] Association ??(htt p://www.americanheart.org) ? [place] Int Med, 1994; 121:641 ? AM J Med, 1998; 105(1A):48S Specimen Anatomical Collection Method Collection Time Receive d Time (Source) Location / / Volume Laterality Blood specimen 06/22/2016 1:45 AM 016 1:51 (specimen) EDT AM EDT Resulting Agency Comment Spec In Lab Maxx Lange MD CHEMISTRY ORDERABLES Performing Organization Address City/[facility] [address]/[facility] [place] [address] (ABNORMAL) Cardiac Enzymes (06/21/2016 5:45 PM EDT) P athologist Signature Troponin-T 1.03 (H) <=0.03 [facility] ng/mL [facility] Comment: 0.03 ng/mL: Represents the 99th percenti le upper reference limit for normals. >0.03 ng/mL: Elevated cardiac troponin T level indicative of myocardial damage. Diagnosis of acute, evolving or recent M I requires a typical rise and gradual fall of cTnT with at least ONE of the fo llowing: a) Ischemic symptoms b) Development of pathologic Q waves on the ECG c) ECG changes indicative of eschemia (S -T segment elevation/depression) d) Coronary artery intervention Serial bloods should be obtained for hoa ting on admission, at 6 to 9 hrs and again at 12 to 24 hrs if earlier samples are negative and the clinical index of suspicion is high. Reference: [Myocardial infarction redefined? a consensus document of the Joint Society of Cardiology/[place] College o f Cardiology Committee for the redefinition of myocardial infarction. ? ?Journal of the [place] College of Cardiology 2000; 36: 959-969] CK, Total 391 (H) 0 - 200 unit/L [facility] Specimen Anatomical Collection Method Collection Time Receive d Time (Source) Location / / Volume Laterality Blood specimen 06/21/2016 5:45 PM 016 5:54 (specimen) EDT PM EDT Resulting Agency Comment Spec In Lab Maxx Lange MD CHEMISTRY ORDERABLES Performing Organization Address City/[facility] [address]/[facility] [place] [address] (ABNORMAL) APTT (06/21/2016 5:35 PM EDT) P athologist Signature PTT 43 (H) 25 - 35 sec [facility] Comment: The recommended therapeutic range for fu ll dose, unfractionated heparin at [facility] is 80 ? 114 seconds. The use of the anti-Xa (heparin) level rather than the PTT is recommended for monitoring anticoagul ation intensity in critically ill patients receiving unfractionated hepari n by continuous IV infusion. Specimen Anatomical Collection Method Collection Time Receive d Time (Source) Location / / Volume Laterality Blood specimen 06/21/2016 5:35 PM 016 5:54 (specimen) EDT PM EDT Resulting Agency Comment Spec In Lab Maxx Lange MD HEMATOLOGY ORDERABLES Performing Organization Address City/State/ZIP Code Phon e Number [place] [phone] XR Chest PA or AP 1 view (06/21/2016 4:53 PM EDT) Anatomical Region Laterality Modality Chest N/A Digital Radiography Specimen (Source) Anatomical Location Collection Method / Collectio n Time Received Time / Laterality Volume Impressions 06/21/2016 5:19 PM EDT No interval change. Possible mild pulmonary edema. Narrative 06/21/2016 5:19 PM EDT EXAMINATION: XR CHEST PA OR AP 1 VIEW CLINICAL HISTORY: 56 yo M presenting wit h STEMI TECHNIQUE: Portable AP semiupright chest COMPARISON: 06/21/2016 FINDINGS: There is no interval change. Again noted are mild LEFT basilar atelectasis and septal lines possibly representing a mil d degree of pulmonary edema. The lungs are otherwise clear. Procedure Note Stevie Menendez MD - 06/21/2016Formatt ing of this note might be different from the original. EXAMINATION: XR CHEST PA OR AP 1 VIEW CLINICAL HISTORY: 56 yo M presenting wit h STEMI TECHNIQUE: Portable AP semiupright chest COMPARISON: 06/21/2016 FINDINGS: There is no interval change. Again noted are mild LEFT basilar atelectasis and septal lines possibly representing a mil d degree of pulmonary edema. The lungs are otherwise clear. IMPRESSION No interval change. Possible mild pulmon yoni edema. Maxx Lange MD IMG DX ORDERABLES ECHOCARDIOGRAM COMPLETE W CONTRAST (06/21/2016 3:05 PM EDT) P athologist Signature EF 45 [facility] Anatomical Region Laterality Modality Other Specimen (Source) Anatomical Location Collection Method / Collectio n Time Received Time / Laterality Volume 06/21/2016 Narrative 06/21/2016 3:38 PM EDT Procedure: ?Transthoracic Echocardiogram Patient: ?SUZANNE RAY ?(Age): 1960(56y) Med Rec#: ? [id number] ?Sex: ?M ? Site Loc: ? [facility] ?Ht / Wt: ??175(cm)/95(kg) Pt. Loc: ?[facility] ? BSA: ?2.1 Study Date: ?? 06/21/2016 ?Pt. Type: Inpatient Tape: ? Referring: Maxx Lange ([id number]) Referring: MELANI Reading: Bernardino Matthews ([id number]) Water Chemist: Rosaline Connor Diagnosis: *ICD-10-PCS ST elevation (STEMI) myocar dial infarction involving left anterior descending coronary artery (I21 .02) CPT Codes: *Echo Full (44607) *Spectral Doppler (92564) *Color Doppler (69526) *Optison ([id number]) BP: ? 132/75 SUMMARY: 1. The left ventricular chamber size is normal. The visually estimated left ventricular ejection fraction is 45 -50% with akinesis of the distal segments and apex with no mural thrombus . ?? 2. Right ventricular chamber size, wall thickness, and systolic function are within normal limits. The estimated pulmonary artery systolic pressure is 48 mmHg. 3. There is mild to moderate (1-2+/4+) m itral regurgitation present. 4. The pericardium appears normal and th ere is no evidence of a pericardial effusion. Findings ? : Left Ventricle: ? The left ventricul ar chamber size is normal. ?Left ventricular wall thickness is normal. ?Global left ventricular systolic f unction is mildly reduced. ?The visually estimated left ventri cular ejection fraction is 45-50%. ?There are left ventricular segment al wall motion abnormalities present, as shown in the diagram below. ?Left ventricular diastolic functio n is abnormal. ?The ??mid anteroseptal, and ??mid inferoseptal wall segments are hypokinetic (score 2). ?The ??apical septal, apical anteri or, apical lateral, and ??apical inferior wall segments are akinetic (sco re 3). ?Overall wallmotion score index is ??1.63 Left Atrium: ? The left atrium is no rmal in size. Right Ventricle: ? Right ventricular chamber size, wall thickness, and systolic function are within normal limi ts. ?The estimated pulmonary artery sys tolic pressure is 48 mmHg. ?The estimated right atrial pressur e is 3 mmHg. Right Atrium: ? The right atrium is normal in size. Aortic Valve: ? The aortic valve is tricuspid. ?The aortic valve leaflets are mild ly thickened. ?Systolic excursion of the aortic v alve is normal. ?There is no evidence of aortic clifton ve stenosis. ?There is no evidence of aortic reg urgitation. Mitral Valve: ? The mitral valve shobha flets appear normal. ?There is mild to moderate (1-2+/4+ ) mitral regurgitation present. Tricuspid Valve: ? The tricuspid clifton ve leaflets are morphologically normal. ?There is trace tricuspid regurgita tion present. Pulmonic Valve: ? The pulmonic valve appears normal in structure and function. Pericardium: ? The pericardium appea rs normal and there is no evidence of a pericardial effusion. Aorta: ? The aortic root is normal i n size. ?The ascending aorta is normal in s hamzahe. Pulmonary Artery: ? The main pulmona ry artery appears normal. Venous: ? The inferior vena cava jeanine ears normal in size. ?There is a greater than 50% respir atory change in the inferior vena cava dimension. Misc: ? Two-dimensional echo, spectr al Doppler and color Doppler performed. ?Optison contrast (one 3 ml vial) w as used to enhance endocardial definition. Excess contrast was discarde d. Chambers 2D ?Value ?Units (Range) ? IVSd (2D) ? 1.4 ?cm ? LVPWd (2D) ?0.7 ?cm ? IVS:LVPW ratio (2D) 2 ?ratio ? LVIDd (2D) ?5.4 ?cm ? LVIDs (2D) ?2.9 ?cm ? LVIDd (2D) index ?2.6 ?cm/m2 ? LVIDs (2D) index ?1.4 ?cm/m2 ? LV FS (2D) ?47 ? % ? EF Teichholz (2D) ?? 78 ? % ? Ao root diameter (2D3.2 ?cm (2.1 - 3.6) ? Ascending Ao ?3.3 ?cm (2 - 3.5) ? Volumes/Mass ?Value ?Units (Range) ? LA Area 4 CH ?20.9 ? cm2 (<21) ? LA ESV BP (A/L) inde38.2 ? ml/m2 ? RA AREA 4CH ? 16.1 ? cm2 ? LA ESV SP 4CH (MOD) 61.3 ? ml ? LA ESV SP 2CH (MOD) 88.3 ? ml ? LV ESV SP 4CH (MOD) 53.2 ? ml ? LV ESV SP 2CH (MOD) 64.4 ? ml ? LV EDV BP ? 125 ?ml ? LV ESV BP ? 59.1 ? ml ? BP EF (MOD) ? 53 ? % ? LV mass (2D) ?214 ?g ? LV mass (2D) index ??101.9 ?g/m2 ? Diastolic/Systolic Function ?Value ?Units (Range) ? MV E-wave Vmax ?1.2 ?m/sec ? MV deceleration swvt623.5 ? msec ? MV A-wave Vmax ?0.9 ?m/sec ? MV E:A ratio ?1.4 ?ratio ? LV septal e' Vmax ?? 0.1 ?m/sec ? LV lateral e' Vmax ??0.1 ?m/sec ? LV average e' Vmax ??0.1 ?m/sec ? LV E:e' septal ratio23.8 ? ratio ? LV E:e' lateral rati23.8 ? ratio ? LV average E:e' rati23.8 ? ratio ? Mitral Valve ?Value ?Units (Range) ? MR volume (PISA) ?13.3 ? ml ? MR flow (PISA) ?45.2 ? ml/sec ? MR ERO ?0.1 ?cm2 ? MR PISA radius ?0.4 ?cm ? MR alias Vmax ? 37.8 ? cm/sec ? Tricuspid Valve ?Value ?Units (Range) ? TR Vmax ? 3.4 ?m/sec ? TR peak gradient ?45 ? mmHg ? RAP ? 3 ?mmHg ? RVSP ?48 ? mmHg ? Measurement Trending Name ? 06/21/2016 ? LV EDV BP ?1 24.97 LVIDd (2D) ? 5. 39 LV ESV BP ?5 9.15 LVIDs (2D) ? 2. 86 Wall Motion: Segment Name ?Rest ? Base-Anteroseptal ?? Normal ? Base-Anterior ? Normal ? Base-Anterolateral ??Normal ? Base-Posterolateral Normal ? Base-Inferior ? Normal ? Base-Inferoseptal ?? Normal ? Mid-Anteroseptal ?Hypokinetic ? Mid-Anterior ?Normal ? Mid-Anterolateral ?? Normal ? Mid-Posterolateral ??Normal ? Mid-Inferior ?Normal ? Mid-Inferoseptal ?Hypokinetic ? [place]-Septal ? Akinetic ? [place]-Anterior ? Akinetic ? [place]-Lateral ?Akinetic ? [place]-Inferior ? Akinetic ? [place]-Tip ?Akinetic ? This report has been electronically sign ed by: _ Bernardino Matthews M.D. ? 06/21/2016 15:37:10 Images reviewed and interpretation [facility] Cardiac Ultrasound Laboratory Procedure Note Bernardino Matthews MD - 06/21/2016Formatti ng of this note might be different from the original. Procedure: Transthoracic Echocardiogram Patient: SUZANNE MEDINA (Age): 1960([age]y) Med Rec#: [id number] Sex: M Site Loc: [facility] Ht / Wt: 175(cm)/95(kg) Pt. Loc: U BSA: 2.1 Study Date: 06/21/2016 Pt. Type: Inpatie nt Tape: Referring: Maxx Lange ([id number]) Referring: [email or web address] Reading: Bernardino Matthews ([id number]) Water Chemist: Rosaline Connor Diagnosis: *ICD-10-PCS ST elevation (STEMI) myocar dial infarction involving left anterior descending coronary artery (I21 .02) CPT Codes: *Echo Full (88397) *Spectral Doppler (63047) *Color Doppler (91529) *Optison ([id number]) BP: 132/75 SUMMARY: 1. The left ventricular chamber size is normal. The visually estimated left ventricular ejection fraction is 45 -50% with akinesis of the distal segments and apex with no mural thrombus . 2. Right ventricular chamber size, wall thickness, and systolic function are within normal limits. The estimated pulmonary artery systolic pressure is 48 mmHg. 3. There is mild to moderate (1-2+/4+) m itral regurgitation present. 4. The pericardium appears normal and th ere is no evidence of a pericardial effusion. Findings : Left Ventricle: The left ventricular shanda mber size is normal. Left ventricular wall thickness is norm al. Global left ventricular systolic functi on is mildly reduced. The visually estimated left ventricular ejection fraction is 45-50%. There are left ventricular segmental wa ll motion abnormalities present, as shown in the diagram below. Left ventricular diastolic function is abnormal. The mid anteroseptal, and mid inferosep enwton wall segments are hypokinetic (score 2). The apical septal, apical anterior, api loretta lateral, and apical inferior wall segments are akinetic (sco re 3). Overall wallmotion score index is 1.63 Left Atrium: The left atrium is normal i n size. Right Ventricle: Right ventricular chamb er size, wall thickness, and systolic function are within normal limi ts. The estimated pulmonary artery systolic pressure is 48 mmHg. The estimated right atrial pressure is 3 mmHg. Right Atrium: The right atrium is normal in size. Aortic Valve: The aortic valve is tricus pid. The aortic valve leaflets are mildly th ickened. Systolic excursion of the aortic valve is normal. There is no evidence of aortic valve st enosis. There is no evidence of aortic regurgit ation. Mitral Valve: The mitral valve leaflets appear normal. There is mild to moderate (1-2+/4+) rhonda ral regurgitation present. Tricuspid Valve: The tricuspid valve shobha flets are morphologically normal. There is trace tricuspid regurgitation present. Pulmonic Valve: The pulmonic valve appea rs normal in structure and function. Pericardium: The pericardium appears nor mal and there is no evidence of a pericardial effusion. Aorta: The aortic root is normal in size . The ascending aorta is normal in size. Pulmonary Artery: The main pulmonary art tima appears normal. Venous: The inferior vena cava appears n ormal in size. There is a greater than 50% respiratory change in the inferior vena cava dimension. Misc: Two-dimensional echo, spectral Dop pler and color Doppler performed. Optison contrast (one 3 ml vial) was us ed to enhance endocardial definition. Excess contrast was discarde d. Chambers 2D Value Units (Range) IVSd (2D) 1.4 cm LVPWd (2D) 0.7 cm IVS:LVPW ratio (2D) 2 ratio LVIDd (2D) 5.4 cm LVIDs (2D) 2.9 cm LVIDd (2D) index 2.6 cm/m2 LVIDs (2D) index 1.4 cm/m2 LV FS (2D) 47 % EF Teichholz (2D) 78 % Ao root diameter (2D3.2 cm (2.1 - 3.6) Ascending Ao 3.3 cm (2 - 3.5) Volumes/Mass Value Units (Range) LA Area 4 CH 20.9 cm2 (<21) LA ESV BP (A/L) inde38.2 ml/m2 RA AREA 4CH 16.1 cm2 LA ESV SP 4CH (MOD) 61.3 ml LA ESV SP 2CH (MOD) 88.3 ml LV ESV SP 4CH (MOD) 53.2 ml LV ESV SP 2CH (MOD) 64.4 ml LV EDV BP 125 ml LV ESV BP 59.1 ml BP EF (MOD) 53 % LV mass (2D) 214 g LV mass (2D) index 101.9 g/m2 Diastolic/Systolic Function Value Units (Range) MV E-wave Vmax 1.2 m/sec MV deceleration gngp111.5 msec MV A-wave Vmax 0.9 m/sec MV E:A ratio 1.4 ratio LV septal e' Vmax 0.1 m/sec LV lateral e' Vmax 0.1 m/sec LV average e' Vmax 0.1 m/sec LV E:e' septal ratio23.8 ratio LV E:e' lateral rati23.8 ratio LV average E:e' rati23.8 ratio Mitral Valve Value Units (Range) MR volume (PISA) 13.3 ml MR flow (PISA) 45.2 ml/sec MR ERO 0.1 cm2 MR PISA radius 0.4 cm MR alias Vmax 37.8 cm/sec Tricuspid Valve Value Units (Range) TR Vmax 3.4 m/sec TR peak gradient 45 mmHg RAP 3 mmHg RVSP 48 mmHg Measurement Trending Name 06/21/2016 LV EDV BP 124.97 LVIDd (2D) 5.39 LV ESV BP 59.15 LVIDs (2D) 2.86 Wall Motion: Segment Name Rest Base-Anteroseptal Normal Base-Anterior Normal Base-Anterolateral Normal Base-Posterolateral Normal Base-Inferior Normal Base-Inferoseptal Normal Mid-Anteroseptal Hypokinetic Mid-Anterior Normal Mid-Anterolateral Normal Mid-Posterolateral Normal Mid-Inferior Normal Mid-Inferoseptal Hypokinetic [place]-Septal Akinetic [place]-Anterior Akinetic [place]-Lateral Akinetic [place]-Inferior Akinetic [place]-Tip Akinetic This report has been electronically sign ed by: _ Bernardino Matthews M.D. 06/21/2016 15:37 :10 Images reviewed and interpretation [facility] Cardiac Ultrasound Laboratory Maxx Lange MD ECHO ORDERABLES EKG 12 Lead (06/21/2016 12:56 PM EDT) Component Value Ref Range Test Analysis Performed Pathologis t Method Time At Signature Ventricular rate 79 BPM MUSE SYSTEM Atrial Rate 79 BPM MUSE SYSTEM P-R Interval 168 ms MUSE SYSTEM QRS Duration 106 ms MUSE SYSTEM Q-T Interval 422 ms MUSE SYSTEM QTC Calculated 483 ms MUSE SYSTEM (Bezet) Calculated P [place] 31 degrees MUSE SYSTEM Calculated R [place] -43 degrees MUSE SYSTEM Calculated T [place] 98 degrees MUSE SYSTEM INTERPRETATION Normal sinus rhythm MUSE SYSTEM Left axis deviation Minimal voltage criteria for LVH, may be normal variant Anteroseptal infarct , age undetermined Abnormal ECG No previous ECGs available Confirmed by MD Cesario, Jasmine ([id number]) on 06/22/2016 6:02:14 A M Specimen Anatomical Collection Method Collection Time Receive d Time (Source) Location / / Volume Laterality 06/21/2016 12:56 06/22/2016 6:02 PM EDT AM EDT Maxx Lange MD ECG ORDERABLES Performing Organization Address City/State/ZIP Code Phon e Number MUSE SYSTEM (ABNORMAL) APTT (06/21/2016 12:50 PM EDT) P athologist Signature PTT >160.0 25 - 35 [facility] (Critical) [facility] Comment: Specimen drawn more than one hour prior to testing. ??Results may not be reliable for heparin monitoring. ??(May be falsely low) Called by: TANK, Read back by: Norma Grimm RN , Date/Time:06/21/16 15:27. The recommended therapeutic range for fu ll dose, unfractionated heparin at [facility] is 80 ? 114 seconds. The use of the anti-Xa (heparin) level rather than the PTT is recommended for monitoring anticoagul ation intensity in critically ill patients receiving unfractionated hepari n by continuous IV infusion. Specimen Anatomical Collection Method Collection Time Receive d Time (Source) Location / / Volume Laterality Blood specimen Venous Draw / 06/21/2016 12:50 06/21/20 16 (specimen) Unknown PM EDT 12:59 PM EDT Resulting Agency Comment Spec In Lab Maxx Lange MD HEMATOLOGY ORDERABLES Performing Organization Address City/[facility] [address]/ZIP Code Phon e Number [address] T4, free (06/21/2016 12:50 PM EDT) P athologist Signature Free T4 1.70 0.93 - 1.70 [facility] ng/dL [facility] Specimen Anatomical Collection Method Collection Time Receive d Time (Source) Location / / Volume Laterality Blood specimen Venous Draw / 06/21/2016 12:50 06/21/20 16 1:23 (specimen) Unknown PM EDT PM EDT Resulting Agency Comment Spec In Lab Maxx Lange MD CHEMISTRY ORDERABLES Performing Organization Address City/[facility] [address]/ZIP Code Phon e Number [address] T3, free (06/21/2016 12:50 PM EDT) athologist Signature T3, Free 4.4 2.0 - 4.4 [facility] pg/mL [facility] Specimen Anatomical Collection Method Collection Time Receive d Time (Source) Location / / Volume Laterality Blood specimen Venous Draw / 06/21/2016 12:50 06/21/20 16 1:23 (specimen) Unknown PM EDT PM EDT Resulting Agency Comment Spec In Lab Maxx Lange MD CHEMISTRY ORDERABLES Performing Organization Address City/State/[place] [address] [facility] [address] Differential, Automated (06/21/2016 12:50 PM EDT) athologist [facility] Neutrophils % 60.8 % [facility] Neutr Abs (ANC) 5.47 1.70 - [facility] 6.10 [facility] x10(3)/[facility] LABORATORY Lymphocytes % 29.5 % [facility] Lymphocytes Abs 2.7 0.9 - 3.2 [facility] x10(3)/[facility] LABORATORY Monocytes % 6.5 % [facility] Monocyte Abs 0.6 0.3 - 0.9 [facility] x10(3)/[facility] LABORATORY Eosinophils % 2.1 % [facility] Eosinophils Abs 0.2 0.0 - 0.4 [facility] x10(3)/[facility] LABORATORY Basophils % 0.9 % [facility] Basophils Abs 0.1 0.0 - 0.1 [facility] x10(3)/[facility] LABORATORY Immature Gran % 0.20 % [facility] Comment: Immature granulocytes(IG's)percentage an d absolute count will include metamyelocytes, myelocytes, and promyelo cytes. Blood smears from CBCs yielding IG's will be scanned manually for concor dance. If this scan disagrees with the automated IG or if promyelocytes are not ed, a manual differential will be performed. Amada Gran Abs 0.02 0.00 - 0.04 x10(3)/[facility] LABORATORY Specimen Anatomical Collection Method Collection Time Receive d Time (Source) Location / / Volume Laterality Blood specimen 06/21/2016 12:50 6 (specimen) PM EDT 12:59 PM EDT Resulting Agency Comment Spec In Lab Maxx Lange MD HEMATOLOGY ORDERABLES Performing Organization Address City/State/[place] [address] (ABNORMAL) Hemogram (06/21/2016 12:50 PM EDT) Analysis Performed At Patho logist Time Signature WBC 9.0 4.0 - 9.5 [facility] x10(3)/[facility] LABORATORY RBC 4.17 (L) 4.58 - [facility] 5.54 [facility] x10(6)/[facility] LABORATORY Hemoglobin 13.6 (L) 13.7 - [facility] 16.5 gm/dL [facility] LABORATORY Hematocrit 39.4 (L) 40.5 - [facility] 48.5 % [facility] LABORATORY MCV 94.5 (H) 82.9 - [facility] 93.[address] [facility] LABORATORY MCH 32.6 (H) 27.5 - [facility] 32.1 pg [facility] LABORATORY MCHC 34.5 32.0 - [facility] 35.7 gm/dL [facility] LABORATORY Platelets 286 145 - 357 [facility] x10(3)/[facility] LABORATORY RDWSD 42.3 36.0 - [facility] 45.[address] [facility] LABORATORY RDWCV 12.3 11.4 - [facility] 13.8 % [facility] LABORATORY MPV 9.6 7.6 - 12.9 [facility] LABORATORY nRBC % Auto 0.0 % [facility] LABORAT[facility] nRBC Abs Auto 0.000 0.000 - [facility] 0.000 [facility] x10(3)/[facility] LABORATORY Specimen Anatomical Collection Method Collection Time Receive d Time (Source) Location / / Volume Laterality Blood specimen 06/21/2016 12:50 6 (specimen) PM EDT 12:59 PM EDT Resulting Agency Comment Spec In Lab Maxx Lange MD HEMATOLOGY ORDERABLES Performing Organization Address City/State/ZIP Code Phon e Number [place], [place] [address] (ABNORMAL) Cardiac Enzymes (06/21/2016 12:50 PM EDT) P athologist Signature Troponin-T 0.61 (H) <=0.03 [facility] ng/mL [facility] Comment: 0.03 ng/mL: Represents the 99th percenti le upper reference limit for normals. >0.03 ng/mL: Elevated cardiac troponin T level indicative of myocardial damage. Diagnosis of acute, evolving or recent M I requires a typical rise and gradual fall of cTnT with at least ONE of the fo llowing: a) Ischemic symptoms b) Development of pathologic Q waves on the ECG c) ECG changes indicative of eschemia (S -T segment elevation/depression) d) Coronary artery intervention Serial bloods should be obtained for hoa ting on admission, at 6 to 9 hrs and again at 12 to 24 hrs if earlier samples are negative and the clinical index of suspicion is high. Reference: [Myocardial infarction redefined? a consensus document of the Joint Society of Cardiology/[place] [employer] o f [employer] Committee for the redefinition of myocardial infarction. ? ?Journal of the [place] [employer] 2000; 36: 959-969] CK, Total 211 (H) 0 - 200 unit/L [facility] Specimen Anatomical Collection Method Collection Time Receive d Time (Source) Location / / Volume Laterality Blood specimen 06/21/2016 12:50 6 (specimen) PM EDT 12:59 PM EDT Resulting Agency Comment Spec In Lab Maxx Lange MD CHEMISTRY ORDERABLES Performing Organization Address City/[facility] [address]/[place] [address] Prothrombin Time (06/21/2016 12:50 PM EDT) P athologist Signature PT 14.5 12.0 - 15.0 [facility] LABORATORY Comment: An INR <2.0 indicates adequate procoagul ant activity for hemostasis in most patients without underlying bleeding dis orders, though the INR may not adequately reflect hemostatic capacity i n patients with liver disease and synthetic impairment. The recommended ta rget INR range for therapeutic anticoagulation is 2.0 ? 3.0 for most applications, though lower and higher ranges may be appropriate depending on c linical circumstances. INR 1.1 0.9 - 1.1 [facility] Specimen Anatomical Collection Method Collection Time Receive d Time (Source) Location / / Volume Laterality Blood specimen 06/21/2016 12:50 6 (specimen) PM EDT 12:59 PM EDT Resulting Agency Comment Spec In Lab Maxx Lange MD HEMATOLOGY ORDERABLES Performing Organization Address City/State/ZIP [place] [address] (ABNORMAL) Hepatic Function Panel (06/21/2016 12:50 PM EDT) P athologist Signature Total Protein 5.9 (L) 6.1 - 8.0 [facility] gm/dL [facility] Albumin 3.6 3.2 - 5.2 [facility] gm/dL [facility] AST 30 0 - 39 [facility] unit/L [facility] ALT 25 0 - 55 [facility] unit/L [facility] Alk Phos 66 40 - 120 [facility] unit/L [facility] Total 0.3 0.2 - 1.3 [facility] Bilirubin mg/dL [facility] Bili, Direct 0.1 0.0 - 0.3 [facility] mg/dL [facility] Specimen Anatomical Collection Method Collection Time Receive d Time (Source) Location / / Volume Laterality Blood specimen 06/21/2016 12:50 6 (specimen) PM EDT 12:59 PM EDT Resulting Agency Comment Spec In Lab Maxx Lange MD CHEMISTRY ORDERABLES Performing Organization Address City/State/ZIP [place] [address] (ABNORMAL) pro-Brain Natriuretic Peptide (06/21/2016 12:50 PM EDT) P athologist Signature ProBNP 1,479 (H) <=125 [facility] pg/mL [facility] Specimen Anatomical Collection Method Collection Time Receive d Time (Source) Location / / Volume Laterality Blood specimen 06/21/2016 12:50 6 (specimen) PM EDT 12:59 PM EDT Resulting Agency Comment Spec In Lab Maxx Lange MD CHEMISTRY ORDERABLES Performing Organization Address City/State/ZIP Code Phon e Number [address] (ABNORMAL) TSH (06/21/2016 12:50 PM EDT) P athologist Signature TSH 0.02 (L) 0.27 - 4.20 [facility] Specimen Anatomical Collection Method Collection Time Receive d Time (Source) Location / / Volume Laterality Blood specimen 06/21/2016 12:50 6 (specimen) PM EDT 12:59 PM EDT Resulting Agency Comment Spec In Lab Maxx Lange MD CHEMISTRY ORDERABLES Performing Organization Address City/[facility] [address]/ZIP [place] [address] Magnesium (06/21/2016 12:50 PM EDT) P athologist Signature Magnesium 0.87 0.69 - 1.07 [facility]/L [facility] Specimen Anatomical Collection Method Collection Time Receive d Time (Source) Location / / Volume Laterality Blood specimen 06/21/2016 12:50 6 (specimen) PM EDT 12:59 PM EDT Resulting Agency Comment Spec In Lab Maxx Lange MD CHEMISTRY ORDERABLES Performing Organization Address City/[facility] [address]/ZIP [place] [address] (ABNORMAL) Basic Metabolic Panel (non-fasting) (06/21/2016 12:50 PM EDT) P athologist Signature Glucose Lvl 120 65 - 199 [facility] mg/dL [facility] Comment: Diabetes: >=200 mg/dL plus symp toms BUN 13 10 - 20 mg/dL [facility] Creatinine 1.31 0.80 - 1.50 mg/dL [facility] Comment: Please note that the pediatric reference intervals supplied above were not validated at [facility]. Results from pediatri c patients should be interpreted in conjunction to the patient's age, height and muscle mass. Sodium 139 135 - 145 mmol/L [facility] Potassium 4.4 3.5 - 5.0 mmol/L [facility] Comment: Please note: ??Patients with WBC >100,00 0 may have falsely elevated Potassium levels. ??For accurate Potassium quantif ication in these patients send serum separator tube (gold top) for subsequent determinations. ??Contact the Clinical Chemistry Laboratory if there are any qu estions. Chloride 103 98 - 107 mmol/L [facility] CO2 21 (L) 22 - 31 mmol/L [facility] Anion Gap 15 5 - 15 mmol/L [facility] Calcium 8.3 (L) 8.5 - 10.5 mg/dL [facility] Estimated GFR 56 (L) >=60 [facility] Comment: This estimated GFR (eGFR) value was calc ulated using the MDRD equation which has been validated on patients between t he ages of 18 and 70. The MDRD should not be used to assess kidney function in patients < 18 years of age or in patients with extremes of body mass, or in patients with acute kidney failure. This value should be multiplied by 1.2 f or patients. For further information please copy and past e the following links into your internet browser. [email or web address] [email or web address] Specimen Anatomical Collection Method Collection Time Receive d Time (Source) Location / / Volume Laterality Blood specimen 06/21/2016 12:50 6 (specimen) PM EDT 12:59 PM EDT Resulting Agency Comment Spec In Lab Maxx Lange MD CHEMISTRY ORDERABLES Performing Organization Address City/State/[place] [address] documented in this encounter Visit Diagnoses Diagnosis ST elevation (STEMI) myocardial infarcti on involving left anterior descending coronary artery Acute myocardial infarction of other ant erior wall, episode of care unspecified Status post coronary artery stent placem ent Postsurgical percutaneous transluminal c oronary angioplasty status Subsequent non-ST elevation (NSTEMI) sandra cardial infarction Acute myocardial infarction, subendocard ial infarction, initial episode of care Dyslipidemia Other and unspecified hyperlipidemia Acute systolic heart failure documented in this encounter Admitting Diagnoses Diagnosis STEMI (ST elevation myocardial infarctio n) Acute myocardial infarction, unspecified site, episode of care unspecified documented in this encounter Administered Medications Inactive Administered Medications - up to 3 most recent administrations Medication Order MAR Action Action Date Dose Rate Site acetaminophen (TYLENOL) tablet 650 Given 06/21/2016 7:09 PM EDT 650 mg mg 650 mg, Oral, EVERY 4 HOURS PRN, Starting on Tue06/21/16 at 1858, Until Tue06/22/16 at 1208, Pain, Maximum dose of acetaminophen is 4000 mg from all sources in 24 hours., Routine aspirin chewable tablet 81 mg Given 06/23/2016 8:13 AM EDT 81 mg 81 mg, Oral, DAILY, First dose on Tue06/22/16 at 0900, Until Discontinued, Routine Given 06/22/2016 8:45 AM EDT 81 mg atorvastatin (LIPITOR) tablet 80 mg Given 06/22/2016 5:47 PM EDT 80 mg 80 mg, Oral, EVERY EVENING, First dose on Tue06/21/16 at 1400, Until Discontinued, Routine Given 06/21/2016 5:11 PM EDT 80 mg bisacodyl (DULCOLAX) EC tablet 10 mg 10 mg, Oral, DAILY PRN, Starting on Tue06/22/16 at 14 19, Until Tue06/23/16 at 1546, Constipation, DO NOT CRUSH OR OPEN, Routine clopidogrel (PLAVIX) tablet 75 mg Given 06/23/2016 8:13 AM EDT 75 mg 75 mg, Oral, DAILY, First dose on Tue06/22/16 at 0930, Until Discontinued, Routine Given 06/22/2016 9:40 AM EDT 75 mg diaZEPam (VALIUM) tablet 5 mg Given 06/22/2016 9:40 AM EDT 5 mg 5 mg, Oral, ONCE, 1 dose, On Tue06/22/16 at 1000, Cath (Day of Procedure), Routine diphenhydrAMINE (BENADRYL) capsule 25 mg Given 06/22/2016 9:40 AM EDT 25 mg 25 mg, Oral, ONCE, 1 dose, On Tue06/22/16 at 1000, Cath (Day of Procedure), Routine docusate sodium (COLACE) capsule 100 mg Given 06/23/2016 8:13 AM EDT 100 mg 100 mg, Oral, 2 TIMES DAILY, First dose on Tue06/22/16 at 0115, Until Discontinued, Routine Given 06/22/2016 9:08 PM EDT 100 mg Given 06/22/2016 8:45 AM EDT 100 mg famotidine (PEPCID) tablet 20 mg Given 06/23/2016 8:13 AM EDT 20 mg 20 mg, Oral, 2 TIMES DAILY, First dose on Tue06/21/16 at 1400, Until Discontinued, Routine Given 06/22/2016 9:08 PM EDT 20 mg Given 06/22/2016 8:45 AM EDT 20 mg furosemide (LASIX) injection 20 mg Given 06/21/2016 4:03 PM EDT 20 mg 20 mg, Intravenous, ONCE, 1 dose, On Tue06/21/16 at 1400, Routine heparin (porcine) injection 2,000-4,000 Given 06/21/20 7:14 PM EDT 4,000 Units Units 2,000-4,000 Units, Intravenous, BOLUS PER HEPARIN PROTOCOL, Starting on Tue06/21/16 at 1421, Until Tue06/23/16 at 1546, Per Protocol, Adjust to dosing chart, Patient Weight 95-99 kg aPTT less than 60 seconds - 4,000 units aPTT 60-79 seconds - 2,000 units aPTT 80-114 seconds - no bolus Repeat aPTT 6 hours after initiating heparin. Then 6 hours after each dose adjustment. When 2 consecutive aPTT within target range of 80 - 114 seconds, change aPTT to once every 24 hours with A.M. labs while on heparin., RN to order required aPTT - Per Protocol, Routine heparin 25,000 units in New Bag 06/22/2016 3:57 AM 1,800 Units/hr 36 mL/hr dextrose 5% 500 mL infusion EDT 350-7,000 Units/hr (7-140 mL/hr), Intravenous, CONTINUOUS, Starting on Tue06/21/16 at 1445, Until Tue06/23/16 at 1546, Patient Weight 95-99 kg Initial dose - 1,000 units/hr = 20 mL/hr aPTT less than 60 sec - increase by 400 units/hr = 8 mL/hr aPTT 60-79 sec- increase by 200 units/hr = 4 mL/hr aPTT 80-114 sec - no change aPTT 115-129 sec - decrease by 100 units/hr = 2 mL/hr aPTT 130-145 sec - stop infusion for 30 min then decrease by 200 units/hr = 4 mL/hr aPTT greater than 145 sec - stop infusion for 60 min then decrease by 300 units/hr = 6 mL/hr aPTT greater than 145 sec X 2 - call powerhouse mechanic supervisor See Bolus dosing guidance for aPTT values less than 80 seconds under PRN medications Repeat aPTT 6 hours after initiating heparin. Then 6 hours after each dose adjustment. When 2 consecutive aPTT within target range of 80 - 114 seconds, change aPTT to once every 24 hours with A.M. labs while on heparin. RN to order required aPTT - Per Protocol, Routine Rate/Dose Verify 06/21/2016 10:00 PM EDT 1,400 Units/hr 28 mL/hr Rate/Dose Verify 06/21/2016 8:00 PM EDT 1,400 Units/hr 28 mL/hr lisinopril (PRINIVIL;ZESTRIL) tablet 5 m g Given 06/23/2016 11:48 AM EDT 5 mg 5 mg, Oral, DAILY, First dose on Tue06/23/16 at 1200, Until Discontinued, Routine magnesium hydroxide (MILK OF MAGNESIA) o ral suspension 10 mL 10 mL, Oral, DAILY PRN, Starting on Tue06/22/16 at 14 19, Until Tue06/23/16 at 1546, Constipation, 10 mL concentrate = 30 mL regular, Routine meTOPROLOL (LOPRESSOR) tablet 12.5 mg Given 06/23/2016 6:10 AM EDT 12.5 mg 12.5 mg, Oral, EVERY 6 HOURS SCHEDULED, First dose on Tue06/21/16 at 1815, Until Discontinued, Routine Given 06/22/2016 11:23 PM EDT 12.5 mg Given 06/22/2016 5:47 PM EDT 12.5 mg meTOPROLOL succinate (TOPROL-XL) XL tablet Given 06/23/2016 11:47 AM EDT 100 mg 100 mg 100 mg, Oral, DAILY, First dose on Tue06/23/16 at 1200, Until Discontinued, DO NOT CRUSH OR OPEN, Routine morphine 2 mg/mL carpuject 2 mg Given 06/22/2016 4:51 AM EDT 2 mg 2 mg, Intravenous, EVERY 4 HOURS PRN, Starting on Tue06/21/16 at 1858, Until Tue06/23/16 at 1546, Pain, Routine Given 06/21/2016 7:07 PM EDT 2 mg nitroGLYcerin 50 mg in Rate/Dose Change 06/22/2016 4:39 AM 70 mcg/min 21 mL/hr dextrose 5% 250 mL EDT infusion 0-200 mcg/min (0-60 mL/hr), Intravenous, CONTINUOUS, Starting on Tue06/21/16 at 1300, Until Tue06/23/16 at 1546, Titrate to angina pain 3/10 or less. Start at 10 mcg/min for pain not responsive to sublingual nitroglycerin and morphine and if systolic blood pressure (SBP) is 100 mmHg or greater. Adjust dose 10 mcg/min every 5 minutes if SBP is 100 mmHg or greater. Dose not to 200 mcg/min., Routine Rate/Dose Change 06/22/2016 4:24 AM EDT 60 mcg/min 18 mL/hr New Bag 06/22/2016 3:52 AM EDT 50 mcg/min 15 mL/hr ondansetron (ZOFRAN) tablet 4 mg Given 06/22/2016 2:42 PM EDT 4 mg 4 mg, Oral, EVERY 8 HOURS PRN, Starting on Tue06/22/16 at 1420, Until Tue06/23/16 at 1546, Nausea, Routine polyethylene glycol (MIRALAX) packet 17 g Given 06/22/2016 8:46 AM EDT 17 g 17 g, Oral, DAILY PRN, Starting on Tue06/22/16 at 0046, Until Tue06/23/16 at 1546, Constipation, Routine sodium chloride 0.9 % flush 5 mL Given 06/23/2016 11:48 AM EDT 10 mLs 5 mL, Intravenous, 2 TIMES DAILY, First dose on Tue06/21/16 at 1300, Until Discontinued, Routine Given 06/22/2016 9:08 PM EDT 5 mLs Given 06/22/2016 8:46 AM EDT 5 mLs sodium chloride 0.9% infusion New Bag 06/22/2016 12:45 PM EDT 100 mL/hr 100 mL/hr 100 mL/hr, Intravenous, CONTINUOUS, Starting on Tue06/22/16 at 1230, Until Tue06/22/16 at 1629, Recovery (Recovery-Hospital Unit) traMADol (ULTRAM) tablet 50 mg Given 06/23/2016 2:22 AM EDT 50 mg 50 mg, Oral, EVERY 4 HOURS PRN, Starting on Tue06/21/16 at 2214, Until Tue06/23/16 at 1546, Headaches, Routine Given 06/22/2016 3:55 AM EDT 50 mg documented in this encounter Active and Recently Administered Medications Times are shown in EDT. Scheduled Medication Order 06/21/2016 06/22/2016 06/23/2016 aspirin chewable tablet 81 mg 0845 (Give n - Provider: Martina Holder RN)1011 ([facility] Hold - Provider: Admin Adt - Reason: Transfer to a Procedural area)1418 ([facility] Unhold - Provider: Admin Adt) 0813 (Given - Provider: David Brandt RN) 81 mg, Oral, DAILY, First dose on Tue at 0900, Until Discontinued, Routine atorvastatin (LIPITOR) tablet 80 mg 1711 (Given - Provider: Charleen Grimm RN) 1011 ([facility] Hold - Provider: Admin Adt - Reason: Transfer to a Procedural area)1418 ([facility] Unhold - Provider: Admin Adt)1747 (Given - Provider: Martina Holder RN) 80 mg, Oral, EVERY EVENING, First dose o n Tue06/21/16 at 1400, Until Discontinued, Routine clopidogrel (PLAVIX) tablet 75 mg 0940 ( Given - Provider: Martina Holder RN)1011 ([facility] Hold - Provider: Admin Adt - Reason: Transfer to a Procedural area)1418 ([facility] Unhold - Provider: Admin Adt) 0813 (Given - Provider: David Brandt RN) 75 mg, Oral, DAILY, First dose on Tue at 0930, Until Discontinued, Routine diaZEPam (VALIUM) tablet 5 mg (COMPLETED) 0940 (Given - Provider: Martina Holder RN) 5 mg, Oral, ONCE, 1 dose, Tue06/22/16 a t 1000, Cath (Day of Procedure), Routine diphenhydrAMINE (BENADRYL) capsule 25 mg (COMPLETED) 0940 (Given - Provider: Martina Holder RN) 25 mg, Oral, ONCE, 1 dose, Tue06/22/16 at 1000, Cath (Day of Procedure), Routine docusate sodium (COLACE) capsule 100 mg 0235 (Given - Provider: Mele Hammond RN)0845 (Given - Provider: Martina Holder RN)1011 ([facility] Hold - Provider: Admin Adt - Reason: Transfer to a Procedural area)1418 ([facility] Unhold - Provider: Admin Adt)210 (Given - Provider: Mele Hammond RN) 0813 (Given - Provider: David Brandt RN) 100 mg, Oral, 2 TIMES DAILY, First dose on Tue06/22/16 at 0115, Until Discontinued, Routine famotidine (PEPCID) tablet 20 mg 1711 (Given - Provide r: Charleen Grimm RN)2036 (Given - Provider: Apple Baker RN) 0845 (Given - Provider: Martina Holder RN)101 ([facility] Hold - Provider: Admin Adt - Reason: Transfer to a Procedural area)141 ([facility] Unhold - Provider: Admin Adt)2107 (Given - Provider: Mele Hammond RN) 0813 (Given - Provider: David Brandt RN) 20 mg, Oral, 2 TIMES DAILY, First dose o n Tue06/21/16 at 1400, Until Discontinued, Routine furosemide (LASIX) injection 20 mg (COMPLETED) 1603 (G iven - Provider: Charleen Grimm RN) 20 mg, Intravenous, ONCE, 1 dose, Tue06/21/16 at 1400, Routine lisinopril (PRINIVIL;ZESTRIL) tablet 5 mg 1148 (Given - Provider: David Brandt RN) 5 mg, Oral, DAILY, First dose on 08/27 at 1200, Until Discontinued, Routine meTOPROLOL (LOPRESSOR) tablet 12.5 mg (CANCELED) 1909 (Given - Provider: Charleen Grimm RN) 0013 (Given - Provider: Clemencia Bueno N)0602 (Given - Provider: Mele Hammond RN)1011 (N[facility] Hold - Provider: Admin Adt - Reason: Transfer to a Procedural area)1200 (Automatically Held - Provider: Admin Adt)1418 ([facility] Unhold - Provider: Admin Adt) 0610 (Given - Provider: Mele Hammond RN) 12.5 mg, Oral, EVERY 6 HOURS SCHEDULED, First dose on Tue06/21/16 at 1815, Until Discontinued, Routine 1747 (Given - Provider: Johnny Holder, MERYL)2323 (Given - Provider: Mele Hammond RN) meTOPROLOL succinate (TOPROL-XL) XL tablet 100 mg 1147 (Given - Provider: David Brandt, MERYL) 100 mg, Oral, DAILY, First dose on Tue at 1200, Until Discontinued, DO NOT CRUSH OR OPEN, Routine meTOPROLOL tartrate (LOPRESSOR) tablet 25 mg 25 mg, Oral, EVERY 6 HOURS SCHEDULED, Fi rst dose on Tue06/23/16 at 1200, Until Discontinued, Routine sodium chloride 0.9 % flush 5 mL 1305 (Given - Provide r: Charleen Grimm RN)2037 (Given - Provider: Apple Baker, MERYL) 0846 (Given - Provider: Martina Holder RN)1011 (N[facility] Hold - Provider: Admin Adt - Reason: Transfer to a Procedural area)1418 ([facility] Unhold - Provider: Admin Adt)2108 (Given - Provider: Mele Hammond RN) 1148 (Given - Provider: David Brandt, MERYL) 5 mL, Intravenous, 2 TIMES DAILY, First dose on Tue06/21/16 at 1300, Until Discontinued, Routine Continuous Medication Order 06/21/2016 06/22/2016 06/23/2016 heparin 25,000 units in dextrose 5% 500 mL infusion 13 00 (Continued Bag - Provider: Charleen Grimm RN)1600 (Rate/Dose Verify - Provider: Charleen Grimm RN)1913 (Rate/Dose Change - Provider: Charleen Grimm RN)2000 (Rate/Dose Verify - Provider: Apple Baker, MERYL) 0357 (New Bag - Provider: Gianna Connor RN)1011 (N[facility] Hold - Provider: Admin Adt - Reason: Transfer to a Procedural area)1418 ([facility] Unhold - Provider: Admin Adt) 350-7,000 Units/hr (7-140 mL/hr), Intrav enous, at 7-140 mL/hr, CONTINUOUS, Starting 06/21/16 at 1445, Until Tue06/23/16 at 1546, Patient Weight 95-99 kg Initial dose - 1,000 units/hr = 20 mL/hr aP 2200 (Rate/Dose Verify - Provider: Apple Baker RN) TT less than 60 sec - increase by 400 un its/hr = 8 mL/hr aPTT 60-79 sec- increase by 200 units/hr = 4 mL/hr aPTT 80-114 sec - no change aPTT 115-129 sec - decrease by 100 units/hr = 2 mL/hr aPTT 130-145 sec - stop infusion for 30 min then dec rease by 200 units/hr = 4 mL/hr aPTT greater than 145 sec - stop infusion for 60 min then decrease by 300 units/hr = 6 mL/hr aPTT greater than 145 sec X 2 - call powerhouse mechanic supervisor See Bolus dosing julia ce for aPTT values less than 80 seconds under PRN medications Repeat aPTT 6 hours after initiating heparin. Then 6 hours after each dose adjustment. When 2 consec utive aPTT within target range of 80 - 1 14 seconds, change aPTT to once every 24 hours with A.M. labs while on heparin. RN to order required aPTT - Per Protocol, Routine nitroGLYcerin 50 mg in dextrose 5% 250 mL infusion 130 0 (Stopped - Provider: Charleen Grimm RN)1745 (Restarted - Provider: Charleen Grimm RN)1752 (Rate/Dose Change - Provider: Charleen Grimm RN)1800 (Rate/Dose Change - Provider: Charleen Grimm RN) 0352 (New Bag - Provider: Gianna Connor , RN)0424 (Rate/Dose Change - Provider: Gianna Connor, RN)0439 (Rate/Dose Change - Provider: Gianna Connor, RN)1011 ([facility] Hold - Provider: Admin Adt - Reason: Transfer to a Procedural area) 0-200 mcg/min (0-60 mL/hr), Intravenous, at 0-60 mL/hr, CONTINUOUS, Starting Tue06/21/16 at 1300, Until Tue06/23/16 at 1546, Titrate to angina pain 3/10 or less. Start at 10 mcg/min for pain not respo 1820 (Rate/Dose Change - Provider: Charleen Grimm RN)1920 (Rate/Dose Change - Provider: Charleen Grimm RN)2000 (Rate/Dose Verify - Provider: Apple Baker, MERYL)2200 (Rate/Dose Verify - Provider: Apple Baker RN) 1418 (N[facility] Unhold - Provider: Admin Adt) nsive to sublingual nitroglycerin and mo rphine and if systolic blood pressure (SBP) is 100 mmHg or greater. Adjust dose 10 mcg/min every 5 minutes if SBP is 100 mmHg or greater. Dose not to 200 mcg/min., Routine sodium chloride 0.9% infusion (CANCELED) 1000 (Due)1130 (New Bag - Provider: Dago Oro RN) 200 mL/hr, at 200 mL/hr, Intravenous, CO NTINUOUS, Starting Tue06/22/16 at 1000, Until Tue06/22/16 at 1208, Cath (Day of Procedure) sodium chloride 0.9% infusion () 1245 (New Bag - Provider: Ayah Patel RN) 100 mL/hr, at 100 mL/hr, Intravenous, CO NTINUOUS, Starting Tue06/22/16 at 1230, Until Tue06/22/16 at 1629, Recovery (Recovery-Hospital Unit) PRN Medication Order 06/21/2016 06/22/2016 06/23/2016 acetaminophen (TYLENOL) tablet 650 mg (CANCELED) 1909 (Given - Provider: Charleen Grimm, MERYL) 1011 (NOV Hold - Provider: Admin Adt - R dot: Transfer to a Procedural area)1208 (N[facility] Unhold - Provider: Admin Adt) 650 mg, Oral, EVERY 4 HOURS PRN, Startin g Tue06/21/16 at 1858, Until Tue06/22/16 at 1208, Pain, Maximum dose of acetaminophen is 4000 mg from all sources in 24 hours., Routine bisacodyl (DULCOLAX) EC tablet 10 mg 10 mg, Oral, DAILY PRN, Starting 07/28 at 1419, Until Tue06/23/16 at 1546, Constipation, DO NOT CRUSH OR OPEN, Routine fentaNYL 50 mcg/mL multi-dose injection (CANCELED) 113 5 (Given - Provider: Stiven Malave)1142 (Given - Provider: Stiven Malave) ONCE PRN, Starting Tue06/21/16 at 1135, Until Tue06/21/16 at 1231, Intra- Operative (Intra-Procedure), Routine fentaNYL 50 mcg/mL multi-dose injection (CANCELED) 1008 (Given - Provider: Dago Oro RN)1015 (Given - Provider: Dago Oro RN)1130 (Given - Provider: Dago Oro, MERYL)1156 (Given - Provider: Dago Oro RN) ONCE PRN, Starting Tue06/22/16 at 1008, Until Tue06/22/16 at 1327, Intra- Operative (Intra-Procedure), Routine heparin (porcine) injection 2,000-4,000 Units 1914 (Gi marcin - Provider: Charleen Grimm RN) 1011 ([facility] Hold - Provider: Admin Adt - R dot: Transfer to a Procedural area)1418 ([facility] Unhold - Provider: Admin Adt) 2,000-4,000 Units, Intravenous, BOLUS PE R HEPARIN PROTOCOL, Starting Tue06/21/16 at 1421, Until Tue06/23/16 at 1546, Per Protocol, Adjust to dosing chart, Patient Weight 95-99 kg aPTT less than 60 se conds - 4,000 units aPTT 60-79 seconds - 2,000 units aPTT 80-114 seconds - no bolus Repeat aPTT 6 hours after initiating heparin. Then 6 hours after each dose adjustment. When 2 consecutive aPTT within target range of 80 - 114 seconds, friedman e aPTT to once every 24 hours with A.M. labs while on heparin., RN to order required aPTT - Per Protocol, Routine heparin (porcine) injection (CANCELED) 1148 (Given - P vale: Marin Rosales MD) ONCE PRN, Starting Tue06/21/16 at 1148, Until Tue06/21/16 at 1231, Cath (Intra-Procedure), Routine heparin (porcine) injection (CANCELED) 1 023 (Given - Provider: Dago Oro RN)1040 (Given - Provider: Loi Sanz, MERYL)1141 (Given - Provider: Loi Sanz RN) ONCE PRN, Starting Tue06/22/16 at 1023, Until Tue06/22/16 at 1326, Cath (Intra-Procedure), Routine heparin 2000 units in sodium chloride 0.9% 1000 mL inf usion (CANCELED) 1208 (New Bag - Provider: Stiven Malave) CONTINUOUS PRN, Starting Tue06/21/16 at 1208, Until Tue06/21/16 at 1231, Intra-Operative (Intra-Procedure), Routine iohexol (OMNIPAQUE) 350 mg/mL solution (CANCELED) 1224 (Given - Provider: Ely Peralta MD) ONCE PRN, Starting Tue06/21/16 at 1224, Until Tue06/21/16 at 1404, Cath (Intra-Procedure), Routine iohexol (OMNIPAQUE) 350 mg/mL solution (CANCELED) 1201 (Given - Provider: Ely Peralta MD) ONCE PRN, Starting Tue06/22/16 at 1201, Until Tue06/22/16 at 1326, Cath (Intra-Procedure), Routine lidocaine (XYLOCAINE) 10 mg/mL (1 %) injection 3 mg 1011 (MAR Hold - Provider: Admin Adt - Reason: Transfer to a Procedural area)1418 (MAR Unhold - Provider: Admin Adt) 3 mg (0.3 mL), Subcutaneous, ONCE PRN, 1 dose, Starting Tue06/21/16 at 1231, Until Tue06/23/16 at 1546, for discomfort with PIV insertion, Routine lidocaine (XYLOCAINE) 10 mg/mL (1 %) injection (CANCEL ED) 1140 (Given - Provider: Marin Rosales MD) ONCE PRN, Starting Tue06/21/16 at 1140, Until Tue06/21/16 at 1231, Cath (Intra-Procedure), Routine magnesium hydroxide (MILK OF MAGNESIA) oral suspension 10 mL 10 mL, Oral, DAILY PRN, Starting 07/28 at 1419, Until Tue06/23/16 at 1546, Constipation, 10 mL concentrate = 30 mL regular, Routine midazolam (PF) (VERSED) 1 mg/mL multi-dose injection ( CANCELED) 1135 (Given - Provider: Stiven Malave)1142 (Given - Provider: Stiven Malave) ONCE PRN, Starting Tue06/21/16 at 1135, Until Tue06/21/16 at 1231, Cath (Intra-Procedure), Routine midazolam (PF) (VERSED) 1 mg/mL multi-dose injection (CANCEL ED) 1008 (Given - Provider: Dago Oro, MERYL)1015 (Given - Provider: Dago Oro, MERYL) ONCE PRN, Starting Tue06/22/16 at 1008, Until Tue06/22/16 at 1327, Cath (Intra-Procedure), Routine morphine 2 mg/mL carpuject 2 mg 1907 (Given - Provider: Karen Grimm, MERYL) 0451 (Given - Provider: Gianna Connor, MERYL)1011 (NOV Hold - Provider: Admin Adt - Reason: Transfer to a Procedural area)1418 ([facility] Unhold - Provider: Admin Adt) 2 mg, Intravenous, EVERY 4 HOURS PRN, St arting Tue06/21/16 at 1858, Until Tue06/23/16 at 1546, Pain, Routine nitroGLYcerin (NITROSTAT) SL tablet 0.4 mg 1011 (NOV Hold - Provider: Admin Adt - Reason: Transfer to a Procedural area)1418 ([facility] Unhold - Provider: Admin Adt) 0.4 mg, Sublingual, EVERY 5 MIN PRN, Sta rting Tue06/21/16 at 1231, Until Tue06/23/16 at 1546, Chest pain, May repeat every 5 minutes for a total of three doses. Notify provider if chest pain not relie ammy with nitroglycerin. Do not administe r nitroglycerin if the patinet has received or taken phosphodiesterase (PDE-5) inhibitors such as sildenafil, tadalafil or vardenafil within the last 24 to 72 hours., Routine nitroGLYcerin 100 mcg/mL intracoronary dilution (CANCELED) 1130 (Given - Provider: Ely Peralta MD)1156 (Given - Provider: Ely Peralta MD) ONCE PRN, Starting Tue06/22/16 at 1130, Until Tue06/22/16 at 1326, Cath (Intra-Procedure), Routine nitroGLYcerin 50 mg in dextrose 5% 250 mL infusion (CA NCELED) 1222 (New Bag - Provider: Dago Oro, MERYL)1300 (Stopped - Provider: Charleen Grimm, MERYL) CONTINUOUS PRN, Starting Tue06/21/16 at 1222, Until Tue06/21/16 at 1404, Cath (Intra-Procedure), Routine ondansetron (ZOFRAN) tablet 4 mg 1442 (Given - P rovider: Martina Holder, MERYL) 4 mg, Oral, EVERY 8 HOURS PRN, Starting Tue06/22/16 at 1420, Until Tue06/23/16 at 1546, Nausea, Routine polyethylene glycol (MIRALAX) packet 17 g 0846 (Given - Provider: Martina Holder, MERYL)1011 (MAR Hold - Provider: Admin Adt - Reason: Transfer to a Procedural area)1418 ([facility] Unhold - Provider: Admin Adt) 17 g, Oral, DAILY PRN, Starting 06/12 at 0046, Until Tue06/23/16 at 1546, Constipation, Routine sodium chloride 0.9 % flush 5-20 mL 1011 (MAR Hold - Provider: Admin Adt - Reason: Transfer to a Procedural area)1418 ([facility] Unhold - Provider: Admin Adt) 5-20 mL, Intravenous, EVERY 1 MIN PRN, S tarting Tue06/21/16 at 1231, Until Tue06/23/16 at 1546, flush, Flush pertains to all indwelling lines. Flush per protocol found in the job aid using the link provided on this medication record., Routine traMADol (ULTRAM) tablet 50 mg 0355 (Giv en - Provider: Gianna Connor, RN)1011 (MAR Hold - Provider: Admin Adt - Reason: Transfer to a Procedural area)1418 ([facility] Unhold - Provider: Admin Adt) 0222 (Given - Provider: Clemencia Bueno) 50 mg, Oral, EVERY 4 HOURS PRN, Starting Tue06/21/16 at 2214, Until Tue06/23/16 at 1546, Headaches, Routine verapamil (ISOPTIN) injection (CANCELED) 1018 (Given - Provider: Ely Peralta MD) ONCE PRN, Starting 06/22/16 at 1018, Until Tu06/22/16 at 1326, Administer over 2 Minutes, Cath (Intra-Procedure) documented in this encounter Care Teams Library Media Technician Relationship Specialty Start Date End Date None PCP - General Internal Medicine 10/01/13 03/19/18 None documented as of this encounter
--- OUTSIDE RECORDS SUMMARY | 2022-07-25 17:56 | XMS_ITS | Encounter Summary ---
:1960 Author Organization [facility] [place] [address] Care Team Providers Name Role Phone Juice Jensen DO Primary Care Provider Reason for Visit Reason Comments Medication Refill Encounter Details Date Type Department Care Team Description 10/23/2016 Refill Internal Medicine at [facility] Gorge Reese MD [facility] [place] [address] CARDIOLOGY DEPT [phone] [place], [place] [address] (Wo rk) Social History Tobacco Use Types Packs/Day Years Used Date Smoking Tobacco: Never Assessed Sex Assigned at Date Recorded Not on file documented as of this encounter Plan of Treatment Not on filedocumented as of this encounter Visit Diagnoses Not on filedocumented in this encounter Care Teams Asset Liability Analyst Relationship Specialty Start Date End Date Juice Jensen DO PCP - General General Internal Medicine 03/20/[address] [place] [address] [place] [phone] documented as of this encounter
--- OUTSIDE RECORDS SUMMARY | 2022-07-25 17:56 | XMS_ITS | Clinical Summary ---
:1960 Author Organization [facility] [place] [address] Care Team Providers Name Role Phone Juice Jensen Primary Care Provider Allergies Active Allergy Reactions Severity Noted Date Comments Lisinopril 03/21/2018 cough Medications Medication Sig Dispensed Refills Start Date End Date Status aspirin 81 mg Tablet, Take 81 mg by 30 tablet 3 06/23/2016 Active Chewable mouth daily. atorvastatin (LIPITOR) Take 1 tablet by 30 tablet 3 06/23/2016 Active 80 mg Tablet mouth every evening. clopidogrel (PLAVIX) 75 Take 1 tablet by 30 tablet 3 6 Active mg Tablet mouth daily. sertraline (ZOLOFT) 100 Take 100 mg by 0 Active mg Tablet mouth daily. OLANZapine (ZYPREXA) 10 Take 5 mg by 0 Active mg Tablet mouth nightly. donepezil (ARICEPT) 10 Take 10 mg by 0 Active mg Tablet mouth nightly. ranitidine (ZANTAC) 150 Take 150 mg by 0 Active mg Capsule mouth 2 times daily. cholecalciferol, Take 1,000 Units 0 Active Vitamin D3, 1,000 unit by mouth. Capsule losartan (COZAAR) 100 Take 0.5 tablets 90 tablet 3 03/21/2018 Active mg Tablet by mouth daily. nitroGLYcerin Place 1 tablet 90 tablet 12 03/21/2018 Active (NITROSTAT) 0.4 mg under the tongue Tablet, Sublingual every 5 minutes as needed for Chest pain. isosorbide mononitrate Take 1 tablet by 30 tablet 12 03/22/2018 Active (IMDUR) 30 mg Tablet mouth every Sustained Release 24 hr morning. furosemide (LASIX) 20 Take 1 tablet by 30 tablet 0 03/21/2018 Active mg Tablet mouth daily. Active Problems Problem Noted Date Chest pain 03/21/2018 Dyslipidemia 06/22/2016 Overview: Low HDL Acute systolic heart failure 06/22/2016 Subsequent non-ST elevation (NSTEMI) myocardial infarc tion 06/21/2016 Immunizations Name Administration Dates Next Due Influenza PF, Split 06/23/2016 Social History Tobacco Use Types Packs/Day Years Used Date Smoking Tobacco: Never Assessed Alcohol Use Standard Drinks/Week Comments No 0 (1 standard drink = 0.6 oz pure alcoho l) Sex Assigned at Date Recorded Not on file Last Filed Vital Signs Vital Sign Reading Time Taken Comments Blood Pressure 159/96 03/21/2018 11:33 AM EDT Pulse 45 03/21/2018 8:29 AM EDT Temperature 36.9 ??C (98.4 ??F) 03/21/2018 11:33 AM EDT Respiratory Rate 16 03/21/2018 11:33 AM EDT Oxygen Saturation 94% 03/21/2018 11:33 AM EDT Inhaled Oxygen Concentration - - Weight 99.8 kg (220 lb) 03/21/2018 8:29 AM EDT Height 175.3 cm (5' 9) 03/21/2018 8:29 AM EDT Body Mass Index 32.49 03/21/2018 8:29 AM EDT Plan of Treatment Health Maintenance Due Date Last Done Comments Covid-19 Vaccine (#1) 1960 HIV screen 1978 Hepatitis C Screening 1976 Tdap adult 1977 Tetanus vaccine 1977 Colonoscopy 2003 Zoster vaccine (1 of 2) 2008 Advance Directive 2013 Influenza (Flu) vaccine (1 of 1 - Influenza standard 05/13/2022 06/23/2016 series) Insurance Payer Benefit Plan / Subscriber ID Effective Dates Phone Addre ss Type Group [facility] [id number] 2017-Presen [phone] [address] [employer] [place] PPO t 3 [place], [place] [address] Advance Directives Latest Code Status on File Code Status Date Activated Date Inactivated Comments Full Code 03/21/2018 5:41 AM 03/21/2018 7:23 PM Question Answer Comments Does patient have capacity to make decision: Yes Code Status History Code Status Date Activated Date Inactivated Comments Full Code 03/21/2018 1:02 AM 03/21/2018 4:33 AM Question Answer Comments Does patient have capacity to make decision: Yes Full Code 06/21/2016 12:22 PM 06/23/2016 3:47 PM Question Answer Comments Does patient have capacity to make decision: Yes Care Teams Baker Bread Relationship Specialty Start Date End Date Juice Jensen DO PCP - General General Internal Medicine 03/20/[address] [place] [address] YEE Osullivan [phone]
--- OUTSIDE RECORDS SUMMARY | 2022-07-25 17:56 | XMS_ITS | Encounter Summary ---
:[address] [facility] Address [address] [place] [address] Care Team Providers Name Role Phone Unknown, Provider Primary Care Provider Encounter Details Date Type Department Care Team Description 08/17/2017 Historical Results [facility] - Zafar Maza, Only [facility] Radiology Resul ts [address] [place], [place] [id number] [place] [address] [phone] Social History Tobacco Use Types Packs/Day Years Used Date Smoking Tobacco: Never Assessed Sex Assigned at Date Recorded Not on file documented as of this encounter Plan of Treatment Not on filedocumented as of this encounter Procedures Procedure Name Priority Date/Time Associated Diagnosis Comme nts MR HEAD WO CONTRAST 08/17/2017 19:02 Resu lts for this EST procedure are i n the results section. MR HEAD WO CONTRAST 08/17/2017 16:28 Resu lts for this EST procedure are i n the results section. documented in this encounter Results MR HEAD WO CONTRAST (08/17/2017 19:02 EST) Anatomical Region Laterality Modality Head Magnetic Resonance Specimen (Source) Anatomical Collection Method Collection Time Re ceived Time Location / / Volume Laterality 08/17/2017 19:02 EST Narrative 08/17/2017 19:02 EST ? EXAM: MAGNETIC RESONANCE IMAGING/BRAIN WI EX. D/ (183) ? CLINICAL INFORMATION: ? NEW ONSET PSYCHOSIS ? EXAM: ? MR Head Without Intravenous Co ntrast ? CLINICAL HISTORY: ? 57 years old, male; Signs and symptoms; Psychosis or psychotic ? disorder; Unspecified; Additional info: New onset psychosis ? TECHNIQUE: ? Magnetic resonance images of chris green head/brain without ? intravenous contrast in multiple planes. ? COMPARISON: ? CT - HEAD WITHOUT CONTRAST 201 03-23-01 21:22 ? FINDINGS: ? Brain: ??Scattered prominent p erivascular CSF spaces are noted ? incidentally. This reflects a annabella iation of normal anatomy. ? There are punctate subcortical an d to a lesser extent ? periventricular white matter lesi ons consistent with mild small ? vessel disease. ??No hemorrhage. ??No acute infarct. ? Ventricles: ??Unremarkable. ?? No ventriculomegaly. ? Bones/joints: ??Unremarkable. ? Sinuses: ??Unremarkable as vis ualized. ??No acute sinusitis. ? Mastoid air cells: ??Unremarka ble as visualized. ??No mastoid ? effusion. ? Orbits: ??Unremarkable as visu alized. ? IMPRESSION: ? Mild senescent changes as deta iled above. There is no ? restricted diffusion to suggest a cute infarction. No mass ? lesions or other abnormalities ar e seen. ? REPORT SIGNED IN OTHER VENDOR SYSTEM 08/17/2017 ?Reported B y: hang Justin MD ? CC: ? Transcribed Date/Time: 08/17/2017 (1902) ? Oxyacetylene Cutter: ? Printed Date/Time: 02/28/2019 (12 48) ? PAGE 1 ? Leah d Report ? Procedure Note Hang Justin MD - 10/08/2019Formatt ing of this note might be different from the original. EXAM: MAGNETIC RESONANCE IMAGING/BRAIN WI EX. D/ (183) CLINICAL INFORMATION: NEW ONSET PSYCHOSIS EXAM: MR Head Without Intravenous Contrast CLINICAL HISTORY: 57 years old, male; Signs and symptoms; Psychosis or psychotic disorder; Unspecified; Additional info: New onset psychosis TECHNIQUE: Magnetic resonance images of the head/b rain without intravenous contrast in multiple planes . COMPARISON: CT - HEAD WITHOUT CONTRAST 2017-08-12 2 1:22 FINDINGS: Brain: Scattered prominent perivascular CSF spaces are noted incidentally. This reflects a variation of normal anatomy. There are punctate subcortical and to a lesser extent periventricular white matter lesions co nsistent with mild small vessel disease. No hemorrhage. No acute infarct. Ventricles: Unremarkable. No ventriculo megaly. Bones/joints: Unremarkable. Sinuses: Unremarkable as visualized. No acute sinusitis. Mastoid air cells: Unremarkable as visu alized. No mastoid effusion. Orbits: Unremarkable as visualized. IMPRESSION: Mild senescent changes as detailed abov e. There is no restricted diffusion to suggest acute i nfarction. No mass lesions or other abnormalities are seen . REPORT SIGNED IN OTHER VENDOR SYSTEM 08/17/2017 Reported By: hang Justin MD CC: Transcribed Date/Time: 08/17/2017 (190 ) Oxyacetylene Cutter: Printed Date/Time: 02/28/2019 (6600) PAGE 1 Signed Report Zafar Maza MD IMG MRI ORDERABLES MR HEAD WO CONTRAST (08/17/2017 16:28 EST) Anatomical Region Laterality Modality Head Magnetic Resonance Specimen (Source) Anatomical Collection Method Collection Time Re ceived Time Location / / Volume Laterality 08/17/2017 16:28 EST Narrative 08/17/2017 19:02 EST ? EXAM: MAGNETIC RESONANCE IMAGING/BRAIN WI EX. D/ (183) ? CLINICAL INFORMATION: ? NEW ONSET PSYCHOSIS ? EXAM: ? MR Head Without Intravenous Co ntrast ? CLINICAL HISTORY: ? 57 years old, male; Signs and symptoms; Psychosis or psychotic ? disorder; Unspecified; Additional info: New onset psychosis ? TECHNIQUE: ? Magnetic resonance images of t he head/brain without ? intravenous contrast in multiple planes. ? COMPARISON: ? CT - HEAD WITHOUT CONTRAST 201 03-23-01 21:22 ? FINDINGS: ? Brain: ??Scattered prominent p erivascular CSF spaces are noted ? incidentally. This reflects a annabella iation of normal anatomy. ? There are punctate subcortical an d to a lesser extent ? periventricular white matter lesi ons consistent with mild small ? vessel disease. ??No hemorrhage. ??No acute infarct. ? Ventricles: ??Unremarkable. ?? No ventriculomegaly. ? Bones/joints: ??Unremarkable. ? Sinuses: ??Unremarkable as vis ualized. ??No acute sinusitis. ? Mastoid air cells: ??Unremarka ble as visualized. ??No mastoid ? effusion. ? Orbits: ??Unremarkable as visu alized. ? IMPRESSION: ? Mild senescent changes as deta iled above. There is no ? restricted diffusion to suggest a cute infarction. No mass ? lesions or other abnormalities ar e seen. ? REPORT SIGNED IN OTHER VENDOR SYSTEM 08/17/2017 ?Reported B y: hang Justin MD ? CC: ? Transcribed Date/Time: 08/17/2017 (1901) ? Oxyacetylene Cutter: ? Printed Date/Time: 02/28/2019 (12 48) ? PAGE 1 ? Leah d Report ? Procedure Note Hang Justin MD - 10/08/2019Formatt ing of this note might be different from the original. EXAM: MAGNETIC RESONANCE IMAGING/BRAIN WI EX. D/ (183) CLINICAL INFORMATION: NEW ONSET PSYCHOSIS EXAM: MR Head Without Intravenous Contrast CLINICAL HISTORY: 57 years old, male; Signs and symptoms; Psychosis or psychotic disorder; Unspecified; Additional info: New onset psychosis TECHNIQUE: Magnetic resonance images of the head/b rain without intravenous contrast in multiple planes . COMPARISON: CT - HEAD WITHOUT CONTRAST 2017-08-12 2 1:22 FINDINGS: Brain: Scattered prominent perivascular CSF spaces are noted incidentally. This reflects a variation of normal anatomy. There are punctate subcortical and to a lesser extent periventricular white matter lesions co nsistent with mild small vessel disease. No hemorrhage. No acute infarct. Ventricles: Unremarkable. No ventriculo megaly. Bones/joints: Unremarkable. Sinuses: Unremarkable as visualized. No acute sinusitis. Mastoid air cells: Unremarkable as visu alized. No mastoid effusion. Orbits: Unremarkable as visualized. IMPRESSION: Mild senescent changes as detailed abov e. There is no restricted diffusion to suggest acute i nfarction. No mass lesions or other abnormalities are seen . REPORT SIGNED IN OTHER VENDOR SYSTEM 08/17/2017 Reported By: hang Justin MD CC: Transcribed Date/Time: 08/17/2017 (1901 ) Oxyacetylene Cutter: Printed Date/Time: 02/28/2019 (2813) PAGE 1 Signed Report Zafar Maza MD IMG MRI ORDERABLES documented in this encounter Visit Diagnoses Not on filedocumented in this encounter Care Teams Rail Car Repair Carman Relationship Specialty Start Date End Date Unknown, Provider, PCP - General 08/12/17 documented as of this encounter
--- OUTSIDE RECORDS SUMMARY | 2022-07-25 17:56 | XMS_ITS | Encounter Summary ---
:1960 Author Organization [facility] Address [address] [place] [address] Care Team Providers Name Role Phone Unknown, Provider Primary Care Provider Encounter Details Date Type Department Care Team Description 08/17/2017 Hospital Encounter [facility] - Unknown, Latonya vargas [facility] [phone] [place] [address] (Work) [place] [address] Social History Tobacco Use Types Packs/Day Years Used Date Smoking Tobacco: Never Assessed Sex Assigned at Date Recorded Not on file documented as of this encounter Discharge Disposition Disposition Code Departure Means Destination Home or Self Snf documented in this encounter Plan of Treatment Not on filedocumented as of this encounter Visit Diagnoses Not on filedocumented in this encounter Care Teams Laundry Or Dry Cleaners Counter Clerk Relationship Specialty Start Date End Date Unknown, Provider, PCP - General 08/12/17 documented as of this encounter
--- OUTSIDE RECORDS SUMMARY | 2022-07-25 17:56 | XMS_ITS | Encounter Summary ---
:1960 [place] [address] Care Team Providers Name Role Phone uJice Jensen DO Primary Care Provider Reason for Visit Auth/Cert Specialty Diagnoses / Procedures Referred By Contact Refer red To Contact Diagnoses Chest pain Chest pain, unspecified type Procedures PRO OBS INITIAL COMP/COMP/MOD ALMA OBSVO Referral ID Status Reason Start Date Expiration Date Visits Requ ested Visits Authorized [id number] 1 1 Encounter Details Date Type Department Care Team Description 03/21/2018 Hospital Encounter Non[place] [phone] Social History Tobacco Use Types Packs/Day Years Used Date Smoking Tobacco: Never Assessed Alcohol Use Standard Drinks/Week Comments No 0 (1 standard drink = 0.6 oz pure alcoho l) Sex Assigned at Date Recorded Not on file documented as of this encounter Last Filed Vital Signs Vital Sign Reading Time Taken Comments Blood Pressure 140/87 03/21/2018 8:29 AM EDT Pulse 45 03/21/2018 8:29 AM EDT Temperature - - Respiratory Rate - - Oxygen Saturation 93% 03/21/2018 8:29 AM EDT Inhaled Oxygen Concentration - - Weight 99.8 kg (220 lb) 03/21/2018 8:29 AM EDT Height 175.3 cm (5' 9) 03/21/2018 8:29 AM EDT Body Mass Index 32.49 03/21/2018 8:29 AM EDT documented in this encounter Medications at Time of Discharge Medication Sig Dispensed Refills Start Date End Date sertraline (ZOLOFT) 100 mg Take 100 mg by mouth 0 Tablet daily. OLANZapine (ZYPREXA) 10 mg Take 5 mg by mouth 0 Tablet nightly. donepezil (ARICEPT) 10 mg Take 10 mg by mouth 0 Tablet nightly. ranitidine (ZANTAC) 150 mg Take 150 mg by mouth 0 Capsule 2 times daily. cholecalciferol, Vitamin Take 1,000 Units by 0 D3, 1,000 unit Capsule mouth. losartan (COZAAR) 100 mg Take 0.5 tablets by 90 tablet 3 Tablet mouth daily. nitroGLYcerin (NITROSTAT) Place 1 tablet under 90 tablet 12 03/21/2018 0.4 mg Tablet, Sublingual the tongue every 5 minutes as needed for Chest pain. isosorbide mononitrate Take 1 tablet by 30 tablet 12 018 (IMDUR) 30 mg Tablet mouth every morning. Sustained Release 24 hr furosemide (LASIX) 20 mg Take 1 tablet by 30 tablet 0 03/21 Tablet mouth daily. aspirin 81 mg Tablet, Take 81 mg by mouth 30 tablet 3 06/23 Chewable daily. atorvastatin (LIPITOR) 80 Take 1 tablet by 30 tablet 3 06/12 mg Tablet mouth every evening. clopidogrel (PLAVIX) 75 mg Take 1 tablet by 30 tablet 3 08/2016 Tablet mouth daily. documented as of this encounter Plan of Treatment Not on filedocumented as of this encounter Procedures Procedure Name Priority Date/Time Associated Comments Diagnosis STRESS ECHOCARDIOGRAM W Routine 03/21/2018 9:53 AM Acute systo lic Results for this CONTRAST LMTD SPEC EDT heart failure procedur e are in DOPP,COLOR DOPP the results section. documented in this encounter Visit Diagnoses Not on filedocumented in this encounter Administered Medications Inactive Administered Medications - up to 3 most recent administrations Medication Order MAR Action Action Date Dose Rate Site atropine injection 1 mg Given 03/21/2018 9:20 AM EDT 1 mg 1 mg, Intravenous, ONCE, 1 dose, On Tue03/21/18 at 0945, Echo Lab (Intra-Procedure), Routine DOBUTamine (2000 mcg/mL) 100 New Bag 03/21/2018 9:11 AM 40 mcg /kg/min 119.8 mL/hr mg in Dextrose 5% 50 mL EDT infusion 40 mcg/kg/min ? 99.8 kg (119.76 mL/hr, rounded to 119.8 mL/hr), Intravenous, ONCE, 1 dose, On Tue03/21/18 at 0945, Warning Vesicant/Irritant Medication , Echo Lab (Intra-Procedure) metoprolol (LOPRESSOR) injection 1 mg Given 03/21/2018 9:25 AM EDT 1 mg 1 mg, Intravenous, ONCE, 1 dose, On Tue03/21/18 at 0945, Echo Lab (Intra-Procedure), Routine perflutren protein-A microspheres (OPTISON) Given 03/21/2018 9:1 5 AM EDT 3 mLs 0.22 mg/mL injection 3 mL 3 mL, Intravenous, ONCE PRN, 1 dose, Starting on Tue03/21/18 at 0954, Until Tue03/21/18 at 0915, .., Routine documented in this encounter Care Teams Wire Temperer Relationship Specialty Start Date End Date Juice Jensen DO PCP - General General Internal Medicine 03/20/[address] [place] [address] [place] [phone] documented as of this encounter
--- OUTSIDE RECORDS SUMMARY | 2022-07-25 17:56 | XMS_ITS | Encounter Summary ---
:1960 Author Organization [facility] Address [address] [place] [address] Care Team Providers Name Role Phone Unknown, Provider Primary Care Provider Encounter Details Date Type Department Care Team Description 03/02/2018 Hospital Encounter [facility] - Unknown, Latonya vargas [facility] [phone] [place] [address] (Work) [place] [address] Social History Tobacco Use Types Packs/Day Years Used Date Smoking Tobacco: Never Assessed Sex Assigned at Date Recorded Not on file documented as of this encounter Discharge Disposition Disposition Code Departure Means Destination Home or Self [place] documented in this encounter Plan of Treatment Not on filedocumented as of this encounter Visit Diagnoses Not on filedocumented in this encounter Care Teams Shovel Loader Operator Relationship Specialty Start Date End Date Unknown, Provider, PCP - General 08/12/17 documented as of this encounter
--- OUTSIDE RECORDS SUMMARY | 2022-07-25 17:56 | XMS_ITS | Encounter Summary ---
:1960 Author Organization [facility] Address [address] [place] [address] Care Team Providers Name Role Phone Unknown, Provider Primary Care Provider Encounter Details Date Type Department Care Team Description 10/03/2017 Historical Results [facility] - Guero Rosales, Only [facility] [place] Radiology Resul ts [address] [facility] [address] [place], [place] [id number] [place] [address] [phone] Social History Tobacco Use Types Packs/Day Years Used Date Smoking Tobacco: Never Assessed Sex Assigned at Date Recorded Not on file documented as of this encounter Plan of Treatment Not on filedocumented as of this encounter Procedures Procedure Name Priority Date/Time Associated Diagnosis Comme nts CT CHEST W CONTRAST 10/03/2017 21:11 Resu lts for this EST procedure are i n the results section. documented in this encounter Results CT CHEST W CONTRAST (10/03/2017 21:11 EST) Anatomical Region Laterality Modality Chest Computed Tomography Specimen (Source) Anatomical Collection Method Collection Time Re ceived Time Location / / Volume Laterality 10/03/2017 21:11 EST Narrative 10/03/2017 21:14 EST ? EXAM: CAT SCAN/CHEST WITH CONTRAST ?EX. D/ (1347) ? CLINICAL INFORMATION: ? C34.90 EARLY SMALL CELL LUNG CA ( ALSO THYMUS) ? Exam: CT chest. ? Indication: PROBABLE AUTOIMMUNE E NCEPHALITIS C34.90 EARLY SMALL CELL ? LUNG CA (ALSO THYMUS) ? Technique: Axial enhanced imaging of the chest was performed. ? Comparison: Chest radiograph 2017. ? Findings: ? Lower neck: No abnormalities. ? Chest wall soft tissues: No abnor malities. ? Mediastinum and margie: No enlarged mediastinal or hilar lymph nodes. ? No thymic abnormality is detected . There is a small hiatal hernia. ? Heart and mediastinal vasculature : ??No abnormalities. ? Large airways: ??No abnormalities . ? Lungs: ??There is minimal scarrin g within the lingula. There is a 5 mm ? calcified granuloma at the left l kenya apex. The lungs are otherwise ? clear. No concerning pulmonary no dule is detected. ? Pleura: There is no pleural effus ion or pneumothorax ? Upper abdomen (limited to upper a bdomen, not optimized for abdominal ? imaging): Mild hepatic steatosis is present. The patient status post ? cholecystectomy. ? Bones: ??No aggressive lytic or b lastic osseous lesion is detected. ? Impression: ? 1. No evidence of primary maligna ncy detected within the chest. ? 2. Small hiatal hernia. ? 3. Hepatic steatosis. ? REPORT SIGNED IN OTHER VENDOR SYSTEM 10/03/2017 ?Reported B y: Jaspreet Taylor MD ? CC: [facility] ? Transcribed Date/Time: 10/03/2017 (2114) ? Bobtail Driver: ? Printed Date/Time: 02/28/2019 (12 48) ? PAGE 1 ? Leah d Report ? Procedure Note Jaspreet Taylor - 10/08/2019 EXAM: CAT SCAN/CHEST WITH CONTRAST EX. D/ (1347) CLINICAL INFORMATION: C34.90 EARLY SMALL CELL LUNG CA (ALSO T HYMUS) Exam: CT chest. Indication: PROBABLE AUTOIMMUNE ENCEPHA LITIS C34.90 EARLY SMALL CELL LUNG CA (ALSO THYMUS) Technique: Axial enhanced imaging of th e chest was performed. Comparison: Chest radiograph 09/20/2017. Findings: Lower neck: No abnormalities. Chest wall soft tissues: No abnormaliti es. Mediastinum and margie: No enlarged media stinal or hilar lymph nodes. No thymic abnormality is detected. Ther e is a small hiatal hernia. Heart and mediastinal vasculature: No a bnormalities. Large airways: No abnormalities. Lungs: There is minimal scarring within the lingula. There is a 5 mm calcified granuloma at the left lung ap ex. The lungs are otherwise clear. No concerning pulmonary nodule i s detected. Pleura: There is no pleural effusion or pneumothorax Upper abdomen (limited to upper abdomen , not optimized for abdominal imaging): Mild hepatic steatosis is pre sent. The patient status post cholecystectomy. Bones: No aggressive lytic or blastic o sseous lesion is detected. Impression: 1. No evidence of primary malignancy de tected within the chest. 2. Small hiatal hernia. 3. Hepatic steatosis. REPORT SIGNED IN OTHER VENDOR SYSTEM 10/03/2017 Reported By: Jaspreet Taylor MD CC: [facility] Transcribed Date/Time: 10/03/2017 (2113 ) Bobtail Driver: Printed Date/Time: 02/28/2019 (6199) PAGE 1 Signed Report Guero Rosales MD IMG CT ORDERABLES documented in this encounter Visit Diagnoses Not on filedocumented in this encounter Care Teams Structural Design Engineer Relationship Specialty Start Date End Date Unknown, Provider, PCP - General 08/12/17 documented as of this encounter
--- OUTSIDE RECORDS SUMMARY | 2022-07-25 17:56 | XMS_ITS | Encounter Summary ---
:1960 Author Organization [facility] Address [address] [place] [address] Care Team Providers Name Role Phone Unknown, Provider Primary Care Provider Encounter Details Date Type Department Care Team Description 08/12/2017 Hospital Encounter [facility] - Unknown, Latonya vargas [facility] [phone] [place] [address] (Work) [place] [address] Social History Tobacco Use Types Packs/Day Years Used Date Smoking Tobacco: Never Assessed Sex Assigned at Date Recorded Not on file documented as of this encounter Discharge Disposition Disposition Code Departure Means Destination Home or Self Jail documented in this encounter Plan of Treatment Not on filedocumented as of this encounter Visit Diagnoses Not on filedocumented in this encounter Care Teams Optics Test Technician Relationship Specialty Start Date End Date Unknown, Provider, PCP - General 08/12/17 documented as of this encounter
--- OUTSIDE RECORDS SUMMARY | 2022-07-25 17:56 | XMS_ITS | Encounter Summary ---
:1960 Author Organization [facility] Address [address] [place] [address] Care Team Providers Name Role Phone Unknown, Provider Primary Care Provider Encounter Details Date Type Department Care Team Description 03/02/2018 Historical Results [facility] - France Menendez, Only [facility] Radiology Resul ts [address] [place] [address] [address] [place] [address] Social History Tobacco Use Types Packs/Day Years Used Date Smoking Tobacco: Never Assessed Sex Assigned at Date Recorded Not on file documented as of this encounter Plan of Treatment Not on filedocumented as of this encounter Procedures Procedure Name Priority Date/Time Associated Diagnosis Comme nts MR HEAD W WO 03/02/2018 13:19 Results for this CONTRAST EDT procedure are i n the results section. documented in this encounter Results MR HEAD W WO CONTRAST (03/02/2018 13:19 EDT) Anatomical Region Laterality Modality Head Magnetic Resonance Specimen (Source) Anatomical Collection Method Collection Time Re ceived Time Location / / Volume Laterality 03/02/2018 13:19 EDT Narrative 03/03/2018 12:04 EDT ? EXAM: [...] CC: ? Transcribed Date/Time: 03/03/2018 (1204) ? Grip Boss: ? Printed Date/Time: 03/02/2019 (13 38) ? [...] Juice Novak MD CC: Transcribed Date/Time: 03/03/2018 (9073 ) Grip Boss: Printed Date/Time: 03/02/2019 (8236) PAGE 2 Signed Report France Menendez MD IMG MRI ORDERABLES documented in this encounter Visit Diagnoses Not on filedocumented in this encounter Care Teams Apple Thinner Relationship Specialty Start Date End Date Unknown, Provider, PCP - General 08/12/17 documented as of this encounter
--- OUTSIDE RECORDS SUMMARY | 2022-07-25 17:56 | XMS_ITS | Encounter Summary ---
:1960 Author Organization [facility] Address [address] [place] [address] Care Team Providers Name Role Phone Unknown, Provider Primary Care Provider Encounter Details Date Type Department Care Team Description 08/12/2017 Historical Results [facility] - Dago Brunson [facility] [place] us Lucila MD [address] [place] [address] [place], [place] [phone] Social History Tobacco Use Types Packs/Day Years Used Date Smoking Tobacco: Never Assessed Sex Assigned at Date Recorded Not on file documented as of this encounter Plan of Treatment Not on filedocumented as of this encounter Procedures Procedure Name Priority Date/Time Associated Comments Diagnosis CT HEAD WO CONTRAST 08/12/2017 21:42 Resu lts for this EST procedure are i n the results section. CT HEAD WO CONTRAST 08/12/2017 20:07 Resu lts for this EST procedure are i n the results section. ETHYL ALCOHOL - [facility] Routine 08/12/2017 19:18 Res ults for this EST procedure are i n the results section. TICK PANEL PCR - [facility] Routine 08/12/2017 19:18 Re sults for this EST procedure are i n the results section. COMPLETE BLOOD COUNT Routine 08/12/2017 19:18 Res ults for this WITH DIFFERENTIAL EST procedure are in (AUTO) the results section. TROPONIN I Routine 08/12/2017 19:18 Results for this EST procedure are i n the results section. MAGNESIUM Routine 08/12/2017 19:18 Results for this EST procedure are i n the results section. COMPREHENSIVE Routine 08/12/2017 19:18 Results fo r this METABOLIC PANEL (CMP) EST proced ure are in the results section. LYME AB Routine 08/12/2017 18:41 Results for this EST procedure are i n the results section. TSH Routine 08/12/2017 17:47 Results for this EST procedure are i n the results section. documented in this encounter Results CT HEAD WO CONTRAST (08/12/2017 21:42 EST) Anatomical Region Laterality Modality Head Computed Tomography Specimen (Source) Anatomical Collection Method Collection Time Re ceived Time Location / / Volume Laterality 08/12/2017 21:42 EST Narrative 08/12/2017 21:42 EST ? EXAM: CAT SCAN/HEAD WITHOUT CONTRAST ?EX. D/ (212) ? CLINICAL INFORMATION: ? INCREASING HALUCINATIONS, ? ICH ? EXAM: ? CT Head Without Intravenous Co ntrast ? CLINICAL HISTORY: ? 57 years old, male; Signs and symptoms; Additional info: ? Increasing halucinations, ? ich ? TECHNIQUE: ? Axial computed tomography imag es of the head/brain without ? intravenous contrast. ??All CT sc ans at this facility use one or ? more dose reduction techniques, v iz.: automated exposure ? control; ma/kV adjustment per pat ient size (including targeted ? exams where dose is matched to in dication; i.e. head); or ? iterative reconstruction techniqu e. ? COMPARISON: ? No relevant prior studies kalee denise. ? FINDINGS: ? The ventricles, sulci and basi lar cisterns are normal for the ? patient's stated age. ?There are mild areas of decreased ? attenuation in the supratentorial white matter which is ? nonspecific but likely relates to small vessel ischemic change. ? There is no evidence for acute in farct. ??There is no evidence ? for mass. There is no hemorrhage. ??There are no extra-axial ? fluid collections. ??There is no midline shift. ??The skull is ? intact. The visualized paranasal sinuses are well aerated. ? There is atherosclerotic change o f the cavernous carotid ? arteries. ? IMPRESSION: ? No evidence for acute infarct, mass or hemorrhage. ? REPORT SIGNED IN OTHER VENDOR SYSTEM 08/12/2017 ?Reported B y: Ronald Pendleton MD ? CC: ? Transcribed Date/Time: 08/12/2017 (2141) ? Arc Cutter Plasma Arc: HIS.VRAD ? Printed Date/Time: 02/28/2019 (12 48) ? PAGE 1 ? Leah d Report ? Procedure Note Ronald Pendleton MD - 10/08/2019Forma tting of this note might be different from the original. EXAM: CAT SCAN/HEAD WITHOUT CONTRAST EX . D/ (2124) CLINICAL INFORMATION: INCREASING HALUCINATIONS, ? ICH EXAM: CT Head Without Intravenous Contrast CLINICAL HISTORY: 57 years old, male; Signs and symptoms; Additional info: Increasing halucinations, ? ich TECHNIQUE: Axial computed tomography images of the head/brain without intravenous contrast. All CT scans at [facility] facility use one or more dose reduction techniques, viz.: a utomated exposure control; ma/kV adjustment per patient s ize (including targeted exams where dose is matched to indicati on; i.e. head); or iterative reconstruction technique. COMPARISON: No relevant prior studies available. FINDINGS: The ventricles, sulci and basilar ciste rns are normal for the patient's stated age. There are mild ar eas of decreased attenuation in the supratentorial white matter which is nonspecific but likely relates to small vessel ischemic change. There is no evidence for acute infarct. There is no evidence for mass. There is no hemorrhage. There are no extra-axial fluid collections. There is no midline shift. The skull is intact. The visualized paranasal sinuse s are well aerated. There is atherosclerotic change of the cavernous carotid arteries. IMPRESSION: No evidence for acute infarct, mass or hemorrhage. REPORT SIGNED IN OTHER VENDOR SYSTEM 08/12/2017 Reported By: Ronald Pendleton MD CC: Transcribed Date/Time: 08/12/2017 (2669 ) Arc Cutter Plasma Arc: Printed Date/Time: 02/28/2019 (5797) PAGE 1 Signed Report Dago Brunson MD IMG CT ORDERABLES CT HEAD WO CONTRAST (08/12/2017 20:07 EST) Anatomical Region Laterality Modality Head Computed Tomography Specimen (Source) Anatomical Collection Method Collection Time Re ceived Time Location / / Volume Laterality 08/12/2017 20:07 EST Narrative 08/12/2017 21:42 EST ? EXAM: CAT SCAN/HEAD WITHOUT CONTRAST ?EX. D/ (0722) ? CLINICAL INFORMATION: ? INCREASING HALUCINATIONS, ? ICH ? EXAM: ? CT Head Without Intravenous Co ntrast ? CLINICAL HISTORY: ? 57 years old, male; Signs and symptoms; Additional info: ? Increasing halucinations, ? ich ? TECHNIQUE: ? Axial computed tomography imag es of the head/brain without ? intravenous contrast. ??All CT sc ans at this facility use one or ? more dose reduction techniques, v iz.: automated exposure ? control; ma/kV adjustment per pat ient size (including targeted ? exams where dose is matched to in dication; i.e. head); or ? iterative reconstruction techniqu e. ? COMPARISON: ? No relevant prior studies kalee denise. ? FINDINGS: ? The ventricles, sulci and basi lar cisterns are normal for the ? patient's stated age. ?There are mild areas of decreased ? attenuation in the supratentorial white matter which is ? nonspecific but likely relates to small vessel ischemic change. ? There is no evidence for acute in farct. ??There is no evidence ? for mass. There is no hemorrhage. ??There are no extra-axial ? fluid collections. ??There is no midline shift. ??The skull is ? intact. The visualized paranasal sinuses are well aerated. ? There is atherosclerotic change o f the cavernous carotid ? arteries. ? IMPRESSION: ? No evidence for acute infarct, mass or hemorrhage. ? REPORT SIGNED IN OTHER VENDOR SYSTEM 08/12/2017 ?Reported B y: Ronald Pendleton MD ? CC: ? Transcribed Date/Time: 08/12/2017 (2141) ? Arc Cutter Plasma Arc: ? Printed Date/Time: 02/28/2019 (12 48) ? PAGE 1 ? Leah d Report ? Procedure Note Ronald Pendleton MD - 10/08/2019Forma tting of this note might be different from the original. EXAM: CAT SCAN/HEAD WITHOUT CONTRAST EX . D/ (5) CLINICAL INFORMATION: INCREASING HALUCINATIONS, ? ICH EXAM: CT Head Without Intravenous Contrast CLINICAL HISTORY: 57 years old, male; Signs and symptoms; Additional info: Increasing halucinations, ? ich TECHNIQUE: Axial computed tomography images of the head/brain without intravenous contrast. [facility] CT scans at [facility] use one or more dose reduction techniques, viz.: a utomated exposure control; ma/kV adjustment per patient s ize (including targeted exams where dose is matched to indicati on; i.e. head); or iterative reconstruction technique. COMPARISON: No relevant prior studies available. FINDINGS: The ventricles, sulci and basilar ciste rns are normal for the patient's stated age. There are mild ar eas of decreased attenuation in the supratentorial white matter which is nonspecific but likely relates to small vessel ischemic change. There is no evidence for acute infarct. There is no evidence for mass. There is no hemorrhage. There are no extra-axial fluid collections. There is no midline shift. The skull is intact. The visualized paranasal sinuse s are well aerated. There is atherosclerotic change of the cavernous carotid arteries. IMPRESSION: No evidence for acute infarct, mass or hemorrhage. REPORT SIGNED IN OTHER VENDOR SYSTEM 08/12/2017 Reported By: Ronald Pendleton MD CC: Transcribed Date/Time: 08/12/2017 (2360 ) Arc Cutter Plasma Arc: Printed Date/Time: 02/28/2019 (6288) PAGE 1 Signed Report Dago Brunson MD IMG CT ORDERABLES MAGNESIUM (08/12/2017 19:18 EST) athologist Signature Magnesium 2.10 1.7 - 2.8 08/12/2017 [facility] mg/dL 19:41 EST [facility] Specimen Anatomical Collection Method Collection Time Receive d Time (Source) Location / / Volume Laterality 08/12/2017 19:18 08/12/2017 EST 19:18 EST Narrative [facility] - 017 19:41 EST Does PT Have a Latex Allergy? NO Dago Brunson MD CHEMISTRY & BLOOD GAS ORDERA BLES Performing Organization Address City/State/ZIP Code Phon e Number [facility] [address] [place], [place] [id number] [place] [address] LAB ETHYL ALCOHOL - [facility] (08/12/2017 19:18 EST) athologist Signature ETHYL ALCOHOL - <10.0 <10 mg/dL 08/12/2017 [facility] 19:41 [facility] Specimen Anatomical Collection Method Collection Time Receive d Time (Source) Location / / Volume Laterality 08/12/2017 19:18 08/12/2017 EST 19:18 EST Narrative [facility] - 017 19:41 EST Does PT Have a Latex Allergy? NO Dago Brunson MD CHEMISTRY & BLOOD GAS ORDERA BLES Performing Organization Address City/State/ZIP Code Phon e Number [facility] [address] [place], [place] [id number] [place] [address] LAB (ABNORMAL) COMPREHENSIVE METABOLIC PANEL (CMP) (08/12/2017 19:18 EST) athologist Signature Albumin % 4.6 3.4 - 4.9 08/12/2017 [facility] g/dL 19:41 [facility] ALKALINE 89 38 - 126 08/12/2017 [facility] PHOSPHATASE - U/L 19:41 [facility] BILIRUBIN TOTAL 0.5 0.2 - 1.3 08/12/2017 [facility] mg/dL 19:41 [facility] BUN - [facility] 16 10 - 26 08/12/2017 [facility] mg/dL 19:41 [facility] CALCIUM - [facility] 9.6 8.5 - 10.5 08/12/2017 [facility] mg/dL 19:41 [facility] Chloride 99 96 - 110 08/12/2017 [facility] mmol/L 19:41 [facility] CO2 Total 26 21 - 32 08/12/2017 [facility] mEq/L 19:41 [facility] CREATININE 1.25 0.66 - 08/12/2017 [facility] 1.25 mg/dL 19:41 [facility] eGFR 59 08/12/2017 [facility] 19:41 [facility] Comment: Stage 3: Moderate renal impairment is de fined as GFR 30-59 Multiply result by 1.210 for [place] patients. Anion Gap 12 5 - 15 08/12/2017 19:41 [facility] GLUCOSE - [facility] 133 (H) 70 - 100 mg/dL 08/12/2017 19:41 [facility] Potassium 4.6 3.5 - 5.0 08/12/2017 19:41 [facility] mEq/L [facility] Sodium 137 136 - 145 08/12/2017 19:41 EST [facility] V [facility] mEq/L [facility] TOTAL PROTEIN - [facility] 7.5 6.2 - 8.2 08/12/2017 19:41 ES T [facility] gm/dL [facility] SGOT/AST - [facility] 31 17 - 59 U/L 08/12/2017 19:41 EST C [facility] SGPT/ALT - [facility] 49 21 - 72 U/L 08/12/2017 19:41 EST C [facility] Specimen Anatomical Collection Method Collection Time Receive d Time (Source) Location / / Volume Laterality 08/12/2017 19:18 08/12/2017 EST 19:18 EST Narrative [facility] - 017 19:41 EST Does PT Have a Latex Allergy? NO Dago Brunson MD CHEMISTRY & BLOOD GAS ORDERA BLES Performing Organization Address [facility] Phon e Number [facility] [address] LAB TROPONIN I (08/12/2017 19:18 EST) athologist Signature Troponin I <0.012 0.000 - 08/12/2017 [place] (ng/mL) 0.034 19:52 EST [facility] ng/mL [facility] Comment: Interpretation comments: ??Cutoff for a [...] Time (Source) Location / / Volume Laterality 08/12/2017 19:18 08/12/2017 EST 19:18 EST Narrative [facility] - 017 19:52 EST Does PT Have a Latex Allergy? NO Dago Brunson MD CHEMISTRY & BLOOD GAS ORDERA BLES Performing Organization Address City/[facility]/ZIP Code Phon e Number [facility] [address] LAB (ABNORMAL) COMPLETE BLOOD COUNT WITH DIFFERENTIAL (AUTO) (08/12/2017 19:18 EST) [facility] Method Time Signature ABSOLUTE 7.75 (H) 1.7 - 7.0 08/12/2017 [place] NEUTROPHIL COUN 10e3/ul 19:34 [facility] BASO # - [facility] 0.02 0.0 - 0.3 08/12/2017 [place] [id number]/uL 19:34 [facility] BASO % - [facility] 0 0 - 2 % 08/12/2017 [facility] 19:34 [facility] EOS # - [facility] 0.14 0.05 - 0.5 08/12/2017 [place] [id number]/uL 19:34 [facility] EOS % - [facility] 1 0 - 5 % 08/12/2017 [facility] 19:34 [facility] GRAN % - [facility] 70 40 - 80 % 08/12/2017 [facility] 19:34 [facility] HEMATOCRIT - 44.6 36.0 - 08/12/2017 [facility] 52.0 % 19:34 [facility] HEMOGLOBIN - 15.3 13.7 - 08/12/2017 [place] [facility] 17.5 g/dl 19:34 [facility] IG# - [facility] 0.03 0 - 0.07 08/12/2017 [place] [id number]/uL 19:34 [facility] IG% - [facility] 0.3 0 - 0.9 % 08/12/2017 [facility] 19:34 [facility] LYMPH # - [facility] 2.43 0.9 - 2.9 08/12/2017 [place] [address]/uL 19:34 [facility] LYMPH% - [facility] 22 20 - 40 % 08/12/2017 [facility] 19:34 [facility] MEAN CORPUSCULAR 33.3 26 - 34 pg 08/12/2017 [facility] HGB - [facility] 19:34 [facility] MEAN CORPUSCULAR 34.3 31 - 36 08/12/2017 [facility] HGB CONC - [facility] g/dL 19:34 [facility] MEAN CELL VOLUME 97.2 77 - 100 08/12/2017 [facility] - [facility] fl 19:34 [facility] MONO # - [facility] 0.64 0.3 - 0.9 08/12/2017 [facility] 10e3/uL 19:34 [facility] MONO% - [facility] 6 0 - 12 % 08/12/2017 [facility] 19:34 [facility] PLATELET COUNT 308 150 - 400 08/12/2017 [facility] 10e3/ul 19:34 [facility] RED BLOOD COUNT 4.59 4.3 - 5.7 08/12/2017 [facility] - [facility] 10e6/ul 19:34 [facility] RED CELL DISTRI 12.6 11.8 - 08/12/2017 [place] WIDTH - [facility] 15.6 % 19:34 [facility] WHITE BLOOD 11.0 (H) 3.5 - 10.5 08/12/2017 [place] COUNT - [facility] 10e3/ul 19:34 [facility] Specimen Anatomical Collection Method Collection Time Receive d Time (Source) Location / / Volume Laterality 08/12/2017 19:18 08/12/2017 EST 19:18 EST Narrative [facility] - 017 19:34 EST Does PT Have a Latex Allergy? NO Dago Brunson MD HEMATOLOGY & PF4 ORDERABLES Performing Organization Address City/State/ZIP Code Phon e Number [facility] [address] LAB TICK PANEL PCR - [facility] (08/12/2017 19:18 EST) [facility] Method Time Signature ANAPLASMA Negative Negative 08/16/2017 [place] PHAGOCYTOPHILIUM - 21:08 [facility] BABESIA Negative Negative 08/16/2017 [place] DIVERGENS/MO-1 - 21:08 [facility] Comment: ADDITIONAL INFORMATIO N This test was developed and its performa nce characteristics determined by [facility] in a manner co nsistent with CLIA requirements. This test has not been jj ared or approved by the U.S. Food and Drug Administration. BABESIA DUNCANI - [facility] Negative Negative 08/16/2017 21 :08 [facility] BABESIA MICROTIC - Negative Negative 08/16/2017 21:08 [facility] B.MIYAMOTOI PCR Negative Negative 08/16/2017 21:08 EST JOMAR TRAL [facility] Comment: ADDITIONAL INFORMATIO N This test was developed and its performa nce characteristics determined by [facility] in a manner co nsistent with CLIA requirements. This test has not been jj ared or approved by the U.S. Food and Drug Administration. Test Performed by: [facility] - [address] [address] EHRLICHIA CHAFFEENSIS - Negative Negative 08/16/2017 2 1:08 [facility] EHRLICHIA EWINGII/CANIS Negative Negative 08/16/2017 2 1:08 [facility] EHRLICHIA MURIS-LIKE - Negative Negative 08/16/2017 21 :08 [facility] Comment: ADDITIONAL INFORMATIO N This test was developed and its performa nce characteristics determined by [facility] in a manner co nsistent with CLIA requirements. This test has not been jj ared or approved by the U.S. Food and Drug Administration. Specimen Anatomical Collection Method Collection Time Receive d Time (Source) Location / / Volume Laterality 08/12/2017 19:18 08/12/2017 EST 19:18 EST Narrative [facility] - 017 21:08 EST Does PT Have a Latex Allergy? NO Dago Brunson MD CHEMISTRY & BLOOD GAS ORDERA BLES Performing Organization Address City/State/ZIP Code Phon e Number [facility] [address] [place], [place] [id number] [place] [address] LAB LYME AB (08/12/2017 18:41 EST) P athologist Signature Lyme Ab IgG NEGATIVE 08/15/2017 [facility] 10:05 [facility] Lyme Ab NEGATIVE 08/15/2017 [facility] 10:05 [facility] Specimen Anatomical Collection Method Collection Time Receive d Time (Source) Location / / Volume Laterality 08/12/2017 18:41 08/12/2017 EST 19:18 EST Dago Brunson MD IMMUNOLOGY AND SEROLOGY MIKAEL CEE Performing Organization Address City/State/ZIP Code Phon e Number [facility] [address] [place] [address] [facility] TSH (08/12/2017 17:47 EST) athologist Signature THYROID STIM 1.16 0.46 - 08/12/2017 [facility] 4.68 21:46 EST [facility] uIU/ml [facility] Specimen Anatomical Collection Method Collection Time Receive d Time (Source) Location / / Volume Laterality 08/12/2017 17:47 08/12/2017 EST 21:00 EST Dago Brunson MD CHEMISTRY & BLOOD GAS ORDERA BLES Performing Organization Address City/[facility]/ZIP Code Phon e Number [facility] [address] [place], [place] [phone] [place] [address] LAB documented in this encounter Visit Diagnoses Not on filedocumented in this encounter Care Teams Supervisor Orchard Relationship Specialty Start Date End Date Unknown, Provider, PCP - General 08/12/17 documented as of this encounter
--- OUTSIDE RECORDS SUMMARY | 2022-07-25 17:56 | XMS_ITS | Encounter Summary ---
:1960 Author Organization [facility] [place] [address] Care Team Providers Name Role Phone Juice Jensen DO Primary Care Provider Reason for Visit Reason Comments Medication Refill Encounter Details Date Type Department Care Team Description 10/16/2016 Refill Internal Medicine at [facility] Gorge Reese MD [facility] [place] [address] CARDIOLOGY DEPT [phone] [place], [place] [address] (Wo rk) Social History Tobacco Use Types Packs/Day Years Used Date Smoking Tobacco: Never Assessed Sex Assigned at Date Recorded Not on file documented as of this encounter Plan of Treatment Not on filedocumented as of this encounter Visit Diagnoses Not on filedocumented in this encounter Care Teams Linen Controller Relationship Specialty Start Date End Date Juice Jensen DO PCP - General General Internal Medicine 03/20/[address] [place] [address] [place] [phone] documented as of this encounter
--- OUTSIDE RECORDS SUMMARY | 2022-07-25 17:56 | XMS_ITS | Encounter Summary ---
:1960 [place] [address] Care Team Providers Name Role Phone Juice Jensen DO Primary Care Provider Reason for Visit Reason Comments Chest Pain Auth/Cert Specialty Diagnoses / Procedures Referred By Contact Refer red To Contact Diagnoses Chest pain Chest pain, unspecified type Procedures PRO OBS INITIAL COMP/COMP/MOD ALMA OBSVO Referral ID Status Reason Start Date Expiration Date Visits Requ ested Visits Authorized [id number] 1 1 Encounter Details Date Type Department Care Team Description 03/20/2018 - Emergency Intermediate Cardiac Milagros Simms MD [facility] [place] [address] Chest pain, unspecified type; 03/21/2018 Care Unit Gilbert Salas MD [facility] [place] [address] Acute [place] [address] Social History Tobacco Use Types Packs/Day Years Used Date Smoking Tobacco: Never Assessed Alcohol Use Standard Drinks/Week Comments No 0 (1 standard drink = 0.6 oz pure alcoho l) Sex Assigned at Date Recorded Not on file documented as of this encounter Last Filed Vital Signs Vital Sign Reading Time Taken Comments Blood Pressure 159/96 03/21/2018 11:33 AM EDT Pulse 55 03/21/2018 3:41 AM EDT Temperature 36.9 ??C (98.4 ??F) 03/21/2018 11:33 AM EDT Respiratory Rate 16 03/21/2018 11:33 AM EDT Oxygen Saturation 94% 03/21/2018 11:33 AM EDT Inhaled Oxygen Concentration - - Weight 102.5 kg (225 lb 15.5 oz) 03/21/2018 3:41 AM EDT Height - - Body Mass Index 33.37 06/21/2016 1:45 PM EDT documented in this encounter Discharge Summaries Joleen Romero MD - 03/21/2018 11:17 AM EDT Cardiology - Discharge Summary Patient Name: Meliton Raymond Patient Age: 57 y.o. Birthdate: 1960 Admit date: 03/20/2018 Discharge date and time: 03/21/2018 Attending Physician: Gilbert Lewis MD Follow-up Recommendations for Providers: - Please evaluate if patient continues to have need to be on Plavix -Heart rates were low (40s) at time of discharge and metoprolol was held. -Patient was started on oral diuretic at the time of discharge Discharge Diagnoses (Hospital Problems) and Secondary Diagnoses (Chronic Problems): Active Hospital Problems Diagnosis ??? Chest pain Resolved Hospital Problems Diagnosis Date Resolved No resolved problems to display. Procedures/Cardiac Studies: stress echo (see full report below) History of Presentation: Mr. Meliton Raymond is a 57-year-old male with past medical history including coronary artery disease who presents with chief complaint of chest pain and shortness of breath. ?? History of Present Illness: ?? In the setting of a cough with shortness of breath and chest pain about 5 weeks ago, he was treated for pneumonia with a 10 day course of antibiotics. The treatment improved his symptoms, but did not completely eradicate. Following the completion of the antibiotic course, his chest pain and shortness of breath continued. His cough subsided and he had no fevers or chills. He does have chronic mild night sweats. He denies weight changes. ?? He presented to the ED this AM due to worsening chest pain. Describes chest pain is dull in the center of his chest with radiation to the right arm. It is constant but worsened by exertion. With exertion, he also is short of breath. Other exacerbating factors of the pain include lying supine. The painis not worsened with inspiration. He denies orthopnea, PND. Sometimes his arms and legs will become swollen. ?? Within the emergency department, he was treated with nitroglycerin sublingual ??2, which which he said partially relieved his symptoms. Presently, he has mild dull chest pain. He is not short of breath. Labs included negative troponin ??2, normal ESR and CRP, and normal pBNP. EKG showed sinus bradycardia with a rate in the 40s. Chest x-ray showed no acute cardiopulmonary process; there was a 7 mm unchanged granuloma. Hospital Course: #Unstable Angina - On the morning of admission a dobutamine stress echo was performed to rule out anischemic etiology of the patient's chest pain. Dobutamine stress echo was negative for ischemia, as such there was no indication to perform a cardiac catheterization. The patient was agreeable with theplan of not having a cardiac catheterization performed on this admission. The patient will continue to follow up with his outpatient automotive general sales manager. Important Studies and Lab Data: Admission Labs: Discharge Labs: Recent Labs 03/21/18 0443 03/20/18 1725 WBC 7.0 6.7 HGB 14.0 14.4 PLATELET 211 233 Recent Labs 03/20/18 1725 NA 142 K 3.9 CL 107 CO2 26 BUN 8* CREATININE 1.26 GLUCOSE 169 Recent Labs 03/20/18 1725 CALCIUM 8.9 Recent Labs 03/21/18 0802 03/21/18 0139 03/20/18 1725 CK 101 -- -- TROPONINT <0.01 <0.01 <0.01 No results for input(s): AST, ALT, ALKPHOS, BILITOT, BILIDIR in the last 168 hours. No results for input(s): INR in the last 168 hours. Lab Results Component Value Date CHLPL 152 06/22/2016 HDL 18 (L) 06/22/2016 CHOLHDL 8.4 06/22/2016 TRIG 392 (H) 06/22/2016 LDLCHOL 56 06/22/2016 No results for input(s): HA1C in the last 7068 hours. Studies: SUMMARY: ?? 1. REST: The left ventricular chamber size is normal. There is mild septal hypertrophy of the left ventricle. The apical inferior wall segment is hypokinetic (score 2). There is normal global left ventricular systolic function. Ejection fraction is estimated to be 65%. Right ventricular chamber size, wall thickness, and systolic function are within normal limits. Other echo and stress findings as noted in report. 2. STRESS: The patient received incremental doses of Dobutamine to a peak of 40 mcg/kg/min plus a total of 1 mg atropine, achieving a peak heart rate of 137 bpm (85% max. pred.), and peak BP of 169/80 mmHg. With stress he was nauseated and reported mild chest pressure but was hemodynamically stable, had rare PVCs and developed no significant ST-TW changes. With stress all visualized left ventricular segments became appropriately hyperdynamic. Segments of the apex were not visualized. 3. IMPRESSION: There was no evidence of ischemia at this diagnostic level of stress in segments that were visualized. Pending Studies and Lab Data: None Discharge Conditions/Prognosis: Upon discharge the patient is hemodynamically stable, fully ambulatory without requiring supplemental oxygen, afebrile and pain controlled with stable oral regimen. Discharge to: Home Discharge Medications: Your Medications New Medications Dose Details furosemide 20 mg Tab Commonly known as: LASIX Take 1 tablet by mouth daily. 20 mg Quantity: 30 tablet Refills: 0 isosorbide mononitrate 30 mg Tablet sr Commonly known as: IMDUR Take 1 tablet by mouth every morning. Start taking on: 03/22/2018 30 mg Quantity: 30 tablet Refills: 12 nitroGLYcerin 0.4 mg Subl Commonly known as: NITROSTAT Place 1 tablet under the tongue every 5 minutes as needed for Chest pain. 0.4 mg Quantity: 90 tablet Refills: 12 Continued medications, unchanged Dose Details aspirin 81 mg Chew Take 81 mg by mouth daily. 81 mg Quantity: 30 tablet Refills: 3 atorvastatin 80 mg Tab Commonly known as: LIPITOR Take 1 tablet by mouth every evening. 80 mg Quantity: 30 tablet Refills: 3 cholecalciferol (Vitamin D3) 1,000 unit Cap Take 1,000 Units by mouth. 1000 Units Refills: 0 clopidogrel 75 mg Tab Commonly known as: PLAVIX Take 1 tablet by mouth daily. 75 mg Quantity: 30 tablet Refills: 3 donepezil 10 mg Tab Commonly known as: ARICEPT Take 10 mg by mouth nightly. 10 mg Refills: 0 losartan 100 mg Tab Commonly known as: COZAAR Take 0.5 tablets by mouth daily. 50 mg Quantity: 90 tablet Refills: 3 OLANZapine 10 mg Tab Commonly known as: ZyPREXA Take 5 mg by mouth nightly. 5 mg Refills: 0 ranitidine 150 mg Cap Commonly known as: ZANTAC Take 150 mg by mouth 2 times daily. 150 mg Refills: 0 sertraline 100 mg Tab Commonly known as: ZOLOFT Take 100 mg by mouth daily. 100 mg Refills: 0 STOPPED Medications metoprolol succinate 100 mg Tablet sr Commonly known as: TOPROL-XL Updated Allergies/ADRs: Allergies Allergen Reactions ??? Lisinopril cough General Instructions None Patient Instructions Patient Instructions on Discharge to Home Why you were hospitalized: You were hospitalized because you were having chest pain. It was determined that your pain was not aheart attack. Medications: Aspirin: this is a platelet inhibitor [...] in your arteries. Take this every evening. Nitroglycerin: this is a medication that can [...] pain does not improve, call your doctor. Medication Changes: Increase Losartan from 25 mg daily to 50 mg daily Decrease Metoprolol Succinate from 100 mg daily to 50 mg daily When to call your doctor: - Chest pain, worsening shortness of breath, fatigue with usual exertion, or new rest/night time symptoms. - Call if you have reduced urination [...] appointments: During 8am-5pm Tuesday through Tuesday call [phone] to speak with a nurse in the cardiology clinic All other times call [phone] and ask to speak to the rubber grinder contracts manager. Diet: - Heart healthy: low salt, low fat, low concentrated sweets. Remember to avoid added salt, canned foods, processed foods (ie hot dogs, sausage, cold meats), and foods naturally high in salt, such as potato chips or pizza. Exercise: - Exercise 5-7 days per week [...] groups in your community. Follow up Appointments: Squaring Shear Operator: Dr. Horne [phone] 06/09/18 @11:30 PCP: Juice Jensen DO at [phone] 04/14/2018 @4:20 Your Inpatient Doctor(s) at [facility]: Gilbert Lewis MD - Attending physician Joleen Romero MD - Resident physician Yessi Rosa MD - Room Service Waiter/Waitress physician Your Primary Care Provider: Juice Jensen DO [address] [place] [address] / [place] [id number] For questions regarding issues relating to your hospitalization on the Hospital Medicine Service, please contact your inpatient physician through the [facility] Scow Captain [phone]. Issues after hours and on weekends will be handled by the Hospitalist staff on-call. For questions regarding this document or issues relating to this hospitalization on the Medical Service, please contact your inpatient physician through the [facility] Scow Captain . Issues after hours and on weekends will be handled by the Squaring Shear Operator staff on-call. Signed: Joleen Romero MD Internal Medicine, PGY2 Cardiology Team S1 03/21/2018 documented in this encounter Discharge Instructions Patient InstructionsYessi Rosa MD - 03/21/2018 11:38 AM EDT Patient Instructions on Discharge to Home Why you were hospitalized: You were hospitalized because you were having chest pain. It was determined that your pain was not aheart attack. Medications: Aspirin: this is a platelet inhibitor [...] in your arteries. Take this every evening. Nitroglycerin: this is a medication that can [...] pain does not improve, call your doctor. Medication Changes: Increase Losartan from 25 mg daily to 50 mg daily Decrease Metoprolol Succinate from 100 mg daily to 50 mg daily When to call your doctor: - Chest pain, worsening shortness of breath, fatigue with usual exertion, or new rest/night time symptoms. - Call if you have reduced urination [...] appointments: During 8am-5pm Tuesday through Tuesday call [phone] to speak with a nurse in the cardiology clinic All other times call [phone] and ask to speak to the rubber grinder contracts manager. Diet: - Heart healthy: low salt, low fat, low concentrated sweets. Remember to avoid added salt, canned foods, processed foods (ie hot dogs, sausage, cold meats), and foods naturally high in salt, such as potato chips or pizza. Exercise: - Exercise 5-7 days per week [...] groups in your community. Follow up Appointments: Squaring Shear Operator: Dr. Horne [phone] 06/09/18 @11:30 PCP: Juice Jensen DO at [phone] 04/14/2018 @4:20 Your Inpatient Doctor(s) at [facility]: Gilbert Lewis MD - Attending physician Joleen Romero MD - Resident physician Yessi Rosa MD - Room Service Waiter/Waitress physician Your Primary Care Provider: Juice Jensen DO [address] [place] [address] / [place] [id number] For questions regarding issues relating to your hospitalization on the Hospital Medicine Service, please contact your inpatient physician through the [facility] Scow Captain [phone]. Issues after hours and on weekends will be handled by the Hospitalist staff on-call. documented in this encounter Medications at Time [...] mouth daily. documented as of this encounter Progress Notes Ayah Ding RN - 03/21/2018 3:28 PM EDT Patient has been alert and oriented this shift. VSS. No reports of pain or discomfort. Has been ambulating independently on unit. Discharge order acknowledged. IV and telemetry d/c'd. AVS printed and provided to patient. AVS and medications reviewed with patient. All questions answered. Pt discharged w alking to [facility] with in stable condition. documented in this encounter H&P Notes Gilbert Lewis MD - 03/21/2018 6:25 AM EDT Cardiology Admission History and Physical Patient Name: Meliton Raymond Service: S1 Team Responsible Attending: Michael Lewis MD PCP: Juice Jensen DO PCP phone #: [phone] ID/Chief Complaint: Mr. Meliton Raymond is a 57-year-old male with past medical history including coronary artery disease who presents with chief complaint of chest pain and shortness of breath. History of Present Illness: In the setting of a cough with shortness of breath and chest pain about 5 weeks ago, he was treated for pneumonia with a 10 day course of antibiotics. The treatment improved his symptoms, but did not completely eradicate. Following the completion of the antibiotic course, his chest pain and shortness of breath continued. His cough resided and he had no fevers or chills. He does have chronic mild night sweats. He denies weight changes. He presented to the ED this AM due to worsening chest pain. Describes chest pain is dull in the center of his chest with radiation to the right arm. It is constant but worsened by exertion. With exertion, he also is short of breath. Other exacerbating factors of the pain include lying supine. The painis not worsened with inspiration. He denies orthopnea, PND. Sometimes his arms and legs will become swollen. Within the emergency department, he was treated with nitroglycerin sublingual ??2, which which he said partially relieved his symptoms. Presently, he has mild dull chest pain. He is not short of breath. Labs included negative troponin ??2, normal ESR and CRP, and normal pBNP. EKG showed sinus bradycardia with a rate in the 40s. Chest x-ray showed no acute cardiopulmonary process; there was a 7 mm unchanged granuloma. Review of Systems: GENERAL HEENT CV PULM All negative All negative All negative All negative Weight loss Headache x Chest Pain Non-productive cough Weight gain Vision change Palpitations Productive cough Fevers Sinus congestion Orthopnea Wheezing Chills Hoarseness x LE edema Hemoptysis x Night sweats Epistaxis PND Pleuritic pain Fatigue Syncope SOB Claudication x BIRD MSK RENAL ENDO GI All negative All negative All negative All negative Arthralgias Frequency Heat intolerance Blood in stool Myalgias Urgency Cold intolerance Dysphagia Weakness Hematuria Polydipsia Odynophagia Stiffness Flank pain Polyphagia Abdominal discomfort Dysuria Cushingoid Constipation Foamy urine Diarrhea Discharge Nausea/Vomiting LYMPH SKIN NEURO PSYCH All negative All negative All negative All negative Swollen nodes Rash Seizures Depressed affect Tender nodes Ulcers Tremors Occupational stress Diffuse nodes Bruising Spasticity Anxiety Local nodes Tanned skin Focal weakness Insomnia Night sweats Telangiectasias Diplopia Paresthesias Dizziness Problem List/Past Medical History Patient Active Problem List Diagnosis ??? Chest pain ??? Dyslipidemia Low HDL ??? Acute systolic heart failure ??? Subsequent non-ST elevation (NSTEMI) myocardial infarction Meds: No current facility-administered medications on file prior to encounter. Current Outpatient Prescriptions on File Prior to Encounter Medication Sig Dispense Refill ??? aspirin 81 mg Tablet, Chewable Take 81 mg by mouth daily. 30 tablet 3 ??? atorvastatin (LIPITOR) 80 mg Tablet Take 1 tablet by mouth every evening. 30 tablet 3 ??? clopidogrel (PLAVIX) 75 mg Tablet Take 1 tablet by mouth daily. 30 tablet 3 ??? meTOPROLOL succinate (TOPROL-XL) 100 mg Tablet Sustained Release 24 hr Take 1 tablet by mouth daily. (Patient taking differently: Take 25 mg by mouth daily.) 30 tablet 12 Allergies: Allergies Allergen Reactions ??? Lisinopril cough Family History: Not reviewed Social History: Tobacco: Never smoker; uses chewing tobacco EtOH: none Illicits: none Vitals: Last value Range last 24 hrs Temperature Temp: 36.8 ??C (98.2 ??F) Temp: [36.8 ??C (98.2 ??F)-36.9 ??C (98.4 ??F)] Heart Rate Heart Rate: 55 Heart Rate: [39-58] Blood Pressure BP: 148/81 BP: (119-148)/(57-83) Respiratory Rate Resp: 16 Resp: [10-18] SpO2 SpO2: 96 % SpO2: [94 %-97 %] Examination: General - No acute distress. [...] or edema. Pulses intact. Neuro - AAOx3 Laboratory: CBC: Recent Labs 03/21/18 0443 03/20/18 1725 WBC 7.0 6.7 HGB 14.0 14.4 PLATELET 211 233 Chemistry: Recent Labs 03/20/18 1725 NA 142 K 3.9 CL 107 CO2 26 BUN 8* CREATININE 1.26 GLUCOSE 169 Recent Labs 03/20/18 1725 CALCIUM 8.9 LFT's: No results for input(s): BILITOT, BILIDIR, ALBUMIN, ALKPHOS, ALT, AST in the last 7068 hours. Coags: Recent Labs 03/20/18 1725 DDIMER 359 Cardiac enzymes: Recent Labs 03/21/18 0139 03/20/18 1725 TROPONINT <0.01 <0.01 Endocrine: No results for input(s): TSH, CORTISOL in the last 7068 hours. Invalid input(s): FRLADIXMHNP1G Heme: No results for input(s): LDH, HAPTOGLOBIN, URICACID in the last 168 hours. Microbiology: None Diagnostic Studies: EKG- Sinus bradycardia CXR- FINDINGS: No pulmonary opacity, effusion or pneumothorax. Cardiomediastinal silhouette is normal. No suspicious osseous findings. ?? 7 mm density is seen superimposed over the left lung apex, which appears to have been present on the prior study and is unchanged since then. This likely represents a granuloma. ?? Upper abdomen is unremarkable. ?? IMPRESSION 1. No acute cardiopulmonary process. TTE 06/21/2016: ?? SUMMARY: ?? 1. The left ventricular [...] is no evidence of a pericardial effusion. Cardiac catheterization 06/22/2016: Conclusions: * Obstructive disease of the LAD and LCX * Successful stent insertion of the mid LAD lesion * Successful stent insertion of the proximal OM2 lesion ASSESSMENT: Mr. Meliton Raymond is a 57-year-old male with past medical history including coronary artery disease who presents with chief complaint of chest pain and shortness of breath. Presents with atypical chest pain. Given new exertional component, will consider unstable angina high on the differential. Given recent respiratory illness as well as positional component, consider pericarditis-however, inflammatory markers are negative and there are no EKG changes consistent with this. May consider noted sinus bradycardia as a contributing component to his exertional symptoms PLAN: Admit to Cardiology, Team Pager #[phone] # Atypical chest pain and shortness of breath -Treat as unstable angina -Aspirin 81 mg daily-continuing home regimen -Plavix 75 mg daily-continuing home regimen -Heparin gtt -Losartan 50 mg daily-continue home regimen -Holding beta-cristi given bradycardia - EKG/SL nitro per chest pain protocol - trend cardiac enzymes - Exercise nuclear stress - Rhythm monitoring off of beta-cristi, consider EP evaluation # Home meds -Continue home donepezil, olanzapine, sertraline # Others DVT- on heparin gtt Pain - tylenol PRN GI- protonix -home PPI equivalent Nutrition- [facility]; NPO 3 hr prior to nuclear stress CODE STATUS: Full Code Lei Soto MD Internal Medicine, PGY2 Cardiology Staff - Admission Note This patient was seen and examined on morning rounds. I agree with the findings and plan of care perDr. Soto (medical housestaff). Please refer to his note above for details. Garcia aspects of careand updates are as noted below: 57 year old male with chest pain Squaring Shear Operator: Dr. Horne, [place] #chest pain -negative cardiac enzymes -no significant ECG abnormalities -history of CAD: PCI in 2016 to LAD and OM2 branch of Lcx -history of apical WMA in 2016 57 year old male with known CAD. Reports some chest pain symptoms over the past month. Described as dull or pressure sensation. Can occur with exertion or without exertion. He states that the discomfort is different as compared to the pain he had prior to PCI in 2016. He also reports some acid reflux type symptoms. He recently had a URI - was on antibiotics about 5 weeks ago. No MA depression on ECG.No fever, chills, sweats. Mild pitting edema on exam. Otherwise normal. Given his presentation, he was referred for an imaging stress test. A DSE was obtained. This demonstrated a small apical WMA that was thought to be chronic. This was an otherwise normal stress echo with hyperdynamic LV function during the immediate post exercise period. See formal report below. Recommended low dose lasix for his edema (10mg) and long acting nitrate. He is already on a PPI. We discussed the pros/cons of moving forward with cardiac cath at this time. Based on the stress test results, medical therapy only recommended at this time. He can be discharged home and follow-up with his automotive general sales manager, Dr. Horne in one month. If he has recurrent chest pain episodes despite the stress test with no ischemia, a cardiac cath could always be considered at a later date. Other details as above. documented in this encounter ED Notes Chanel Suarez RN - 03/21/2018 3:10 AM EDT 2245; Report received from JENNIFER Mirza. Care assumed. 2345; In to update patient, pending cardiology consult. Patient is aware. Expressed dissatisfaction with wait time, delays explained. Patient denies needs, NAD. 0139; Repeat troponin obtained, pending admission. 0230; Patient appears to be sleeping, in recliner chair. NAD. 0310; Report to MERYL Villagomez. Shannan Simms MD - 03/20/2018 5:08 PM EDT ED Resident Note I saw this patient 03/20/2018 at 5:08 PM HPI Meliton Raymond is a 57 y.o. male with a PMH of NSTEMI (s/p NICKI to mid LAD and prox OM2 in 2015), HLD and acute systolic HF who presents to the Emergency Department with Chest pain, nausea and SOB x3 weeks. UNA Raymond states that for the last 3 weeks he has had some chest discomfort as well as decreased energy, nausea and intermittent shortness of breath. He notes that approximately 5 weeks ago he was in [place] and was diagnosed with a pneumonia for which she received antibiotics on an outpatient basis. Hestates that his shortness of breath improved somewhat on the antibiotics but did not resolve it has been consistent since then. His states that since being diagnosed With the pneumonia that he hasneeded 6 pillows to sleep at night and cannot lie flat. He states that he has taken his aspirin and clopidogrel faithfully. He denies fevers, chills, productive cough. He states that his chest discomfort feels like a weight of 5-10 pounds. It is ongoing and constant has not yet been alleviated with the patient states that it is worse with exertion particularly climbing up stairs. He has not needed toclimb more than 1 flight of stairs during this time. Patient takes ASA, Clopidogrel, atorvastatin, lisinopril as well as metoprolol faithfully No Known Allergies No current facility-administered medications for this encounter. Current Outpatient Prescriptions: ??? aspirin 81 mg Tablet, Chewable, Take 81 mg by mouth daily., Disp: 30 tablet, Rfl: 3 ??? atorvastatin (LIPITOR) 80 mg Tablet, Take 1 tablet by mouth every evening., Disp: 30 tablet, Rfl: 3 ??? clopidogrel (PLAVIX) 75 mg Tablet, Take 1 tablet by mouth daily., Disp: 30 tablet, Rfl: 3 ??? lisinopril (PRINIVIL;ZESTRIL) 5 mg Tablet, Take 1 tablet by mouth daily., Disp: 30 tablet, Rfl: 3 ??? nitroGLYcerin (NITROSTAT) 0.4 mg Tablet, Sublingual, Place 1 tablet under the tongue every 5 minutes as needed for Chest pain., Disp: 30 tablet, Rfl: 3 ??? meTOPROLOL succinate (TOPROL-XL) 100 mg Tablet Sustained Release 24 hr, Take 1 tablet by mouth daily., Disp: 30 tablet, Rfl: 12 No past medical history on file. Social History Social History ??? Marital status: Spouse name: N/A ??? Number of children: N/A ??? Years of education: N/A Occupational History ??? Not on file. Social History Main Topics ??? Smoking status: Not on file ??? Smokeless tobacco: Not on file ??? Alcohol use Not on file ??? Drug use: Not on file ??? Sexual activity: Not on file Other Topics Concern ??? Not on file Social History Narrative Review of Systems: Review of Systems 10 point review of systems was negative except as noted in the HPI. Physical Exam: Patient Vitals for the past 24 hrs: BP Temp Temp src Pulse Resp SpO2 Weight 03/20/18 1638 139/70 36.9 ??C (98.4 ??F) Oral 58 18 96 % 99.8 kg (220 lb) Physical Exam General: lying in bed, NAD HEENT: Normocephalic, atraumatic. MMM. Nares patent. Pharynx non-edematous without erythema. Neck: supple. Chest: Breath sounds present bilaterally. No crackles. Cardio: RRR, No MRG. GI: Soft. No pain on palpation x4 quadrants. Extremities: No clubbing or edema. Skin: No rashes, warm and dry. Neuro: Grossly nonfocal. Distal CSM intact x4. Psych: Normal judgment and appropriate affect. ED Course and Medical Decision Making: - Patient seen under the supervision of Dr. Simms - Nursing Note Reviewed. - Medications, allergies and past medical history reviewed - Medications given: Aspirin 325 mg, nitroglycerin 0.4 mg sublingual ??2. - Procedures: None ED Course Eliazar Willett's Documentation Value Comment Time EKG 12 Lead Sinus bhargavi - no acute evidense of OR. Sinus bradycardia Left anterior fascicular block Abnormal ECG When compared with ECG of 22-JUN-2016 12:27, Vent. rate has decreased BY ??28 BPM Criteria for Anteroseptal infarct are no longer Present T wave inversion less evident in Anterolateral leads 03/20 1711 Troponin-T: <0.01 (Reviewed) 03/20 181 XR Chest PA & Lateral (Generic) 1. ??No acute cardiopulmonary process. 03/20 1914 D-Dimer, Quant: 359 (Reviewed) 03/20 2006 Discussed CDU admission for patient who agrees this may be beneficial. Dr. Simms to see. 03/20 2028 ProBNP: 73 (Reviewed) 03/20 2334 MDM This patient's ongoing chest pain is concerning in the context of his history of dual stent placement in 2015. Troponin and EKG are unremarkable for evidence of ischemia however given the patient's history we feel that the patient would be best served by admission to cardiology for further evaluation. Assessment and Plan: Assessment: 57 y.o. male with chest pain Plan: -Admit to cardiology Eliazar Willett MD Resident 03/21/18 0126 ED ATTENDING ATTESTATION NOTE The patient was seen in conjunction with Dr. Willett, the resident physician. I have independently performed the garcia portions of the history and physical exam. I have reviewed the nursing notes, vital signs, and all diagnostic studies personally including labs, imaging studies and EKGs. I have discussed the details of the case with the resident and agree with the assessment and plan as described in the resident note above. Shannan Simms MD 04/19/18 0224 Shannan Simms MD 05/22/18 [id number] documented in this encounter Miscellaneous Notes Initial Assessments - Sara Baltazar RN - 03/21/2018 1:04 PM EDT Office of Care Management Initial Assessment Sara Baltazar RN reviewed record and discussed patient with Care Team. Source of Information: Patient and medical record Introduced self/reviewed role; services accepted. Reason for Hospitalization: <principal problem not specified> History reviewed. No pertinent past medical history. Hospitalizations Within the Past 30 Days: None Anticipated Length Of Stay (If known): discharging today Current Decision-Making Capacity: Self, A&Ox3, Full Capacity Advance Care Planning: Full Code No. Discussed with patient importance and process for doing AdvanceDirectives. Provided copy(ies) of [place] [facility] Advance Directives Taking Steps booklet with forms. Current Coping/Education/Information Needs: Coping well Current Functional Ability: SBA Functional Status Prior to Admission: Independent Home Environment: lives with two story home states no problems with stairs [address] [facility] [address] Social & Family Supports/Community Resources: Extended Emergency Contact Information Primary Emergency Contact: Riana Raymond Address: [facility] [address] [place] [address] [facility] Relation: Spouse Behavioral Health History: n/a Substance Use/Abuse: Social History Substance Use Topics ??? Smoking status: None ??? Smokeless tobacco: None ??? Alcohol use No Other Pertinent/Service Specific Information: n/a Health/Prescription Coverage: Primary Insurance: [employer] OOS Payor: [employer] [facility] OOS / Plan: [facility] OOS PPO / Product Type: *No Product type* / Secondary Insurance: N/A Prescription Coverage: yes Preferred Pharmacy: [id number] - [place], [place] - [phone] [facility] [address] [id number] - [place], [place] - [address] [facility] [address] Other: Primary Care Provider: Juice Jensen DO [phone] Patient/Caregiver Goals of Treatment: discharge to home Potential Needs for Transition of Care: Rehab/SNF:NA Home Health: NA DME: NA Dialysis: NA Community Resources: n/a Transportation: Family or Friend Other: n/a Anticipated Barriers to Discharge/Special Considerations: None Plan: Patient will discharge when medically stable MR for discharge. Needs TBA A member of the Care Management team will continue to monitor progress, follow for continuity of care and assist with transition of care planning. Sara Baltazar [id number] documented in this encounter Plan of Treatment Not on filedocumented as of this encounter Procedures Procedure Name Priority Date/Time Associated Comments Diagnosis VP RESEARCH SCAN 03/22/2018 12:00 Res ults for this AM EDT procedure are i n the results section. HEPARIN Routine 03/21/2018 11:05 Results for this (UNFRACTIONATED) LEVEL AM EDT proce dure are in the results section. STRESS ECHOCARDIOGRAM W Routine 03/21/2018 9:53 AM Acute systo lic Results for this CONTRAST LMTD SPEC EDT heart failure procedur e are in DOPP,COLOR DOPP the results section. CARDIAC ENZYMES Routine 03/21/2018 8:02 AM Result s for this ([facility] EDT procedure are i n the results section. HEPARIN STAT 03/21/2018 4:43 AM Results f or this (UNFRACTIONATED) LEVEL EDT proce dure are in the results section. HEMOGRAM Routine 03/21/2018 4:43 AM Results f or this EDT procedure are i n the results section. DIFFERENTIAL, AUTOMATED Routine 03/21/2018 4:43 AM Results for this EDT procedure are i n the results section. GREEN TUBE HOLD Routine 03/21/2018 4:43 AM Result s for this EDT procedure are i n the results section. CBC (WITH DIFF) Routine 03/21/2018 4:43 AM EDT CRP, ACUTE INFLAMMATION STAT 03/21/2018 1:39 AM Results for this EDT procedure are i n the results section. TROPONIN STAT 03/21/2018 1:39 AM Results f or this EDT procedure are i n the results section. EKG 12-LEAD Routine 03/21/2018 1:08 AM Results f or this EDT procedure are i n the results section. XR CHEST PA AND LATERAL STAT 03/20/2018 6:03 PM Results for this EDT procedure are i n the results section. LYME IGG & IGM ANTIBODY STAT 03/20/2018 5:25 PM Results for this EDT procedure are i n the results section. HEMOGRAM STAT 03/20/2018 5:25 PM Results f or this EDT procedure are i n the results section. DIFFERENTIAL, AUTOMATED STAT 03/20/2018 5:25 PM Results for this EDT procedure are i n the results section. D-DIMER, QUANTITATIVE STAT 03/20/2018 5:25 PM Results for this EDT procedure are i n the results section. GOLD TUBE HOLD STAT 03/20/2018 5:25 PM Results for this EDT procedure are i n the results section. BLUE TUBE HOLD STAT 03/20/2018 5:25 PM Results for this EDT procedure are i n the results section. SEDIMENTATION RATE STAT 03/20/2018 5:25 PM Res ults for this EDT procedure are i n the results section. CBC (WITH DIFF) STAT 03/20/2018 5:25 PM EDT TROPONIN STAT 03/20/2018 5:25 PM Results f or this EDT procedure are i n the results section. PRO-BRAIN NATRIURETIC STAT 03/20/2018 5:25 PM Results for this PEPTIDE EDT procedure are i n the results section. BASIC METABOLIC PANEL STAT 03/20/2018 5:25 PM Results for this (NON-FASTING) EDT procedure are in the results section. EKG 12-LEAD STAT 03/20/2018 4:42 PM Results f or this EDT procedure are i n the results section. documented in this encounter Results SCAN DOC: VP RESEARCH (03/22/2018 12:00 AM EDT) Anatomical Region Laterality Modality Other Narrative 03/22/2018 12:00 AM EDT This result has an attachment that is no t available. Ordered by an unspecified provider. Scanning Provider MEDIA MGR SCAN EXT ORDR/RSLT Heparin (unfractionated) Level (03/21/2018 11:05 AM EDT) P athologist Signature Heparin UFH 0.22 IU/mL [facility] Comment: Guidelines for therapeutic unfractionate d heparin levels are summarized below. Heparin (Anti-Xa) levels should be deter mined in a plasma sample that has been drawn 6 hours after a dose change i.e., steady-state has been reached. DRUG ?Dos ing Schedule ? Target Peak Steady-State ?Heparin (Anti-Xa) Levels (Units/mL) Unfractionated ?Continuous inf usion ?0.3-0.7 Heparin ?0.3-0.6 fo r some neurology indications Specimen Anatomical Collection Method Collection Time Receive d Time (Source) Location / / Volume Laterality Blood specimen 03/21/2018 11:05 8 (specimen) AM EDT 11:16 AM EDT Resulting Agency Comment Spec In Lab Gilbert Lewis MD HEMATOLOGY ORDERABLES Performing Organization Address City/State/[place] [address] STRESS ECHOCARDIOGRAM W CONTRAST LMTD SPEC DOPP,COLOR DOPP (03/21/2018 9:53 AM EDT) P athologist Signature EF 65 [facility]ART[facility] SYSTEM Anatomical Region Laterality Modality Other Specimen (Source) Anatomical Location Collection Method / Collectio n Time Received Time / Laterality Volume 03/21/2018 Narrative 03/21/2018 10:21 AM EDT Procedure: ?Stress Echocardiogram Patient: ?SUZANNE RAY ?(Age): 1960(57y) Med Rec#: ? [id number] ?Sex: ?M ? Site Loc: ? [facility] ?Ht / Wt: ??175(cm)/100(kg) Pt. Loc: ?Echo Lab ?BSA: ?2.15 Study Date: ?? 03/21/2018 ?Pt. Type: Tape: ? Referring: SELF Referring: Elvis Bosch Reading: Dago Webb ([id number]) Petroleum Plant Operator: Yefri Otoole [facility] Interpreting Fellow: Charu Rob Nurse: Pati Foreman Diagnosis: *Acute systolic (congestive) heart fail ure (I50.21) Stage ? BP ?HR ? Rest ?147/76 ?45 ? Low dose ?166/70 ?56 ? Peak ?169/80 ?137 ? Recovery ?144/83 ?77 ? SUMMARY: 1. REST: The left ventricular chamber si ze is normal. There is mild septal hypertrophy of the left ventricle . ??The ??apical inferior wall segment is hypokinetic (score 2). There is normal global left ventricular systolic function. ??Ejectio n fraction is estimated to be 65%. Right ventricular chamber size, wal l thickness, and systolic function are within normal limits. Other echo and stress findings as noted in report. 2. STRESS: The patient received incremen newton doses of Dobutamine to a peak of 40 mcg/kg/min plus a total of 1 mg atropine, achieving a peak heart rate of 137 bpm (85% max. pred.), and peak BP of 169/80 mmHg. With stress he was nauseated and reporte d mild chest pressure but was hemodynamically stable, had rare PVCs an d developed no significant ST-TW changes. With stress all visualized left ventricular segments became appropriately hyperdynamic. Segments of the apex were not visualized. 3. IMPRESSION: There was no evidence of ischemia at this diagnostic level of stress in segments that were vi sualized. Findings Rest: Study Quality: ? Technically limited Left Ventricle: ? The left ventricul ar chamber size is normal. ?There is mild septal hypertrophy o f the left ventricle. ?There is normal global left ventri cular systolic function. ??Ejection fraction is estimated to be 65%. ?There are left ventricular segment al wall motion abnormalities present, as shown in the diagram below. ?Doppler assessment is consistent w ith elevated left sided filling pressure. ?The ??apical inferior wall segment is hypokinetic (score 2). ?Overall wallmotion score index is ??1.06 Left Atrium: ? The left atrium is no rmal in size.33 ml/m2 Right Ventricle: ? Right ventricular chamber size, wall thickness, and systolic function are within normal limi ts. ?Pulmonary artery hypertension coul d not be assessed due to inadequate tricuspid regurgitation jet. Right Atrium: ? The right atrium is mildly dilated. Aortic Valve: ? The aortic valve is trileaflet. The leaflets are thin with normal excursion. There is no aorti c stenosis or regurgitation present. Mitral Valve: ? The mitral valve shobha flets are mildly thickened. ?There is mild (1+/4+) mitral regur gitation present. Tricuspid Valve: ? The tricuspid clifton ve appears normal in structure and function. ?There is trace tricuspid regurgita tion present. Pericardium: ? A trivial pericardial effusion is visualized. Aorta: ? The aortic root is normal i n size. ?The ascending aorta is normal in s ize. Stress: ? EKG: sinus bradycardia. ?The patient's oxygen saturation wa s 93% ?The patient is taking a calcium ch jere cristi. ?The patient is taking an anti-plat elet medication. Misc: ? Technically difficult study. ?Definity contrast (one 1.5 ml vial )was used to enhance endocardial definition. Excess contrast was discarde d. Findings Low dose: Stress: ? EKG: normal sinus rhythm. ?The patient's oxygen saturation wa s 95% Findings Peak: Predicted Values:The patient achieved a maximum heart rate of 137 which is 85% of the maximum predicted heart ra te (161 beats/min). ??The target heart rate was achieved. Left Ventricle: ? Global left ventri cular systolic function appears hyperdynamic. ?There are no left ventricular segm ental wall motion abnormalities. Stress: ? The peak dose of Dobutamin e infused was 40 ug/kg/min. ?The patient was administered 1.0 m g of Atropine. ?The patient was administered 1 mg of Metoprolol during recovery. ?The patient performed leg lifts to accelerate heart rate. ?The patient performed hand squeeze s to accelerate heart rate. ?The patient felt nauseous.subsided in recovery ?The blood pressure response was no rmal. ?There were rare ventricular premat ure beats. ?There were no significant ST segme nt changes. ?This was a negative echocardiograp hic stress test. ?EKG: sinus tachycardia. ?The patient's oxygen saturation wa s 95% Misc: ? Definity contrast was given to enhance Doppler signal. ?The patient is alert and oriented x3. ?The procedure was explained to the patient and the patient understands the procedure, ?A 22 gauge heplock was placed. ?Normal saline was given. 250cc's N S Findings Recovery: Stress: ? EKG: normal sinus rhythm. ?The patient's oxygen saturation wa s 93% Chambers 2D ?Value ?Units (Range) ? IVSd (2D) ? 1.4 ?cm ? LVPWd (2D) ?1 ?cm ? IVS:LVPW ratio (2D) 1.4 ?ratio ? RWT (2D) ?0.5 ?ratio ? RWT PW (2D) ? 0.5 ?ratio ? LVIDd (2D) ?4.6 ?cm ? LVIDs (2D) ?2.6 ?cm ? LVIDd (2D) index ?2.1 ?cm/m2 ? LVIDs (2D) index ?1.2 ?cm/m2 ? LV FS (2D) ?43 ? % ? EF Teichholz (2D) ?? 74 ? % ? Ao root diameter (2D3.4 ?cm (2.1 - 3.6) ? Ascending Ao ?3.2 ?cm (2 - 3.5) ? Volumes/Mass ?Value ?Units (Range) ? LA ESV BP (MOD) inde32.9 ? ml/m2 ? LV mass (2D) ?208.3 ?g ? LV mass (2D) index ??96.9 ? g/m2 ? Diastolic/Systolic Function ?Value ?Units (Range) ? MV E-wave Vmax ?1 ?m/sec ? MV deceleration [id number] ?msec ? MV A-wave Vmax ?1 ?m/sec ? MV E:A ratio ?1 ?ratio ? LV E:e' septal ratio17 ? ratio ? LV E:e' lateral rati12.8 ? ratio ? Wall Motion: Segment Name ?Rest ? Peak ? Base-Anteroseptal ?? Normal ? Normal ? Base-Anterior ? Normal ? Normal ? Base-Anterolateral ??Normal ? Normal ? Base-Posterolateral Normal ? N ormal ? Base-Inferior ? Normal ? Normal ? Base-Inferoseptal ?? Normal ? Normal ? Mid-Anteroseptal ?Normal ? Normal ? Mid-Anterior ?Normal ? Normal ? Mid-Anterolateral ?? Normal ? Normal ? Mid-Posterolateral ??Normal ? Normal ? Mid-Inferior ?Normal ? Normal ? Mid-Inferoseptal ?Normal ? Normal ? Milan-Septal ? Normal ? Not Seen ? [place]-Anterior ? Normal ? Normal ? [place]-Lateral ?Normal ? Normal ? [place]-Inferior ? Hypokinetic ? Not Seen ? Milan-Tip ?Normal ? Not Seen ? This report has been electronically sign ed by: _ Dago Webb MD ? 03/21/2018 10 :21:17 Images reviewed and interpretation verif ied [facility] Cardiac Ultrasound Laboratory Procedure Note Dago Webb MD - 03/21/2018Formatt ing of this note might be different from the original. Procedure: Stress Echocardiogram Patient: SUZANNE BURGOS(Age): 1960([age]y) Med Rec#: [id number] Sex: M Site Loc: [facility] Ht / Wt: 175(cm)/100(kg) Pt. Loc: Echo Lab BSA: 2.15 Study Date: 03/21/2018 Pt. Type: Tape: Referring: SELF Referring: Elvis Bosch Reading: Dago Webb ([id number]) Petroleum Plant Operator: Yefri Otoole [facility] Interpreting Fellow: Charu Rob Nurse: Pati Foreman Diagnosis: *Acute systolic (congestive) heart fail ure (I50.21) Stage BP HR Rest 147/76 45 Low dose 166/70 56 Peak 169/80 137 Recovery 144/83 77 SUMMARY: 1. REST: The left ventricular chamber si ze is normal. There is mild septal hypertrophy of the left ventricle . The apical inferior wall segment is hypokinetic (score 2). There is normal global left ventricular systolic function. Ejection fraction is estimated to be 65%. Right ventricular chamber size, wal l thickness, and systolic function are within normal limits. Other echo and stress findings as noted in report. 2. STRESS: The patient received incremen newton doses of Dobutamine to a peak of 40 mcg/kg/min plus a total of 1 mg atropine, achieving a peak heart rate of 137 bpm (85% max. pred.), and peak BP of 169/80 mmHg. With stress he was nauseated and reporte d mild chest pressure but was hemodynamically stable, had rare PVCs an d developed no significant ST-TW changes. With stress all visualized left ventricular segments became appropriately hyperdynamic. Segments of the apex were not visualized. 3. IMPRESSION: There was no evidence of ischemia at this diagnostic level of stress in segments that were vi sualized. Findings Rest: Study Quality: Technically limited Left Ventricle: The left ventricular shanda mber size is normal. There is mild septal hypertrophy of the left ventricle. There is normal global left ventricular systolic function. Ejection fraction is estimated to be 65%. There are left ventricular segmental wa ll motion abnormalities present, as shown in the diagram below. Doppler assessment is consistent with e levated left sided filling pressure. The apical inferior wall segment is hyp okinetic (score 2). Overall wallmotion score index is 1.06 Left Atrium: The left atrium is normal i n size.33 ml/m2 Right Ventricle: Right ventricular chamb er size, wall thickness, and systolic function are within normal limi ts. Pulmonary artery hypertension could not be assessed due to inadequate tricuspid regurgitation jet. Right Atrium: The right atrium is mildly dilated. Aortic Valve: The aortic valve is trilea flet. The leaflets are thin with normal excursion. There is no aorti c stenosis or regurgitation present. Mitral Valve: The mitral valve leaflets are mildly thickened. There is mild (1+/4+) mitral regurgitat ion present. Tricuspid Valve: The tricuspid valve jeanine ears normal in structure and function. There is trace tricuspid regurgitation present. Pericardium: A trivial pericardial effus ion is visualized. Aorta: The aortic root is normal in size . The ascending aorta is normal in size. Stress: EKG: sinus bradycardia. The patient's oxygen saturation was 93% The patient is taking a calcium channel cristi. The patient is taking an anti-platelet medication. Misc: Technically difficult study. Definity contrast (one 1.5 ml vial)was used to enhance endocardial definition. Excess contrast was discarde d. Findings Low dose: Stress: EKG: normal sinus rhythm. The patient's oxygen saturation was 95% Findings Peak: Predicted Values:The patient achieved a maximum heart rate of 137 which is 85% of the maximum predicted heart ra te (161 beats/min). The target heart rate was achieved. Left Ventricle: Global left ventricular systolic function appears hyperdynamic. There are no left ventricular segmental wall motion abnormalities. Stress: The peak dose of Dobutamine infu sed was 40 ug/kg/min. The patient was administered 1.0 mg of Atropine. The patient was administered 1 mg of Me toprolol during recovery. The patient performed leg lifts to acce lerate heart rate. The patient performed hand squeezes to accelerate heart rate. The patient felt nauseous.subsided in r ecovery The blood pressure response was normal. There were rare ventricular premature b eats. There were no significant ST segment ch anges. This was a negative echocardiographic s tress test. EKG: sinus tachycardia. The patient's oxygen saturation was 95% Misc: Definity contrast was given to enh ance Doppler signal. The patient is alert and oriented x3. The procedure was explained to the michael ent and the patient understands the procedure, A 22 gauge heplock was placed. Normal saline was given. 250cc's NS Findings Recovery: Stress: EKG: normal sinus rhythm. The patient's oxygen saturation was 93% Chambers 2D Value Units (Range) IVSd (2D) 1.4 cm LVPWd (2D) 1 cm IVS:LVPW ratio (2D) 1.4 ratio RWT (2D) 0.5 ratio RWT PW (2D) 0.5 ratio LVIDd (2D) 4.6 cm LVIDs (2D) 2.6 cm LVIDd (2D) index 2.1 cm/m2 LVIDs (2D) index 1.2 cm/m2 LV FS (2D) 43 % EF Teichholz (2D) 74 % Ao root diameter (2D3.4 cm (2.1 - 3.6) Ascending Ao 3.2 cm (2 - 3.5) Volumes/Mass Value Units (Range) LA ESV BP (MOD) inde32.9 ml/m2 LV mass (2D) 208.3 g LV mass (2D) index 96.9 g/m2 Diastolic/Systolic Function Value Units (Range) MV E-wave Vmax 1 m/sec MV deceleration [id number] msec MV A-wave Vmax 1 m/sec MV E:A ratio 1 ratio LV E:e' septal ratio17 ratio LV E:e' lateral rati12.8 ratio Wall Motion: Segment Name Rest Peak Base-Anteroseptal Normal Normal Base-Anterior Normal Normal Base-Anterolateral Normal Normal Base-Posterolateral Normal Normal Base-Inferior Normal Normal Base-Inferoseptal Normal Normal Mid-Anteroseptal Normal Normal Mid-Anterior Normal Normal Mid-Anterolateral Normal Normal Mid-Posterolateral Normal Normal Mid-Inferior Normal Normal Mid-Inferoseptal Normal Normal Milan-Septal Normal Not Seen Milan-Anterior Normal Normal Milan-Lateral Normal Normal Milan-Inferior Hypokinetic Not Seen Milan-Tip Normal Not Seen This report has been electronically sign ed by: _ Dago Webb MD 03/21/2018 10:21:17 Images reviewed and interpretation verif ied [facility] Cardiac Ultrasound Laboratory Gilbert Lewis MD ECHO ORDERABLES Cardiac Enzymes (LEB/CGP) (03/21/2018 8:02 AM EDT) athologist Signature Troponin-T <0.01 0.00 - 0.00 [facility] ng/mL [facility] Comment: The 99th percentile for Troponin T is le ss than 0.01 ng/mL, any detectable cTnT concentration using this assay should be considered elevated. According to the third universal definit ion of myocardial infarction the following criteria with a clinical prese ntation consistent with acute myocardial ischemia meets the diagnosis for a myocardial infarction (OR). Detection of a rise and/or fall of cTnT, with at least one value greater than the 99th percentile (> or = 0.01) and wi th at least one of the following ?? Symptoms of ischemia ?? New or presumed new significant ST-se gment-T wave (ST-T) changes or new left bundle branch block (LBBB) ?? Development of pathologic Q waves in the ECG ?? Imaging evidence of new loss of viabl e myocardium or new regional wall motion abnormality ?? Identification of an intracoronary th rombus by angiography or autopsy Samples for cTnT testing should be obtai lokesh serially upon first assessment and again 3 to 6 hours later. If the clinica l suspicion is high and previous samples have been negative an additional sample may be indicated. Reference: [place] Definition of Myocardial Infarction. Journal of the [place] [employer] 2012;60:1581-98 CK, Total 101 0 - 200 unit/L [facility] Specimen Anatomical Collection Method Collection Time Receive d Time (Source) Location / / Volume Laterality Blood specimen 03/21/2018 8:02 AM 018 8:26 (specimen) EDT AM EDT Resulting Agency Comment Spec In Lab Gilbert Lewis MD CHEMISTRY ORDERABLES Performing Organization Address City/State/ZIP Code Phon e Number [address] Green Tube HOLD (03/21/2018 4:43 AM EDT) athologist Signature Green Hold Sample in [facility] LABORATORY Specimen Anatomical Collection Method Collection Time Receive d Time (Source) Location / / Volume Laterality Blood specimen Venous Draw / 03/21/2018 4:43 AM 2017 5:11 (specimen) Unknown EDT AM EDT Lei Soto MD CHEMISTRY ORDERABLES Performing Organization Address City/[facility]/ZIP Code Phon e Number [address] Differential, Automated (03/21/2018 4:43 AM EDT) athologist Signature Neutrophils % 49.7 % [facility] Neutr Abs (ANC) 3.47 1.70 - [facility] 6.10 [facility] x10(3)/[facility] LABORATORY Lymphocytes % 38.9 % [facility] Lymphocytes Abs 2.7 0.9 - 3.2 [facility] x10(3)/[facility] LABORATORY Monocytes % 6.3 % [facility] Monocyte Abs 0.4 0.3 - 0.9 [facility] x10(3)/[facility] LABORATORY Eosinophils % 3.7 % [facility] Eosinophils Abs 0.3 0.0 - 0.4 [facility] x10(3)/[facility] LABORATORY Basophils % 1.1 % [facility] Basophils Abs 0.1 0.0 - 0.1 [facility] x10(3)/[facility] LABORATORY Immature Gran % 0.30 % [facility] Comment: Immature granulocytes(IG's)percentage an d absolute count will include metamyelocytes, myelocytes, and promyelo cytes. Blood smears from CBCs yielding IG's will be scanned manually for concor dance. If this scan disagrees with the automated IG or if promyelocytes are not ed, a manual differential will be performed. Amada Gran Abs 0.02 0.00 - 0.04 x10(3)/[facility] Specimen Anatomical Collection Method Collection Time Receive d Time (Source) Location / / Volume Laterality Blood specimen 03/21/2018 4:43 AM 018 5:10 (specimen) EDT AM EDT Resulting Agency Comment Spec In Lab Lei Soto MD HEMATOLOGY ORDERABLES Performing Organization Address City/State/[place] [address] (ABNORMAL) Hemogram (03/21/2018 4:43 AM EDT) Analysis Performed At Patho logist Time Signature WBC 7.0 4.0 - 9.5 [facility] x10(3)/[facility] LABORATORY RBC 4.09 (L) 4.58 - [facility] 5.54 [facility] x10(6)/[facility] LABORATORY Hemoglobin 14.0 13.7 - [facility] 16.5 gm/dL [facility] Hematocrit 38.5 (L) 40.5 - [facility] 48.5 % [facility] MCV 94.1 (H) 82.9 - [facility] 93.1 [facility] LABORATORY MCH 34.2 (H) 27.5 - [facility] 32.1 pg [facility] MCHC 36.4 (H) 32.0 - [facility] 35.7 gm/dL [facility] Platelets 211 145 - 357 [facility] x10(3)/[facility] LABORATORY RDWSD 41.9 36.0 - [facility] MEGAN 45.0 [facility] LABORATORY RDWCV 12.1 11.4 - [facility] 13.8 % [facility] MPV 9.6 7.6 - 12.9 [facility] LABORATORY nRBC % Auto 0.0 % [facility] nRBC Abs Auto 0.000 0.000 - [facility] MEGAN 0.000 [facility] x10(3)/[facility] LABORATORY Specimen Anatomical Collection Method Collection Time Receive d Time (Source) Location / / Volume Laterality Blood specimen 03/21/2018 4:43 AM 018 5:10 (specimen) EDT AM EDT Resulting Agency Comment Spec In Lab Lei Soto MD HEMATOLOGY ORDERABLES Performing Organization Address City/[facility]/[place] [address] Heparin (unfractionated) Level (03/21/2018 4:43 AM EDT) athologist Signature Heparin UFH <0.04 IU/mL [facility] LABORATORY Comment: Guidelines for therapeutic unfractionate d heparin levels are summarized below. Heparin (Anti-Xa) levels should be deter mined in a plasma sample that has been drawn 6 hours after a dose change i.e., steady-state has been reached. DRUG ?Dos ing Schedule ? Target Peak Steady-State ?Heparin (Anti-Xa) Levels (Units/mL) Unfractionated ?Continuous inf usion ?0.3-0.7 Heparin ?0.3-0.6 fo r some neurology indications Specimen Anatomical Collection Method Collection Time Receive d Time (Source) Location / / Volume Laterality Blood specimen 03/21/2018 4:43 AM 018 5:10 (specimen) EDT AM EDT Resulting Agency Comment Spec In Lab Gilbert Lewis MD HEMATOLOGY ORDERABLES Performing Organization Address City/[facility]/ZIP Code Phon e Number [address] CRP, acute inflammation (03/21/2018 1:39 AM EDT) athologist Signature CRP 2.5 <=4.9 mg/L [facility] Specimen Anatomical Collection Method Collection Time Receive d Time (Source) Location / / Volume Laterality Blood specimen Venous Draw / 03/21/2018 1:39 AM 2017 1:54 (specimen) Unknown EDT AM EDT Resulting Agency Comment Spec In Lab Himanshu Perea MD CHEMISTRY ORDERABLES Performing Organization Address City/[facility]/[place]IP [place] [address] Troponin T (03/21/2018 1:39 AM EDT) athologist Signature Troponin-T <0.01 0.00 - 0.00 [facility] ng/mL [facility] Comment: The 99th percentile for Troponin T is le ss than 0.01 ng/mL, any detectable cTnT concentration using this assay should be considered elevated. According to the third universal definit ion of myocardial infarction the following criteria with a clinical prese ntation consistent with acute myocardial ischemia meets the diagnosis for a myocardial infarction (OR). Detection of a rise and/or fall of cTnT, with at least one value greater than the 99th percentile (> or = 0.01) and wi th at least one of the following ?? Symptoms of ischemia ?? New or presumed new significant ST-se gment-T wave (ST-T) changes or new left bundle branch block (LBBB) ?? Development of pathologic Q waves in the ECG ?? Imaging evidence of new loss of viabl e myocardium or new regional wall motion abnormality ?? Identification of an intracoronary th rombus by angiography or autopsy Samples for cTnT testing should be obtai lokesh serially upon first assessment and again 3 to 6 hours later. If the clinica l suspicion is high and previous samples have been negative an additional sample may be indicated. Reference: [place] Definition of Myocardial Infarction. Journal of the [place] [employer] 2012;60:1581-98 Specimen Anatomical Collection Method Collection Time Receive d Time (Source) Location / / Volume Laterality Blood specimen 03/21/2018 1:39 AM 018 1:45 (specimen) EDT AM EDT Resulting Agency Comment Spec In Lab Shannan Simms MD CHEMISTRY ORDERABLES Performing Organization Address City/[facility]/[place] [address] EKG 12 Lead (03/21/2018 1:08 AM EDT) Component Value Ref Range Test Analysis Performed Pathologis t Method Time At Signature Ventricular rate 44 BPM MUSE SYSTEM Atrial Rate 44 BPM MUSE SYSTEM P-R Interval 184 ms MUSE SYSTEM QRS Duration 100 ms MUSE SYSTEM Q-T Interval 426 ms MUSE SYSTEM QTC Calculated 364 ms MUSE SYSTEM (Bezet) Calculated P Chandler 36 degrees MUSE SYSTEM Calculated R Chandler -47 degrees MUSE SYSTEM Calculated T Chandler 63 degrees MUSE SYSTEM INTERPRETATION Marked sinus bradycardia MUSE SYSTEM Left anterior fascicular block Septal infarct , age undetermined Abnormal ECG When compared with ECG of 20-MAR-2018 16:42, (unconfirmed) No significant change was found Confirmed by MD Vidal, Nemesio ([id number]) on 03/21/2018 4:35:03 PM Specimen Anatomical Collection Method Collection Time Receive d Time (Source) Location / / Volume Laterality 03/21/2018 1:08 AM 8 4:35 EDT PM EDT Shannan Simms MD ECG ORDERABLES Performing Organization Address City/State/ZIP Code Phon e Number MUSE SYSTEM XR Chest PA & Lateral (Generic) (03/20/2018 6:03 PM EDT) Anatomical Region Laterality Modality Chest N/A Digital Radiography Specimen (Source) Anatomical Location Collection Method / Collectio n Time Received Time / Laterality Volume Impressions 03/20/2018 6:43 PM EDT 1. ??No acute cardiopulmonary process. Narrative 03/20/2018 6:43 PM EDT EXAMINATION: XR CHEST PA AND LATERAL (GENERIC) CLINICAL HISTORY: SOB, chest pain, PNA d x 1 month ago. TECHNIQUE: Frontal and lateral radiograph COMPARISON: Chest radiograph 06/21/2016 FINDINGS: No pulmonary opacity, effusion or pneumo thorax. Cardiomediastinal silhouette is normal. No suspicious osseous findings. 7 mm density is seen superimposed over t he left lung apex, which appears to have been present on the prior study and is u nchanged since then. This likely represents a granuloma. Upper abdomen is unremarkable. Procedure Note Erick Palomares MD - 03/20/2018Formattin g of this note might be different from the original. EXAMINATION: XR CHEST PA AND LATERAL (GE NERIC) CLINICAL HISTORY: SOB, chest pain, PNA d x 1 month ago. TECHNIQUE: Frontal and lateral radiograph COMPARISON: Chest radiograph 06/21/2016 FINDINGS: No pulmonary opacity, effusion or pneumo thorax. Cardiomediastinal silhouette is normal. No suspicious osseous findings. 7 mm density is seen superimposed over t he left lung apex, which appears to have been present on the prior study and is u nchanged since then. This likely represents a granuloma. Upper abdomen is unremarkable. IMPRESSION 1. No acute cardiopulmonary process. Shannan Simms MD IMG DX ORDERABLES Sedimentation rate (03/20/2018 5:25 PM EDT) athologist Signature Sed Rate 5 0 - 15 [facility] mm/hr [facility] Specimen Anatomical Collection Method Collection Time Receive d Time (Source) Location / / Volume Laterality Blood specimen Venous Draw / 03/20/2018 5:25 PM 2017 5:34 (specimen) Unknown EDT PM EDT Resulting Agency Comment Spec In Lab Himanshu Perea MD HEMATOLOGY ORDERABLES Performing Organization Address City/State/[place] [address] Lyme IgG & IgM Antibody (03/20/2018 5:25 PM EDT) athologist Signature Lyme Screening Neg Neg [facility] LABORATORY Specimen Anatomical Collection Method Collection Time Receive d Time (Source) Location / / Volume Laterality Blood specimen Venous Draw / 03/20/2018 5:25 PM 2017 7:57 (specimen) Unknown EDT AM EDT Resulting Agency Comment Spec In Lab Eliazar Willett MD IMMUNOLOGY ORDERABLES Performing Organization Address City/[facility]/[place] [address] pro-Brain Natriuretic Peptide (03/20/2018 5:25 PM EDT) athologist Signature ProBNP 73 <=125 pg/mL [facility] Specimen Anatomical Collection Method Collection Time Receive d Time (Source) Location / / Volume Laterality Blood specimen Venous Draw / 03/20/2018 5:25 PM 2017 5:35 (specimen) Unknown EDT PM EDT Resulting Agency Comment Spec In Lab Eliazar Willett MD CHEMISTRY ORDERABLES Performing Organization Address [facility] [place] [address] D-Dimer, Quantitative (03/20/2018 5:25 PM EDT) athologist Signature D-Dimer, Quant 359 0 - 500 [facility] FEU ng/ml [facility] Comment: The D-Dimer assay is used to aid in the diagnosis of deep vein thrombosis and pulmonary embolism. A normal D-Dimer res ult (less than 500 FEU ng/ml) has a negative predictive value of approximate ly 95% for the exclusion of acute PE and DVT when there is low to moderate pr etest probability. To use age adjusted cutoff: Age x 10 ng/ml. Specimen Anatomical Collection Method Collection Time Receive d Time (Source) Location / / Volume Laterality Blood specimen Venous Draw / 03/20/2018 5:25 PM 2017 5:36 (specimen) Unknown EDT PM EDT Resulting Agency Comment Spec In Lab Eliazar Willett MD HEMATOLOGY ORDERABLES Performing Organization Address [facility] Code Phon e Number [address] Gold Tube HOLD (03/20/2018 5:25 PM EDT) athologist Signature Gold Hold Sample in [facility] LABORATORY Specimen Anatomical Collection Method Collection Time Receive d Time (Source) Location / / Volume Laterality Blood specimen Venous Draw / 03/20/2018 5:25 PM 2017 5:35 (specimen) Unknown EDT PM EDT Eliazar Willett MD CHEMISTRY ORDERABLES Performing Organization Address City/[facility] [place] [address] Blue Tube HOLD (03/20/2018 5:25 PM EDT) athologist Signature Blue Hold Sample in [facility] LABORATORY Specimen Anatomical Collection Method Collection Time Receive d Time (Source) Location / / Volume Laterality Blood specimen Venous Draw / 03/20/2018 5:25 PM 2017 5:36 (specimen) Unknown EDT PM EDT Eliazar Willett MD HEMATOLOGY ORDERABLES Performing Organization Address City/State/ZIP Code Phon e Number [facility] [place] [address] Differential, Automated (03/20/2018 5:25 PM EDT) athologist Signature Neutrophils % 60.7 % [facility] Neutr Abs (ANC) 4.06 1.70 - [facility] 6.10 [facility] x10(3)/[facility] LABORATORY Lymphocytes % 27.8 % [facility] Lymphocytes Abs 1.9 0.9 - 3.2 [facility] x10(3)/[facility] LABORATORY Monocytes % 6.1 % [facility] Monocyte Abs 0.4 0.3 - 0.9 [facility] x10(3)/[facility] LABORATORY Eosinophils % 3.9 % [facility] Eosinophils Abs 0.3 0.0 - 0.4 [facility] x10(3)/[facility] LABORATORY Basophils % 1.2 % [facility] Basophils Abs 0.1 0.0 - 0.1 [facility] x10(3)/[facility] LABORATORY Immature Gran % 0.30 % [facility] Comment: Immature granulocytes(IG's)percentage an d absolute count will include metamyelocytes, myelocytes, and promyelo cytes. Blood smears from CBCs yielding IG's will be scanned manually for concor dance. If this scan disagrees with the automated IG or if promyelocytes are not ed, a manual differential will be performed. Amada Gran Abs 0.02 0.00 - 0.04 x10(3)/[facility] Specimen Anatomical Collection Method Collection Time Receive d Time (Source) Location / / Volume Laterality Blood specimen 03/20/2018 5:25 PM 018 5:34 (specimen) EDT PM EDT Resulting Agency Comment Spec In Lab Eliazar Willett MD HEMATOLOGY ORDERABLES Performing Organization Address City/State/[place] [address] (ABNORMAL) Hemogram (03/20/2018 5:25 PM EDT) Analysis Performed At Patho logist Time Signature WBC 6.7 4.0 - 9.5 [facility] x[facility](3[facility] LABORATORY RBC 4.29 (L) 4.58 - [facility] 5.54 [facility] x10(6)/[facility] LABORATORY Hemoglobin 14.4 13.7 - [facility] 16.5 gm/dL [facility] Hematocrit 40.2 (L) 40.5 - [place] 48.5 % [facility] MCV 93.7 (H) 82.9 - [facility] 93.1 [facility] LABORATORY MCH 33.6 (H) 27.5 - [facility] 32.1 pg [facility] MCHC 35.8 (H) 32.0 - [facility] 35.7 gm/dL [facility] Platelets 233 145 - 357 [facility] x10(3)/[facility] LABORATORY RDWSD 42.3 36.0 - [facility] MEGAN 45.0 [facility] LABORATORY RDWCV 12.1 11.4 - [facility]GAN 13.8 % [facility] MPV 9.7 7.6 - 12.9 [facility] nRBC % Auto 0.0 % [facility] nRBC Abs Auto 0.000 0.000 - [facility] MEGAN 0.000 [facility] x10(3)/[facility] LABORATORY Specimen Anatomical Collection Method Collection Time Receive d Time (Source) Location / / Volume Laterality Blood specimen 03/20/2018 5:25 PM 018 5:34 (specimen) EDT PM EDT Resulting Agency Comment Spec In Lab Eliazar Willett MD HEMATOLOGY ORDERABLES Performing Organization Address City/State/[place] [address] Troponin T (03/20/2018 5:25 PM EDT) P athologist Signature Troponin-T <0.01 0.00 - 0.00 [facility] Comment: The 99th percentile for Troponin T is le ss than 0.01 ng/mL, any detectable cTnT concentration using this assay should be considered elevated. According to the third universal definit ion of myocardial infarction the following criteria with a clinical prese ntation consistent with acute myocardial ischemia meets the diagnosis for a myocardial infarction (OR). Detection of a rise and/or fall of cTnT, with at least one value greater than the 99th percentile (> or = 0.01) and wi th at least one of the following ?? Symptoms of ischemia ?? New or presumed new significant ST-se gment-T wave (ST-T) changes or new left bundle branch block (LBBB) ?? Development of pathologic Q waves in the ECG ?? Imaging evidence of new loss of viabl e myocardium or new regional wall motion abnormality ?? Identification of an intracoronary th rombus by angiography or autopsy Samples for cTnT testing should be obtai lokesh serially upon first assessment and again 3 to 6 hours later. If the clinica l suspicion is high and previous samples have been negative an additional sample may be indicated. Reference: [place] Definition of Myocardial Infarction. Journal of the [place] [employer] 2012;60:1581-98 Specimen Anatomical Collection Method Collection Time Receive d Time (Source) Location / / Volume Laterality Blood specimen 03/20/2018 5:25 PM 018 5:35 (specimen) EDT PM EDT Resulting Agency Comment Spec In Lab Shannan Simms MD CHEMISTRY ORDERABLES Performing Organization Address City/State/[place] [address] (ABNORMAL) Basic Metabolic Panel (non-fasting) (03/20/2018 5:25 PM EDT) athologist Signature Glucose Lvl 169 65 - 199 [facility] mg/dL [facility] Comment: Diabetes: >=200 mg/dL plus symp toms BUN 8 (L) 10 - 20 mg/dL [facility] Creatinine 1.26 0.80 - 1.50 mg/dL [facility] Sodium 142 135 - 145 mmol/L [facility] Potassium 3.9 3.5 - 5.0 mmol/L [facility] Comment: Please note: ??Patients with WBC >100,00 0 may have falsely elevated Potassium levels. ??For accurate Potassium quantif ication in these patients send serum separator tube (gold top) for subsequent determinations. ??Contact the Clinical Chemistry Laboratory if there are any qu estions. Chloride 107 98 - 107 mmol/L [facility] CO2 26 22 - 31 mmol/L [facility] Anion Gap 9 5 - 15 mmol/L [facility] Calcium 8.9 8.5 - 10.5 mg/dL [facility] Estimated GFR 62 >=60 mL/min/1.73 m?? [facility] Comment: The eGFR was calculated using the CKD-EP I equation. As with all creatinine based estimates of kidney function, eGFR values calculated with the CKD-EPI equation are not accurate in patients wi th acute kidney failure, extremes of body mass or the acutely ill. [email or web address] eGFR 72 >=60 mL/min/1.73 m?? [facility] Comment: The eGFR was calculated using the CKD-EP I equation. As with all creatinine based estimates of kidney function, eGFR values calculated with the CKD-EPI equation are not accurate in patients wi th acute kidney failure, extremes of body mass or the acutely ill. [email or web address] Specimen Anatomical Collection Method Collection Time Receive d Time (Source) Location / / Volume Laterality Blood specimen 03/20/2018 5:25 PM 018 5:35 (specimen) EDT PM EDT Resulting Agency Comment Spec In Lab Shannan Simms MD CHEMISTRY ORDERABLES Performing Organization Address City/State/[place] [address] EKG 12 Lead (03/20/2018 4:42 PM EDT) Component Value Ref Range Test Analysis Performed Pathologis t Method Time At Signature Ventricular rate 54 BPM MUSE SYSTEM Atrial Rate 54 BPM MUSE SYSTEM P-R Interval 168 ms MUSE SYSTEM QRS Duration 110 ms MUSE SYSTEM Q-T Interval 424 ms MUSE SYSTEM QTC Calculated 402 ms MUSE SYSTEM (Bezet) Calculated P Chandler 34 degrees MUSE SYSTEM Calculated R Chandler -49 degrees MUSE SYSTEM Calculated T Chandler 83 degrees MUSE SYSTEM INTERPRETATION Sinus bradycardia MUSE SY STEM Left anterior fascicular block Poor R wave progression Abnormal ECG When compared with ECG of 22-JUN-2016 12:27, Vent. rate has decreased BY ??28 BPM Criteria for Anteroseptal infarct are no longer Present T wave inversion less evident in Anterolateral leads Confirmed by MD Vidal, Nemesio ([id number]) on 03/21/2018 4:34:54 PM Specimen Anatomical Collection Method Collection Time Receive d Time (Source) Location / / Volume Laterality 03/20/2018 4:42 PM 8 4:34 EDT PM EDT Narrative This result has an attachment that is no t available. Shannan Simms MD ECG ORDERABLES Performing Organization Address City/State/ZIP Code Phon e Number MUSE SYSTEM documented in this encounter Visit Diagnoses Diagnosis Chest pain, unspecified type Acute systolic heart failure Chest pain Chest pain, unspecified documented in this encounter Admitting Diagnoses Diagnosis Chest pain Chest pain, unspecified documented in this encounter Administered Medications Inactive Administered Medications - up to 3 most recent administrations Medication Order MAR Action Action Date Dose Rate Site acetaminophen (TYLENOL) tablet 650 mg 650 mg, Oral, EVERY 6 HOURS PRN, Startin g on Tue03/21/18 at 0435, Until Tue03/21/18 at 1923, Pain, Maximum dose of acetaminophen is 4000 m g from all sources in 24 hours., Routine aspirin EC tablet 81 mg Given 03/21/2018 10:10 AM EDT 81 mg 81 mg, Oral, DAILY, First dose on Tue03/21/18 at 0900, Until Discontinued, Routine aspirin tablet 325 mg Given 03/20/2018 9:18 PM EDT 325 mg 325 mg, Oral, ONCE, 1 dose, On Tue03/20/18 at 2102, STAT clopidogrel (PLAVIX) tablet 75 mg Given 03/21/2018 10:09 AM EDT 75 mg 75 mg, Oral, DAILY, First dose on Tue03/21/18 at 0900, Until Discontinued, Routine famotidine (PEPCID) tablet 20 mg Given 03/21/2018 10:10 AM EDT 20 mg 20 mg, Oral, 2 TIMES DAILY, First dose on Tue03/21/18 at 0900, Until Discontinued heparin (porcine) injection 0-8,000 Unit s 0-8,000 Units, Intravenous, BOLUS PER HEBER PROTOCOL, Starting on Tue03/21/18 at 0433, Until Tue03/21/18 at 1923, Per Pro tocol, START ADJUSTMENT SCHEDULE 6 HOURS AFTER STARTING INFUSION Heparin UFH Le yousif between 0.1 - 0.29 IU/mL: Bolus 3,500 units Heparin UFH Level less than 0.1 IU/mL: Bolus 7,0 00 units, Routine heparin 25,000 units in Rate/Dose Change 03/21/2018 11:58 1,700 Uni ts/hr 34 mL/hr dextrose 5% 500 mL AM EDT infusion 0-5,000 Units/hr (0-100 mL/hr), Intravenous, CONTINUOUS, Starting on Tue03/21/18 at 0500, Until Tue03/21/18 at 1923, Begin infusion at 1,500 units per hr (15 units/kg/hr). MAX INITIAL infusion rate is 1,750 units/hr Target Heparin UFH Level (anti-Xa activity) = 0.3 - 0.7 IU/mL Start adjustment schedule 6 hours after starting infusion. If Heparin UFH Level is: - less than 0.1 IU/mL, administer PRN bolus and increase rate by 400 units per hr (4 units/kg/hr) - 0.1 - 0.29 IU/mL, administer PRN bolus and increase rate by 200 units per hr (2 units/kg/hr) - 0.3 - 0.7 IU/mL, No Change - 0.71 - 0.85 IU/mL, decrease rate by 100 units per hr (1 units/kg/hr) - 0.86 - 1.05 IU/mL, stop infusion for 30 minutes, then decrease rate by 200 units per hr (2 units/kg/hr) - Greater than 1.05 IU/mL, stop infusion for 60 minutes, then decrease rate by 300 units per hour (3 units/kg/hr) Repeat Heparin UFH Level 6 hours after initiating heparin. Then 6 hours after each dose adjustment. When 2 consecutive Heparin UFH Level within target range of 0.3 - 0.7 IU/mL, change Heparin UFH Level to once every 24 hours with A.M. labs while on heparin. RN to order required Heparin UFH Level - Per Protocol, Routine, Indication: ACS (STEMI vs NSTEMI vs UA) New Bag 03/21/2018 5:08 AM EDT 1,500 Units/hr 30 mL/hr losartan (COZAAR) tablet 25 mg Given 03/21/2018 11:00 AM EDT 25 mg 25 mg, Oral, DAILY, First dose (after last modification) on Tue03/21/18 at 1045, Until Discontinued, Routine losartan (COZAAR) tablet 25 mg Given 03/21/2018 11:57 AM EDT 25 mg 25 mg, Oral, DAILY, First dose on Tue03/21/18 at 1200, Until Discontinued, Routine nitroGLYcerin (NITROSTAT) SL tablet 0.4 mg Given 03/20/2018 10:27 PM EDT 0.4 mg 0.4 mg, Sublingual, EVERY 5 MIN PRN, 3 doses, Starting on Tue03/20/18 at 2051, Until Tue03/21/18 at 0125, Chest pain, SL nitroglycerin may be repeated every 5 minutes as needed up to 3 doses, STAT Given 03/20/2018 9:19 PM EDT 0.4 mg sertraline (ZOLOFT) tablet 100 mg Given 03/21/2018 10:10 AM EDT 100 mg 100 mg, Oral, DAILY, First dose on Tue03/21/18 at 0900, Until Discontinued, Routine documented in this encounter Active and Recently Administered Medications Times are shown in EDT. Scheduled Medication Order 03/19/2018 03/20/2018 03/21/2018 aspirin EC tablet 81 mg 1010 (Gi marcin - Provider: Ayah Ding, MERYL) 81 mg, Oral, DAILY, First dose on 06/29 at 0900, Until Discontinued, Routine aspirin tablet 325 mg (COMPLETED) 2117 (Given - Provider: Hermes Davies) 325 mg, Oral, ONCE, 1 dose, Tue03/20/18 at 2102, STAT atorvastatin (LIPITOR) tablet 80 mg 1700 (Due) 80 mg, Oral, EVERY EVENING, First dose o n Tue03/21/18 at 1700, Until Discontinued, Routine clopidogrel (PLAVIX) tablet 75 mg 1009 (Given - Provider: Ayah Ding RN) 75 mg, Oral, DAILY, First dose on 06/29 at 0900, Until Discontinued, Routine donepezil (ARICEPT) tablet 10 mg 10 mg, Oral, NIGHTLY, First dose on Tue03/21/18 at 2100, Until Discontinued, Routine famotidine (PEPCID) tablet 20 mg 1010 (Given - Provider: Ayah Ding, MERYL) 20 mg, Oral, 2 TIMES DAILY, First dose o n Tue03/21/18 at 0900, Until Discontinued furosemide (LASIX) tablet 10 mg 1530 (Due) 10 mg, Oral, DAILY, First dose on 06/29 at 1530, Until Discontinued, Routine isosorbide mononitrate (IMDUR) CR tablet 30 mg 30 mg, Oral, EVERY MORNING, First dose o n Tue03/22/18 at 0600, Until Discontinued, DO NOT CRUSH OR OPEN, Routine losartan (COZAAR) tablet 25 mg 1 100 (Given - Provider: Ayah Ding RN) 25 mg, Oral, DAILY, First dose on 06/29 at 1045, Until Discontinued, Routine losartan (COZAAR) tablet 25 mg 1 157 (Given - Provider: Ayah Ding RN - Comment: Given per MD order, BP 159/98) 25 mg, Oral, DAILY, First dose on 06/29 at 1200, Until Discontinued, Routine OLANZapine (ZyPREXA) tablet 5 mg 5 mg, Oral, NIGHTLY, First dose on Tue at 2100, Until Discontinued, Routine sertraline (ZOLOFT) tablet 100 mg 1010 (Given - Provider: Ayah Ding RN) 100 mg, Oral, DAILY, First dose on Tue at 0900, Until Discontinued, Routine Continuous Medication Order 03/19/2018 03/20/2018 03/21/2018 heparin 25,000 units in dextrose 5% 500 mL infusion(Linked Group 1) 0508 (New Bag - Provider: Rosaline Ibarra RN)1158 (Rate/Dose Change - Provider: Ayah Ding RN) 0-5,000 Units/hr (0-100 mL/hr), Intraven ous, at 0-100 mL/hr, CONTINUOUS, Starting Tue03/21/18 at 0500, Until Tue03/21/18 at 1923, Begin infusion at 1,500 units per hr (15 units/kg/hr). MAX INITIAL infus ion rate is 1,750 units/hr Target Hepari n UFH Level (anti-Xa activity) = 0.3 - 0.7 IU/mL Start adjustment schedule 6 hours after starting infusion. If Heparin UFH Level is: - less than 0.1 IU/mL, admini ster PRN bolus and increase rate by 400 units per hr (4 units/kg/hr) - 0.1 - 0.29 IU/mL, administer PRN bolus and increase rate by 200 units per hr (2 units/kg/hr) - 0.3 - 0.7 IU/mL, No Change - 0.71 - 0.85 IU/mL, decrease rate by 100 units p er hr (1 units/kg/hr) - 0.86 - 1.05 IU/mL, stop infusion for 30 minutes, then decrease rate by 200 units per hr (2 units/kg/hr) - Greater than 1.05 IU/mL, stop in fusion for 60 minutes, then decrease rat e by 300 units per hour (3 units/kg/hr) Repeat Heparin UFH Level 6 hours after initiating heparin. Then 6 hours after each dose adjustment. When 2 consecutive Hep leonardo UFH Level within target range of 0. 3 - 0.7 IU/mL, change Heparin UFH Level to once every 24 hours with A.M. labs while on heparin. RN to order required Heparin UFH Level - Per Protocol, Routine PRN Medication Order 03/19/2018 03/20/2018 03/21/2018 acetaminophen (TYLENOL) tablet 650 mg 650 mg, Oral, EVERY 6 HOURS PRN, Startin g Tue03/21/18 at 0435, Until Tue03/21/18 at 1923, Pain, Maximum dose of acetaminophen is 4000 mg from all sources in 24 hours., Routine heparin (porcine) injection 0-8,000 Units(Linked Group 1) 0-8,000 Units, Intravenous, BOLUS PER [facility] PROTOCOL, Starting Tue03/21/18 at 0433, Until Tue03/21/18 at 1922, Per Protocol, START ADJUSTMENT SCHEDULE 6 HOURS AFTER STARTING INFUSION Heparin UFH L evel between 0.1 - 0.29 IU/mL: Bolus 3,5 00 units Heparin UFH Level less than 0.1 IU/mL: Bolus 7,000 units, Routine nitroGLYcerin (NITROSTAT) SL tablet 0.4 mg (CANCELED) 2118 (Given - Provider: Hermes T Head)2226 (Given - Provider: Hermes T Head) 0.4 mg, Sublingual, EVERY 5 MIN PRN, 3 d oses, Starting Tue03/20/18 at 2051, Until Tue03/21/18 at 0125, Chest pain, SL nitroglycerin may be repeated every 5 minutes as needed up to 3 doses, STAT nitroGLYcerin (NITROSTAT) SL tablet 0.4 mg 0.4 mg, Sublingual, EVERY 5 MIN PRN, Sta rting Tue03/21/18 at 1440, Until Tue03/21/18 at 192, Chest pain, SL nitroglycerin may be repeated every 5 minutes as needed up to 3 doses, Routine Linked Groups Order Group 1: heparin (porcine) injection 0-8,000 UnitsJump to med 0-8,000 Units, Intravenous, BOLUS PER [facility] PROTOCOL, Starting Tue03/21/18 at 0433, Until Tue03/21/18 at 1922, Per Protocol
START ADJUSTMENT SCHEDULE 6 HOURS AFTER STARTING INFUSION&n bsp; Heparin UFH Level between 0.1 - 0.29 IU/mL: Bolus 3,500 units Heparin UFH Level less than 0.1 IU/mL: Bolus 7,000 units
Routine And heparin 25,000 units in dextrose 5% 500 mL infusionJump to med 0-5,000 Units/hr (0-100 mL/hr), Intraven ous, at 0-100 mL/hr, CONTINUOUS, Starting Tue03/21/18 at 0500, Until Tue03/21/18 at 1922
Begin infusion at 1,500 units per hr (15 units/kg/hr). MAX INITI AL infusion rate is 1,750 units/hr Target Heparin UFH Level (anti-Xa activity) = 0.3 - 0.7 IU/mL Start adjustment schedule 6 hours after starting infusion. &nb sp; If Heparin UFH Level is: - less than 0.1 IU/mL, administer PRN bolus and increase rate by 400 units per hr (4 units/kg/hr) - 0.1 - 0.29 IU/mL, administer PRN b olus and increase rate by 200 units per hr (2 units/kg/hr) - 0.3 - 0.7 IU/mL, No Change - 0.71 - 0.85 IU/mL, decrease rate by 100 units per hr (1 units/kg/hr) - 0.86 - 1.05 IU/mL, stop infusion for 30 minutes, the n decrease rate by 200 units per hr (2 units/kg/hr) - Greater than 1.05 IU/mL, stop infusion for 60 minutes, then decrease rate by 300 units per hour (3 units/kg/hr) Repeat Heparin UFH Level 6 hours after initiating heparin. Then 6 hours after each dose adjustment. When 2 consecutive Heparin UFH Level within target range of 0.3 - 0. 7 IU/mL, change Heparin UFH Level to onc e every 24 hours with A.M. labs while on heparin. RN to order required Heparin UFH Level - Per Protocol
Routine documented in this encounter Care Teams Lobbyist Relationship Specialty Start Date End Date Juice Jensen DO PCP - General General Internal Medicine 03/20/[address] [place] [address] [place] [id number] documented as of this encounter
--- OUTSIDE RECORDS SUMMARY | 2022-07-25 17:57 | XMS_ITS | Encounter Summary ---
:1960 [place] [address] Care Team Providers Name Role Phone None Primary Care Provider Unavailable Reason for Visit Auth/Cert Specialty Diagnoses / Procedures Referred By Contact Refer red To Contact Diagnoses STEMI (ST elevation myocardial infarction) STEMI STEMI Procedures PRO LEVEL 1 EMERGENCY ROOM VISIT CARDIAC CATHETERIZATION Referral ID Status Reason Start Date Expiration Date Visits Requ ested Visits Authorized [id number] 1 1 Encounter Details Date Type Department Care Team Description 06/22/2016 Surgery Dredge Pump Operator Jabari Vuong CARDIAC CATHETERIZATION [facility] [place] [address] CARDIOLOGY DEPT [phone] [place], [place] [address] (Wo rk) Social History Tobacco Use Types Packs/Day Years Used Date Smoking Tobacco: Never Assessed Sex Assigned at Date Recorded Not on file documented as of this encounter Last Filed Vital Signs Vital Sign Reading Time Taken Comments Blood Pressure 107/81 06/22/2016 7:56 AM EDT Pulse 79 06/22/2016 7:56 AM EDT Temperature 38.2 ??C (100.8 ??F) 06/22/2016 7:56 AM EDT Respiratory Rate 14 06/22/2016 7:56 AM EDT Oxygen Saturation 95% 06/22/2016 7:56 AM EDT Inhaled Oxygen Concentration - - Weight 94.9 kg (209 lb 3.5 oz) 06/21/2016 1:45 PM EDT Height 175.3 cm (5' 9) 06/21/2016 1:45 PM EDT Body Mass Index 30.41 06/21/2016 1:45 PM EDT documented in this encounter Discharge Summaries Irineo Maxwell - 06/22/2016 4:48 PM EDT Discharge Summary Patient Name: Meliton Raymond Patient Age: 56 y.o. Language: New Zealander Race: White Ethnicity: Not nor Admit date: [...] please contact your inpatient physician through the [facility] [employer] . Issues after hours and on weekends [...] man with HTN and recent NSTEMI at [facility] 2 weeks ago who is transferred from [facility] with STEMI. He presented to the OSH [...] Two weeks ago, he was seen at [facility] for NSTEMI. His troponin at that time [...] plavix 600mg, heparin 4000mg and sent to [facility] on heparin gtt and nitro gtt. He left the OSH ED with 5/10 pain but he was pain free when he arrived to [facility]. His vitals when leaving the OSH were BP 128/83, HR96 93% on 2L NC. ?? He was taken to the engineering lab technician emergently upon arrival at [facility]. He was found to have three vessel disease 90% mid-LAD, ostial-OM1 and total occlusion in RCA with collateral circulation from the left. He was hemodynamically stable in the engineering lab technician and chest pain free. He did not [...] appointments: During 8am-5pm Tuesday through Tuesday call [phone] to speak with a nurse in the cardiology clinic All other times call [phone] and ask to speak to the journeyman glazier commercial relationship manager. Activity level: - No heavy lifting (more [...] groups in your community. Follow up Appointments: Network Communications Engineer: Dr. Horne: July 16, 9:30AM - [address] [place] [address] PCP: Dr. Jensen DO in [place], [place] in 2 weeks which you arranged. Please be sure to attend this appointment Your Inpatient Doctor(s) at [facility]: Maxx Lange MD - Attending physician Irineo Maxwell - Resident physician Candice Reese - Retail Advisor physician Your Primary Care Provider: Dr. Jensen in [facility] For questions regarding issues relating to your hospitalization on the Hospital Medicine Service, please contact your inpatient physician through the [facility] [employer] [phone]. Issues after hours and on weekends will be handled by the Hospitalist staff on-call. General Instructions None Future Appointments and Orders Future Orders Complete By Expires Referral to Cardiac Rehab [[id number] Custom] As directed Process Instructions: If no progress note charted, please enter Clinical details in comments. Scheduling Instructions: Questions: My question or request is: s/p STEMI, PCI. Cardiac rehab at [facility] Discharge References/Attachments None documented in this encounter [...] this every day. Lisinopril: this is an SEHLTON inhibitor that also helps protect your heart, [...] appointments: During 8am-5pm Tuesday through Tuesday call [phone] to speak with a nurse in the cardiology clinic All other times call [phone] and ask to speak to the journeyman glazier commercial relationship manager. Activity level: - No heavy lifting (more [...] groups in your community. Follow up Appointments: Network Communications Engineer: Dr. Horne: July 16, 9:30AM - [address] [place], [place] PCP: Dr. Jensen DO in [place], [place] in 2 weeks which you arranged. Please be sure to attend this appointment Your Inpatient Doctor(s) at [facility]: Maxx Lange MD - Attending physician Irineo Maxwell - Resident physician Candice Reese - Retail Advisor physician Your Primary Care Provider: Dr. Jensen in [facility] For questions regarding issues relating to your hospitalization on the Hospital Medicine Service, please contact your inpatient physician through the [facility] [employer] [phone]. Issues after hours and on weekends will be handled by the Hospitalist staff on-call. AttachmentsThe following attachments cannot be sent through Care Everywhere.PCI (PERCUTANEOUS CORONARY INTERVENTION): POST-OP ([place])ASPIRIN: HEART ATTACK AND STROKE PREVENTION ([place])LOW SODIUM DIET ([place])documented in this encounter Medications at Time of [...] S/p NICKI to LAD and LCx, RCA RESIDENTIAL MONITOR not intervened upon - No post-cath complications [...] Continuous Infusions: ??? nitroGLYcerin 70 mcg/min (06/22/16 0439) ??? heparin 1,800 Units/hr (06/22/16 005) PRN Meds: polyethylene glycol (MIRALAX)oral powder, magnesium [...] Ins/Outs: Intake/Output Summary (Last 24 hours) at 06/23/16 06 Last data filed at 06/23/16 0610 Gross [...] Labs: CBC: Recent Labs 06/23/16 0402 06/22/16 01406/21/16 1250 WBC 8.5 9.4 9.0 HGB 14.4 [...] Recent Labs 06/22/16 1508 06/22/16 0908 06/22/16 0145 TROPONINT 2.44* 1.28* Not Perf CK 253* [...] with PCP and cardiology follow up in [place], [place] Plan: # NSTEMI # CAD - Continue ASA 81mg daily - Continue plavix 75mg daily - Continue atorvastatin 80mg daily - Increase metoprolol succinate 100mg daily - Start lisinopril 5mg daily ?? # Others DVT- heparin gtt GI- famotidine Activity- as tolerated Nutrition- cardiac diet Lines- PIV PT/OT- consult Dispo- Home today ?? CODE STATUS: Full Code ?? Contact info: Riana Raymond [phone] ?? Gorge Reese MD Internal Medicine, PGY1 [...] radial access site Mateusz Maxwell S1 Pager [phone] Ely Peralta MD - 06/22/2016 9:39 AM [...] apical AK without LV thrombus due to MD 2 weeks ago 3. No elevated BP [...] MD 20 mg at 06/22/16 0845 ??? [NOV Hold] nitroGLYcerin 50 mg in dextrose 5% 250 mL infusion 0-200 mcg/min Intravenous Continuous Irineo Maxwell MD 21 mL/hr at 06/22/16 0439 70 mcg/min at 06/22/16 0439 ??? [NOV Hold] atorvastatin (LIPITOR) tablet 80 mg 80 mg Oral QPM Irineo Maxwell MD 80 mg at 06/21/16 1711 ??? [NOV Hold] aspirin chewable tablet 81 mg 81 mg Oral Daily Irineo Maxwell MD 81 mg at 06/22/16 0845 ??? [NOV Hold] heparin (porcine) injection 2,000-4,000 Units 2,000-4,000 Units Intravenous BOLUS HEPARIN PP Gorge Reese MD 4,000 Units at 06/21/16 191 ??? [NOV Hold] heparin 25,000 units in dextrose 5% 500 mL infusion 350-7,000 Units/hr Intravenous Continuous Gorge Reese MD 36 mL/hr at 06/22/16 0357 1,800 Units/hr at 06/22/16 0357 ??? [NOV Hold] meTOPROLOL (LOPRESSOR) tablet 12.5 mg 12.5 mg Oral Q6H TADEO Gorge Reese MD 12.5 mg at 06/22/16 0602 ??? [NOV Hold] morphine 2 mg/mL carpuject 2 mg 2 mg Intravenous Q4H PRN Himanshu Singleton MD 2 mgat 06/22/16 0451 ??? [NOV Hold] acetaminophen (TYLENOL) tablet 650 mg 650 [...] For questions, please feel freeto contact me: [phone] (racing secretary and handicapper Ros Gretta, and she will have me paged) or [email or web address]. Meliton Raymond 06/22/2016 Referring Providers: Stevie Dunne MD EMERGENCY DEPT [address] [place] [address] ELY PERALTA MD 06/22/2016 TESTING: Recent Results [...] QTC Calculated (Bezet) 483 ms Calculated P Campbell 31 degrees Calculated R Campbell -43 degrees Calculated T Campbell 98 degrees INTERPRETATION Normal sinus rhythm Left axis deviation Minimal voltage criteria for LVH, may be normal variant Anteroseptal infarct , age undetermined Abnormal ECG No previous ECGs available Confirmed by MD Cesario, Jasmine ([id number]) on 06/22/2016 6:02:14 AM Echocardiogram Transthoracic(Leb) Result [...] 2 minutes, contact the interventional cardiology team commercial relationship manager. In the case of early evidence of [...] of time of up to 24 hours. Gorge Reese MD - 06/22/2016 6:09 AM [...] 0.9 % 5 mL Intravenous Q12H ??? [NOV Hold] sodium chloride 0.9 % 5 mL Intravenous BID ??? [NOV Hold] famotidine 20 mg Oral BID ??? [NOV Hold] atorvastatin 80 mg Oral QPM ??? [NOV Hold] aspirin 81 mg Oral Daily ??? [NOV Hold] meTOPROLOL 12.5 mg Oral Q6H TADEO Continuous Infusions: ??? sodium chloride 0.9% 100 mL/hr (06/22/16 1245) ??? [NOV Hold] nitroGLYcerin 70 mcg/min (06/22/16 0439) ??? [NOV Hold] heparin 1,800 Units/hr (06/22/16 0357) PRN Meds: [NOV Hold] polyethylene glycol (MIRALAX)oral powder, sodium chloride 0.9 %, atropine, acetaminophen,[NOV Hold] sodium chloride 0.9 %, [NOV Hold] lidocaine, [NOV Hold] nitroGLYcerin, [NOV Hold] heparin(porcine), [NOV Hold] morphine, [NOV Hold] traMADol Vitals: Last value Range last [...] Neuro - AAOx3 Labs: CBC: Recent Labs 06/22/16 0145 06/21/16 1250 WBC 9.4 9.0 HGB 13.8 13.6* PLATELET 231 286 Chemistry: Recent Labs 06/22/16 0908 06/22/16 0145 06/21/16 1250 NA -- 135 139 K 4.2 Not Perf 4.4 CL -- 98 103 CO2 -- 23 21* BUN -- 12 13 CREATININE -- 1.39 1.31 GLUCOSE -- -- 120 Recent Labs 06/22/16 0145 06/21/16 1250 CALCIUM 8.7 8.3* MAGNESIUM 0.82 0.87 LFT's: Recent Labs 06/21/16 1250 BILITOT 0.3 BILIDIR 0.1 ALBUMIN 3.6 ALKPHOS 66 ALT 25 AST 30 Coags: Recent Labs 06/22/16 0908 06/22/16 0145 06/21/16 1735 06/21/16 1250 PT -- -- -- 14.5 INR -- -- -- 1.1 PTT 95* 59* 43* >160.0* Cardiac enzymes: Recent Labs 06/22/16 0908 06/22/16 0145 06/21/16 1745 TROPONINT 1.28* Not Perf 1.03* [...] Full Code ?? Contact info: Riana Raymond [phone] ?? Gorge Reese MD Internal Medicine, PGY1 [...] morning. Maxx Lange MD Cardiovascular Medicine Pager: [phone] This patient meets or has met medical [...] Responsible Attending: Maxx Lange MD PCP: PROVIDER UNKNOWN, (Inactive) PCP phone #: None ID/Chief Complaint: Mr. Raymond is a 56 year old man with a hx of untreated HTN and NSTEMI (2 weeks ago, left AMA) presenting with STEMI History of Present Illness: Mr. Raymond is a 56 year old man with HTN and recent NSTEMI at [facility] 2 weeks ago who is transferred from [facility] with STEMI. He presented to the OSH [...] Two weeks ago, he was seen at [facility] for NSTEMI. His troponin at that time [...] plavix 600mg, heparin 4000mg and sent to [facility] on heparin gtt and nitro gtt. He left the OS ED with 5/10 pain but he was pain free when he arrived to [facility]. His vitals when leaving the OSH were BP 128/83, HR96 93% on 2L NC. He was taken to the engineering lab technician emergently upon arrival at [facility]. He was found to have three vessel disease 90% mid-LAD, ostial-OM1 and total occlusion in RCA with collateral circulation from the left. He was hemodynamically stable in the engineering lab technician and chest pain free. He did not [...] denies Living Situation: lives with his in [place], [place] Vitals: Last value Range last 24 [...] Admit to Cardiology, S1 Team Pager # [phone] # STEMI # CAD - CT surgery [...] STATUS: Full Code Contact info: Riana Raymond [phone] Gorge Reese MD Internal Medicine, PGY1 Associated [...] about his wishes. He states, and his eboni burris, that he will be compliant with DAPT. In terms of his sxs, he has been pain free. We will continue DAPT and the heparin infusion tonight, and I will discuss his case with the Interventional team tomorrow morning. Maxx Lange MD Cardiovascular Medicine Pager: [phone] This patient meets or has met medical criteria to require an inpatient level of care, i.e. a minimumof two midnights in the hospital with multiple complex problems. documented in this encounter Miscellaneous Notes Plan of Care - Kinga Ugarte RN - 06/23/2016 1:25 PM EDT Problem: General Plan of Care Goal: Plan of Care Review Outcome: Outcome (s) achieved Date Met: 06/23/16 06/23/16449 Coping/Psychosocial Response Interventions Plan of Care Reviewed [...] Outcome (s) achieved Date Met: 06/23/16 06/23/16 0450 06/23/16 0830 Safety Interventions Isolation Precautions -- standard precautions maintained Infection Prevention -- blood glucose management;bronchial hygiene promoted;environmental surveillance;hydration promoted;nutrition promoted;promote handwashing;rest/sleep promoted Coping/Psychosocial Response Interventions Counseling goal setting facilitated;personal strengths integrated;verbalization of feelings encouraged;understanding of situation facilitated -- Initial Assessments - Anya Purdy RN - 06/23/2016 12:20 PM EDT Office of Care Management Initial Assessment Anya Purdy RN reviewed record and discussed patient with Care Team. Source of Information: patient and Introduced self/reviewed role; services accepted. Reason for Hospitalization: NSTEMI No past medical history on file. Hospitalizations Within the Past 30 Days: pt went to ER in [place] but left AMA, then came [facility] for the same problem Anticipated Length Of Stay (If known): 2 days Current Decision-Making Capacity: full Advance Care Planning: blank copies provided and explained how to complete. Pt states understanding and planning to complete prior to d/c. Current Coping/Education/Information Needs: coping well. Questions related to cost of medical care; advised family to contact [facility] for specific coverage information. Also explained INPT status to patient (versus observation) because asked if each service (radiology, engineering lab technician, consults, etc) wouldall be billed separately. Family states understanding and says they do have contact info for BS. Current Functional Ability: OOB indep Functional Status Prior to Admission: indep in ADL/IADL, drives Home Environment: private home with , 13 stairs to Upstairs bedroom. Social & Family Supports/Community Resources: no services in the home and states they really have no community support here. Recently came to [place] from [facility] History: denies Substance Use/Abuse: denies Other Pertinent/Service Specific Information: none Health/Prescription Coverage: Primary Insurance: [place]BS [place] Secondary Insurance: none Prescription Coverage: [place]BS [place] Preferred Pharmacy: [facility] [place] Other: n/a Primary Care Provider: None None PCP UPDATE: PCP now listed as Dr Jensen of [place] and pt has scheduled appt. Patient/Caregiver Goals of Treatment: to go home Potential Needs for Transition of Care: Rehab/SNF: n/a Home Health: n/a DME: n/a Dialysis: n/a Community Resources: n/a Transportation: with family Other: n/a Anticipated Barriers to Discharge/Special Considerations: [facility] [...] of care planning. Anya Purdy RN Pager: [phone] Consult Note - Neema Mills RN - 06/23/2016 9:48 AM EDT Meliton [...] to the outpatient cardiac rehabilitation program at [facility] was discussed. Patient agrees to a referral to this program. The referral will be sent at discharge and the patient should be contacted by the Program within 1- 2 weeks from discharge. Plan of Care - Mele Hammond RN - 06/23/2016 5:10 AM EDT Problem: General Plan of Care Goal: Plan of Care Review 06/23/16449 Coping/Psychosocial Response Interventions Plan of Care Reviewed [...] home today. Goal: Fall Prevention-Safe Patient Handling 06/22/16231406/23/16449 Safety Interventions Safety Precautions/Fall Reduction -- nonskid [...] encouraged while providing assistance Goal: Infection Control 06/23/16449 Safety Interventions Isolation Precautions standard precautions maintained [...] Review Outcome: Ongoing (Interventions Implemented as Appropriate) 06/22/1644606/22/1675506/22/161623 Coping/Psychosocial Response Interventions Plan of Care Reviewed [...] Handling Outcome: Ongoing (Interventions Implemented as Appropriate) 06/22/1675506/22/16 1350 06/22/161620 Safety Interventions Safety Precautions/Fall Reduction -- -- [...] Control Outcome: Ongoing (Interventions Implemented as Appropriate) 06/22/1644606/22/1675506/22/161620 Safety Interventions Isolation Precautions -- -- standard [...] outcomes. Outcome: Ongoing (Interventions Implemented as Appropriate) 06/22/16 1624 Skin Integrity Impairment, Risk/Actual (Adult, Obstetrics) Skin [...] Pt anxious andunable to sleep regarding anticipated engineering lab technician procedure. Report of chest pressure around 0400. [...] will not receive complete revascularization due to RESIDENTIAL MONITOR of the RCA. He expressed an understanding and all questions were answered. Management as per primary team Re-consult prn CHI RAMOS MD Cardiac Surgery Consultation Note Meliton Raymond is seen at the request of Dr. Shelby for the evaluation of CAD. HPI: He is a 56 y.o. year old with PMhx HTN (not on meds) and a NSTEMI 2 weeks ago, managed at [facility] where he left AMA after the chest pain subsided. He returned to [facility] again on 06/21/16 for at chest pains, SOB, neck and shoulder pain after falling off a stool while painting his house at 0330 today. No LOC. EKG at [facility] showing ST elevation in the anterior septal leads (given ASA 325mg, plavix 600mg, heparin 4000mg) for which he was transferred to and taken emergently to the Dredge Pump Operator. Currently chest painfree. No plavix since. On [...] tobacco ETOH- No Illicit drug use- No Jainism- No Family History: No family history on [...] a NSTEMI 2 weeks ago, managed at [facility] where he left AMA after the chest [...] of Meliton Raymond. Signed: LUIZ SR MS, [facility] Section of Cardiac Surgery Date: 06/21/2016 documented in this encounter Plan of Treatment Scheduled Referrals Name Type Priority Associated Diagnoses Order S chedule Referral to Outpatient Referral Routine ST elevation (STEMI) Ordered: Cardiac Rehab myocardial 06/23/2016 infarction involving left anterior descending coronary artery documented as of this encounter Procedures Procedure Name Priority Date/Time Associated Comments Diagnosis IMPLANTABLE DEVICES SCAN 06/24/2016 12:00 AM EDT STRIKE ON MACHINE OPERATOR SCAN 06/24/2016 12:00 AM EDT CARDIAC ENZYMES Routine 06/23/2016 11:05 Results for this ([facility] AM EDT procedure are i n the [...] STAT 06/22/2016 3:08 Results f or this ([facility]) PM EDT procedure are i n the [...] Routine 06/22/2016 9:08 Results f or this ([facility]) AM EDT procedure are i n the [...] Routine 06/22/2016 1:45 Results f or this ([facility]) AM EDT procedure are i n the [...] Routine 06/21/2016 5:45 Results f or this ([facility]) PM EDT procedure are i n the [...] ENZYMES Routine 06/21/2016 12:50 Results for this ([facility] PM EDT procedure are i n the [...] MEDIA MGR SCAN EXT ORDR/RSLT SCAN DOC: STRIKE ON MACHINE OPERATOR (06/24/2016 12:00 AM EDT) Anatomical Region Laterality Modality Other Narrative This result has an attachment that is no t available. Scanning Provider MEDIA MGR SCAN EXT ORDR/RSLT (ABNORMAL) Cardiac Enzymes (06/23/2016 11:05 AM EDT) athologist Signature Troponin-T 1.77 (H) <=0.03 [facility] ng/mL [facility] Comment: 0.03 ng/mL: Represents the [...] consensus document of the Joint Society of Cardiology/[place] College o f Cardiology Committee for the redefinition of myocardial infarction. ? ?Journal of the [place] College of Cardiology 2000; 36: 959-969] CK, Total 208 (H) 0 - 200 unit/L [facility] Specimen Anatomical Collection Method Collection Time Receive d Time (Source) Location / / Volume Laterality Blood specimen 06/23/2016 11:05 6 (specimen) AM EDT 11:19 AM EDT Resulting Agency Comment Spec In Lab Maxx Lange MD CHEMISTRY ORDERABLES Performing Organization Address City/State/[place] [address] Differential, Automated (06/23/2016 4:02 AM EDT) athologist Signature Neutrophils % 65.7 % [facility] Neutr Abs (ANC) 5.58 1.70 - [facility] [address] [facility] x10(3)/[facility] LABORATORY Lymphocytes % 21.0 % [facility] Lymphocytes Abs 1.8 0.9 - 3.2 [facility] x10(3)/[facility] LABORATORY Monocytes % 9.8 % [facility] Monocyte Abs 0.8 0.3 - 0.9 [facility] x10(3)/[facility] LABORATORY Eosinophils % 2.4 % [facility] Eosinophils Abs 0.2 0.0 - 0.4 [facility] x10(3)/[facility] LABORATORY Basophils % 0.7 % [facility] Basophils Abs 0.1 0.0 - 0.1 [facility] x10(3)/[facility] LABORATORY Immature Gran % 0.40 % [facility] Comment: Immature granulocytes(IG's)percentage an d absolute count will include metamyelocytes, myelocytes, and promyelo cytes. Blood smears from CBCs yielding IG's will be scanned manually for concor dance. If this scan disagrees with the automated IG or if promyelocytes are not ed, a manual differential will be performed. Amada Gran Abs 0.03 0.00 - 0.04 x10(3)/[facility] Specimen Anatomical Collection Method Collection Time Receive d Time (Source) Location / / Volume Laterality Blood specimen 06/23/2016 4:02 AM 016 4:16 (specimen) EDT AM EDT Resulting Agency Comment Spec In Lab Maxx Lange MD HEMATOLOGY ORDERABLES Performing Organization Address City/State/[place] [address] (ABNORMAL) Hemogram (06/23/2016 4:02 AM EDT) Analysis Performed At Patho logist Time Signature WBC 8.5 4.0 - 9.5 [facility] x10(3)/[facility] LABORATORY RBC 4.32 (L) 4.58 - [facility] [address] [facility] x10(6)/[facility] LABORATORY Hemoglobin 14.4 13.7 - [place] 16.5 gm/dL [facility] Hematocrit 41.9 40.5 - [place] 48.5 % [facility] MCV 97.0 (H) 82.9 - [place] 93.1 [facility] LABORATORY MCH 33.3 (H) 27.5 - [place] 32.1 pg [facility] MCHC 34.4 32.0 - [place] 35.7 gm/dL [facility] Platelets 284 145 - 357 [place] x10(3)/[facility] LABORATORY RDWSD 44.1 36.0 - [place] 45.0 [facility] LABORATORY RDWCV 12.4 11.4 - [place] 13.8 % [facility] MPV 9.7 7.6 - 12.9 [place] [facility] LABORATORY nRBC % Auto 0.0 % [facility] nRBC Abs Auto 0.000 0.000 - [place] [address] [facility] x10(3)/[facility] LABORATORY Specimen Anatomical Collection Method Collection Time Receive d Time (Source) Location / / Volume Laterality Blood specimen 06/23/2016 4:02 AM 016 4:16 (specimen) EDT AM EDT Resulting Agency Comment Spec In Lab Maxx Lange MD HEMATOLOGY ORDERABLES Performing Organization Address City/State/ZIP Code Phon e Number [address] Magnesium (06/23/2016 4:02 AM EDT) athologist Signature Magnesium 0.84 0.69 - 1.07 [place] mmol/L [facility] LABORATORY Specimen Anatomical Collection Method Collection Time Receive d Time (Source) Location / / Volume Laterality Blood specimen 06/23/2016 4:02 AM 016 4:16 (specimen) EDT AM EDT Resulting Agency Comment Spec In Lab Maxx Lange MD CHEMISTRY ORDERABLES Performing Organization Address City/State/[place] [address] (ABNORMAL) BMP w/fasting Glucose (06/23/2016 4:02 AM EDT) athologist Signature Glucose 118 (H) 65 - 99 [facility] Fasting mg/dL [facility] Comment: ?Fasting* Glucose Interpretive C [...] of Diabetes Mellitus, Position Statement from the [place] Diabetes Association. ??Diabete s Care, Volume 33, Supplement 1, Sep 2009 BUN 11 10 - 20 mg/dL [facility]ORATORY Creatinine 1.29 0.80 - 1.50 mg/dL [facility] LABORAT[facility] Comment: Please note that the pediatric reference intervals supplied above were not validated at [facility]. Results from pediatri c patients should be interpreted in conjunction to the patient's age, height and muscle mass. Sodium 139 135 - 145 mmol/L [facility] Potassium 4.2 3.5 - 5.0 mmol/L [facility] Comment: Please note: ??Patients with WBC >100,00 0 may have falsely elevated Potassium levels. ??For accurate Potassium quantif ication in these patients send serum separator tube (gold top) for subsequent determinations. ??Contact the Clinical Chemistry Laboratory if there are any qu estions. Chloride 101 98 - 107 mmol/L [facility]OR[facility] CO2 25 22 - 31 mmol/L [facility] Anion Gap 13 5 - 15 mmol/L [facility] Calcium 8.7 8.5 - 10.5 mg/dL [facility] Estimated GFR 57 (L) >=60 [facility] Comment: This estimated GFR (eGFR) value [...] the following links into your internet browser. [email or web address] Specimen Anatomical Collection Method Collection Time Receive d Time (Source) Location / / Volume Laterality Blood specimen 06/23/2016 4:02 AM 016 4:16 (specimen) EDT AM EDT Resulting Agency Comment Spec In Lab Maxx Lange MD CHEMISTRY ORDERABLES Performing Organization Address City/State/[place] [address] (ABNORMAL) Cardiac Enzymes (06/22/2016 3:08 PM EDT) athologist Signature Troponin-T 2.44 (H) <=0.03 [facility] ng/mL [facility] Comment: result rechecked-mkm 0.03 ng/mL: [...] consensus document of the Joint Society of Cardiology/[place] College o f Cardiology Committee for the redefinition of myocardial infarction. ? ?Journal of the [place] College of Cardiology 2000; 36: 959-969] CK, Total 253 (H) 0 - 200 unit/L [facility]OR[facility] Specimen Anatomical Collection Method Collection Time Receive d Time (Source) Location / / Volume Laterality Blood specimen 06/22/2016 3:08 PM 016 3:39 (specimen) EDT PM EDT Resulting Agency Comment Spec In Lab Maxx Lange MD CHEMISTRY ORDERABLES Performing Organization Address City/[facility]/ZIP Code Phon e Number [address] POCT Glucose (06/22/2016 12:39 PM EDT) P athologist Signature POC Glucose 119 65 - 199 [facility] mg/dL [facility] Comment: Supplemental ranges: <140 mg/dL before meals <180 mg/dL all other times of the day Specimen Anatomical Collection Method Collection Time Receive d Time (Source) Location / / Volume Laterality Blood specimen 06/22/2016 12:39 6 (specimen) PM EDT 12:39 PM EDT Maxx Lange MD POINT OF CARE TEST ORDERABLE S Performing Organization Address [facility] [place] [address] EKG 12 Lead (06/22/2016 12:27 PM EDT) Component Value Ref Range Test Analysis Performed Pathologis t Method Time At Signature Ventricular rate 82 BPM MUSE SYSTEM Atrial Rate 82 BPM MUSE SYSTEM P-R Interval 172 ms MUSE SYSTEM QRS Duration 114 ms MUSE SYSTEM Q-T Interval 382 ms MUSE SYSTEM QTC Calculated 446 ms MUSE SYSTEM (Bezet) Calculated P Campbell 32 degrees MUSE SYSTEM Calculated R Campbell -37 degrees MUSE SYSTEM Calculated T Campbell 94 degrees MUSE SYSTEM INTERPRETATION Normal sinus [...] Lange MD ECG ORDERABLES Performing Organization Address City/[facility]/ZIP Code Phon e Number MUSE SYSTEM CARDIAC CATHETERIZATION (06/22/2016 12:04 PM EDT) Anatomical Region Laterality Modality Other Specimen (Source) Anatomical Location Collection Method / Collectio n Time Received Time / Laterality Volume Narrative 06/24/2016 9:03 AM EDT ?[facility] ? Cardiac Cathete rization/Intervention Report ? Patient Name: Suzanne, Ray ? Procedure Date: 06/22/2016 ? A #: [id number] ? Primary Physician: Ely Peralta ? Case #: [id number] ? File Name: [id number] ? Catheterization Order Number: [id number] ? [facility] ? Final Report [place], [place] ? Patient Name: ? Meliton Suzanne ? ID#: ?[id number] ? : ?1960 ? Procedure Date: ? October 11, 201 6 ? Case #: ? [id number] ? Room: ? 1 ? Case Physician: ? Ely leonard MGeovannyD. ?Start: ?10:04 ?Fellow: ? Lita kwan M.D. [...] presented with: non -STEMI (w/i 7 days). [place] ?Cardiovascular Society angina c lass was IV. [...] and a 3.5 Fr [facility] [employer] [place] [facility] ??20 Mhz using Manual ?pullback. ??Imaging [...] guiding catheter and a 3 .5 Fr [place] [facility] [employer] [address] [facility] ??20 Mhz using ?Manual pullback. ??Imaging [...] syndrome (ACS). Clopidogrel ?loaded prior to the engineering lab technician. R ecommend continued dual antiplatelet ?therapy (DAPT) [...] and short segment. ?The attending physician was naina perez for the entire procedure. ?Dr. Ely Peralta M.D. perf ormed the coronary angiography, stent ?insertion-coronary and IVUS # sara nary. ? Ely Peralta, ? M.D. ? Electronically Signed by: Ely Fieldsw right, M.D. ? Report Finalized: 06/24/2016 ??08:53 ? Report Last Ammended: 07/27/2016 ??17:05 ? Procedure Note Ely Peralta, MD - 11/15/2016For matting of this note might be different from the original. [facility] Cardiac Catheterization/Intervention Re port Patient Name: Meliton Raymond Procedure Date: 06/22/2016 A #: [id number] Primary Physician: Ely Peralta Case #: [id number] File Name: [id number] Catheterization Order Number: [id number] [facility] Final Report [place], [place] Patient Name: Meliton Raymond ID#: [id number] : 1960 Procedure Date: June 22, 2016 [...] presented with: non-STEMI ( w/i 7 days). [place] [employer] angina class was IV. This [...] 3.5 guiding catheter and a 3.5 Fr [place] [facility] [employer] [address] 20 Mhz using Manual pullback. Imaging [...] and a 3.5 Fr [facility] [employer] [place] [facility] 20 Mhz using Manual pullback. Imaging [...] syndrome (ACS). Clopidogrel loaded prior to the engineering lab technician. Recommend continued dual antiplatelet therapy (DAPT) with [...] provider. Radial provided excellent support for p rocedure. No complications or spasm. BMS selected given [...] PTT 95 (H) 25 - 35 sec [facility] Comment: The recommended therapeutic range for fu ll dose, unfractionated heparin at [facility] is 80 ? 114 seconds. The use [...] Lange MD HEMATOLOGY ORDERABLES Performing Organization Address City/[facility]/ZIP [place] [address] (ABNORMAL) Cardiac Enzymes (06/22/2016 9:08 AM EDT) P athologist Signature Troponin-T 1.28 (H) <=0.03 [facility] ng/mL [facility] Comment: 0.03 ng/mL: Represents the [...] consensus document of the Joint Society of Cardiology/[place] College o f Cardiology Committee for the redefinition of myocardial infarction. ? ?Journal of the [place] College of Cardiology 2000; 36: 959-969] CK, Total 225 (H) 0 - 200 unit/L [facility] Specimen Anatomical Collection Method Collection Time Receive d Time (Source) Location / / Volume Laterality Blood specimen 06/22/2016 9:08 AM 016 9:24 (specimen) EDT AM EDT Resulting Agency Comment Spec In Lab Maxx Lange MD CHEMISTRY ORDERABLES Performing Organization Address City/State/Z[place] [address] Potassium (06/22/2016 9:08 AM EDT) P athologist Signature Potassium 4.2 3.5 - 5.0 [facility] mmol/L [facility] Comment: Please note: ??Patients with [...] Organization Address City/State/[place] [address] CARDIAC CATHETERIZATION (06/22/2016 8:53 AM EDT) Anatomical Region Laterality Modality Other Specimen (Source) Anatomical Location Collection Method / Collectio n Time Received Time / Laterality Volume Narrative 06/22/2016 8:53 AM EDT ?[facility] ? Cardiac Cathete rization/Intervention Report ? Patient Name: Suzanne, Ray ? Procedure Date: 06/21/2016 ? A #: [id number] ? Primary Physician: Kathryn, Eyl J ? Case #: [id number] ? File Name: [id number] ? Catheterization Order Number: [id number] ? [facility] ? Final Report [place], [place] ? Patient Name: ? Ray Millwood ? ID#: ?[id number] ? : ?1960 ? Procedure Date: ? October 10, 201 6 ? Case #: ? [id number] ? Room: ? 2 ? Case Physician: ? Ely leonard M.D. ?Start: ?11:41 ?Fellow: ? Marin arias M.D. ?Admission: ??06/21/2016 ? Referring Physician: ??Stevie [...] presented with: non -STEMI (w/i 7 days). [place] ?Cardiovascular Society angina c lass was IV. [...] chest pain. ?Patient is being admitted to [facility] cardiology inpatient service and ?decision making will involve [facility] heart team, including cardiac surgery ?and interventional cardiology, as well as the patient. ?TTE demonstrated apical regiona l wall motion abnormalities with ?preservation of the base- EF 40 %, question apical thrombus- not clear ?from this imaging. ?The attending physician was naina perez for the entire procedure. ?Dr. Ely Peralta M.D. perf ormed the coronary angiography and ?transthoracic echo . ? Ely Peralta, ? M.D. ? Electronically Signed by: Ely phillip M.D. ? Report Finalized: 06/22/2016 ??08:48 ? Procedure Note Ely Peralta MD - 06/22/2016For matting of this note might be different from the original. [facility] Cardiac Catheterization/Intervention Re port Patient Name: Meliton Raymond Procedure Date: 06/21/2016 A #: [id number] Primary Physician: Ely Peralta Case #: [id number] File Name: [id number] Catheterization Order Number: [id number] [facility] Final Report [place], [place] Patient Name: Meliton Raymond ID#: [id number] : 1960 Procedure Date: June 21, 2016 [...] presented with: non-STEMI ( w/i 7 days). [place] [employer] angina class was IV. No stress or imaging studies were performed prior to this procedure Technique: A 6 SLFr sheath was inserted in the rig radial artery utilizing the Seldinger technique. The [...] CATH ORDERABLES Magnesium (06/22/2016 1:45 AM EDT) athologist Signature Magnesium 0.82 0.69 - 1.07 [facility] mmol/L [facility] Specimen Anatomical Collection Method Collection Time Receive d Time (Source) Location / / Volume Laterality Blood specimen Venous Draw / 06/22/2016 1:45 AM 2015 1:53 (specimen) Unknown EDT AM EDT Resulting Agency Comment Spec In Lab Maxx Lange MD CHEMISTRY ORDERABLES Performing Organization Address City/State/[place] [address] (ABNORMAL) Cardiac Enzymes (06/22/2016 1:45 AM EDT) athologist Signature Troponin-T Not Perf <=0.03 [facility] ng/mL [facility] Comment: Unable to quantitate due to sample hemol ysis. ??Sample redraw suggested. Notified Shannan Vazquez 06/22/16 02:27/ llu 0.03 ng/mL: Represents the [...] consensus document of the Joint Society of Cardiology/[place] College o f Cardiology Committee for the redefinition of myocardial infarction. ? ?Journal of the [place] College of Cardiology 2000; 36: 959-969] CK, Total 357 (H) 0 - 200 unit/L [facility] Specimen Anatomical Collection Method Collection Time Receive d Time (Source) Location / / Volume Laterality Blood specimen Venous Draw / 06/22/2016 1:45 AM 2015 1:51 (specimen) Unknown EDT AM EDT Resulting Agency Comment Spec In Lab Maxx Lange MD CHEMISTRY ORDERABLES Performing Organization Address City/[facility] [place] [address] (ABNORMAL) APTT (06/22/2016 1:45 AM EDT) P athologist Signature PTT 59 (H) 25 - 35 sec [facility] Comment: The recommended therapeutic range for fu ll dose, unfractionated heparin at [facility] is 80 ? 114 seconds. The use [...] Organization Address City/State/[place] [address] (ABNORMAL) Differential, Automated (06/22/2016 1:45 AM EDT) [facility] Method Time Signature Neutrophils % 70.8 % [facility] Neutr Abs (ANC) 6.64 (H) 1.70 - [facility] 6.10 [facility] x10(3)/[facility] LABORATORY Lymphocytes % 19.0 % [facility] Lymphocytes Abs 1.8 0.9 - 3.2 [facility] x10(3)/[facility] LABORATORY Monocytes % 7.1 % [facility] Monocyte Abs 0.7 0.3 - 0.9 [facility] x10(3)/[facility] LABORATORY Eosinophils % 2.4 % [facility] Eosinophils Abs 0.2 0.0 - 0.4 [facility] x10(3)/[facility] LABORATORY Basophils % 0.5 % [facility] Basophils Abs 0.0 0.0 - 0.1 [facility] x10(3)/[facility] LABORATORY Immature Gran % 0.20 % [facility] Comment: Immature granulocytes(IG's)percentage an d absolute count will include metamyelocytes, myelocytes, and promyelo cytes. Blood smears from CBCs yielding IG's will be scanned manually for concor dance. If this scan disagrees with the automated IG or if promyelocytes are not ed, a manual differential will be performed. Amada Gran Abs 0.02 0.00 - 0.04 x10(3)/[facility] LABORATORY Specimen Anatomical Collection Method Collection Time Receive d Time (Source) Location / / Volume Laterality Blood specimen 06/22/2016 1:45 AM 016 1:51 (specimen) EDT AM EDT Resulting Agency Comment Spec In Lab Maxx Lange MD HEMATOLOGY ORDERABLES Performing Organization Address City/State/[place] [address] (ABNORMAL) Hemogram (06/22/2016 1:45 AM EDT) Analysis Performed At Patho logist Time Signature WBC 9.4 4.0 - 9.5 [facility] x10(3)/[facility] LABORATORY RBC 4.18 (L) 4.58 - [place] [address] [facility] x10(6)/[facility] LABORATORY Hemoglobin 13.8 13.7 - [facility] 16.5 gm/dL [facility] Hematocrit 39.7 (L) 40.5 - [facility] 48.5 % [facility] MCV 95.0 (H) 82.9 - [facility] 93.1 [facility] LABORATORY MCH 33.0 (H) 27.5 - [facility] 32.1 pg [facility] MCHC 34.8 32.0 - [facility] 35.[facility] gm/dL [facility] Platelets 231 145 - 357 [facility] x10(3)/[facility] LABORATORY RDWSD 43.2 36.0 - [facility] 45.0 [facility] LABORATORY RDWCV 12.6 11.4 - [facility] 13.8 % [facility] LAB[facility]ORY MPV 9.5 7.6 - 12.9 [facility] LABORATORY nRBC % Auto 0.0 % [facility] nRBC Abs Auto 0.000 0.000 - [facility] 0.[address] [facility] x10(3)/[facility] LABORATORY Specimen Anatomical Collection Method Collection Time Receive d Time (Source) Location / / Volume Laterality Blood specimen 06/22/2016 1:45 AM 016 1:51 (specimen) EDT AM EDT Resulting Agency Comment Spec In Lab Maxx Lange MD HEMATOLOGY ORDERABLES Performing Organization Address City/State/[place] [address] (ABNORMAL) BMP w/fasting Glucose (06/22/2016 1:45 AM EDT) P athologist Signature Glucose 133 (H) 65 - 99 [facility] Fasting mg/dL [facility] Comment: ?Fasting* Glucose Interpretive C [...] of Diabetes Mellitus, Position Statement from the [place] Diabetes Association. ??Diabete s Care, Volume 33, Supplement 1, Sep 2009 BUN 12 10 - 20 mg/dL [facility] Creatinine 1.39 0.80 - 1.50 mg/dL [facility] Comment: Please note that the pediatric reference intervals supplied above were not validated at [facility]. Results from pediatri c patients should be interpreted in conjunction to the patient's age, height and muscle mass. Sodium 135 135 - 145 mmol/L [facility] Potassium Not Perf 3.5 - 5.0 mmol/L [facility] Comment: Unable to quantitate due to sample hemol ysis. ??Sample redraw suggested. Notified Shannan Vazquez 06/22/16 02:27/ llu Please note: ??Patients with WBC >100,00 0 may have falsely elevated Potassium levels. ??For accurate Potassium quantif ication in these patients send serum separator tube (gold top) for subsequent determinations. ??Contact the Clinical Chemistry Laboratory if there are any qu estions. Chloride 98 98 - 107 mmol/L [facility] CO2 23 22 - 31 mmol/L [facility] Anion Gap 14 5 - 15 mmol/L [facility] Calcium 8.7 8.5 - 10.5 mg/dL [facility] Estimated GFR 52 (L) >=60 [facility] Comment: This estimated GFR (eGFR) value [...] the following links into your internet browser. [email or web address] Specimen Anatomical Collection Method Collection Time Receive d Time (Source) Location / / Volume Laterality Blood specimen 06/22/2016 1:45 AM 016 1:51 (specimen) EDT AM EDT Resulting Agency Comment Spec In Lab Maxx Lange MD CHEMISTRY ORDERABLES Performing Organization Address City/State/Z[place] [address] Hemoglobin A1c (06/22/2016 1:45 AM EDT) athologist Signature Hemoglobin A1C 5.2 4.3 - 5.6 [facility] Comment: Reference Range: 4.3 - [...] Mellitus, Diabetes Care 2013; 36: Suppl. 1, Y47-78 Est Avg Gluc 103 mg/dL [facility] LABORATORY Comment: eAG equivalents for HbA1c percentages: HbA1c(%) ?eAG(mg/dL) 6.0 ?126 6.5 ?140 7.0 ?154 7.5 ?169 8.0 ?183 8.5 ?197 9.0 ?212 9.5 ?226 10.0 ? 240 Limitations: The eAG calculation has not been validated on women, individuals below 18 years old and above 70 years old, and individuals with hemoglobinopathies. Additional resources are available on [facility] website: [email or web address]INGadacalc Yang COSTA, Padilla J, Carlos R, et al. ??Tr anslating the A1C assay into estimated average glucose values. ??Diabetes Care 2008:31(8):2119-3329. Specimen Anatomical Collection Method Collection Time Receive d Time (Source) Location / / Volume Laterality Blood specimen 06/22/2016 1:45 AM 016 1:51 (specimen) EDT AM EDT Resulting Agency Comment Spec In Lab Maxx Lange MD CHEMISTRY ORDERABLES Performing Organization Address City/State/Z[place] [address] (ABNORMAL) Lipid panel (fasting) (06/22/2016 1:45 AM EDT) P athologist Signature Chol, Total 152 <=199 mg/dL [facility] Comment: Recommendations of the NCEP Adult Treatm ent Panel for the following risk cutoff thresholds for the [place] popul[place] n: Desirable: <200 mg/dL Borderline High: 200-239 mg/dL High: > or = 240 mg/dL Triglycerides 392 (H) <=149 mg/dL [facility] Comment: Reference Range: Normal triglycerides: ??<150 mg/dL Borderline high: ??150-199 mg/dL High: ??200-499 mg/dL Very high: ??>xy=514 mg/dL ELÍAS 2001; 285(19):3259-6986 HDL 18 (L) >=40 mg/dL [facility] Comment: Reference range: ??Low HDL: ?? < 40 mg/dL ??Normal: ?40-60 mg/dL ??Desirable: > 60 mg/dL ELÍAS 2001; 285(19):9369-0300 LDL Cholesterol 56 <=99 mg/dL [facility] Comment: Reference range: ?? Optimal: ?<100 mg/dL ?? Near Optimal/Above Optimal: ?? 100-1 29 mg/dL ?? Borderline high: ?130-159 mg/dL ?? High: ? 160-189 mg/dL ?? Very high: ?>xf=307 mg/dL ELÍAS 2001: 285(19):8602-9159 Chol/HDL Ratio 8.4 ratio [facility] Comment: A Cholesterol to HDL ratio below 4:1 is desirable. ??Studies suggest that increased CAD risk occurs at ratios abov e 5 for females and above 6 for men. ? [place] Heart Association ??(htt p://www.americanheart.org) ? [place] Int Med, 1994; 121:641 ? AM J Med, 1998; 105(1A):48S Specimen Anatomical Collection Method Collection Time Receive d Time (Source) Location / / Volume Laterality Blood specimen 06/22/2016 1:45 AM 016 1:51 (specimen) EDT AM EDT Resulting Agency Comment Spec In Lab Maxx Lange MD CHEMISTRY ORDERABLES Performing Organization Address City/State/[place] [address] (ABNORMAL) Cardiac Enzymes (06/21/2016 5:45 PM EDT) P athologist Signature Troponin-T 1.03 (H) <=0.03 [facility] ng/mL [facility] Comment: 0.03 ng/mL: Represents the [...] consensus document of the Joint Society of Cardiology/[place] College o f Cardiology Committee for the redefinition of myocardial infarction. ? ?Journal of the [place] College of Cardiology 2000; 36: 959-969] CK, Total 391 (H) 0 - 200 unit/L [facility] Specimen Anatomical Collection Method Collection Time Receive d Time (Source) Location / / Volume Laterality Blood specimen 06/21/2016 5:45 PM 016 5:54 (specimen) EDT PM EDT Resulting Agency Comment Spec In Lab Maxx Lange MD CHEMISTRY ORDERABLES Performing Organization Address City/[facility]/[place] [address] (ABNORMAL) APTT (06/21/2016 5:35 PM EDT) P athologist Signature PTT 43 (H) 25 - 35 sec [facility] Comment: The recommended therapeutic range for fu ll dose, unfractionated heparin at [facility] is 80 ? 114 seconds. The use [...] Lange MD HEMATOLOGY ORDERABLES Performing Organization Address City/[facility]/[place] [address] XR Chest PA or [...] ?SUZANNE RAY ?(Age): 1960(56y) Med Rec#: ? [id number] ?Sex: ?M ? Site Loc: ? [facility] ?Ht / Wt: ??175(cm)/95(kg) Pt. Loc: ?CCU ? BSA: ?2.1 Study Date: ?? 06/21/2016 ?Pt. Type: Inpatient Tape: ? Referring: Maxx Lange ([id number]) Referring: MELANI Reading: Bernardino Matthews ([id number]) Hasher Machine Operator: Rosaline Connor Diagnosis: *ICD-10-PCS ST elevation (STEMI) myocar dial infarction involving left anterior descending coronary artery (I21 .02) CPT Codes: *Echo Full (83026) *Spectral Doppler (03877) *Color Doppler (76684) *Optison ([id number]) BP: ? 132/75 SUMMARY: 1. The left [...] ascending aorta is normal in s ize. Pulmonary Artery: ? The main pulmona ry [...] E-wave Vmax ?1.2 ?m/sec ? MV deceleration evbv081.5 ? msec ? MV A-wave Vmax ?0.9 [...] ? Mid-Inferior ?Normal ? Mid-Inferoseptal ?Hypokinetic ? [employer]-Septal ? Akinetic ? [employer]An[employer] ? [employer]kinetic ? [employer]Lateral ?[employer]kinetic ? [employer]Inferior ? [employer]etic ? [employer]-Tip ?Akinetic ? This report has been electronically sign ed by: _ Bernardino Matthews M.D. ? 06/21/2016 15:37:10 Images reviewed and interpretation verif ied [facility] Cardiac Ultrasound Laboratory Procedure Note Bernardino Matthews MD - 06/21/2016Formatti ng of this note might be different from the original. Procedure: Transthoracic Echocardiogram Patient: SUZANNE BURGOS(Age): 1960(3 8y) Med Rec#: [id number] Sex: M [place] Loc: [facility] Ht / Wt: 175(cm)/95(kg) Pt. Loc: CCU BSA: 2.1 Study Date: 06/21/2016 Pt. Type: Inpatie nt Tape: Referring: Maxx Lange ([id number]) Referring: MELANI Reading: Bernardino Matthews ([id number]) Hasher Machine Operator: Rosaline Connor Diagnosis: *ICD-10-PCS ST elevation (STEMI) myocar dial infarction involving left anterior descending coronary artery (I21 .02) CPT Codes: *Echo Full (49421) *Spectral Doppler (21487) *Color Doppler (99264) *Optison ([id number]) BP: 132/75 SUMMARY: 1. The left ventricular [...] abnormal. The mid anteroseptal, and mid inferosep newton wall segments are hypokinetic (score 2). The [...] MV E-wave Vmax 1.2 m/sec MV deceleration cois692.5 msec MV A-wave Vmax 0.9 m/sec MV [...] Normal Mid-Posterolateral Normal Mid-Inferior Normal Mid-Inferoseptal Hypokinetic [employer]-Septal [employer]kinetic [employer]-Anterior Akinetic [employer]-Lateral Akinetic [employer]-Inferior Akinetic [employer]-Tip Akinetic This report has been electronically sign ed by: _ Bernardino Matthews M.D. 06/21/2016 15:37 :10 Images reviewed and interpretation verif ied [facility] Cardiac Ultrasound Laboratory Maxx Lange MD [...] 483 ms MUSE SYSTEM (Bezet) Calculated P Campbell 31 degrees MUSE SYSTEM Calculated R Campbell -43 degrees MUSE SYSTEM Calculated T Campbell 98 degrees MUSE SYSTEM INTERPRETATION Normal sinus rhythm MUSE SYSTEM Left axis deviation Minimal voltage criteria for LVH, may be normal variant Anteroseptal infarct , age undetermined Abnormal ECG No previous ECGs available Confirmed by MD Cesario, Jasmine ([id number]) on 06/22/2016 6:02:14 A M Specimen Anatomical Collection Method Collection Time Receive d Time (Source) Location / / Volume Laterality 06/21/2016 12:56 06/22/2016 6:02 PM EDT AM EDT Maxx Lange MD ECG ORDERABLES Performing Organization Address City/State/ZIP Code Phon e Number MUSE SYSTEM (ABNORMAL) APTT (06/21/2016 12:50 PM EDT) P athologist Signature PTT >160.0 25 - 35 [facility] ([facility] LABORATORY Comment: Specimen drawn more than one hour prior to testing. ??Results may not be reliable for heparin monitoring. ??(May be falsely low) Called by: TANK, Read back by: Norma Grimm RN , Date/Time:06/21/16 15:27. The recommended therapeutic range for fu ll dose, unfractionated heparin at [facility] is 80 ? 114 seconds. The use [...] Lange MD HEMATOLOGY ORDERABLES Performing Organization Address City/[facility]/ZIP Code Phon e Number [address] T4, free (06/21/2016 12:50 PM EDT) P athologist Signature Free T4 1.70 0.93 - 1.70 [facility] ng[facility]dL [facility] LABORATORY Specimen Anatomical Collection Method Collection Time Receive d Time (Source) Location / / Volume Laterality Blood specimen Venous Draw / 06/21/2016 12:50 06/21/20 16 1:23 (specimen) Unknown PM EDT PM EDT Resulting Agency Comment Spec In Lab Maxx Lange MD CHEMISTRY ORDERABLES Performing Organization Address City/[facility]/ZIP Code Phon e Number [address] T3, free (06/21/2016 12:50 PM EDT) P athologist Signature T3, Free 4.4 2.0 - 4.4 [facility] pg/mL [facility] LABORATORY Specimen Anatomical Collection Method Collection Time Receive d Time (Source) Location / / Volume Laterality Blood specimen Venous Draw / 06/21/2016 12:50 06/21/20 16 1:23 (specimen) Unknown PM EDT PM EDT Resulting Agency Comment Spec In Lab Maxx Lange MD CHEMISTRY ORDERABLES Performing Organization Address City/[facility] Phon e Number [address] Differential, Automated (06/21/2016 12:50 PM EDT) P athologist Signature Neutrophils % 60.8 % [facility] LABORATORY Neutr Abs (ANC) 5.47 1.70 - [facility] 6.[address] [facility] x10(3)/[facility] LABORATORY Lymphocytes % 29.5 % [facility] LABORATORY Lymphocytes Abs 2.7 0.9 - 3.2 [facility] x10(3)/[facility] LABORATORY Monocytes % 6.5 % [facility] LABORATORY Monocyte Abs 0.6 0.3 - 0.9 [facility] x10(3)/[facility] LABORATORY Eosinophils % 2.1 % [facility] LABORATORY Eosinophils Abs 0.2 0.0 - 0.4 [facility] x10(3)/[facility] LABORATORY Basophils % 0.9 % [facility] LABORATORY Basophils Abs 0.1 0.0 - 0.1 [place] 383010(3)/[facility] LABORATORY Immature Gran % 0.20 % [facility] LABORATORY Comment: Immature granulocytes(IG's)percentage an d absolute count will include metamyelocytes, myelocytes, and promyelo cytes. Blood smears from CBCs yielding IG's will be scanned manually for concor dance. If this scan disagrees with the automated IG or if promyelocytes are not ed, a manual differential will be performed. Amada Gran Abs 0.02 0.00 - 0.04 x10(3)/[facility] LABORATORY Specimen Anatomical Collection Method Collection Time Receive d Time (Source) Location / / Volume Laterality Blood specimen 06/21/2016 12:50 6 (specimen) PM EDT 12:59 PM EDT Resulting Agency Comment Spec In Lab Maxx Lange MD HEMATOLOGY ORDERABLES Performing Organization Address City/State/[place] [address] (ABNORMAL) Hemogram (06/21/2016 12:50 PM EDT) Analysis Performed At Patho logist Time Signature WBC 9.0 4.0 - 9.5 [facility] x10(3)/[facility] LABORATORY RBC 4.17 (L) 4.58 - [facility] 5.[address] [facility] x10(6)/[facility] LABORATORY Hemoglobin 13.6 (L) 13.7 - [facility] 16.5 gm/dL [facility] LABORATORY Hematocrit 39.4 (L) 40.5 - [place] [place] 48.5 % [facility] LABORATORY MCV 94.5 (H) 82.9 - [place] 93.1 [facility] LABORATORY MCH 32.6 (H) 27.5 - [place] 32.1 pg [facility] LABORATORY MCHC 34.5 32.0 - [place] 35.7 gm/dL [facility] LABORATORY Platelets 286 145 - 357 [place] x10(3)/[facility] LABORATORY RDWSD 42.3 36.0 - [place] 45.0 [facility] LABORATORY RDWCV 12.3 11.4 - [place] 13.8 % [facility] LABORATORY MPV 9.6 7.6 - 12.9 [place] [facility] LABORATORY nRBC % Auto 0.0 % [facility] LABORATORY nRBC Abs Auto 0.000 0.000 - [place] [address] [facility] x10(3)/[facility] LABORATORY Specimen Anatomical Collection Method Collection Time Receive d Time (Source) Location / / Volume Laterality Blood specimen 06/21/2016 12:50 6 (specimen) PM EDT 12:59 PM EDT Resulting Agency Comment Spec In Lab Maxx Lange MD HEMATOLOGY ORDERABLES Performing Organization Address City/State/[place] [address] (ABNORMAL) Cardiac Enzymes (06/21/2016 12:50 PM EDT) P athologist Signature Troponin-T 0.61 (H) <=0.03 [place] ng/mL [facility] LABORATORY Comment: 0.03 ng/mL: Represents the [...] consensus document of the Joint Society of Cardiology/[place] College [employer] f [employer] Committee for the redefinition of myocardial infarction. ? ?Journal of the [place] College of Cardiology 2000; 36: 959-969] CK, Total 211 (H) 0 - 200 unit/L [facility] LABORATORY Specimen Anatomical Collection Method Collection Time Receive d Time (Source) Location / / Volume Laterality Blood specimen 06/21/2016 12:50 6 (specimen) PM EDT 12:59 PM EDT Resulting Agency Comment Spec In Lab Maxx Lange MD CHEMISTRY ORDERABLES Performing Organization Address City/[facility] [place] [address] Prothrombin Time (06/21/2016 12:50 PM EDT) P athologist Signature PT 14.5 12.0 - 15.0 [facility] LABORATORY Comment: An INR <2.0 indicates adequate [...] linical circumstances. INR 1.1 0.9 - 1.1 [facility] LABORATORY Specimen Anatomical Collection Method Collection Time Receive d Time (Source) Location / / Volume Laterality Blood specimen 06/21/2016 12:50 6 (specimen) PM EDT 12:59 PM EDT Resulting Agency Comment Spec In Lab Maxx Lange MD HEMATOLOGY ORDERABLES Performing Organization Address City/[facility] [place] [address] (ABNORMAL) Hepatic Function Panel (06/21/2016 12:50 PM EDT) P athologist Signature Total Protein 5.9 (L) 6.1 - 8.0 [place] gm/dL [facility] LABORATORY Albumin 3.6 3.2 - 5.2 [place] gm/dL [facility] LABORATORY AST 30 0 - 39 [facility] unit/L [facility] LAB[facility] ALT 25 0 - 55 [place] unit/L [facility] LABORATORY Alk Phos 66 40 - 120 [facility] unit/L [facility] LABORATORY Total 0.3 0.2 - 1.3 [place] Bilirubin mg/dL [facility] LABORATORY Bili, Direct 0.1 0.0 - 0.3 [place] mg/dL [facility] LABORATORY Specimen Anatomical Collection Method Collection Time Receive d Time (Source) Location / / Volume Laterality Blood specimen 06/21/2016 12:50 6 (specimen) PM EDT 12:59 PM EDT Resulting Agency Comment Spec In Lab Maxx Lange MD CHEMISTRY ORDERABLES Performing Organization Address City/State/ZIP Code Phon e Number [address] (ABNORMAL) pro-Brain Natriuretic Peptide (06/21/2016 12:50 PM EDT) P athologist Signature ProBNP 1,479 (H) <=125 [facility] pg/mL [facility] LABORATORY Specimen Anatomical Collection Method Collection Time Receive d Time (Source) Location / / Volume Laterality Blood specimen 06/21/2016 12:50 6 (specimen) PM EDT 12:59 PM EDT Resulting Agency Comment Spec In Lab Maxx Lange MD CHEMISTRY ORDERABLES Performing Organization Address City/State/ZIP Code Phon e Number [address] (ABNORMAL) TSH (06/21/2016 12:50 PM EDT) P athologist Signature TSH 0.02 (L) 0.27 - 4.20 [place] mcIU/mL [facility] LABORATORY Specimen Anatomical Collection Method Collection Time Receive d Time (Source) Location / / Volume Laterality Blood specimen 06/21/2016 12:50 6 (specimen) PM EDT 12:59 PM EDT Resulting Agency Comment Spec In Lab Maxx Lange MD CHEMISTRY ORDERABLES Performing Organization Address City/State/ZIP Code Phon e Number [address] Magnesium (06/21/2016 12:50 PM EDT) athologist Signature Magnesium 0.87 0.69 - 1.07 [facility] mmol/L [facility] LABORATORY Specimen Anatomical Collection Method Collection Time Receive d Time (Source) Location / / Volume Laterality Blood specimen 06/21/2016 12:50 6 (specimen) PM EDT 12:59 PM EDT Resulting Agency Comment Spec In Lab Maxx Lange MD CHEMISTRY ORDERABLES Performing Organization Address City/[facility]/ZIP Code Phon e Number [address] (ABNORMAL) Basic Metabolic Panel (non-fasting) (06/21/2016 12:50 PM EDT) athologist Signature Glucose Lvl 120 65 - 199 [facility] mg/dL [facility] LABORATORY Comment: Diabetes: >=200 mg/dL plus symp toms BUN 13 10 - 20 mg/dL [facility] LABORATORY Creatinine 1.31 0.80 - 1.50 mg/dL [facility] LABORATORY Comment: Please note that the pediatric reference intervals supplied above were not validated at [facility]. Results from pediatri c patients should be interpreted in conjunction to the patient's age, height and muscle mass. Sodium 139 135 - 145 mmol/L [facility] LABORATORY Potassium 4.4 3.5 - 5.0 mmol/L [facility] LABORATORY Comment: Please note: ??Patients with WBC >100,00 0 may have falsely elevated Potassium levels. ??For accurate Potassium quantif ication in these patients send serum separator tube (gold top) for subsequent determinations. ??Contact the Clinical Chemistry Laboratory if there are any qu estions. Chloride 103 98 - 107 mmol/L [facility] LABORATORY CO2 21 (L) 22 - 31 mmol/L [facility] LABORATORY Anion Gap 15 5 - 15 mmol/L [facility] LABORATORY Calcium 8.3 (L) 8.5 - 10.5 mg/dL [facility] LABORATORY Estimated GFR 56 (L) >=60 [facility] LABORATORY Comment: This estimated GFR (eGFR) value [...] the following links into your internet browser. [email or web address] Specimen Anatomical Collection Method Collection Time Receive d Time (Source) Location / / Volume Laterality Blood specimen 06/21/2016 12:50 6 (specimen) PM EDT 12:59 PM EDT Resulting Agency Comment Spec In Lab Maxx Lange MD CHEMISTRY ORDERABLES Performing Organization Address City/State/ZIP Code Phon e Number [place] [phone]OS[address] LAB[address]ORY [address] documented in this encounter Visit Diagnoses Not on filedocumented in this encounter Admitting Diagnoses Diagnosis STEMI (ST elevation myocardial infarctio n) Acute myocardial infarction, unspecified site, episode of care unspecified documented in this encounter Administered Medications Inactive Administered Medications - up to 3 most recent administrations Medication Order MAR Action Action Date Dose Rate Site aspirin chewable tablet 81 mg Given 06/23/2016 [...] Given 06/22/2016 9:40 AM EDT 75 mg docusate sodium (COLACE) capsule 100 mg Given [...] Given 06/22/2016 8:45 AM EDT 20 mg fentaNYL 50 mcg/mL multi-dose injection Given 06/22/2016 11:56 AM EDT 25 mcg ONCE PRN, Starting on Tue06/22/16 at 1008, Until Tue06/22/16 at 1327, Intra-Operative (Intra-Procedure), Routine Given 06/22/2016 11:30 AM EDT 25 mcg Given 06/22/2016 10:15 AM EDT 25 mcg heparin (porcine) injection 2,000-4,000 Given 06/21/20 7:14 [...] - Per Protocol, Routine heparin (porcine) injection Given 06/22/2016 11:41 AM EDT 2,000 Units ONCE PRN, Starting on Tue06/22/16 at 1023, Until Tue06/22/16 at 1326, Cath (Intra-Procedure), Routine Given 06/22/2016 10:40 AM EDT 2,000 Units Given 06/22/2016 10:23 AM EDT 6,000 Units heparin 25,000 units in New Bag 06/22/2016 [...] than 145 sec X 2 - call guest house manager See Bolus dosing guidance for aPTT values [...] 8:00 PM EDT 1,400 Units/hr 28 mL/hr iohexol (OMNIPAQUE) 350 mg/mL solution Given 06/22/2016 12:01 PM EDT 230 mLs ONCE PRN, Starting on Tue06/22/16 at 1201, Until Tue06/22/16 at 1326, Cath (Intra-Procedure), Routine lisinopril (PRINIVIL;ZESTRIL) tablet 5 m g Given 06/23/2016 11:48 AM EDT 5 mg 5 mg, Oral, DAILY, First dose on Tue06/23/16 at 1200, Until Discontinued, Routine magnesium hydroxide (MILK OF MAGNESIA) o ral suspension 10 mL 10 mL, Oral, DAILY PRN, Starting on Tue06/22/16 at 14 19, Until Tue06/23/16 at 1546, Constipation, 10 mL concentrate = 30 mL regular, Routine meTOPROLOL succinate (TOPROL-XL) XL tablet Given 06/23/2016 11:47 AM EDT 100 mg 100 mg 100 mg, Oral, DAILY, First dose on Tue06/23/16 at 1200, Until Discontinued, DO NOT CRUSH OR OPEN, Routine midazolam (PF) (VERSED) 1 mg/mL multi-dose Given 06/22/2016 10:1 5 AM EDT 1 mg injection ONCE PRN, Starting on Tue06/22/16 at 1008, Until Tue06/22/16 at 1327, Cath (Intra-Procedure), Routine Given 06/22/2016 10:08 AM EDT 1 mg morphine 2 mg/mL carpuject 2 mg Given 06/22/2016 4:51 AM EDT 2 mg 2 mg, Intravenous, EVERY 4 HOURS PRN, Starting on Tue06/21/16 at 1858, Until Tue06/23/16 at 1546, Pain, Routine Given 06/21/2016 7:07 PM EDT 2 mg nitroGLYcerin 100 mcg/mL intracoronary Given 06/22/2016 11:56 AM EDT 200 mcg dilution ONCE PRN, Starting on Tue06/22/16 at 1130, Until Tue06/22/16 at 1326, Cath (Intra-Procedure), Routine Given 06/22/2016 11:30 AM EDT 200 mcg nitroGLYcerin 50 mg in Rate/Dose Change 06/22/2016 [...] sodium chloride 0.9% infusion New Bag 06/22/2016 11:30 AM EDT 250 mLs 200 mL/hr, Intravenous, CONTINUOUS, Starting on Tue06/22/16 at 1000, Until Tue06/22/16 at 1208, Cath (Day of Procedure) traMADol (ULTRAM) tablet 50 mg Given 06/23/2016 2:22 AM EDT 50 mg 50 mg, Oral, EVERY 4 HOURS PRN, Starting on Tue06/21/16 at 2214, Until Tue06/23/16 at 1546, Headaches, Routine Given 06/22/2016 3:55 AM EDT 50 mg verapamil (ISOPTIN) injection Given 06/22/2016 10:18 AM EDT 2.5 mg ONCE PRN, Starting on Tue06/22/16 at 1018, Until Tue06/22/16 at 1326, Administer over 2 Minutes, Cath (Intra-Procedure) documented in this encounter Active and Recently Administered Medications Times are shown in EDT. Scheduled Medication Order 06/21/2016 06/22/2016 06/23/2016 aspirin chewable tablet 81 mg 0845 (Give n - Provider: Martina Holder RN)1011 ([facility] Hold - Provider: Admin Adt - Reason: Transfer to a Procedural area)1418 ([facility] Unhold - Provider: Admin Adt) 0813 (Given - Provider: David Brandt RN) 81 mg, Oral, DAILY, First dose on Tue at 0900, Until Discontinued, Routine atorvastatin (LIPITOR) tablet 80 mg 1711 (Given - Provider: Charleen Grimm RN) 1011 ([facility] Hold - Provider: Admin Adt - Reason: Transfer to a Procedural area)1418 ([facility] Unhold - Provider: Admin Adt)1747 (Given - Provider: Martina Holder RN) 80 mg, Oral, EVERY EVENING, First dose o n 06/21/16 at 1400, Until Discontinued, Routine clopidogrel (PLAVIX) tablet 75 mg 0940 ( Given - Provider: Martina Holder RN)1011 ([facility] Hold - Provider: Admin Adt - Reason: Transfer to a Procedural area)1418 ([facility] Unhold - Provider: Admin Adt) 0813 (Given [...] RN)0845 (Given - Provider: Martina Holder RN)1011 ([facility] Hold - Provider: Admin Adt - Reason: Transfer to a Procedural area)1418 ([facility] Unhold - Provider: Admin Adt)210 (Given - Provider: Mele Hammond RN) 0813 (Given - Provider: David Brandt RN) 100 mg, Oral, 2 TIMES DAILY, First dose on Tue06/22/16 at 0115, Until Discontinued, Routine famotidine (PEPCID) tablet 20 mg 1711 (Given - Provide r: Charleen Grimm RN)2037 (Given - Provider: Apple Baker RN) 0845 (Given - Provider: Martina Holder RN)1011 ([facility] Hold - Provider: Admin Adt - Reason: Transfer to a Procedural area)1418 ([facility] Unhold - Provider: Admin Adt)2107 (Given - [...] Discontinued, Routine 1747 (Given - Provider: Johnny Holder RN)2323 (Given - Provider: Mele Hammond RN) meTOPROLOL [...] mL 1305 (Given - Provide r: Charleen Grimm, RN)2037 (Given - Provider: Apple Baker, MERYL) [...] Procedural area)1418 ([facility] Unhold - Provider: Admin Adt) 350-7,000 Units/hr (7-140 mL/hr), Intrav enous, at 7-140 mL/hr, CONTINUOUS, Starting Tue06/21/16 at 1445, Until Tue06/23/16 at 1546, [...] than 145 sec X 2 - call guest house manager See Bolus dosing julia zurita for aPTT values less than 80 seconds [...] mL/hr), Intravenous, at 0-60 mL/hr, CONTINUOUS, Starting 06/21/16 at 1300, Until Tue06/23/16 at 1546, Titrate to angina pain 3/10 or less. Start at 10 mcg/min for pain not respo 1820 (Rate/Dose Change - Provider: Charleen Grimm RN)1920 (Rate/Dose Change - Provider: Charleen Grimm RN)2000 (Rate/Dose Verify - Provider: Apple Baker, MERYL)2200 (Rate/Dose Verify - Provider: Apple Baker, MERYL) 1418 ([facility] Unhold - Provider: Admin Adt) nsive to sublingual nitroglycerin and mo rphine and if systolic blood pressure (SBP) is 100 mmHg or greater. Adjust dose 10 mcg/min every 5 minutes if SBP is 100 mmHg or greater. Dose not to 200 mcg/min., Routine sodium chloride 0.9% infusion (CANCELED) 1000 (Due)1130 (New Bag - Provider: Dago Oro, MERYL) 200 mL/hr, at 200 mL/hr, Intravenous, CO [...] 1909 (Given - Provider: Charleen Grimm RN) 1011 (N[facility] Hold - Provider: Admin Adt [...] Dago Oro RN)1130 (Given - Provider: Dago Oro RN)1156 (Given - Provider: Dago Oro RN) ONCE PRN, Starting Tue06/22/16 at 1008, Until Tue06/22/16 at 1327, Intra- Operative (Intra-Procedure), Routine heparin (porcine) injection 2,000-4,000 Units 1914 (Gi marcin - Provider: Charleen Grimm RN) 1011 (NOV Hold - Provider: Admin Adt - R dot: Transfer to a Procedural area)1418 (N[facility] Unhold - Provider: Admin Adt) 2,000-4,000 Units, [...] Loi Sanz, MERYL)1141 (Given - Provider: Loi Sanz, MERYL) ONCE PRN, Starting Tue06/22/16 at 1023, Until [...] mg/mL (1 %) injection 3 mg 1011 (NOV Hold - Provider: Admin [...] (CANCEL ED) 1008 (Given - Provider: Dago Oro RN)1015 (Given - Provider: Dago Oro RN) ONCE PRN, Starting Tue06/22/16 at 1008, Until Tue06/22/16 at 1327, Cath (Intra-Procedure), Routine morphine 2 mg/mL carpuject 2 mg 1907 (Given - Provider: Karen Grimm, MERYL) 0451 (Given - Provider: Gianna Connor, MERYL)1011 (N[facility] Hold - Provider: Admin Adt - Reason: Transfer to a Procedural area)1418 (N[facility] Unhold - Provider: Admin Adt) 2 mg, Intravenous, EVERY 4 HOURS PRN, St arting Tue06/21/16 at 1858, Until Tue06/23/16 at 1546, Pain, Routine nitroGLYcerin (NITROSTAT) SL tablet 0.4 mg 1011 (N[facility] Hold - Provider: Admin Adt - Reason: Transfer to a Procedural area)1418 (N[facility] Unhold - Provider: Admin Adt) 0.4 mg, [...] Provider: Dago Oro, MERYL)1300 (Stopped - Provider: Charelen Grimm, MERYL) CONTINUOUS PRN, Starting Tue06/21/16 at 1222, Until Tue06/21/16 at 1404, Cath (Intra-Procedure), Routine ondansetron (ZOFRAN) tablet 4 mg 1442 (Given - P rovider: Martina Holder RN) 4 mg, Oral, EVERY 8 HOURS PRN, Starting 06/22/16 at 1420, Until Tue06/23/16 at 1546, Nausea, Routine polyethylene glycol (MIRALAX) packet 17 g 0846 (Given - Provider: Martina Holder RN)1011 ([facility] Hold - Provider: Admin Adt - Reason: Transfer to a Procedural area)1418 ([facility] Unhold - Provider: Admin Adt) 17 g, Oral, DAILY PRN, Starting Tu06/12 at 0046, Until Tue06/23/16 at 1546, Constipation, Routine sodium chloride 0.9 % flush 5-20 mL 1011 ([facility] Hold - Provider: Admin Adt - Reason: Transfer to a Procedural area)1418 ([facility] Unhold - Provider: Admin Adt) 5-20 mL, Intravenous, EVERY 1 MIN PRN, S tarting Tue06/21/16 at 1231, Until Tue06/23/16 at 1546, flush, Flush pertains to all indwelling lines. Flush per protocol found in the job aid using the link provided on this medication record., Routine traMADol (ULTRAM) tablet 50 mg 0355 (Giv en - Provider: Gainna Connor RN)1011 ([facility] Hold - Provider: Admin Adt - Reason: Transfer to a Procedural area)1418 ([facility] Unhold - Provider: Admin Adt) 0222 (Given - Provider: Clemencia Bueno) 50 mg, Oral, EVERY 4 HOURS PRN, Starting Tue06/21/16 at 2214, Until Tue06/23/16 at 1546, Headaches, Routine verapamil (ISOPTIN) injection (CANCELED) 1018 (Given - Provider: Ely Peralta MD) ONCE PRN, Starting 06/22/16 at 1018, Until 06/22/16 at 1326, Administer over 2 Minutes, Cath (Intra-Procedure) documented in this encounter Care Teams Industrial Relations Commissioner Relationship Specialty Start Date End Date None PCP - General Internal Medicine 10/01/13 03/19/18 None documented as of this encounter
--- OUTSIDE RECORDS SUMMARY | 2022-07-25 17:57 | XMS_ITS | Encounter Summary ---
:1960 [place] [address] Care Team Providers Name Role Phone Sussy Rodriguez MD Primary Care Provider Encounter Details Date Type Department Care Team Description 05/06/2011 Procedure visit [facility] [address] [place] [phone] Social History Tobacco Use Types Packs/Day Years Used Date Smoking Tobacco: Never Assessed Sex Assigned at Date Recorded Not on file documented as of this encounter Plan of Treatment Not on filedocumented as of this encounter Visit Diagnoses Not on filedocumented in this encounter Care Teams Command Post Craftsman Relationship Specialty Start Date End Date Sussy Rodriguez MD PCP - General 04/19/11 05/24/12 [address] [facility] [place] [address] documented as of this encounter
--- OUTSIDE RECORDS SUMMARY | 2022-07-25 17:57 | XMS_ITS | Encounter Summary ---
:1960 Author Organization [facility] [place] [address] Care Team Providers Name Role Phone Sussy Rodriguez MD Primary Care Provider Encounter Details Date Type Department Care Team Description 05/06/2011 Office Visit Jenifer Guaman, PA [address] [place] [address] [facility]ILY [facility]INE [phone] [place] [address] (Wo rk) Social History Tobacco Use Types Packs/Day Years Used Date Smoking Tobacco: Never Assessed Sex Assigned at Date Recorded Not on file documented as of this encounter Plan of Treatment Not on filedocumented as of this encounter Visit Diagnoses Not on filedocumented in this encounter Care Teams Dough Mixer Relationship Specialty Start Date End Date Sussy Rodriguez MD PCP - General 04/19/11 05/24/12 [address] [facility] [place] [address] documented as of this encounter
--- OUTSIDE RECORDS SUMMARY | 2022-07-25 17:57 | XMS_ITS | Encounter Summary ---
:1960 [place] [address] Care Team Providers Name Role Phone None Primary Care Provider Unavailable Reason for Visit Auth/Cert Specialty Diagnoses / Procedures Referred By Contact Refer red To Contact Diagnoses STEMI (ST elevation myocardial infarction) STEMI STEMI Procedures PRO LEVEL 1 EMERGENCY ROOM VISIT CARDIAC CATHETERIZATION Referral ID Status Reason Start Date Expiration Date Visits Requ ested Visits Authorized [id number] 1 1 Encounter Details Date Type Department Care Team Description 06/21/2016 Hospital Encounter Non-Invasive [place] [address] Social History Tobacco Use Types Packs/Day Years Used Date Smoking Tobacco: Never Assessed Sex Assigned at Date Recorded Not on file documented as of this encounter Medications at Time of Discharge [...] 24 hr documented as of this encounter Plan of Treatment Not on filedocumented as of this encounter Procedures Procedure Name Priority Date/Time Associated Comments Diagnosis ECHOCARDIOGRAM COMPLETE Routine 06/21/2016 3:[address] elevatio n Results for this W CONTRAST EDT (STEMI) myocardial procedure are in infarction the results involving left section. anterior descending coronary artery documented in this encounter Visit Diagnoses Not on filedocumented in this encounter Administered Medications Inactive Administered Medications - up to 3 most recent administrations Medication Order MAR Action Action Date Dose Rate Site perflutren protein-A microspheres Given 06/21/2016 2:45 PM EDT 2 .1 mLs (OPTISON) 0.22 mg/mL injection 2.1 mL 2.1 mL, Intravenous, ONCE PRN, 1 dose, Starting on Tue06/21/16 at 1506, Until Tue06/21/16 at 1445, Per Protocol, Routine documented in this encounter Care Teams Jewel Hole Gauger Relationship Specialty Start Date End Date None PCP - General Internal Medicine 10/01/13 03/19/18 None documented as of this encounter
--- OUTSIDE RECORDS SUMMARY | 2022-07-25 17:57 | XMS_ITS | Encounter Summary ---
:1960 [place] [address] Care Team Providers Name Role Phone None Primary Care Provider Unavailable Encounter Details Date Type Department Care Team Description 06/21/2016 External Results Administration Janelle Rojas MD [facility] [place] [address] CARDIOLOGY DEPT [phone] [place], [place] [address] (Wo rk) Social History Tobacco Use Types Packs/Day Years Used Date Smoking Tobacco: Never Assessed Sex Assigned at Date Recorded Not on file documented as of this encounter Plan of Treatment Not on filedocumented as of this encounter Procedures Procedure Name Priority Date/Time Associated Diagnosis Comme nts ECG SCAN Routine 06/21/2016 documented in this encounter Results Scan Doc: ECG (06/21/2016) Narrative This result has an attachment that is no t available. Janelle Rojas MD MEDIA MGR SCAN EXT ORDR/RSLT documented in this encounter Visit Diagnoses Not on filedocumented in this encounter Care Teams Gravure Press Set Up Operator Relationship Specialty Start Date End Date None PCP - General Internal Medicine 10/01/13 03/19/18 None documented as of this encounter
--- OUTSIDE RECORDS SUMMARY | 2022-07-25 17:57 | XMS_ITS | Encounter Summary ---
:1960 Author Organization [facility] [place] [address] Care Team Providers Name Role Phone Sussy Rodriguez MD Primary Care Provider Encounter Details Date Type Department Care Team Description 05/06/2011 Procedure visit [facility] Rad[facility], [place] [address] [place] [phone] Social History Tobacco Use Types Packs/Day Years Used Date Smoking Tobacco: Never Assessed Sex Assigned at Date Recorded Not on file documented as of this encounter Plan of Treatment Not on filedocumented as of this encounter Visit Diagnoses Not on filedocumented in this encounter Care Teams Slag Dumper Relationship Specialty Start Date End Date Sussy Rodriguez MD PCP - General 04/19/11 05/24/12 [address] [facility] [place] [address] documented as of this encounter
--- OUTSIDE RECORDS SUMMARY | 2022-07-25 17:57 | XMS_ITS | Encounter Summary ---
:1960 [place] [address] Care Team Providers Name Role Phone None Primary Care Provider Unavailable Encounter Details Date Type Department Care Team Description 06/21/2016 Hospital Encounter Radiology Library at [facility] [place] [phone] Cardiology [phone] [place], [place] [address] (Wo rk) Social History Tobacco [...] Name Priority Date/Time Associated Diagnosis Comme nts FILM LIBRARY Routine 06/21/2016 12:00 AM Pain Results for this STORAGE ONLY DX EDT procedure ar e in CHEST the results section. documented in this encounter Results Film Library- Storage Only DX Chest (06/21/2016 12:00 AM EDT) Specimen (Source) Anatomical Location Collection Method / Collectio n Time Received Time / Laterality Volume Narrative KEVIN - 06/21/2016 8:53 AM EDT This exam is for storage only and is aut o-finalizing. Maxx Lange MD IMG FILM LIBRARY ORDERABLES Performing Organization Address City/State/ZIP Code Phon e Number [place], [place] documented in this encounter Visit Diagnoses Diagnosis Pain Generalized pain documented in this encounter Care Teams Police Or Patrol Park Officer Relationship Specialty Start Date End Date None PCP - General Internal Medicine 10/01/13 03/19/18 None documented as of this encounter
--- OUTSIDE RECORDS SUMMARY | 2022-07-25 17:57 | XMS_ITS | Encounter Summary ---
:1960 [place] [address] Care Team Providers Name Role Phone None Primary Care Provider Unavailable Encounter Details Date Type Department Care Team Description 05/06/2011 Orders Only [facility] Jenifer Maza [address] [phone] [place] [phone] (Wo rk) Social History Tobacco Use Types Packs/Day Years Used Date Smoking Tobacco: Never Assessed Sex Assigned at Date Recorded Not on file documented as of this encounter Plan of Treatment Not on filedocumented as of this encounter Procedures Procedure Name Priority Date/Time Associated Diagnosis Comme nts XR LUMBAR SPINE 2 Routine 05/06/2011 11:55 AM Res ults for this OR 3 VIEWS EDT procedure are i n the results section. documented in this encounter Results XR Lumbar Spine 2 Or 3 Views (Generic) (05/06/2011 11:55 AM EDT) Anatomical Region Laterality Modality L-spine N/A Radiographic Imaging Specimen (Source) Anatomical Collection Method Collection Time Re ceived Time Location / / Volume Laterality 05/06/2011 11:55 AM EDT Narrative 05/10/2011 2:28 PM EDT External Results Ronaldo Razo Final Report EXAMINATION: ??[facility] 3200 - LUMBAR SPINE ( 2-3 VIEWS) ?? [id number] DIAGNOSIS: ?724.2 REASON: ? 724.2 RESULT: ? CLINICAL INDICATION: ?Sciatica. ??Low back pain. IMPRESSION: ? FINDINGS: ? Normal lumbar alignment. ??I see no fractures or focal subluxation. ??Only m inor degenerative facet changes are noted at L4-5 and L5-S1. INTERPRETING PHYSICIAN: ??LARRY ADAIR M.D. ? TRANSCRIBED BY/DATE: ?? PM ??on A 2010 ??1:10P ELECTRONICALLY AUTHORIZED BY: ?? LARRY ADAIR M.D. ? May 10 2011 ??2:28P Procedure Note Larry Adair MD - 04/30/2017Formatti ng of this note might be different from the original. External Results Ronaldo Razo Final Report EXAMINATION: [facility] 3200 - LUMBAR SPINE (2- 3 VIEWS) [id number] DIAGNOSIS: 724.2 REASON: 724.2 RESULT: CLINICAL INDICATION: Sciatica. L ow back pain. IMPRESSION: FINDINGS: Normal lumbar alig nment. I see no fractures or focal subluxation. Only min or degenerative facet changes are noted at L4-5 and L5-S1. INTERPRETING PHYSICIAN: LARRY Kingston TRANSCRIBED BY/DATE: PM on May 07 2011 1:10P ELECTRONICALLY AUTHORIZED BY: LARRY CHACON M.D. May 10 2011 2:28P Jenifer DEE IMG DX ORDERABLES documented in this encounter Visit Diagnoses Not on filedocumented in this encounter Care Teams Cork Painter And Grader Relationship Specialty Start Date End Date None PCP - General Internal Medicine 10/01/13 03/19/18 None documented as of this encounter
--- OUTSIDE RECORDS SUMMARY | 2022-07-25 17:57 | XMS_ITS | Encounter Summary ---
:1960 [place] [address] Care Team Providers Name Role Phone None Primary Care Provider Unavailable Reason for Visit Auth/Cert Specialty Diagnoses / Procedures Referred By Contact Refer red To Contact Diagnoses STEMI (ST elevation myocardial infarction) STEMI STEMI Procedures PRO LEVEL 1 EMERGENCY ROOM VISIT CARDIAC CATHETERIZATION Referral ID Status Reason Start Date Expiration Date Visits Requ ested Visits Authorized [id number] 1 1 Encounter Details Date Type Department Care Team Description 06/21/2016 Surgery C Unix Developer Jabari Vuong CARDIAC CATHETERIZATION [facility] MD [address] [address] [place] [address] CARDIOLOGY DEPT [phone] [place], [place] 0[address] (Wo rk) Social History Tobacco [...] Meliton Raymond Patient Age: 56 y.o. Language: Dutch Race: White Ethnicity: Not nor Admit date: [...] please contact your inpatient physician through the [facility] Base Draw Operator . Issues after hours and on weekends [...] man with HTN and recent NSTEMI at [facility] 2 weeks ago who is transferred from [facility] with STEMI. He presented to the OSH [...] Two weeks ago, he was seen at [facility] for NSTEMI. His troponin at that time [...] plavix 600mg, heparin 4000mg and sent to [facility] on heparin gtt and nitro gtt. He left the OSH ED with 5/10 pain but he was pain free when he arrived to [facility]. His vitals when leaving the OSH were BP 128/83, HR96 93% on 2L NC. ?? He was taken to the stucco laborer emergently upon arrival at [facility]. He was found to have three vessel disease 90% mid-LAD, ostial-OM1 and total occlusion in RCA with collateral circulation from the left. He was hemodynamically stable in the stucco laborer and chest pain free. He did not [...] appointments: During 8am-5pm Tuesday through Tuesday call [phone] to speak with a nurse in the cardiology clinic All other times call [phone] and ask to speak to the bonderizer operator manager labor relations. Activity level: - No heavy lifting (more [...] groups in your community. Follow up Appointments: Camera Control Operator: Dr. Horne: July 16, 9:30AM - [address] [place] [address] PCP: Dr. Jensen DO in [place], [place] in 2 weeks which you arranged. Please be sure to attend this appointment Your Inpatient Doctor(s) at [facility]: Maxx Lange MD - Attending physician Irineo Maxwell - Resident physician Candice Reese - Speeder Machine Operator physician Your Primary Care Provider: Dr. Jensen in [facility] For questions regarding issues relating to your hospitalization on the Hospital Medicine Service, please contact your inpatient physician through the [facility] Base Draw Operator ([phone]. Issues after hours and on weekends will be handled by the Hospitalist staff on-call. General Instructions None Future Appointments and Orders Future Orders Complete By Expires Referral to Cardiac Rehab [CPZ211 Custom] As directed Process Instructions: If no progress note charted, please enter Clinical details in comments. Scheduling Instructions: Questions: My question or request is: s/p STEMI, PCI. Cardiac rehab at [facility] Discharge References/Attachments None documented in this encounter [...] appointments: During 8am-5pm Tuesday through Tuesday call [phone] to speak with a nurse in the cardiology clinic All other times call [phone] and ask to speak to the bonderizer operator manager labor relations. Activity level: - No heavy lifting (more [...] groups in your community. Follow up Appointments: Camera Control Operator: Dr. Horne: July 16, 9:30AM - [address] [place], [place] PCP: Dr. Jensen DO in [place], [place] in 2 weeks which you arranged. Please be sure to attend this appointment Your Inpatient Doctor(s) at [facility]: Maxx Lange MD - Attending physician Irineo Maxwell - Resident physician Candice Reese - Speeder Machine Operator physician Your Primary Care Provider: Dr. Jensen in [facility] For questions regarding issues relating to your hospitalization on the Hospital Medicine Service, please contact your inpatient physician through the [facility] Base Draw Operator [phone]. Issues after hours and on weekends will be handled by the Hospitalist staff on-call. AttachmentsThe following attachments cannot be sent through Care Everywhere.PCI (PERCUTANEOUS CORONARY INTERVENTION): POST-OP (CANADIAN)ASPIRIN: HEART ATTACK AND STROKE PREVENTION (CANADIAN)LOW SODIUM DIET (CANADIAN)documented in this encounter Medications at Time of [...] S/p NICKI to LAD and LCx, RCA IN STORE MARKETER not intervened upon - No post-cath complications [...] (06/22/16 0439) ??? heparin 1,800 Units/hr (06/22/16 993) PRN Meds: polyethylene glycol (MIRALAX)oral powder, magnesium [...] with PCP and cardiology follow up in [place], [place] Plan: # NSTEMI # CAD - Continue ASA 81mg daily - Continue plavix 75mg daily - Continue atorvastatin 80mg daily - Increase metoprolol succinate 100mg daily - Start lisinopril 5mg daily ?? # Others DVT- heparin gtt GI- famotidine Activity- as tolerated Nutrition- cardiac diet Lines- PIV PT/OT- consult Dispo- Home today ?? CODE STATUS: Full Code ?? Contact info: Riana Raymond [phone] ?? 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 No elevated BP [...] For questions, please feel freeto contact me: [phone] (secretary board of commissioners Ros Gretta, and she will have me paged) or [email or web address]. Meliton Raymond 06/22/2016 Referring Providers: Stevie Dunne MD EMERGENCY DEPT [address] [place] [address] ELY PERALTA MD 06/22/2016 TESTING: Recent Results [...] QTC Calculated (Bezet) 483 ms Calculated P [place] 31 degrees Calculated R [place] -43 degrees Calculated T [place] 98 degrees INTERPRETATION Normal sinus rhythm Left axis deviation Minimal voltage criteria for LVH, may be normal variant Anteroseptal infarct , age undetermined Abnormal ECG No previous ECGs available Confirmed by MD Cesario, Jasmine ([id number]) on 06/22/2016 6:02:14 AM Echocardiogram Transthoracic(Leb) Result [...] 2 minutes, contact the interventional cardiology team manager labor relations. In the case of early evidence of [...] Full Code ?? Contact info: Riana Raymond [phone] ?? Gorge Reese MD Internal Medicine, PGY1 [...] morning. Maxx Lange MD Cardiovascular Medicine Pager: [phone] This patient meets or has met medical [...] man with HTN and recent NSTEMI at [facility] 2 weeks ago who is transferred from [facility] with STEMI. He presented to the OSH [...] Two weeks ago, he was seen at [facility] for NSTEMI. His troponin at that time [...] plavix 600mg, heparin 4000mg and sent to [facility] on heparin gtt and nitro gtt. He left the OS ED with 5/10 pain but he was pain free when he arrived to [facility]. His vitals when leaving the OSH were BP 128/83, HR96 93% on 2L NC. He was taken to the stucco laborer emergently upon arrival at [facility]. He was found to have three vessel disease 90% mid-LAD, ostial-OM1 and total occlusion in RCA with collateral circulation from the left. He was hemodynamically stable in the stucco laborer and chest pain free. He did not [...] denies Living Situation: lives with his in [place], [place] Vitals: Last value Range last 24 [...] Admit to Cardiology, S1 Team Pager # [phone] # STEMI # CAD - CT surgery [...] STATUS: Full Code Contact info: Riana Raymond [phone] Gorge Reese MD Internal Medicine, PGY1 Associated [...] morning. Maxx Lange MD Cardiovascular Medicine Pager: [phone] This patient meets or has met medical [...] 30 Days: pt went to ER in [place] but left AMA, then came [facility] for the same problem Anticipated Length Of Stay (If known): 2 days Current Decision-Making Capacity: full Advance Care Planning: blank copies provided and explained how to complete. Pt states understanding and planning to complete prior to d/c. Current Coping/Education/Information Needs: coping well. Questions related to cost of medical care; advised family to contact [facility] for specific coverage information. Also explained INPT status to patient (versus observation) because asked if each service (radiology, stucco laborer, consults, etc) wouldall be billed separately. Family [...] support here. Recently came to [place] from [facility] History: denies Substance Use/Abuse: denies Other Pertinent/Service Specific Information: none Health/Prescription Coverage: Primary Insurance: [place]BS [place] Secondary Insurance: none Prescription Coverage: [place]BS [place] Preferred Pharmacy: [facility] [place] Other: n/a Primary Care Provider: None None PCP UPDATE: PCP now listed as Dr Jensen of [place] and pt has scheduled appt. Patient/Caregiver Goals of Treatment: to go home Potential Needs for Transition of Care: Rehab/SNF: n/a Home Health: n/a DME: n/a Dialysis: n/a Community Resources: n/a Transportation: with family Other: n/a Anticipated Barriers to Discharge/Special Considerations: [facility] and they cannot quote [facility] [...] of care planning. Anya Purdy RN Pager: [phone] Consult Note - Neema Mills RN - [...] to the outpatient cardiac rehabilitation program at [facility] was discussed. Patient agrees to [...] Pt anxious andunable to sleep regarding anticipated stucco laborer procedure. Report of chest pressure around 0400. [...] will not receive complete revascularization due to IN STORE MARKETER of the RCA. He expressed an understanding and all questions were answered. Management as per primary team Re-consult prn CHI RAMOS MD Cardiac Surgery Consultation Note Meliton Raymond is seen at the request of Dr. Shelby for the evaluation of CAD. HPI: He is a 56 y.o. year old with PMhx HTN (not on meds) and a NSTEMI 2 weeks ago, managed at [facility] where he left AMA after the chest pain subsided. He returned to [facility] again on 06/21/16 for at chest pains, SOB, neck and shoulder pain after falling off a stool while painting his house at 0330 today. No LOC. EKG at [facility] showing ST elevation in the anterior septal leads (given ASA 325mg, plavix 600mg, heparin 4000mg) for which he was transferred to and taken emergently to the C Unix Developer. Currently chest painfree. No plavix since. On [...] tobacco ETOH- No Illicit drug use- No Jew- No Family History: No family history on [...] a NSTEMI 2 weeks ago, managed at [facility] where he left AMA after the chest [...] Meliton Raymond. Signed: LUIZ SR MS, [facility] Section of Cardiac Surgery Date: 06/21/2016 [...] IMPLANTABLE DEVICES SCAN 06/24/2016 12:00 AM EDT BOILER INSTALLER SCAN 06/24/2016 12:00 AM EDT CARDIAC ENZYMES Routine 06/23/2016 11:05 Results for this ([facility] AM EDT procedure are i n the [...] ENZYMES Routine 06/21/2016 12:50 Results for this ([facility] PM EDT procedure are i n the [...] MEDIA MGR SCAN EXT ORDR/RSLT SCAN DOC: BOILER INSTALLER (06/24/2016 12:00 AM EDT) Anatomical Region Laterality Modality Other Narrative This result has an attachment that is no t available. Scanning Provider MEDIA MGR SCAN EXT ORDR/RSLT (ABNORMAL) Cardiac Enzymes (06/23/2016 11:05 AM EDT) athologist Signature Troponin-T 1.77 (H) <=0.03 [facility] ng/mL [facility] Comment: 0.03 ng/mL: Represents the [...] consensus document of the Joint Society of Cardiology/[place]ub[place] College o f Cardiology Committee for the redefinition of myocardial infarction. ? ?Journal of the [place] College of Cardiology 2000; 36: 959-969] CK, Total 208 (H) 0 - 200 unit/L [facility] Specimen Anatomical Collection Method Collection Time Receive d Time (Source) Location / / Volume Laterality Blood specimen 06/23/2016 11:05 6 (specimen) AM EDT 11:19 AM EDT Resulting Agency Comment Spec In Lab Maxx Lange MD CHEMISTRY ORDERABLES Performing Organization Address City/State/[place] [address] Differential, Automated (06/23/2016 4:02 AM EDT) athologist Signature Neutrophils % 65.7 % [facility] Neutr Abs (ANC) 5.58 1.70 - [facility] 6.10 [facility] x10(3)/[facility] LABORATORY Lymphocytes % 21.0 % [facility] Lymphocytes Abs 1.8 0.9 - 3.2 [facility] x10(3)/[facility] LABORATORY Monocytes % 9.8 % [facility] Monocyte Abs 0.8 0.3 - 0.9 [facility] x10(3)/[facility] LABORATORY Eosinophils % 2.4 % [facility] Eosinophils Abs 0.2 0.0 - 0.4 [facility] x10(3)/[facility] LABORATORY Basophils % 0.7 % [facility] Basophils Abs 0.1 0.0 - 0.1 [facility] x10(3)/[facility] LABORATORY Immature Gran % 0.40 % [facility] Comment: Immature granulocytes(IG's)percentage an d absolute count will include metamyelocytes, myelocytes, and promyelo cytes. Blood smears from CBCs yielding IG's will be scanned manually for concor dance. If this scan disagrees with the automated IG or if promyelocytes are not ed, a manual differential will be performed. Amada Gran Abs 0.03 0.00 - 0.04 x10(3)/[facility] LABORATORY Specimen Anatomical Collection Method Collection Time Receive d Time (Source) Location / / Volume Laterality Blood specimen 06/23/2016 4:02 AM 016 4:16 (specimen) EDT AM EDT Resulting Agency Comment Spec In Lab Maxx Lange MD HEMATOLOGY ORDERABLES Performing Organization Address City/State/[place] [address] (ABNORMAL) Hemogram (06/23/2016 4:02 AM EDT) Analysis Performed At Patho logist Time Signature WBC 8.5 4.0 - 9.5 [facility] x10(3)/[facility] LABORATORY RBC 4.32 (L) 4.58 - [facility] 5.54 [facility] x10(6)/[facility] LABORATORY Hemoglobin 14.4 13.7 - [place] 16.5 gm/dL [facility] Hematocrit 41.9 40.5 - [place] 48.5 % [facility] MCV 97.0 (H) 82.9 - [place] 93.1 [facility] LABORATORY MCH 33.3 (H) 27.5 - [place] 32.1 pg [facility] MCHC 34.4 32.0 - [place] 35.7 gm/dL [facility] Platelets 284 145 - 357 [place] x10(3)/[facility] LABORATORY RDWSD 44.1 36.0 - [place] 45.0 [facility] LABORATORY RDWCV 12.4 11.4 - [place] 13.8 % [facility] MPV 9.7 7.6 - 12.9 [place] [facility] LABORATORY nRBC % Auto 0.0 % [facility] nRBC Abs Auto 0.000 0.000 - [place] 0.000 [facility] x10(3)/[facility] LABORATORY Specimen Anatomical Collection Method Collection Time Receive d Time (Source) Location / / Volume Laterality Blood specimen 06/23/2016 4:02 AM 016 4:16 (specimen) EDT AM EDT Resulting Agency Comment Spec In Lab Maxx Lange MD HEMATOLOGY ORDERABLES Performing Organization Address City/State/ZIP Code Phon e Number [address] Magnesium (06/23/2016 4:02 AM EDT) athologist Signature Magnesium 0.84 0.69 - 1.07 [place] mmol/L [facility] Specimen Anatomical Collection Method Collection Time Receive d Time (Source) Location / / Volume Laterality Blood specimen 06/23/2016 4:02 AM 016 4:16 (specimen) EDT AM EDT Resulting Agency Comment Spec In Lab Maxx Lange MD CHEMISTRY ORDERABLES Performing Organization Address City/State/ZIP [place] [address] (ABNORMAL) BMP w/fasting Glucose (06/23/2016 4:02 AM EDT) athologist Signature Glucose 118 (H) 65 - 99 [facility] Fasting mg/dL [facility] Comment: ?Fasting* Glucose Interpretive C [...] of Diabetes Mellitus, Position Statement from the [place] Diabetes Association. ??Diabete s Care, Volume 33, Supplement 1, Sep 2009 BUN 11 10 - 20 mg/dL [facility] Creatinine 1.29 0.80 - 1.50 mg/dL [facility] Comment: Please note that the pediatric reference intervals supplied above were not validated at [facility]. Results from pediatri c patients should be [...] estions. Chloride 101 98 - 107 mmol/L [facility] CO2 25 22 - 31 mmol/L [facility] Anion Gap 13 5 - 15 mmol/L [facility] Calcium 8.7 8.5 - 10.5 mg/dL [facility] Estimated GFR 57 (L) >=60 [facility] Comment: This estimated GFR [...] the following links into your internet browser. [email or web address] Specimen Anatomical Collection Method Collection Time Receive d Time (Source) Location / / Volume Laterality Blood specimen 06/23/2016 4:02 AM 016 4:16 (specimen) EDT AM EDT Resulting Agency Comment Spec In Lab Maxx Lange MD CHEMISTRY ORDERABLES Performing Organization Address City/State/ZIP [place] [address] (ABNORMAL) Cardiac Enzymes (06/22/2016 3:08 PM EDT) athologist Signature Troponin-T 2.44 (H) <=0.03 [facility] ng/mL [facility] Comment: result rechecked-mkm 0.03 ng/mL: [...] consensus document of the Joint Society of Cardiology/[place]ub[place] College o f Cardiology Committee for the redefinition of myocardial infarction. ? ?Journal of the [place] College of Cardiology 2000; 36: 959-969] CK, Total 253 (H) 0 - 200 unit/L [facility] Specimen Anatomical Collection Method Collection Time Receive d Time (Source) Location / / Volume Laterality Blood specimen 06/22/2016 3:08 PM 016 3:39 (specimen) EDT PM EDT Resulting Agency Comment Spec In Lab Maxx Lange MD CHEMISTRY ORDERABLES Performing Organization Address City/[facility]/ZIP Code Phon e Number [address] POCT Glucose (06/22/2016 12:39 PM EDT) P athologist Signature POC Glucose 119 65 - 199 [facility] mg/dL [facility] Comment: Supplemental ranges: <140 mg/dL before meals <180 mg/dL all other times of the day Specimen Anatomical Collection Method Collection Time Receive d Time (Source) Location / / Volume Laterality Blood specimen 06/22/2016 12:39 6 (specimen) PM EDT 12:39 PM EDT Maxx Lange MD POINT OF CARE TEST ORDERABLE S Performing Organization Address [facility] [place] [address] EKG 12 Lead (06/22/2016 12:27 PM EDT) Component Value Ref Range Test Analysis Performed Pathologis t Method Time At Signature Ventricular rate 82 BPM MUSE SYSTEM Atrial Rate 82 BPM MUSE SYSTEM P-R Interval 172 ms MUSE SYSTEM QRS Duration 114 ms MUSE SYSTEM Q-T Interval 382 ms MUSE SYSTEM QTC Calculated 446 ms MUSE SYSTEM (Bezet) Calculated P [place] 32 degrees MUSE SYSTEM Calculated R [place] -37 degrees MUSE SYSTEM Calculated T [place] 94 degrees MUSE SYSTEM INTERPRETATION Normal sinus [...] Lange MD ECG ORDERABLES Performing Organization Address City/[facility]/ZIP Code Phon e Number MUSE SYSTEM CARDIAC CATHETERIZATION (06/22/2016 12:04 PM EDT) Anatomical Region Laterality Modality Other Specimen (Source) Anatomical Location Collection Method / Collectio n Time Received Time / Laterality Volume Narrative 06/24/2016 9:03 AM EDT ?[facility] ? Cardiac Cathete rization/Intervention Report ? Patient Name: Charles, Ray ? Procedure Date: 06/22/2016 ? A #: [id number] ? Primary Physician: Ely Peralta ? Case #: [id number] ? File Name: [id number] ? Catheterization Order Number: [id number] ? [facility] ? Final Report [place], [place] ? Patient Name: ? Meliton Suzanne ? ID#: ?[id number] ? : ?1960 ? Procedure Date: ? October 11, 201 6 ? Case #: ? [id number] ? Room: ? 1 ? Case Physician: [...] presented with: non -STEMI (w/i 7 days). [place] ?Cardiovascular Society angina c lass was IV. [...] and a 3.5 Fr [facility] [place] [address] ??20 Mhz using Manual ?pullback. ??Imaging [...] guiding catheter and a 3 .5 Fr [place] [place] ??20 Mhz using ?Manual pullback. ??Imaging [...] syndrome (ACS). Clopidogrel ?loaded prior to the stucco laborer. R ecommend continued dual antiplatelet ?therapy (DAPT) [...] note might be different from the original. [facility] Cardiac Catheterization/Intervention Re port Patient Name: Meliton Raymond Procedure Date: 06/22/2016 A #: [id number] Primary Physician: Ely Peralta Case #: [id number] File Name: [id number] Catheterization Order Number: [id number] [facility] C [facility] Developer [facility] Final Report [place], [place] Patient Name: Meliton Raymond ID#: [id number] : 1960 Procedure Date: June 22, 2016 [...] presented with: non-STEMI ( w/i 7 days). [place] Cardiovascular Society angina class was IV. This [...] 3.5 guiding catheter and a 3.5 Fr [facility] [place] [address] 20 Mhz using Manual pullback. Imaging [...] and a 3.5 Fr [facility] [place] [address] 20 Mhz using Manual pullback. Imaging [...] stenosis following this interv ention. The final THRO flow was 3. Post dilation guided by [...] syndrome (ACS). Clopidogrel loaded prior to the stucco laborer. Recommend continued dual antiplatelet therapy (DAPT) with [...] PTT 95 (H) 25 - 35 sec [facility] Comment: The recommended therapeutic range for fu ll dose, unfractionated heparin at [facility] is 80 ? 114 seconds. The use [...] Lange MD HEMATOLOGY ORDERABLES Performing Organization Address City/[facility]/ZIP [place] [address] (ABNORMAL) Cardiac Enzymes (06/22/2016 9:08 AM EDT) P athologist Signature Troponin-T 1.28 (H) <=0.03 [facility] ng/mL [facility] Comment: 0.03 ng/mL: Represents the [...] consensus document of the Joint Society of Cardiology/[place] College o f Cardiology Committee for the redefinition of myocardial infarction. ? ?Journal of the [place] College of Cardiology 2000; 36: 959-969] CK, Total 225 (H) 0 - 200 unit/L [facility] Specimen Anatomical Collection Method Collection Time Receive d Time (Source) Location / / Volume Laterality Blood specimen 06/22/2016 9:08 AM 016 9:24 (specimen) EDT AM EDT Resulting Agency Comment Spec In Lab Maxx Lange MD CHEMISTRY ORDERABLES Performing Organization Address City/State/ZIP [place] [address] Potassium (06/22/2016 9:08 AM EDT) P athologist Signature Potassium 4.2 3.5 - 5.0 [facility] [facility] mmol/L [facility] Comment: Please note: ??Patients with [...] Organization Address City/State/[place] [address] CARDIAC CATHETERIZATION (06/22/2016 8:53 AM EDT) Anatomical Region Laterality Modality Other Specimen (Source) Anatomical Location Collection Method / Collectio n Time Received Time / Laterality Volume Narrative 06/22/2016 8:53 AM EDT ?[facility] ? Cardiac Cathete rization/Intervention Report ? Patient Name: Charles, Ray ? Procedure Date: 06/21/2016 ? A #: [id number] ? Primary Physician: Kathryn, Ely J ? Case #: [id number] ? File Name: [id number] ? Catheterization Order Number: [id number] ? [facility] ? Final Report [place], [place] ? Patient Name: ? Ray Charles ? ID#: ?[id number] ? : ?1960 ? Procedure Date: ? [...] presented with: non -STEMI (w/i 7 days). [place] ?[employer]iovascular Society angina c lass was IV. [...] chest pain. ?Patient is being admitted to [facility] cardiology inpatient service and ?decision making will involve [facility] heart team, including cardiac surgery ?and interventional [...] note might be different from the original. [facility] Cardiac Catheterization/Intervention Re port Patient Name: Meliton Raymond Procedure Date: 06/21/2016 A #: [id number] Primary Physician: Ely Peralta Case #: [id number] File Name: [id number] Catheterization Order Number: [id number] [facility] Final Report [place], [place] Patient Name: Meliton Raymond ID#: [id number] : 1960 Procedure Date: June 21, 2016 [...] presented with: non-STEMI ( w/i 7 days). [place] [employer] angina class was IV. No [...] Ely phillip M.D. Report Finalized: 06/22/2016 08:48 aMxx Lange MD CARDIAC CATH ORDERABLES Magnesium (06/22/2016 1:45 AM EDT) athologist Signature Magnesium 0.82 0.69 - 1.07 [facility] mmol/L [facility] Specimen Anatomical Collection Method Collection Time Receive d Time (Source) Location / / Volume Laterality Blood specimen Venous Draw / 06/22/2016 1:45 AM 2015 1:53 (specimen) Unknown EDT AM EDT Resulting Agency Comment Spec In Lab Maxx Lange MD CHEMISTRY ORDERABLES Performing Organization Address City/State/[place] [address] (ABNORMAL) Cardiac Enzymes (06/22/2016 1:45 AM EDT) athologist Signature Troponin-T Not Perf <=0.03 [facility] ng/mL [facility] Comment: Unable to quantitate due [...] consensus document of the Joint Society of Cardiology/[place] College o f Cardiology Committee for the redefinition of myocardial infarction. ? ?Journal of the [place] College of Cardiology 2000; 36: 959-969] CK, Total 357 (H) 0 - 200 unit/L [facility] Specimen Anatomical Collection Method Collection Time Receive d Time (Source) Location / / Volume Laterality Blood specimen Venous Draw / 06/22/2016 1:45 AM 2015 1:51 (specimen) Unknown EDT AM EDT Resulting Agency Comment Spec In Lab Maxx Lange MD CHEMISTRY ORDERABLES Performing Organization Address City/[facility] [place] [address] (ABNORMAL) APTT (06/22/2016 1:45 AM EDT) P athologist Signature PTT 59 (H) 25 - 35 sec [facility] Comment: The recommended therapeutic range for fu ll dose, unfractionated heparin at [facility] is 80 ? 114 seconds. The use [...] Organization Address City/State/ZIP [place] [address] (ABNORMAL) Differential, Automated (06/22/2016 1:45 AM EDT) [facility] Method Time Signature Neutrophils % 70.8 % [facility] Neutr Abs (ANC) 6.64 (H) 1.70 - [facility] 6.10 [facility] x10(3)/[facility] LABORATORY Lymphocytes % 19.0 % [facility] Lymphocytes Abs 1.8 0.9 - 3.2 [facility] x10(3)/[facility] LABORATORY Monocytes % 7.1 % [facility] Monocyte Abs 0.7 0.3 - 0.9 [facility] x10(3)/[facility] LABORATORY Eosinophils % 2.4 % [facility] Eosinophils Abs 0.2 0.0 - 0.4 [facility] x10(3)/[facility] LABORATORY Basophils % 0.5 % [facility] Basophils Abs 0.0 0.0 - 0.1 [facility] x10(3)/[facility] LABORATORY Immature Gran % 0.20 % [facility] Comment: Immature granulocytes(IG's)percentage an d absolute count will include metamyelocytes, myelocytes, and promyelo cytes. Blood smears from CBCs yielding IG's will be scanned manually for concor dance. If this scan disagrees with the automated IG or if promyelocytes are not ed, a manual differential will be performed. Amada Gran Abs 0.02 0.00 - 0.04 x10(3)/[facility] MAR Y [facility]ORY Specimen Anatomical Collection Method Collection Time Receive d Time (Source) Location / / Volume Laterality Blood specimen 06/22/2016 1:45 AM 016 1:51 (specimen) EDT AM EDT Resulting Agency Comment Spec In Lab Maxx Lange MD HEMATOLOGY ORDERABLES Performing Organization Address City/State/[place] [address] (ABNORMAL) Hemogram (06/22/2016 1:45 AM EDT) Analysis Performed At Patho logist Time Signature WBC 9.4 4.0 - 9.5 [facility] x10(3)/[facility] LABORATORY RBC 4.18 (L) 4.58 - [place] 5.54 [facility] x10(6)/[facility] LABORATORY Hemoglobin 13.8 13.[address] [facility] 16.5 gm/dL [facility] Hematocrit 39.7 (L) 40.5 [facility] 48.5 % [facility] MCV 95.0 (H) 82.9 - [facility] 93.1 [facility] LABORATORY MCH 33.0 (H) 27.[address] [facility] 32.1 pg [facility] MCHC 34.8 32.0 - [facility] 35.[facility] gm/dL [facility] Platelets 231 145 - 357 [facility] x10(3)/[facility] LABORATORY RDWSD 43.2 36.0 - [facility] 45.0 [facility] LABORATORY RDWCV 12.6 11.4 - [facility] 13.8 % [facility] MPV 9.5 7.6 - 12.9 [facility] LABORATORY nRBC % Auto 0.0 % [facility]ORY nRBC Abs Auto 0.000 0.000 - [facility] 0.000 [facility] x10(3)/[facility] LABORATORY Specimen Anatomical Collection Method Collection Time Receive d Time (Source) Location / / Volume Laterality Blood specimen 06/22/2016 1:45 AM 016 1:51 (specimen) EDT AM EDT Resulting Agency Comment Spec In Lab Maxx Lange MD HEMATOLOGY ORDERABLES Performing Organization Address City/State/[place] [address] (ABNORMAL) BMP w/fasting Glucose (06/22/2016 1:45 AM EDT) P athologist Signature Glucose 133 (H) 65 - 99 [facility] Fasting mg/dL [facility] Comment: ?Fasting* Glucose Interpretive C [...] of Diabetes Mellitus, Position Statement from the [place] Diabetes Association. ??Diabete s Care, Volume 33, Supplement 1, Sep 2009 BUN 12 10 - 20 mg/dL [facility] Creatinine 1.39 0.80 - 1.50 mg/dL [facility] Comment: Please note that the pediatric reference intervals supplied above were not validated at [facility]. Results from pediatri c patients should be interpreted in conjunction to the patient's age, height and muscle mass. Sodium 135 135 - 145 mmol/L [facility] Potassium Not Perf 3.5 - 5.0 mmol/L [facility] Comment: Unable to quantitate [...] estions. Chloride 98 98 - 107 mmol/L [facility] CO2 23 22 - 31 mmol/L [facility] Anion Gap 14 5 - 15 mmol/L [facility] Calcium 8.7 8.5 - 10.5 mg/dL [facility] Estimated GFR 52 (L) >=60 [facility] Comment: This estimated GFR [...] the following links into your internet browser. [email or web address] Specimen Anatomical Collection Method Collection Time Receive d Time (Source) Location / / Volume Laterality Blood specimen 06/22/2016 1:45 AM 016 1:51 (specimen) EDT AM EDT Resulting Agency Comment Spec In Lab Maxx Lange MD CHEMISTRY ORDERABLES Performing Organization Address City/State/Z[place] [address] Hemoglobin A1c (06/22/2016 1:45 AM EDT) athologist Signature Hemoglobin A1C 5.2 4.3 - 5.6 [facility] Comment: Reference Range: 4.3 - [...] Mellitus, Diabetes Care 2013; 36: Suppl. 1, N87-80 Est Avg Gluc 103 mg/dL [facility] Comment: eAG equivalents for HbA1c percentages: HbA1c(%) ?eAG(mg/dL) 6.0 ?126 6.5 ?140 7.0 ?154 7.5 ?169 8.0 ?183 8.5 ?197 9.0 ?212 9.5 ?226 10.0 ? 240 Limitations: The eAG calculation has not been validated on women, individuals below 18 years old and above 70 years old, and individuals with hemoglobinopathies. Additional resources are available on [facility] website: [email or web address]adacalc Yang COSTA, Padilla J, Carlos R, et al. ??Tr anslating the A1C assay into estimated average glucose values. ??Diabetes Care 2008:31(8):5928-6008. Specimen Anatomical Collection Method Collection Time Receive d Time (Source) Location / / Volume Laterality Blood specimen 06/22/2016 1:45 AM 016 1:51 (specimen) EDT AM EDT Resulting Agency Comment Spec In Lab Maxx Lange MD CHEMISTRY ORDERABLES Performing Organization Address City/State/Z[place] [address] (ABNORMAL) Lipid panel (fasting) (06/22/2016 1:45 AM EDT) P athologist Signature Chol, Total 152 <=199 mg/dL [facility] Comment: Recommendations of the NCEP Adult Treatm ent Panel for the following risk cutoff thresholds for the [place] populatio n: Desirable: <200 mg/dL Borderline High: 200-239 mg/dL High: > or = 240 mg/dL Triglycerides 392 (H) <=149 mg/dL [facility] Comment: Reference Range: Normal triglycerides: ??<150 mg/dL Borderline high: ??150-199 mg/dL High: ??200-499 mg/dL Very high: ??>vb=876 mg/dL ELÍAS 2001; 285(19):1964-7379 HDL 18 (L) >=40 mg/dL [facility] Comment: Reference range: ??Low HDL: ?? < 40 mg/dL ??Normal: ?40-60 mg/dL ??Desirable: > 60 mg/dL ELÍAS 2001; 285(19):2614-0737 LDL Cholesterol 56 <=99 mg/dL [facility] Comment: Reference range: ?? Optimal: ?<100 mg/dL ?? Near Optimal/Above Optimal: ?? 100-1 29 mg/dL ?? Borderline high: ?130-159 mg/dL ?? High: ? 160-189 mg/dL ?? Very high: ?>mk=527 mg/dL ELÍAS 2001: 285(19):8731-4458 Chol/HDL Ratio 8.4 ratio [facility] Comment: A Cholesterol to HDL ratio below 4:1 is desirable. ??Studies suggest that increased CAD risk occurs at ratios abov e 5 for females and above 6 for men. ? [place] Heart Association ??(htt p://www.americanheart.org) ? Libertad Int Med, 1994; 121:641 ? AM J Med, 1998; 105(1A):48S Specimen Anatomical Collection Method Collection Time Receive d Time (Source) Location / / Volume Laterality Blood specimen 06/22/2016 1:45 AM 016 1:51 (specimen) EDT AM EDT Resulting Agency Comment Spec In Lab Maxx Lange MD CHEMISTRY ORDERABLES Performing Organization Address City/State/[place] [address] (ABNORMAL) Cardiac Enzymes (06/21/2016 5:45 PM EDT) P athologist Signature Troponin-T 1.03 (H) <=0.03 [facility] ALEJANDRO ng/mL [facility] Comment: 0.03 ng/mL: Represents the [...] consensus document of the Joint Society of Cardiology/[place] College o f Cardiology Committee for the redefinition of myocardial infarction. ? ?Journal of the [place] College of Cardiology 2000; 36: 959-969] CK, Total 391 (H) 0 - 200 unit/L [facility] Specimen Anatomical Collection Method Collection Time Receive d Time (Source) Location / / Volume Laterality Blood specimen 06/21/2016 5:45 PM 016 5:54 (specimen) EDT PM EDT Resulting Agency Comment Spec In Lab Maxx Lange MD CHEMISTRY ORDERABLES Performing Organization Address City/[facility]/Z[place] [address] (ABNORMAL) APTT (06/21/2016 5:35 PM EDT) P athologist Signature PTT 43 (H) 25 - 35 sec [facility] Comment: The recommended therapeutic range for fu ll dose, unfractionated heparin at [facility] is 80 ? 114 seconds. The use [...] Lange MD HEMATOLOGY ORDERABLES Performing Organization Address City/[facility]/Z[place] [address] XR Chest PA or [...] ?SUZANNE RAY ?(Age): 1960(56y) Med Rec#: ? [id number] ?Sex: ?M ? Site Loc: ? [facility] ?Ht / Wt: ??175(cm)/95(kg) Pt. Loc: ?CCU ? BSA: ?2.1 Study Date: ?? 06/21/2016 ?Pt. Type: Inpatient Tape: ? 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 132/75 SUMMARY: 1. The left [...] E-wave Vmax ?1.2 ?m/sec ? MV deceleration uvni285.5 ? msec ? MV A-wave Vmax ?0.9 [...] ? Mid-Inferior ?Normal ? Mid-Inferoseptal ?Hypokinetic ? [place]-Septal ? Akinetic ? [place]-Anterior ? Akinetic ? [place]-Lateral ?Akinetic ? [place]-Inferior ? Akinetic ? [place]-Tip ?Akinetic ? This report has been electronically sign ed by: _ Bernardino Matthews M.D. ? 06/21/2016 15:37:10 Images reviewed and interpretation verif ied [facility] Cardiac Ultrasound Laboratory Procedure Note Bernardino Matthews MD - 06/21/2016Formatti ng of this note might be different from the original. Procedure: Transthoracic Echocardiogram Patient: SUZANNE BURGOS(Age): 1960([age]y) Med Rec#: [id number] Sex: M Site Loc: [facility] Ht / Wt: 175(cm)/95(kg) Pt. Loc: CCU BSA: 2.1 Study Date: 06/21/2016 Pt. 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 The left ventricular [...] MV E-wave Vmax 1.2 m/sec MV deceleration jpfj615.5 msec MV A-wave Vmax 0.9 m/sec MV [...] Normal Mid-Posterolateral Normal Mid-Inferior Normal Mid-Inferoseptal Hypokinetic Bel[place]-Septal Akinetic [place]-Anterior Akinetic [place]-Lateral Akinetic [place]-Inferior Akinetic [place]-Tip Akinetic This report has been electronically sign ed by: _ Bernardino Matthews M.D. 06/21/2016 15:37 :10 Images reviewed and interpretation verif ied [facility] Cardiac Ul[facility]ound Laboratory Maxx Lange MD ECHO [...] 483 ms MUSE SYSTEM (Bezet) Calculated P [place] 31 degrees MUSE SYSTEM Calculated R [place] -43 degrees MUSE SYSTEM Calculated T [place] 98 degrees MUSE SYSTEM INTERPRETATION Normal sinus rhythm MUSE SYSTEM Left axis deviation Minimal voltage criteria for LVH, may be normal variant Anteroseptal infarct , age undetermined Abnormal ECG No previous ECGs available Confirmed by MD Cesario, Jasmine ([id number]) on 06/22/2016 6:02:14 A M Specimen Anatomical Collection Method Collection Time Receive d Time (Source) Location / / Volume Laterality 06/21/2016 12:56 06/22/2016 6:02 PM EDT AM EDT Maxx Lange MD ECG ORDERABLES Performing Organization Address City/State/ZIP Code Phon e Number MUSE SYSTEM (ABNORMAL) APTT (06/21/2016 12:50 PM EDT) P athologist Signature PTT >160.0 25 - 35 [facility] ([facility] LABORATORY Comment: Specimen drawn more than one hour prior to testing. ??Results may not be reliable for heparin monitoring. ??(May be falsely low) Called by: TANK, Read back by: Norma Grimm RN , Date/Time:06/21/16 15:27. The recommended therapeutic range for fu ll dose, unfractionated heparin at [facility] is 80 ? 114 seconds. The use [...] Lange MD HEMATOLOGY ORDERABLES Performing Organization Address City/[facility]/ZIP Code Phon e Number [address] T4, free (06/21/2016 12:50 PM EDT) P athologist Signature Free T4 1.70 0.93 - 1.70 [facility] ng/dL [facility] Specimen Anatomical Collection Method Collection Time Receive d Time (Source) Location / / Volume Laterality Blood specimen Venous Draw / 06/21/2016 12:50 06/21/20 16 1:23 (specimen) Unknown PM EDT PM EDT Resulting Agency Comment Spec In Lab Maxx Lange MD CHEMISTRY ORDERABLES Performing Organization Address City/[facility]/ZIP Code Phon e Number [address] T3, free (06/21/2016 12:50 PM EDT) P athologist Signature T3, Free 4.4 2.0 - 4.4 [facility] pg/mL [facility] Specimen Anatomical Collection Method Collection Time Receive d Time (Source) Location / / Volume Laterality Blood specimen Venous Draw / 06/21/2016 12:50 06/21/20 16 1:23 (specimen) Unknown PM EDT PM EDT Resulting Agency Comment Spec In Lab Maxx Lange MD CHEMISTRY ORDERABLES Performing Organization Address City/[facility] Phon e Number [address] Differential, Automated (06/21/2016 12:50 PM EDT) P athologist Signature Neutrophils % 60.8 % [facility]ORY Neutr Abs (ANC) 5.47 1.70 - [facility] 6.10 [facility] x10(3)/[facility] LABORATORY Lymphocytes % 29.5 % [facility]ORATORY Lymphocytes Abs 2.7 0.9 - 3.2 [facility] x10(3)/[facility] LABORATORY Monocytes % 6.5 % [facility]ORY Monocyte Abs 0.6 0.3 - 0.9 [facility] x10(3)/[facility] LABORATORY Eosinophils % 2.1 % [facility] Eosinophils Abs 0.2 0.0 - 0.4 [facility] x10(3)/[facility] LABORATORY Basophils % 0.9 % [facility] Basophils Abs 0.1 0.0 - 0.1 [place] 742940(3)/[facility] LABORATORY Immature Gran % 0.20 % [facility] Comment: Immature granulocytes(IG's)percentage an d absolute count will include metamyelocytes, myelocytes, and promyelo cytes. Blood smears from CBCs yielding IG's will be scanned manually for concor dance. If this scan disagrees with the automated IG or if promyelocytes are not ed, a manual differential will be performed. Amada Gran Abs 0.02 0.00 - 0.04 x10(3)/[facility]ATORY Specimen Anatomical Collection Method Collection Time Receive d Time (Source) Location / / Volume Laterality Blood specimen 06/21/2016 12:50 6 (specimen) PM EDT 12:59 PM EDT Resulting Agency Comment Spec In Lab Maxx Lange MD HEMATOLOGY ORDERABLES Performing Organization Address City/State/[place] [address] (ABNORMAL) Hemogram (06/21/2016 12:50 PM EDT) Analysis Performed At Patho logist Time Signature WBC 9.0 4.0 - 9.5 [facility] x10(3)/[facility] LABORATORY RBC 4.17 (L) 4.58 - [facility] 5.54 [facility] x10(6)/[facility] LABORATORY Hemoglobin 13.6 (L) 13.7 - [facility] 16.5 gm/dL [facility] Hematocrit 39.4 (L) 40.5 - [facility] 48.5 % [facility] MCV 94.5 (H) 82.9 - [facility] 93.1 [facility] LABORATORY MCH 32.6 (H) 27.5 - [place] 32.1 pg [facility] MCHC 34.5 32.0 - [facility] [place] 35.7 gm/dL [facility] Platelets 286 145 - 357 [facility] x10(3)/[facility] LABORATORY RDWSD 42.3 36.0 - [place] 45.0 [facility] LABORATORY RDWCV 12.3 11.4 - [place] 13.8 % [facility] MPV 9.6 7.6 - 12.9 [place] [facility] LABORATORY nRBC % Auto 0.0 % [facility] LABORATORY nRBC Abs Auto 0.000 0.000 - [place] 0.000 [facility] x10(3)/[facility] LABORATORY Specimen Anatomical Collection Method Collection Time Receive d Time (Source) Location / / Volume Laterality Blood specimen 06/21/2016 12:50 6 (specimen) PM EDT 12:59 PM EDT Resulting Agency Comment Spec In Lab Maxx Lange MD HEMATOLOGY ORDERABLES Performing Organization Address City/State/ZIP [place] [address] (ABNORMAL) Cardiac Enzymes (06/21/2016 12:50 PM EDT) P athologist Signature Troponin-T 0.61 (H) <=0.03 [place] ng/mL [facility] Comment: 0.03 ng/mL: Represents the [...] consensus document of the Joint Society of Cardiology/[place] College o f Cardiology Committee for the redefinition of myocardial infarction. ? ?Journal of the [place] College of Cardiology 2000; 36: 959-969] CK, Total 211 (H) 0 - 200 unit/L [facility]ORY Specimen Anatomical Collection Method Collection Time Receive d Time (Source) Location / / Volume Laterality Blood specimen 06/21/2016 12:50 6 (specimen) PM EDT 12:59 PM EDT Resulting Agency Comment Spec In Lab Maxx Lange MD CHEMISTRY ORDERABLES Performing Organization Address City/[facility] [place] [address] Prothrombin Time (06/21/2016 12:50 PM EDT) P athologist Signature PT 14.5 12.0 - 15.0 [facility] LABORATORY Comment: An INR <2.0 indicates [...] linical circumstances. INR 1.1 0.9 - 1.1 [facility] LABORATORY Specimen Anatomical Collection Method Collection Time Receive d Time (Source) Location / / Volume Laterality Blood specimen 06/21/2016 12:50 6 (specimen) PM EDT 12:59 PM EDT Resulting Agency Comment Spec In Lab Maxx Lange MD HEMATOLOGY ORDERABLES Performing Organization Address City/[facility] [place] [address] (ABNORMAL) Hepatic Function Panel (06/21/2016 12:50 PM EDT) P athologist Signature Total Protein 5.9 (L) 6.1 - 8.0 [place] [place] gm/dL [facility] Albumin 3.6 3.2 - 5.2 [place] [place] gm/dL [facility] AST 30 0 - 39 [facility] [facility] ALEJANDRO unit/L [facility] ALT 25 0 - 55 [facility] [place] unit/L [facility] Alk Phos 66 40 - 120 [facility] ALEJANDRO unit/L [facility] Total 0.3 0.2 - 1.3 [facility] ALEJANDRO Bilirubin mg/dL [facility] Bili, Direct 0.1 0.0 - 0.3 [facility] [place] mg/dL [facility] Specimen Anatomical Collection Method Collection Time Receive d Time (Source) Location / / Volume Laterality Blood specimen 06/21/2016 12:50 6 (specimen) PM EDT 12:59 PM EDT Resulting Agency Comment Spec In Lab Maxx Lange MD CHEMISTRY ORDERABLES Performing Organization Address City/State/ZIP Code Phon e Number [address] (ABNORMAL) pro-Brain Natriuretic Peptide (06/21/2016 12:50 PM EDT) P athologist Signature ProBNP 1,479 (H) <=125 [facility] ALEJANDRO pg/mL [facility] Specimen Anatomical Collection Method Collection Time Receive d Time (Source) Location / / Volume Laterality Blood specimen 06/21/2016 12:50 6 (specimen) PM EDT 12:59 PM EDT Resulting Agency Comment Spec In Lab Maxx Lange MD CHEMISTRY ORDERABLES Performing Organization Address City/State/ZIP Code Phon e Number [address] (ABNORMAL) TSH (06/21/2016 12:50 PM EDT) P athologist Signature TSH 0.02 (L) 0.27 - 4.20 [place] mcIU/mL [facility] Specimen Anatomical Collection Method Collection Time Receive d Time (Source) Location / / Volume Laterality Blood specimen 06/21/2016 12:50 6 (specimen) PM EDT 12:59 PM EDT Resulting Agency Comment Spec In Lab Maxx Lange MD CHEMISTRY ORDERABLES Performing Organization Address City/State/ZIP Code Phon e Number [address] Magnesium (06/21/2016 12:50 PM EDT) athologist Signature Magnesium 0.87 0.69 - 1.07 [facility] mmol/L [facility] Specimen Anatomical Collection Method Collection Time Receive d Time (Source) Location / / Volume Laterality Blood specimen 06/21/2016 12:50 6 (specimen) PM EDT 12:59 PM EDT Resulting Agency Comment Spec In Lab Maxx Lange MD CHEMISTRY ORDERABLES Performing Organization Address City/[facility]/ZIP Code Phon e Number [address] (ABNORMAL) Basic Metabolic Panel (non-fasting) (06/21/2016 12:50 PM EDT) athologist Signature Glucose Lvl 120 65 - 199 [facility] mg/dL [facility] Comment: Diabetes: >=200 mg/dL plus symp toms BUN 13 10 - 20 mg/dL [facility] Creatinine 1.31 0.80 - 1.50 mg/dL [facility] Comment: Please note that the pediatric reference intervals supplied above were not validated at [facility]. Results from pediatri c patients should be [...] estions. Chloride 103 98 - 107 mmol/L [facility] CO2 21 (L) 22 - 31 mmol/L [facility] Anion Gap 15 5 - 15 mmol/L [facility] Calcium 8.3 (L) 8.5 - 10.5 mg/dL [facility] Estimated GFR 56 (L) >=60 [facility] Comment: This estimated GFR [...] the following links into your internet browser. [email or web address] Specimen Anatomical Collection Method Collection Time Receive d Time (Source) Location / / Volume Laterality Blood specimen 06/21/2016 12:50 6 (specimen) PM EDT 12:59 PM EDT Resulting Agency Comment Spec In Lab Maxx Lange MD CHEMISTRY ORDERABLES Performing Organization Address City/State/ZIP Code Phon e Number [place] [phone] [facility] [address] documented in this encounter [...] mg fentaNYL 50 mcg/mL multi-dose injection Given 06/21/2016 11:42 AM EDT 25 mcg ONCE PRN, Starting on Tue06/21/16 at 1135, Until Tue06/21/16 at 1231, Intra-Operative (Intra-Procedure), Routine Given 06/21/2016 11:35 AM EDT 25 mcg heparin (porcine) injection [...] Per Protocol, Routine heparin (porcine) injection Given 06/21/2016 11:48 AM EDT 5,000 Units ONCE PRN, Starting on Tue06/21/16 at 1148, Until Tue06/21/16 at 1231, Cath (Intra-Procedure), Routine heparin 2000 units in sodium New Bag 06/21/2016 12:08 PM 20 mL/hr 20 mL/hr Right Arm chloride 0.9% 1000 mL infusion EDT CONTINUOUS PRN, Starting on Tue06/21/16 at 1208, Until Tue06/21/16 at 1231, Intra-Operative (Intra-Procedure), Routine heparin 25,000 units in New Bag [...] than 145 sec X 2 - call house calls nurse See Bolus dosing guidance for aPTT values [...] mL/hr iohexol (OMNIPAQUE) 350 mg/mL solution Given 06/21/2016 12:24 PM EDT 50 mLs ONCE PRN, Starting on Tue06/21/16 at 1224, Until Tue06/21/16 at 1404, Cath (Intra-Procedure), Routine lidocaine (XYLOCAINE) 10 mg/mL (1 %) Given 06/21/2016 11:40 AM E DT 100 mg Right Arm injection ONCE PRN, Starting on Tue06/21/16 at 1140, Until Tue06/21/16 at 1231, Cath (Intra-Procedure), Routine lisinopril (PRINIVIL;ZESTRIL) tablet 5 [...] midazolam (PF) (VERSED) 1 mg/mL multi-dose Given 06/21/2016 11:4 2 AM EDT 1 mg injection ONCE PRN, Starting on Tue06/21/16 at 1135, Until Tue06/21/16 at 1231, Cath (Intra-Procedure), Routine Given 06/21/2016 11:35 AM EDT 0.5 mg morphine 2 mg/mL carpuject 2 mg [...] 3:52 AM EDT 50 mcg/min 15 mL/hr nitroGLYcerin 50 mg in dextrose New Bag 06/21/2016 12:22 PM ED T 20 mcg/min 6 mL/hr 5% 250 mL infusion CONTINUOUS PRN, Starting on Tue06/21/16 at 1222, Until Tue06/21/16 at 1404, Cath (Intra-Procedure), Routine ondansetron (ZOFRAN) tablet 4 mg Given 06/22/2016 [...] Given 06/22/2016 8:46 AM EDT 5 mLs traMADol (ULTRAM) tablet 50 mg Given 06/23/2016 [...] mg 0845 (Give n - Provider: Martina Holder, MERYL)1011 ([facility] Hold - Provider: Admin Adt - Reason: Transfer to a Procedural area)1418 ([facility] Unhold - Provider: Admin Adt) 0813 (Given - Provider: David Brandt, MERYL) 81 mg, Oral, DAILY, First dose on Tue at 0900, Until Discontinued, Routine atorvastatin (LIPITOR) tablet 80 mg 1711 (Given - Provider: Charleen Grimm RN) 1011 ([facility] Hold - Provider: Admin Adt - Reason: Transfer to a Procedural area)1418 ([facility] Unhold - Provider: Admin Adt)1747 (Given - Provider: Martina Holder RN) 80 mg, Oral, EVERY EVENING, First dose o n Tue06/21/16 at 1400, Until Discontinued, Routine clopidogrel (PLAVIX) tablet 75 mg 0940 ( Given - Provider: Martina Holder RN)1011 ([facility] Hold - Provider: Admin Adt - Reason: Transfer to a Procedural area)1418 ([facility] Unhold - Provider: Admin Adt) 0813 (Given - Provider: David Brandt, MERYL) 75 mg, Oral, DAILY, First dose on Tue at 0930, Until Discontinued, Routine diaZEPam (VALIUM) tablet 5 mg (COMPLETED) 09 (Given - Provider: Martina Holder, MERYL) 5 mg, Oral, ONCE, 1 dose, Tue06/22/16 a t 1000, Cath (Day of Procedure), Routine diphenhydrAMINE (BENADRYL) capsule 25 mg (COMPLETED) 09 (Given - Provider: Martina Holder, MERYL) 25 mg, Oral, ONCE, 1 dose, Tue06/22/16 at 1000, Cath (Day of Procedure), Routine docusate sodium (COLACE) capsule 100 mg 0235 (Given - Provider: Mele Hammond RN)0845 (Given - Provider: Martina Holder RN)1011 ([facility] Hold - Provider: Admin Adt - Reason: Transfer to a Procedural area)1418 ([facility] Unhold - Provider: Admin Adt)210 (Given - Provider: Mele Hammond RN) 0813 (Given - Provider: David Brandt RN) 100 mg, Oral, 2 TIMES DAILY, First dose on Tue06/22/16 at 0115, Until Discontinued, Routine famotidine (PEPCID) tablet 20 mg 1711 (Given - Provide r: Charleen Grimm RN)2037 (Given - Provider: Apple Baker RN) 0845 (Given - Provider: Martina Holder, MERYL)1011 ([facility] Hold - Provider: Admin Adt - Reason: Transfer to a Procedural area)1418 ([facility] Unhold - Provider: Admin Adt)2108 (Given - Provider: Mele Hammond RN) 0813 [...] Charleen Grimm RN) 0013 (Given - Provider: Mele Hammond, R N)0602 (Given - Provider: Mele Hammond RN)1011 (N[facility] Hold - Provider: Admin Adt - Reason: Transfer to a Procedural area)1200 (Automatically Held - Provider: Admin Adt)1418 ([facility] Unhold - Provider: Admin Adt) 0610 (Given - Provider: Mele Hammond, MERYL) 12.5 mg, Oral, EVERY 6 HOURS SCHEDULED, First dose on Tue06/21/16 at 1815, Until Discontinued, Routine 1747 (Given - Provider: Johnny Holder RN)2323 (Given - Provider: Mele Hammond RN) meTOPROLOL succinate (TOPROL-XL) XL tablet 100 mg 1147 (Given - Provider: David Brandt RN) 100 mg, Oral, DAILY, First dose on Tue at 1200, Until Discontinued, DO NOT CRUSH OR OPEN, Routine meTOPROLOL tartrate (LOPRESSOR) tablet 25 mg 25 mg, Oral, EVERY 6 HOURS SCHEDULED, Fi rst dose on Tue06/23/16 at 1200, Until Discontinued, Routine sodium chloride 0.9 % flush 5 mL 1305 (Given - Provide r: Charleen Grimm RN)2037 (Given - Provider: Apple Baker, RN) 0846 (Given - Provider: Martina Holder RN)1011 ([facility] Hold - Provider: Admin Adt - Reason: Transfer to a Procedural area)1418 ([facility] Unhold - Provider: Admin Adt)2108 (Given - Provider: Mele Hammond, RN) 1148 (Given - Provider: David Brandt RN) 5 mL, Intravenous, 2 TIMES DAILY, First [...] (New Bag - Provider: Gianna Connor RN)1011 ([facility] Hold - Provider: Admin Adt - Reason: Transfer to a Procedural area)1418 ([facility] Unhold - Provider: Admin Adt) 350-7,000 Units/hr [...] than 145 sec X 2 - call house calls nurse See Bolus dosing julia zurita for aPTT [...] (New Bag - Provider: Gianna Connor , MERYL)0424 (Rate/Dose Change - Provider: Gianna Connor, RN)0439 [...] R dot: Transfer to a Procedural area)1208 ([facility] Unhold - Provider: Admin Adt) 650 mg, [...] (porcine) injection (CANCELED) 1148 (Given - P jenider: Marin Rosales MD) ONCE PRN, Starting Tue06/21/16 at 1148, Until Tue06/21/16 at 1231, Cath (Intra-Procedure), Routine heparin (porcine) injection (CANCELED) 1 023 (Given - Provider: Dago Oro RN)1040 (Given - Provider: Loi Sanz RN)1141 (Given - Provider: Loi Sanz RN) ONCE [...] area)1418 (N[facility] Unhold - Provider: Admin Adt) 3 mg [...] mg 1907 (Given - Provider: Karen Grimm, RN) 0451 (Given - Provider: Gianna Connor, RN)1011 (N[facility] Hold - Provider: Admin Adt [...] 1222 (New Bag - Provider: Dago Oro, RN)1300 (Stopped - Provider: Charleen Grimm, RN) CONTINUOUS PRN, Starting Tue06/21/16 at 1222, Until Tue06/21/16 at 1404, Cath (Intra-Procedure), Routine ondansetron (ZOFRAN) tablet 4 mg 1442 (Given - P rovider: Martina Holder, MERYL) 4 mg, Oral, EVERY 8 HOURS PRN, Starting Tue06/22/16 at 1420, Until Tue06/23/16 at 1546, Nausea, Routine polyethylene glycol (MIRALAX) packet 17 g 0846 (Given - Provider: Martina Holder, RN)1011 ([facility] Hold - Provider: Admin Adt - Reason: Transfer to a Procedural area)1418 ([facility] Unhold - Provider: Admin Adt) 17 g, Oral, DAILY PRN, Starting Tue 06/12 09/27 at 0046, Until Tue06/23/16 at 1546, Constipation, Routine sodium chloride 0.9 % flush 5-20 mL 1011 ([facility] Hold - Provider: Admin Adt - Reason: Transfer to a Procedural area)1418 ([facility] Unhold - Provider: Admin Adt) 5-20 mL, Intravenous, EVERY 1 MIN PRN, S tarting Tue06/21/16 at 1231, Until Tue06/23/16 at 1546, flush, Flush pertains to all indwelling lines. Flush per protocol found in the job aid using the link provided on this medication record., Routine traMADol (ULTRAM) tablet 50 mg 0355 (Giv en - Provider: Gianna Connor RN)1011 ([facility] Hold - Provider: Admin Adt - Reason: Transfer to a Procedural area)1418 ([facility] Unhold - Provider: Admin Adt) 0222 (Given - Provider: Clemencia Bueno) 50 mg, Oral, EVERY 4 HOURS PRN, Starting Tue06/21/16 at 2214, Until Tue06/23/16 at 1546, Headaches, Routine verapamil (ISOPTIN) injection (CANCELED) 1018 (Given - Provider: Ely Peralta MD) ONCE PRN, Starting Tue06/22/16 at 1018, Until Tue06/22/16 at 1326, Administer over 2 Minutes, Cath (Intra-Procedure) documented in this encounter Care Teams Deck Mechanic Relationship Specialty Start Date End Date None PCP - General Internal Medicine 10/01/13 03/19/18 None documented as of this encounter
--- NOTE | 2022-07-25 18:00 | RT.EKG_ITS ---
APPROVED REPORT Exam: Resting ECG Reason for Exam: vomiting, nausea Patient Location: E HR:97 bpm ECG Measurements Heart Rate 97 AXIS NE 162 P 12 QRSd 103 QRS -68 QT 352 T 95 QTc 447 Conclusion Sinus rhythm...normal P axis, V-rate 60- 99 Left anterior fascicular block...axis(240,-40), init forces inf Nonspecific T abnormalities, lateral leads...T <-0.10mV, I aVL V5 V6 ST elevation, consider inferior injury...ST >0.08mV, II III aVF
--- NOTE | 2022-07-25 18:09 | ED.GENADUL_ITS ---
Discharge Plan Disposition Patient Disposition: [facility] INPATIENT Condition: Serious Discharge Details Clinical Impression: Acute kidney injury, Gastroenteritis, Acute UTI Admit Date/Time: 07/25/22 20:55 Admit Provider: Dago Garrett Attending Provider: Dago Garrett Primary Care Provider: Juice Jensen ED Provider: Samanta Johansen Discharge Data Discharge Date/Time-TO BE ENTERED AT DEPARTURE: 07/25/22 21:38 Medical Decision Making Patient had acute exacerbation of chronic kidney disease, creatinine from 1.36- 2.1 with nausea and vomiting Urinalysis with moderate bacteria and 3-5 white blood cells, concern for urinary tract infection and on CT scan from earlier today perinephritic stranding, will treat for pyelonephritis with ceftriaxone C. difficile negative at [facility] Electrolytes stable Secondary to weakness, GIRISH, persistent nausea and vomiting, patient will need admission to the hospital for observation Does not meet sepsis criteria Urine culture pending Case discussed with admitting hospitalist, Dr Garrett Medical Records Medical records reviewed: Yes I reviewed the patient's medical records. Lab Data Lab results reviewed: Yes I reviewed the patient's lab results. HPI General Date/Time Provider Initiated Documentation: 07/25/22 17:48 . HPI Narrative: This 62-year-old male presents with report of nausea and vomiting for the past several days. He he states he was evaluated and had possible CT scan was discharged home with Bentyl. He states he took a single tablet of Bentyl and developed a diffuse generalized rash which is itchy. He denies any difficulty swallowing or shortness of breath. Denies any known fever or chills. He states that the abdominal pain is persistent but not worse than his prior assessment. He denies any new additional medications aside from the Bentyl. He adamantly denies any illicit drug use or alcohol consumption. He states his symptoms began after eating a hamburger 2 days ago. Related Data Home Medications Medication Instructions Recorded Confirmed aspirin 81 mg tablet,delayed 81 mg PO DAILY 07/25/22 07/25/22 release atorvastatin 80 mg tablet 80 mg PO DAILY 07/25/22 07/25/22 donepezil 10 mg tablet 10 mg PO QHS 07/25/22 07/25/22 isosorbide mononitrate 60 mg 60 mg PO DAILY 07/25/22 07/25/22 tablet,extended release 24 hr loratadine 10 mg tablet 10 mg PO DAILY PRN 07/25/22 07/25/22 losartan 50 mg tablet 50 mg PO DAILY 07/25/22 07/25/22 magnesium 250 mg tablet 500 mg PO DAILY PRN 07/25/22 07/25/22 multivitamin with minerals 1 cap PO DAILY 07/25/22 07/25/22 no.88-folic acid 250 mcg capsule nitroglycerin 0.4 mg sublingual 0.4 mg sublingual Q5-15M PRN 07/25/22 07/25/22 tablet ondansetron 4 mg disintegrating 4 mg PO Q6H PRN 07/25/22 07/25/22 tablet pantoprazole 40 mg tablet,delayed 40 mg PO DAILY 07/25/22 07/25/22 release sertraline 50 mg tablet 75 mg PO DAILY 07/25/22 07/25/22 tamsulosin 0.4 mg capsule 0.4 mg PO DAILY 07/25/22 07/25/22 zaleplon 5 mg capsule 1 cap PO QHS 07/25/22 07/25/22 Allergies Allergy/AdvReac Type Severity Reaction Status Date / Time dicyclomine Allergy Severe Hives Unverified 07/25/22 19:17 General Stated Complaint: Nausea/Vomit/Diar TEVIN: 3 Review of Systems All systems reviewed & are unremarkable except as noted in HPI and below PFSH All Active Problems (Updated 07/26/22 @ 22:35 by LUIZ De La Rosa) Acute UTI (Acute) Acute kidney injury (Acute) Gastroenteritis (Acute) Social History Smoking/Tobacco Use Status: Current every day Tobacco Type: smokeless tobacco Smoking risk assessment performed?: Yes Alcohol Intake: never Drug use: Never Substance use type: does not use Do you feel safe at home: Yes Do you feel safe in your relationship?: Yes Exam Const General: cooperative, comfortable, no acute distress and ill appearing Orientation: alert HENMT Other: Uvula midline, oropharynx patent Eyes Pupils: PERRL Resp Effort & Inspection: normal respiratory effort Auscultation: clear to auscultation bilaterally Cardio Rate: regular rate Rhythm: regular rhythm GI Other: Diffuse abdominal tenderness without rebound or guarding Skin Other: Pallor Neuro General: patient alert and patient oriented x3 Extrem General: normal to inspection Other: distal pulses intact Course Vital Signs Vital signs: Vital Signs Temperature 36.7 C 07/25/22 17:42 Pulse 67 07/25/22 17:42 Respiratory Rate 12 07/25/22 17:42 Blood Pressure 118/84 07/25/22 17:42 Pulse Oximetry 98 07/25/22 17:42 Temperature 36.7 C 07/25/22 17:42 Temperature Source Temporal Artery Scan 07/25/22 17:42 Pulse 67 07/25/22 17:42 Respiratory Rate 12 07/25/22 17:42 Respiratory Effort Non-Labored 07/25/22 17:51 Blood Pressure 118/84 07/25/22 17:42 Blood Pressure Position Sitting 07/25/22 17:42 Pulse Oximetry 98 07/25/22 17:42 Oxygen Delivery Method Room Air 07/25/22 17:42 Oxygen Flow Rate 0 07/25/22 17:42 Pain Level 10 07/25/22 17:42
[2022-07-25 18:24] LABS: Bilirubin Small (Negative); Blood Negative (Negative); Clarity Cloudy (Clear); Glucose Negative (Negative); Ketones Trace mg/dL (Negative); Leukocyte Esterase Negative (Negative); Nitrite Negative (Negative); Specific Gravity >= 1.030 (1.005-1.025); Urobilinogen 0.2 EU/dL (Up TO 0.2)
[2022-07-25 18:32] LABS: Bacteria Moderate HPF (Negative); Crystals Negative HPF (Negative); Epithelial Cells Rare HPF (Negative); RBC 0-2 HPF (0-2)
[2022-07-25 18:33] LABS: C & S Indicated? Yes; Casts 0-2 Hyaline LPF (Negative); Mucus Moderate (Negative)
[2022-07-25 18:43] LABS: Abs Immature Grans 0.02 10^3/uL (0.0-0.06); Absolute Basophil Count 0.05 10^3/uL (0.0-0.2); Absolute Eosinophil Count 0.04 10^3/uL (0.0-0.7); Absolute Lymphocyte Count 0.65 10^3/uL (1.2-3.4); Absolute Monocyte Count 0.28 10^3/uL (0.1-0.8); Absolute Neutrophil Count 6.67 10^3/uL (1.2-6.7); Basophils % 0.6; Eosinophils % 0.5; HCT 53.7 % (40.0-50.0); HGB 18.5 g/dL (13.5-17.5); Immature Grans % 0.3; Lymphocytes % 8.4; MCH 32.7 pg (27.0-33.0); MCHC 34.5 % (32.0-36.0); MCV 95 fL (80-95); MPV 9.2 fL (8.0-11.0); Monocytes % 3.6; Neutrophils % 86.6; Platelet Count 307 10^3/uL (130-400); RBC 5.65 10^6/uL (4.36-5.78); RDW 12.1 % (11.8-14.1); RDW-SD 42.9 fL; WBC 7.71 10^3/uL (4.4-10.8)
[2022-07-25] MEDS: methylPREDNISolone SUCC 125 MG VIAL IVP (18:56)
[2022-07-25] MEDS: diphenhydrAMINE 50 MG/ML VIAL 25 MG IVP (18:56)
[2022-07-25] MEDS: Normal Saline 50 ML 200 ML (18:57)
[2022-07-25] MEDS: Prochlorperazine 10 MG/2 ML VIAL 5 MG IVP (18:57)
[2022-07-25] MEDS: Famotidine 20 MG/2 ML VIAL IVP (18:57)
[2022-07-25] MEDS: Normal Saline Flush 10 ML SYR IVP ×3 (18:57→22:18)
[2022-07-25] MEDS: ACETAMINOPHEN 1,000 MG/100 ML BTL 400 MG IVPB (18:58)
[2022-07-25] MEDS: Lactated Ringers 1,000 ML 1000 ML IV (18:58)
[2022-07-25 19:00] LABS: ALT 28 U/L (16-63); AST 13 U/L (15-37); Albumin 4.4 g/dL (3.4-5.0); Alkaline Phosphatase 91 U/L (46-116); Anion Gap 12.4 mmol/L (3-11); BUN 20 mg/dL (7-18); CO2 22.6 mmol/L (21.0-32.0); CREATININE 2.1 mg/dL (0.70-1.30); Calcium 8.5 mg/dL (8.5-10.1); Chloride 103 mmol/L (98-107); Glucose 191 mg/dL (74-106); Lipase 24 U/L (73-393); Potassium 3.6 mmol/L (3.5-5.1); Sodium 138 mmol/L (136-145); Total Protein 7.8 g/dL (6.4-8.2); Troponin I < 50 ng/L (<or=60)
[2022-07-25] MEDS: Lactated Ringers 500 ML 1000 ML IV (19:43)
[2022-07-25] MEDS: cefTRIAXone 1 GM/50 ML BAG IVPB (20:22)
--- NOTE | 2022-07-25 20:42 | W.PM.HP.N ---
Date of service: 07/25/22 Time of Service: 20:42 Assessment and Plan Assessment and plan (1) Gastroenteritis: Status: Acute Assessment and plan: Gastroenteritis. Will plan on NPO, IVF, prn antiemetics and/or antidiarrheals. The perineprhic stranding on yesterday's CT is non-specific and apparently incidental as with a benign urinalysis (and no signs of obstruction) this would not fit with a pyelonephritis. I will not continue antibiotics. History of Present Illness History of Present Illness Chief Complaint: vomiting and diarrhea Narrative: 62 male here with 2 days of vomiting and watery diarrhea, came on few hours after eating burger at restaurant. Vague and variable abdominal pain, no fever. Seen twice at [facility], white count 12, u/a 0-[address] showing nonspecifric bilateral perinephric stranding. Diagnosed with gastroenteritis and given Bentyl. After first dose of Bentyl developed hives, and comes in tonight to our ER. In ER w/u of note for temp 36.7, diffuse hives, white count 7.7, 3-5 WBC per hpf on U/A and BUN/Cr 20/2.1 (18/1.5 yesterday at [facility]). Patient given steroids and antihistamines, and single dose Rocephin. I was asked to evaluate for admission. Patient states he has had only one episode of diarrhea here in ER. States no abdominal pain at present. Review of Systems Narrative: per HPI PFS All Active Problems (Updated 07/25/22 @ 20:52 by Dago Garrett MD) Gastroenteritis (Acute) Social History Smoking/Tobacco Use Status: Current every day Tobacco Type: smokeless tobacco Smoking risk assessment performed?: Yes Alcohol Intake: never Drug use: Never Substance use type: does not use Do you feel safe at home: Yes Do you feel safe in your relationship?: Yes Meds Allergies and Home Medications Allergies Allergy/AdvReac Type Severity Reaction Status Date / Time dicyclomine Allergy Severe Hives Unverified 07/25/22 19:17 Home Medications Medication Instructions Recorded Confirmed Type aspirin 81 mg tablet,delayed 81 mg PO DAILY 07/25/22 07/25/22 History release atorvastatin 80 mg tablet 80 mg PO DAILY 07/25/22 07/25/22 History donepezil 10 mg tablet 10 mg PO QHS 07/25/22 07/25/22 History isosorbide mononitrate 60 mg 60 mg PO DAILY 07/25/22 07/25/22 History tablet,extended release 24 hr loratadine 10 mg tablet 10 mg PO DAILY PRN 07/25/22 07/25/22 History losartan 50 mg tablet 50 mg PO DAILY 07/25/22 07/25/22 History magnesium 250 mg tablet 500 mg PO DAILY PRN 07/25/22 07/25/22 History multivitamin with minerals 1 cap PO DAILY 07/25/22 07/25/22 History no.88-folic acid 250 mcg capsule nitroglycerin 0.4 mg sublingual 0.4 mg sublingual Q5-15M PRN 07/25/22 07/25/22 History tablet ondansetron 4 mg disintegrating 4 mg PO Q6H PRN 07/25/22 07/25/22 History tablet pantoprazole 40 mg tablet,delayed 40 mg PO DAILY 07/25/22 07/25/22 History release sertraline 50 mg tablet 75 mg PO DAILY 07/25/22 07/25/22 History tamsulosin 0.4 mg capsule 0.4 mg PO DAILY 07/25/22 07/25/22 History Exam Narrative Exam Narrative: 124/68, 101, 36.7, 16, 92% RA. HEENT dry genesis mucosa; neck supple; lungs clear; heart RRR; abdomen soft and NT; rectal deferred; extremities w/o edema; neuro Ox3, moves all 4s Results Labs Result diagrams: 07/25/22 18:35 07/25/22 18:35 Labs: Laboratory Results - last 24 hr 07/25/22 07/25/22 07/25/22 18:15 18:35 18:35 WBC 7.71 RBC 5.65 Hgb 18.5 H Hct 53.7 H MCV 95 MCH 32.7 MCHC 34.5 RDW 12.1 Plt Count 307 MPV 9.2 Immature Gran % 0.3 Neutrophils % 86.6 Lymphocytes % 8.4 Monocytes % 3.6 Eosinophils % 0.5 Basophils % 0.6 Nucleated RBC % 0.0 Absolute Neutrophils 6.67 Absolute Lymphocytes 0.65 L Absolute Monocytes 0.28 Absolute Eosinophils 0.04 Absolute Basophils 0.05 Sodium 138 Potassium 3.6 Chloride 103 Carbon Dioxide 22.6 Anion Gap 12.4 H BUN 20 H Creatinine 2.1 H Est GFR (CKD-EPI 2020) 34.50 Glucose 191 H Calcium 8.5 Total Bilirubin 1.0 AST 13 L ALT 28 Alkaline Phosphatase 91 Troponin I < 50 Total Protein 7.8 Albumin 4.4 Lipase 24 Urine Color Yellow Urine Clarity Cloudy Urine pH 6.0 Ur Specific [place] >= 1.030 H Urine Protein 100 H Urine Ketones Trace H Urine Blood Negative Urine Nitrite Negative Urine Bilirubin Small H Urine Urobilinogen 0.2 Ur Leukocyte Esterase Negative Urine RBC 0-2 Urine WBC 3-5 Ur Epithelial Cells Rare Urine Crystals Negative Urine Bacteria Moderate Urine Casts 0-2 Hyaline Urine Mucus Moderate Ur Culture Indicated? Yes Urine Glucose Negative Last Vital Signs Temp 36.7 C 07/25/22 17:42 Pulse 101 H 07/25/22 20:30 Resp 16 07/25/22 20:31 BP 133/77 07/25/22 20:30 Pulse Ox 92 07/25/22 20:31
[2022-07-25 21:18] LABS: Source Nasal/Nares
[2022-07-25 21:50] LABS: COVID-19 PCR Negative (Negative)
[2022-07-25] MEDS: Donepezil 5 MG TAB 10 MG PO (22:16)
[2022-07-25] MEDS: Zolpidem 5 MG TAB PO (22:16)
[2022-07-25] MEDS: Lactated Ringers 1,000 ML 125 ML IV (22:17)
[2022-07-25 22:40] LABS: Troponin I < 50 ng/L (<or=60)
[2022-07-26] VITALS (9 sets, daily range): BP systolic 100–105; BP diastolic 60–70; PULSE 77–99; RESP 16–18; TEMP 36.8–37.5; O2SAT 91–93
[2022-07-26] MEDS: diphenhydrAMINE 50 MG/ML VIAL 25 MG IVP ×3 (00:18→11:38)
[2022-07-26] MEDS: Ondansetron 4 MG/2 ML VIAL IVP ×2 (05:09→17:59)
[2022-07-26] MEDS: ACETAMINOPHEN 1,000 MG/100 ML BTL 400 MG IVPB ×2 (05:11→21:13)
[2022-07-26] MEDS: Lactated Ringers 1,000 ML 125 ML IV (05:13)
[2022-07-26 07:06] LABS: Anion Gap 7.7 mmol/L (3-11); BUN 20 mg/dL (7-18); CO2 24.3 mmol/L (21.0-32.0); CREATININE 1.5 mg/dL (0.70-1.30); Calcium 8.1 mg/dL (8.5-10.1); Chloride 106 mmol/L (98-107); Estimated GFR 51.67 (mL/min/1.73m2); Glucose 143 mg/dL (74-106); Potassium 3.9 mmol/L (3.5-5.1); Sodium 138 mmol/L (136-145)
[2022-07-26] MEDS: Isosorbide Mononitrate 60 MG TABCR PO (07:39)
[2022-07-26] MEDS: Aspirin E.C. 81 MG TABEC PO (07:39)
[2022-07-26] MEDS: Losartan 50 MG TAB PO (07:39)
[2022-07-26] MEDS: Tamsulosin 0.4 MG CAPCR PO (07:40)
[2022-07-26] MEDS: Pantoprazole 40 MG TABCR PO (07:40)
[2022-07-26] MEDS: Sertraline 50 MG TAB 75 MG PO (07:40)
--- NOTE | 2022-07-26 13:02 | INITIAL_ITS ---
- If Service Date Differs Date of service: 07/26/22 Time of Service: 13:02 Care Management Initial Assess REASON FOR HOSPITALIZATION:: Gastroenteritis PAST MEDICAL HISTORY/PAST SURGICAL HISTORY:: Medical History . Depressive disorder. Disorder of vitamin B12 (08/31/13). Family history of colon cancer. Feeling grief (10/10/17). See above- agrees to CBT. Referral sent. Gastroesophageal reflux disease. Ranitadine d/c'd, tolerated well several months then return of sx. 10/18/2019- transnasal flexible laryngoscopic by Dr. Sheth negative for esophagitis. Started on Omeprazole for symptoms of epigastric disc. & cough. We did a very good job raising the first 1 set 178 in the mail yet with that kind of to hold the garcia she is also. History of diastolic dysfunction. Hypothyroidism (06/28/13). Lesion of skin of cheek (06/16/17). Obstructive sleep apnea syndrome (01/04/13). CPAP ([facility] sleep lab). Not used for several years 05/2021. Situational anxiety (04/20/18). Situational depression (04/20/18). Surgical History . History of arthroscopy of knee. Status post abdominal hysterectomy. Status post total bilateral knee replacement PREVIOUS FUNCTIONAL STATUS/SOCIAL/FAMILY SUPPORTS:: Resides in [place], with , Riana. He is independent at baseline in the community. CURRENT FUNCTIONAL STATUS:: Meliton continues treatment for gastroenteritis; diet advanced this morning monitored for toleration. Has patient been provided with info about the portal/API?: No Did the patient sign up for the portal?: No CODE STATUS:: Full Code INSURANCE COVERAGE / FINANCIAL ISSUES:: BC/BS CURRENT HOME/COMMUNITY SERVICES/EQUIPMENT:: None, currently. PRIMARY CARE PHYSICIAN:: Juice Jensen POTENTIAL DISCHARGE NEEDS:: Follow up appointments. PATIENT/FAMILY EDUCATION NEEDS:: Review discharge instructions, discuss Ask Me Three. ANTICIPATED BARRIERS TO DISCHARGE:: None identified. TRANSPORTATION:: Via private vehicle with his . PLAN:: Meliton will return home when ready per MD, he will follow up with his PCP and plan of care as prescribed. He will transport via private vehicle with his , Riana.
[2022-07-26] MEDS: Lactated Ringers 1,000 ML 75 ML IV (13:23)
--- NOTE | 2022-07-26 16:22 | W.PM.PROGNOT ---
Date of Service Date of service: 07/26/22 Time of Service: 16:22 Assessment and Plan Assessment and plan (1) Gastroenteritis: Status: Acute Assessment and plan: improved overnight with hydration. advance diet as tolerated. (2) Acute kidney injury: Status: Acute Assessment and plan: improved with hydration, suspect pre-renal d/t dehydration. will avoid nephrotoxic drugs, renal dose as needed. discussed with DR loving Subjective Subjective Patient reports: no new complaints, feels better, tolerating liquids well, voiding w/o difficulty and afebrile; denies shortness of breath Exam Const General: cooperative, comfortable, no acute distress and ill appearing chronically Nutritional Appearance: obese Orientation: alert, awake and oriented x3 HENMT Head: normal to inspection and normocephalic Mouth: oral mucosae normal Eyes Pupils: PERRL Chest Chest: normal inspection of the chest Resp Effort & Inspection: normal respiratory effort Cardio Rate: regular rate GI Inspection: obesity Palpation: soft Auscultation: normal bowel sounds Skin General skin exam: no rashes or lesions noted Neuro General: patient alert, patient awake and patient oriented x3 Cognition: normal cognition Speech: speech normal Gait: normal gait Motor: muscle tone normal throughout Extrem General: normal to inspection Objective Last Vital Signs Temp 37.3 C 07/26/22 15:19 Pulse 84 07/26/22 15:19 Resp 16 07/26/22 15:19 BP 100/60 07/26/22 15:19 Pulse Ox 93 07/26/22 15:26 Laboratory Results - last 24 hr 07/25/22 07/25/22 07/25/22 18:15 18:35 18:35 WBC 7.71 RBC 5.65 Hgb 18.5 H Hct 53.7 H MCV 95 MCH 32.7 MCHC 34.5 RDW 12.1 Plt Count 307 MPV 9.2 Immature Gran % 0.3 Neutrophils % 86.6 Lymphocytes % 8.4 Monocytes % 3.6 Eosinophils % 0.5 Basophils % 0.6 Nucleated RBC % 0.0 Absolute Neutrophils 6.67 Absolute Lymphocytes 0.65 L Absolute Monocytes 0.28 Absolute Eosinophils 0.04 Absolute Basophils 0.05 Sodium 138 Potassium 3.6 Chloride 103 Carbon Dioxide 22.6 Anion Gap 12.4 H BUN 20 H Creatinine 2.1 H Est GFR (CKD-EPI 2020) 34.50 Glucose 191 H Calcium 8.5 Total Bilirubin 1.0 AST 13 L ALT 28 Alkaline Phosphatase 91 Troponin I < 50 Total Protein 7.8 Albumin 4.4 Lipase 24 Urine Color Yellow Urine Clarity Cloudy Urine pH 6.0 Ur Specific [place] >= 1.030 H Urine Protein 100 H Urine Ketones Trace H Urine Blood Negative Urine Nitrite Negative Urine Bilirubin Small H Urine Urobilinogen 0.2 Ur Leukocyte Esterase Negative Urine RBC 0-2 Urine WBC 3-5 Ur Epithelial Cells Rare Urine Crystals Negative Urine Bacteria Moderate Urine Casts 0-2 Hyaline Urine Mucus Moderate Ur Culture Indicated? Yes Urine Glucose Negative COVID-19 Source SARS-CoV-2 (PCR) 07/25/22 07/25/22 07/26/22 21:13 22:16 06:45 WBC RBC Hgb Hct MCV MCH MCHC RDW Plt Count MPV Immature Gran % Neutrophils % Lymphocytes % Monocytes % Eosinophils % Basophils % Nucleated RBC % Absolute Neutrophils Absolute Lymphocytes Absolute Monocytes Absolute Eosinophils Absolute Basophils Sodium 138 Potassium 3.9 Chloride 106 Carbon Dioxide 24.3 Anion Gap 7.7 BUN 20 H Creatinine 1.5 H Est GFR (CKD-EPI 2020) 51.67 Glucose 143 H Calcium 8.1 L Total Bilirubin AST ALT Alkaline Phosphatase Troponin I < 50 Total Protein Albumin Lipase Urine Color Urine Clarity Urine pH Ur Specific [place] Urine Protein Urine Ketones Urine Blood Urine Nitrite Urine Bilirubin Urine Urobilinogen Ur Leukocyte Esterase Urine RBC Urine WBC Ur Epithelial Cells Urine Crystals Urine Bacteria Urine Casts Urine Mucus Ur Culture Indicated? Urine Glucose COVID-19 Source Nasal/Nares SARS-CoV-2 (PCR) Negative
[2022-07-26] MEDS: Normal Saline Flush 10 ML SYR IVP (21:13)
[2022-07-26] MEDS: Donepezil 5 MG TAB 10 MG PO (21:37)
[2022-07-26] MEDS: Zolpidem 5 MG TAB PO (21:37)
[2022-07-27 00:06] VITALS: PULSE 71
[2022-07-27 06:19] LABS: Abs Immature Grans 0.01 10^3/uL (0.0-0.06); Absolute Basophil Count 0.01 10^3/uL (0.0-0.2); Absolute Eosinophil Count 0.13 10^3/uL (0.0-0.7); Absolute Lymphocyte Count 1.56 10^3/uL (1.2-3.4); Absolute Monocyte Count 0.34 10^3/uL (0.1-0.8); Absolute Neutrophil Count 2.82 10^3/uL (1.2-6.7); Basophils % 0.2; Eosinophils % 2.7; HCT 37.1 % (40.0-50.0); HGB 13.2 g/dL (13.5-17.5); Immature Grans % 0.2; MCH 33.8 pg (27.0-33.0); MCHC 35.6 % (32.0-36.0); MCV 95 fL (80-95); MPV 9.6 fL (8.0-11.0); Neutrophils % 57.9; Platelet Count 195 10^3/uL (130-400); RBC 3.91 10^6/uL (4.36-5.78); RDW 12.5 % (11.8-14.1); RDW-SD 43.3 fL; WBC 4.87 10^3/uL (4.4-10.8)
[2022-07-27 06:46] LABS: Anion Gap 6.2 mmol/L (3-11); BUN 17 mg/dL (7-18); CO2 27.8 mmol/L (21.0-32.0); CREATININE 1.3 mg/dL (0.70-1.30); Calcium 8.1 mg/dL (8.5-10.1); Chloride 106 mmol/L (98-107); Estimated GFR 61.35 (mL/min/1.73m2); Glucose 105 mg/dL (74-106); Magnesium 1.4 mg/dL (1.8-2.4); Potassium 3.4 mmol/L (3.5-5.1); Sodium 140 mmol/L (136-145)
[2022-07-27] MEDS: Aspirin E.C. 81 MG TABEC PO (07:41)
[2022-07-27] MEDS: Sertraline 50 MG TAB 75 MG PO (07:42)
[2022-07-27] MEDS: Pantoprazole 40 MG TABCR PO (07:42)
[2022-07-27] MEDS: Isosorbide Mononitrate 60 MG TABCR PO (07:42)
[2022-07-27] MEDS: Normal Saline Flush 10 ML SYR IVP (07:43)
[2022-07-27] MEDS: Tamsulosin 0.4 MG CAPCR PO (07:43)
[2022-07-27 07:53] VITALS: PULSE 84
[2022-07-27] MEDS: Magnesium Chloride 64 MG TABCR PO (10:50)
[2022-07-27] MEDS: Potassium Chloride 20 MEQ TABCR 40 MEQ PO (10:50)
--- NOTE | 2022-07-27 10:58 | DSE_ITS ---
Date of service: 07/27/22 Time of Service: 10:58 DS: Diagnosis Discharge Diagnosis (1) Gastroenteritis: Status: Acute Asessment and Plan: No nausea, no vomiting (2) Acute kidney injury: Status: Acute Asessment and Plan: Improved - BUN 17 Creat 1.3 Discharge Plan Disposition Patient Disposition: HOME Condition: Serious Discharge Details Reason For Visit: Gastroenteritis Admit Date/Time: 07/25/22 20:55 Admit Provider: Dago Garrett Attending Provider: Dago Garrett Primary Care Provider: Juice Jensen Hospital Course Hospital Course: 62 year old male patient with chief complaint of two days of vomiting and watery diarrhea, which he reported came on a few hours after eating a hamburger at a restaurant. Vague and variable abdominal pain, no fever. Seen twice at [facility], white count 12, u/a 0-[address] showing nonspecifric bilateral perinephric stranding. Diagnosed with gastroenteritis and was given Bentyl. After first dose of Bentyl patient developed hives, and presented to the [facility] emergency department.? Of note for temp 36.7, diffuse hives, white count 7.7, 3-5 WBC per hpf on U/A and BUN/Cr 20/2.1 (18/1.5 yesterday at [facility]). Patient given steroids and antihistamines, and single dose Rocephin. Patient states he had only one episode of diarrhea here in ED.? He was placed on observation status on the medical floor for hydration and antiemetics.? He had a restful night and had no complaints in the morning.? He was tolerating solids.? His vital signs were stable.? He was given potassium and magnesium which were low secondary to vomiting and diarrhea.? He was discharged to home with family with no services, stable. ?? ? Home Meds and New Rx's Prescriptions: Continued losartan 50 mg Tablet 50 mg PO DAILY atorvastatin 80 mg Tablet 80 mg PO DAILY donepezil 10 mg Tablet 10 mg PO QHS aspirin 81 mg Tablet,Delayed Release (Dr/Ec) 81 mg PO DAILY isosorbide mononitrate 60 mg Tablet Extended Release 24 Hr 60 mg PO DAILY tamsulosin 0.4 mg Capsule 0.4 mg PO DAILY pantoprazole 40 mg Tablet,Delayed Release (Dr/Ec) 40 mg PO DAILY nitroglycerin 0.4 mg Tablet, Sublingual 0.4 mg SUBLINGUAL Q5-15M PRN Rx Instructions: do not exceed 3 doses per episode magnesium 250 mg Tablet 500 mg PO DAILY PRN ondansetron 4 mg Tablet,Disintegrating 4 mg PO Q6H PRN sertraline 50 mg Tablet 75 mg PO DAILY loratadine 10 mg Tablet 10 mg PO DAILY PRN multivit, min no.88-folic acid 250 mcg Capsule 1 cap PO DAILY zaleplon 5 mg capsule 1 cap PO QHS Label Comments: Take 1 capsule by mouth at bedtime as needed Discharge Instructions Instructions: Acute Nausea and Vomiting (DC) Additional Instructions: Advance diet slowly. Drink lots of fluids. You have ondansetron at home if your nausea returns. Bentyl (dicyclomine) has been added to your allergy list, be sure to keep that information with your medication list. Your PCP will get a copy of this hospital stay. Stand Alone Forms: Nursing Discharge Form Referrals: Juice Jensen [Primary Care Provider] - ( Please call you Primary care Doctor for a Follow up in 1-2 weeks [phone]) Activity:: Activity as Tolerated Equipment/Supplies:: No Equipment Needed Diet:: As Tolerated Discharge Orders Discharge Orders: Discharge Order (Routine); Ordered 07/27/22 Ordered By: Mary Patterson Discharge Data Discharge Date/Time-TO BE ENTERED AT DEPARTURE: 07/27/22 13:14 DS: Summary Time Spent with Patient providing and/or coordinating discharge services: Less than 30 minutes Status at Discharge Functional status at discharge: independent ambulation Overall status at discharge: patient is back to baseline Mental Status: mental status grossly normal Speech and Movement: speech and movement normal Mood: congruent mood Affect: normal affect Exam Const General: cooperative, comfortable and no acute distress Nutritional Appearance: obese Orientation: alert, awake and oriented x3 HENMT Head: normal to inspection and normocephalic Mouth: oral mucosae normal Eyes Pupils: PERRL Chest Chest: normal inspection of the chest Resp Effort & Inspection: normal respiratory effort Cardio Rate: regular rate GI Inspection: obesity Palpation: soft Auscultation: normal bowel sounds Skin General skin exam: no rashes or lesions noted Neuro General: patient alert, patient awake and patient oriented x3 Cognition: normal cognition Speech: speech normal Gait: normal gait Motor: muscle tone normal throughout Extrem General: normal to inspection Psych Mental Status: mental status grossly normal Speech and Movement: speech and movement normal Mood: congruent mood Affect: normal affect DS: Data Vitals/I&O Vitals and I&O: Vital Signs Temperature 37.0 C 07/26/22 22:54 Temperature Source Tympanic 07/26/22 22:54 Pulse 71 07/27/22 00:06 Pulse Rhythm Regular 07/27/22 08:00 Pulse 93 H 07/25/22 21:31 Respiratory Rate 16 07/26/22 22:54 Respiratory Effort 07/27/22 08:00 Respiratory Depth Normal 07/27/22 08:00 Respiratory Pattern Normal 07/27/22 08:00 Blood Pressure 101/66 07/26/22 22:54 Blood Pressure Mean 86 07/25/22 21:30 Blood Pressure Position Sitting 07/25/22 17:42 Pulse Oximetry 92 07/26/22 22:54 Oxygen Delivery Method Room Air 07/26/22 22:54 Oxygen Flow Rate 0 07/26/22 22:54 Pain Level 0 07/26/22 22:54 Intake & Output 07/26/22 07/26/22 07/27/22 11:59 23:59 11:59 Intake Total 966.667 / 3312.917 2346.25 / 3312.917 Output Total 450 / 850 400 / 850 1225 / 1225 Balance 516.667 / 2462.917 1946.25 / 2462.917 -1225 / -1225 Intake: IV 966.667 / 2312.917 1346.25 / 2312.917 Oral 1000 / 1000 Output: Urine 450 / 850 400 / 850 1225 / 1225 Other: Urine Color Light Jacque Yellow Pale Yellow Urine Appearance Clear Clear Clear Urine Odor None Normal Stool Size Moderate Stool Characteristics Liquid Voiding Methods Urinal Urinal Urinal Data Completed and Pending Labs on day of discharge: Labs from last 24 hours 07/27/22 07/27/22 05:46 05:46 WBC 4.87 RBC 3.91 L Hgb 13.2 L D Hct 37.1 L MCV 95 MCH 33.8 H MCHC 35.6 RDW 12.5 Plt Count 195 MPV 9.6 Immature Gran % 0.2 Neutrophils % 57.9 Lymphocytes % 32.0 Monocytes % 7.0 Eosinophils % 2.7 Basophils % 0.2 Nucleated RBC % 0.0 Absolute Neutrophils 2.82 Absolute Lymphocytes 1.56 Absolute Monocytes 0.34 Absolute Eosinophils 0.13 Absolute Basophils 0.01 Sodium 140 Potassium 3.4 L Chloride 106 Carbon Dioxide 27.8 Anion Gap 6.2 BUN 17 Creatinine 1.3 Est GFR (CKD-EPI 2020) 61.35 Glucose 105 Calcium 8.1 L Magnesium 1.4 L PFSH All Active Problems (Updated 07/26/22 @ 22:35 by LUIZ De La Rosa) Acute UTI (Acute) Acute kidney injury (Acute) Gastroenteritis (Acute) Social History Smoking/Tobacco Use Status: Current every day Tobacco Type: smokeless tobacco Smoking risk assessment performed?: Yes Alcohol Intake: never Drug use: Never Substance use type: does not use Do you feel safe at home: Yes Do you feel safe in your relationship?: Yes
[2022-07-27 11:12] VITALS: BP 110/68; PULSE 69; RESP 14; TEMP 36.6; O2SAT 92
--- NOTE | 2022-07-27 18:20 | PDOC.CMDIS ---
- If Service Date Differs Date of service: 07/27/22 Time of Service: 18:20 LACE Index Scoring Tool - Questions: Length of Stay (in days): 2 Acuity (Admit via E.D.?): Yes Comorbidities: Mild Liver/Renal Disease, Any Tumor E.D. Visits: 1 - Answers: Total Score: 11 Risk of Readmission: High Risk Care Management Discharge Reason for Hospitalization: Gastroenteritis Discharge Plan: Ray will return home when ready per MD, he will follow up with his PCP and plan of care as prescribed. He will transport via private vehicle with his , Riana. Patient/Family Education Needs: Review discharge instructions discuss Ask Me Three.
== END 2022-07-27 13:14 | disposition home or self-care (01) ==
LOC: ER 21:03 → MS 21:40
PROVIDERS: Internal Medicine; Admitting Provider General Practice; Emergency Provider Physician Assistant; PCP Internal Medicine; Visit Provider General Practice
DX: K52.9 Noninfective gastroenteritis and colitis, unspecified (principal); N17.9 Acute kidney failure, unspecified; I44.4 Left anterior fascicular block; Z20.822 Contact with and (suspected) exposure to COVID-19; F17.290 Nicotine dependence, other tobacco product, uncomplicated; E83.42 Hypomagnesemia; E87.6 Hypokalemia; R10.9 Unspecified abdominal pain; L50.0 Allergic urticaria; T44.3X5A Adverse effect of other parasympatholytics [anticholinergics and antimuscarinics] and spasmolytics, initial encounter; R93.422 Abnormal radiologic findings on diagnostic imaging of left kidney; R93.421 Abnormal radiologic findings on diagnostic imaging of right kidney
CPT/HCPCS: 36415; 80048; 80053; 83690; 87040; 87635; 93005; 96361; 96365; 96367; 96374; 96375; 96376; 99285; 81003; 81015; 83735; 84484; 85025; 87086; 93010; 99217; 99219; 99225; G0378; J0131; J0696; J0780; J1200; J2405; J2930